=== PATIENT | female | born 1955 | race Caucasian/White ===

== ENCOUNTER 2016-10-02 12:33 | Observation (INO) | payer BC ==
[2016-10-02 13:20] VITALS: BMI 30.1
--- NOTE | 2016-10-02 15:26 | C.PDOC ---
History Of Present Illness The patient, a 61 y/o female, was referred to the emergency department by range mechanic for evaluation of a worsening left foot infection. Patient states she is s/p Omnicef for 1 week. Patient states she initially experienced redness to her lower leg. She states those symptoms have now improved but she now has new onset of pus discharge from her left 1st toe today. Patient is s/p I&D procedure prior to arrival, and was advised to come to the ER for IV antibiotics. Patient denies fever, nausea, vomiting, diarrhea. She reports history of DM. REFERRED BY PODIATRY FOR WORSENING L FOOT INFXN. S/P OMNICEF X 1 WEEK, PS INITIALY W REDNESS TO LOWER LEG. NOW IMPROVED BUT W NEW OSNET PUS DC FROM L 1 TOE TODAY. S/P I&D BY PODIATRY POWER GENERATION TECHNICIAN, ADVISED TO COME TO ER FOR IV ABX. NO FEVER, NVD. HO DM EXAM NAD NONTOXIC EXT L FOOT +DRAINING PARONYCHIA L 1 TOE W PURULENT DC; SKIN +CELLULITIS L 1 TOE NO LYMPHANGITIS Time Seen by Provider: 10/02/16 15:04 Chief Complaint (Nursing): Abnormal Skin Integrity History Per: Patient History/Exam Limitations: no limitations Onset/Duration Of Symptoms: Hrs Current Symptoms Are (Timing): Still Present Location Of Injury: Left: Foot Quality Of Symptoms: Draining Additional History Per: Patient Past Medical History Reviewed: Historical Data, Nursing Documentation, Vital Signs Vital Signs: Last Vital Signs Temp 98.2 F 10/02/16 13:20 Pulse 90 10/02/16 13:20 Resp 18 10/02/16 13:20 BP 110/60 10/02/16 13:20 Pulse Ox 98 10/02/16 16:31 - Medical History PMH: HTN, Hypercholesterolemia Surgical History: No Surg Hx Family History: States: Unknown Family Hx - Social History Hx Alcohol Use: No Hx Substance Use: No - Immunization History Hx Tetanus Toxoid Vaccination: Yes Hx Influenza Vaccination: Yes Hx Pneumococcal Vaccination: Yes Review Of Systems Except As Marked, All Systems Reviewed And Found Negative. Constitutional: Negative for: Fever, Chills Gastrointestinal: Negative for: Nausea, Vomiting, Diarrhea Skin: Positive for: Other (+discharge from L 1st toe ) Physical Exam - Physical Exam Appears: Non-toxic, No Acute Distress Skin: Warm, Dry, Other (+cellulitis to left 1st toe. no lymphangitis ) Head: Atraumatic, Normacephalic Eye(s): bilateral: Normal Inspection, EOMI Oral Mucosa: Moist Neck: Supple Chest: Symmetrical, No Deformity, No Tenderness Cardiovascular: Rhythm Regular, No Murmur Respiratory: Normal Breath Sounds, No Rales, No Rhonchi, No Wheezing Extremity: Normal ROM, Capillary Refill (less than 2 seconds), Other (left foot : +draining paronychia to left 1st toe with purulent discharge ) Pulses: Left Dorsalis Pedis: Normal, Right Dorsalis Pedis: Normal Neurological/Psych: Oriented x3, Normal Speech, Normal Cognition Gait: Steady ED Course And Treatment - Laboratory Results Result Diagrams: 10/02/16 17:14 10/02/16 17:14 O2 Sat by Pulse Oximetry: 98 (on RA) Pulse Ox Interpretation: Normal - Radiology CXR: Interpreted by Me CXR Interpretation: Yes: No Acute Disease - Other Rad L TOE X-Ray: Interpreted by Me (NEG) Progress Note: Labs, CXR, Left foot XR, EKG ordered and reviewed. Pt received Vancomycin IV. - Physician Consult Information Time Consulting Physician Contacted: 17:40 Physician Contacted: Chico Zambrano Disposition Counseled Patient/Family Regarding: Studies Performed, Diagnosis - Disposition Disposition: HOSPITALIZED Disposition Time: 17:40 Condition: STABLE - POA Present On Arrival: Poor Glycemic Control - Clinical Impression Clinical Impression: Cellulitis, Paronychia, Diabetes - Scribe Statement The provider has reviewed the documentation as recorded by the Scribe (Ilana Anderson) Provider Attestation: All medical record entries made by the Scribe were at my direction and personally dictated by me. I have reviewed the chart and agree that the record accurately reflects my personal performance of the history, physical exam, medical decision making, and the department course for this patient. I have also personally directed, reviewed, and agree with the discharge instructions and disposition. Decision To Admit - Pt Status Changed To: Hospital Disposition Of: Observation - . Bed Request Type: Regular Admitting Physician: Chico Zambrano Patient Diagnosis: Cellulitis, Paronychia
--- NOTE | 2016-10-02 16:51 | RAD ---
PROCEDURE: CHEST RADIOGRAPH, 1 VIEW HISTORY: MED CLEAR COMPARISON: None available. FINDINGS: LUNGS: Poor inspiration with low lung volumes, mild crowded bronchovascular markings and minor bibasilar atelectasis. PLEURA: No pneumothorax or pleural fluid seen. CARDIOVASCULAR: Normal. OSSEOUS STRUCTURES: No significant abnormalities. VISUALIZED UPPER ABDOMEN: Normal. OTHER FINDINGS: None. IMPRESSION: Poor inspiration with low lung volumes, mild crowded bronchovascular markings and minor bibasilar atelectasis.
--- NOTE | 2016-10-02 16:55 | RAD ---
PROCEDURE: Left great toe dated 10/02/2016 HISTORY: PARONYCHIA. Cellulitis HO DM RO FA COMPARISON: No prior study available for comparison TECHNIQUE: PA view of the left foot and 3 additional views of the left great toe performed. FINDINGS: The current study reveals no evidence of acute displaced fracture nor dislocation. The osseous structures appear grossly intact. No cortical destructive changes on seen at this time. There is mild hallux valgus deformity with overgrowth of the head of the 1st metatarsal and mild to moderate DJD 1st MTP joint with overlying mild medial soft tissue prominence. . There may be a small benign cystic focus within the distal aspect proximal phalanx great toe. . Soft tissues of the distal aspect great toe also prominent. Findings could represent cellulitis. Consider followup MRI for further evaluation if necessary. Vascular calcifications are present. IMPRESSION: No evidence of acute displaced fracture or dislocation. No definitive evidence of osteomyelitis however of prominent soft tissues suggest mild cellulitis. Consider followup MRI if early osteomyelitis suspected clinically.
[2016-10-02 17:21] LABS: BASO # 0.2 K/uL (0.0-0.2); EOS # 0.2 K/uL (0.0-0.7); EOS % 1.9 % (0.0-4.0); HEMATOCRIT 36.3 % (34.0-47.0); LYMPH # 3.4 K/uL (1.0-4.3); LYMPH % 38.6 % (20.0-40.0); MEAN CELL VOLUME 89.7 fL (81.0-99.0); MEAN CORPUSCULAR HEMOGLOBIN 29.3 pg (27.0-31.0); MEAN CORPUSCULAR HGB CONC 32.6 g/dL (33.0-37.0); MEAN PLATELET VOLUME 10.7 fL (7.2-11.7); MONO # 0.7 K/uL (0.0-0.8); MONO % 7.4 % (0.0-10.0); WHITE BLOOD COUNT 8.9 K/uL (4.8-10.8)
[2016-10-02 17:25] LABS: CHLORIDE 96 mmol/L (98-107); POTASSIUM 3.5 mmol/L (3.6-5.2); SODIUM 138 mmol/L (132-148)
[2016-10-02 17:28] LABS: BLOOD UREA NITROGEN 13 mg/dL (7-17); CARBON DIOXIDE 26 mmol/L (22-30); GFR AFRICAN-AMERICAN > 60
[2016-10-02 17:29] LABS: CALCIUM 8.9 mg/dl (8.6-10.4); GLUCOSE,RANDOM 340 mg/dL (65-105)
[2016-10-02] MEDS ORDERED: Potassium Chloride 20 mEq ER Tab PO STA (18:18)
--- NOTE | 2016-10-02 18:19 | CP.PCM.HP ---
<Tres Calvert - Last Filed: 10/02/16 20:02> History of Present Illness - History of Present Illness History of Present Illness: CC: Left big toe infection HPI: Patient is a 61 year old female with a pmh of NIDDM, HTN, and hyperlipedmia. She is here coming from her Podiatry office. She noticed some pain and swelling about a week ago with some purulent drainage. She went to her doctor's office where she was given PO antibiotics which she took for about a week.She says that after she sent to the joint yarner office today she has felt no more pain, after all the puss was removed from the site of infection. She denies having any changes in vision, hearing, fever, chills, nausea, vomiting, diarrhea, shortness of breathing, palpitations, chest pain, dysuria, lower leg swelling, dizziness, anxiety or depression. She reports taking her medication as prescribed. PMH: see above PSH: denies PFH: Mother and daughter DM SH: Patient is retired, lives with and currently denies smoking, etoh use, or illicit drug use Allergies: NDKA Present on Admission - Present on Admission Any Indicators Present on Admission: No History of DVT/PE: No History of Uncontrolled Diabetes: No Urinary Catheter: No Decubitus Ulcer Present: No Review of Systems - Review of Systems All systems: reviewed and no additional remarkable complaints except - Constitutional Constitutional: absent: Chills, Fever - EENT Eyes: absent: Change in Vision Ears: absent: Dizziness - Cardiovascular Cardiovascular: absent: Chest Pain, Edema, Palpitations - Respiratory Respiratory: absent: Dyspnea - Gastrointestinal Gastrointestinal: absent: Abdominal Pain, Diarrhea, Nausea, Vomiting - Genitourinary Genitourinary: absent: Dysuria - Musculoskeletal Musculoskeletal: absent: Numbness, Tingling - Integumentary Integumentary: Rash, Skin Pain, Skin Ulcer, Swelling. absent: Jaundice - Neurological Neurological: absent: Numbness, Headaches, Loss of Vision - Psychiatric Psychiatric: absent: Anxiety, Hopelessness, Irritability - Endocrine Endocrine: absent: Fatigue Past Patient History - Past Social History Smoking Status: Never Smoked - CARDIAC Hx Hypercholesterolemia: Yes Hx Hypertension: Yes - PSYCHIATRIC Hx Substance Use: No - SURGICAL HISTORY Hx Surgeries: Yes Other/Comment: lower leg surgery Meds Allergies/Adverse Reactions: Allergies Allergy/AdvReac Type Severity Reaction Status Date / Time No Known Allergies Allergy Verified 10/02/16 13:19 Physical Exam - Constitutional Appears: Non-toxic, No Acute Distress - Head Exam Head Exam: ATRAUMATIC, NORMAL INSPECTION, NORMOCEPHALIC - Eye Exam Eye Exam: Normal appearance, PERRL Pupil Exam: NORMAL ACCOMODATION - ENT Exam ENT Exam: Normal Exam - Neck Exam Neck exam: Positive for: Normal Inspection - Respiratory Exam Respiratory Exam: Clear to Auscultation Bilateral. absent: Rales, Rhonchi, Wheezes - Cardiovascular Exam Cardiovascular Exam: REGULAR RHYTHM, RRR, +S1, +S2. absent: Gallop, Rubs - GI/Abdominal Exam GI & Abdominal Exam: Normal Bowel Sounds. absent: Guarding, Rebound, Soft, Tenderness - Extremities Exam Extremities exam: Positive for: normal inspection. Negative for: pedal edema - Back Exam Back exam: NORMAL INSPECTION. absent: CVA tenderness (L), CVA tenderness (R) - Psychiatric Exam Psychiatric exam: Normal Affect, Normal Mood - Skin Skin Exam: Normal Color Results - Vital Signs Recent Vital Signs: Last Vital Signs Temp 98.2 F 10/02/16 13:20 Pulse 90 10/02/16 13:20 Resp 18 10/02/16 13:20 BP 110/60 10/02/16 13:20 Pulse Ox 98 10/02/16 17:41 - Labs Result Diagrams: 10/02/16 17:14 10/02/16 17:14 Assessment & Plan (1) Cellulitis Assessment and Plan: Patient was given Vancomycin in the Ed, lab work in the ED was unremarkable. She had an x-ray which showed no signs of osteomylitis. Follow up morning cbc, cmp,mag,phos, blood and wound culture, esr, and CRP. Follow up Podiatry consult Dr. Vegas, phone call was left with answering service with return number left. Vancomycin 1gram Q12H Zosyn 3.375gm Q8H Tylenol 650mg Q6H prn for pain Status: Acute (2) Hypokalemia Assessment and Plan: potassium 3.5, Kdur 20meq, follow up am cmp Status: Acute (3) Diabetes Assessment and Plan: katy BS was 340, follow up Hem A1C, accu checks and sliding scale medium protocol, continue home Trajenta 5mg. Continue Neurontin 300mg tid for neuropathy Status: Acute (4) HTN (hypertension) Assessment and Plan: Metoperolol 25mg bid, Ramapril 5mg, vital signs Q4H. Status: Acute (5) HLD (hyperlipidemia) Assessment and Plan: Continue statin and lethicin. Status: Acute (6) Prophylactic measure Assessment and Plan: Pepcid 20mg bid SCDs and Heparin 5000 units SC Q12H. Status: Acute <Zambrano,Peter H - Last Filed: 10/03/16 13:55> Results - Vital Signs Recent Vital Signs: Last Vital Signs Temp 98.4 F 10/03/16 08:54 Pulse 84 10/03/16 08:54 Resp 20 10/03/16 08:54 BP 130/74 10/03/16 09:30 Pulse Ox 95 10/03/16 08:54 - Labs Result Diagrams: 10/03/16 07:04 10/03/16 07:04 Labs: Laboratory Results - last 24 hr 10/02/16 10/02/16 10/03/16 21:04 21:28 07:04 WBC 7.8 RBC 3.97 Hgb 11.8 Hct 35.6 MCV 89.7 MCH 29.7 MCHC 33.2 RDW 13.3 Plt Count 289 MPV 10.9 Neut % (Auto) 47.0 L Lymph % (Auto) 40.8 H [place] % (Auto) 9.6 Eos % (Auto) 2.2 Baso % (Auto) 0.4 Neut # 3.7 Lymph # 3.2 [place] # 0.7 Eos # 0.2 Baso # 0.0 ESR 70 H Sodium 140 Potassium 3.4 L Chloride 98 Carbon Dioxide 24 Anion Gap 21 H BUN 12 Creatinine 0.5 L Est GFR ( Amer) > 60 Est GFR (Non-Af Amer) > 60 POC Glucose (mg/dL) 339 H Random Glucose 286 H Hemoglobin A1c 13.0 H Calcium 8.6 Total Bilirubin 1.7 H AST 19 ALT 20 Alkaline Phosphatase 58 C-React Prot High Sens > 15.00 H Total Protein 6.6 Albumin 3.5 Globulin 3.1 Albumin/Globulin Ratio 1.1 10/03/16 10/03/16 07:30 11:12 WBC RBC Hgb Hct MCV MCH MCHC RDW Plt Count MPV Neut % (Auto) Lymph % (Auto) [place] % (Auto) Eos % (Auto) Baso % (Auto) Neut # Lymph # [place] # Eos # Baso # ESR Sodium Potassium Chloride Carbon Dioxide Anion Gap BUN Creatinine Est GFR ( Amer) Est GFR (Non-Af Amer) POC Glucose (mg/dL) 307 H 336 H Random Glucose Hemoglobin A1c Calcium Total Bilirubin AST ALT Alkaline Phosphatase C-React Prot High Sens Total Protein Albumin Globulin Albumin/Globulin Ratio Attending/Attestation - Attestation I have personally seen and examined this patient.: Yes I have fully participated in the care of the patient.: Yes I have reviewed all pertinent clinical information: Yes Notes (Text): Medical Attending: Patient was seen and examined by me. Agree with the above note by the resident Patient was at podiatry office earlier in the day and was recommended to come to the hospital. XRAY by ER did not suggest osteomylitis. Abx have been started as well. She denied having any acute distress when we saw her in the ER. She explains that recently it was much worse and that she had been taking PO abx by podiatry and it was successful at bringing down the swelling and erethema so far but that she still had a lot of pus near her great toe and after it was drained by podiatry she was told to come to the ER thank you Chico Zambrano
[2016-10-02] MEDS ORDERED: Piperacillin/Tazobact 3.375 GM in Sodium Chloride 100 ML IVPB SCH (18:30)
[2016-10-02] MEDS ORDERED: Potassium Chloride 20 mEq ER Tab PO ONE (18:36)
[2016-10-02 19:23] VITALS: RESP 20
[2016-10-02] MEDS ORDERED: Vancomycin 1 gm/NS 200 ml 200 ML IVPB SCH (19:30)
[2016-10-02] MEDS: Piperacill/Tazo 3.375gm in Dex 50 ML IVPB SCH (21:17)
[2016-10-03] MEDS: Piperacill/Tazo 3.375gm in Dex 50 ML IVPB SCH ×4 (01:00→19:53)
[2016-10-03] MEDS: Vancomycin 1 gm/NS 200 ml 200 ML IVPB SCH ×2 (04:30→18:09)
[2016-10-03 07:18] LABS: BASO % 0.4 % (0.0-2.0); EOS # 0.2 K/uL (0.0-0.7); EOS % 2.2 % (0.0-4.0); HEMATOCRIT 35.6 % (34.0-47.0); LYMPH # 3.2 K/uL (1.0-4.3); LYMPH % 40.8 % (20.0-40.0); MEAN CELL VOLUME 89.7 fL (81.0-99.0); MEAN CORPUSCULAR HEMOGLOBIN 29.7 pg (27.0-31.0); MEAN CORPUSCULAR HGB CONC 33.2 g/dL (33.0-37.0); MEAN PLATELET VOLUME 10.9 fL (7.2-11.7); MONO # 0.7 K/uL (0.0-0.8); MONO % 9.6 % (0.0-10.0); RED CELL DISTRIBUTION WIDTH 13.3 % (11.5-14.5); WHITE BLOOD COUNT 7.8 K/uL (4.8-10.8)
[2016-10-03 07:54] LABS: CHLORIDE 98 mmol/L (98-107); POTASSIUM 3.4 mmol/L (3.6-5.2); SODIUM 140 mmol/L (132-148)
[2016-10-03 07:56] LABS: GFR AFRICAN-AMERICAN > 60
[2016-10-03 07:57] LABS: ALB/GLOB RATIO 1.1 (1.0-2.1); ALKALINE PHOSPHATASE 58 U/L (38-126); ALT/SGPT 20 U/L (9-52); AST/SGOT 19 U/L (14-36); BILIRUBIN,TOTAL 1.7 mg/dL (0.2-1.3); BLOOD UREA NITROGEN 12 mg/dL (7-17); CARBON DIOXIDE 24 mmol/L (22-30); GLUCOSE,RANDOM 286 mg/dL (65-105); TOTAL PROTEIN 6.6 g/dL (6.3-8.3)
[2016-10-03 07:58] LABS: CALCIUM 8.6 mg/dl (8.6-10.4)
[2016-10-03] MEDS: (Novolin R) Insulin Human Regular 100 units/ml vial SC SCH ×4 (08:16→21:44)
[2016-10-03] MEDS ORDERED: LECITHIN 1200 MG PO SCH (10:00)
[2016-10-03] MEDS ORDERED: Home Med 1 UNIT (Linagliptin [Tradjenta] 1 TAB) PO SCH (10:00)
--- NOTE | 2016-10-03 14:29 | CP.PCM.CON ---
History of Present Illness - History of Present Illness History of Present Illness: PODIATRY CONSULT NOTE 61 year-old female patient seen at bedside concerning pain in left hallux. Pt states she noticed pain and swelling about a week ago with some purulent drainage. Her regular obiee report developer gave her PO antibiotics which she took for about a week. On Sunday10/02/16 he followed up with her obiee report developer who performed a slantback nail avulsion and recommended her to come to hospital for IV abx as celllutis of hallux had not regressed. Pt reports since admission the redness and swelling to the area has regressed. The patient denies recent fever , chills, nausea, vomiting, chest pain or shortness of breath Past Patient History - Past Medical History & Family History Past Medical History?: Yes - Past Social History Smoking Status: Never Smoked - CARDIAC Hx Hypercholesterolemia: Yes Hx Hypertension: Yes - MUSCULOSKELETAL/RHEUMATOLOGICAL Hx Falls: Yes - PSYCHIATRIC Hx Substance Use: No - SURGICAL HISTORY Hx Surgeries: Yes Other/Comment: lower leg surgery Meds Allergies/Adverse Reactions: Allergies Allergy/AdvReac Type Severity Reaction Status Date / Time No Known Allergies Allergy Verified 10/02/16 13:19 - Medications Medications: Current Medications Acetaminophen (Tylenol 325mg Tab) 650 mg PO Q6 PRN PRN Reason: Pain, severe (8-10) Last Admin: 10/02/16 21:19 Dose: 650 mg Enalapril Maleate (Vasotec) 10 mg PO DAILY [facility] Last Admin: 10/03/16 09:30 Dose: 10 mg Famotidine (Pepcid) 20 mg PO BID [facility] Last Admin: 10/03/16 13:09 Dose: Not Given Gabapentin (Neurontin) 300 mg PO BID [facility] Last Admin: 10/03/16 09:26 Dose: 300 mg Heparin Sodium (Porcine) (Heparin) 5,000 units SC Q12 [facility] Last Admin: 10/03/16 09:26 Dose: 5,000 units Home Med (Lecithin) 1,200 mg PO DAILY [facility] Home Med (Linagliptin [Tradjenta]) 1 tab PO DAILY [facility] Piperacillin Sod/Tazobactam Sod (Zosyn 3.375 Gm Iv Premix) 50 mls @ 100 mls/hr IVPB Q6H [facility] Last Admin: 10/03/16 13:32 Dose: 100 mls/hr Vancomycin/Sodium Chloride (Vancocin) 200 mls @ 133 mls/hr IVPB Q12H [facility] Stop: 10/08/16 05:31 Last Admin: 10/03/16 04:30 Dose: 133 mls/hr Insulin Human Regular (Novolin R) 0 unit SC ACHS [facility] PRN Reason: Protocol Last Admin: 10/03/16 13:29 Dose: 6 unit Metoprolol Tartrate (Lopressor) 25 mg PO DAILY [facility] Last Admin: 10/03/16 09:29 Dose: 25 mg Prasugrel (Effient) 10 mg PO DAILY [facility] Last Admin: 10/03/16 09:25 Dose: 10 mg Rosuvastatin Calcium (Crestor) 20 mg PO HS [facility] Last Admin: 10/02/16 21:18 Dose: 20 mg Physical Exam - Constitutional Appears: Well, Non-toxic, No Acute Distress - Extremities Exam Additional comments: Left lower extremity focused. VASCULAR: Dorsalis pedis and posterior tibial artery pulses are fully palpable , graded 2/4. No edema noted to the lower extremity. Capillary refill time was less than 3 seconds to all 5 digits. No calf tenderness noted. DERMATOLOGICAL: Left medial hallux border is noted to be erythematous with minor purulent discharged on expungement. Medial nail fold covered with serous crust. Tender to palpation, edematous, with mild erythema extending proximally along medial digit border to level of 1st metatarso-phalangeal joint. . All other nails are normotrophic. Medial nail border is asymptomatic. No open wounds, lesions or inter-digital macerations noted. NEUROLOGICAL: Protective sensation is grossly intact. ORTHOPEDIC: Pedal muscle strength is graded 5/5 in all 4 major pedal muscle groups. No gross deformities noted. - Neurological Exam Neurological exam: Alert, Oriented x3 - Psychiatric Exam Psychiatric exam: Normal Affect, Normal Mood Results - Vital Signs Recent Vital Signs: Last Vital Signs Temp 98.4 F 10/03/16 08:54 Pulse 84 10/03/16 08:54 Resp 20 10/03/16 08:54 BP 130/74 10/03/16 09:30 Pulse Ox 95 10/03/16 08:54 - Labs Result Diagrams: 10/03/16 07:04 10/03/16 07:04 Labs: Laboratory Results - last 24 hr 10/02/16 10/02/16 10/03/16 21:04 21:28 07:04 WBC 7.8 RBC 3.97 Hgb 11.8 Hct 35.6 MCV 89.7 MCH 29.7 MCHC 33.2 RDW 13.3 Plt Count 289 MPV 10.9 Neut % (Auto) 47.0 L Lymph % (Auto) 40.8 H [place] % (Auto) 9.6 Eos % (Auto) 2.2 Baso % (Auto) 0.4 Neut # 3.7 Lymph # 3.2 [place] # 0.7 Eos # 0.2 Baso # 0.0 ESR 70 H Sodium 140 Potassium 3.4 L Chloride 98 Carbon Dioxide 24 Anion Gap 21 H BUN 12 Creatinine 0.5 L Est GFR ( Amer) > 60 Est GFR (Non-Af Amer) > 60 POC Glucose (mg/dL) 339 H Random Glucose 286 H Hemoglobin A1c 13.0 H Calcium 8.6 Total Bilirubin 1.7 H AST 19 ALT 20 Alkaline Phosphatase 58 C-React Prot High Sens > 15.00 H Total Protein 6.6 Albumin 3.5 Globulin 3.1 Albumin/Globulin Ratio 1.1 10/03/16 10/03/16 07:30 11:12 WBC RBC Hgb Hct MCV MCH MCHC RDW Plt Count MPV Neut % (Auto) Lymph % (Auto) [place] % (Auto) Eos % (Auto) Baso % (Auto) Neut # Lymph # [place] # Eos # Baso # ESR Sodium Potassium Chloride Carbon Dioxide Anion Gap BUN Creatinine Est GFR ( Amer) Est GFR (Non-Af Amer) POC Glucose (mg/dL) 307 H 336 H Random Glucose Hemoglobin A1c Calcium Total Bilirubin AST ALT Alkaline Phosphatase C-React Prot High Sens Total Protein Albumin Globulin Albumin/Globulin Ratio Assessment & Plan - Assessment and Plan (Free Text) Assessment: Left hallux, paronychia of medial border. Plan: Patient was evaluated and treated bedside. Chart, labs, and vitals were reviewed. Discussed with attending, Dr. Vegas. Radiographs reviewed,noted as unremarkable. Pt appears to be responding to iv abx. Continue IV abx. -Dressed wound site with betadine, 4x4 sherine, kerlix. -Tomorrow in AM partial medial border nail avulsion to be performed to relieve potential offending nail and explore for potential unexplored abscess. Podiatry will continue to follow patient while inhouse. Thank you for allowing podiatry to partake in the care of this patient. - Date & Time Date: 10/03/16 Time: 15:00
--- NOTE | 2016-10-03 16:11 | CP.PCM.PN ---
<Stephanie Cutler - Last Filed: 10/03/16 16:08> Subjective - Date & Time of Evaluation Date of Evaluation: 10/03/16 Time of Evaluation: 07:45 - Subjective Subjective: Internal medicine progress note for Dr. Zambrano- Stephanie Cutler, PGY-1 Pt S & E at bedside. Pt reports no problems overnight. Right toe pain significant improved, swelling significantly improved. Denies N/V/F/C, SOB, CP, ab pain. Slept ok. Eating ok. Moving bowels ok. Pt reports she had a flight [place] for to [place] that she would like to be discharged prior to. Objective - Vital Signs/Intake and Output Vital Signs (last 24 hours): Temp Pulse Resp BP Pulse Ox 98.4 F 84 20 130/74 95 10/03/16 08:54 10/03/16 08:54 10/03/16 08:54 10/03/16 09:30 10/03/16 08:54 Intake and Output: 10/03/16 10/03/16 06:59 18:59 Intake Total 600 300 Balance 600 300 - Medications Medications: Current Medications Acetaminophen (Tylenol 325mg Tab) 650 mg PO Q6 PRN PRN Reason: Pain, severe (8-10) Last Admin: 10/02/16 21:19 Dose: 650 mg Enalapril Maleate (Vasotec) 10 mg PO DAILY [facility] Last Admin: 10/03/16 09:30 Dose: 10 mg Famotidine (Pepcid) 20 mg PO BID [facility] Last Admin: 10/03/16 13:09 Dose: Not Given Gabapentin (Neurontin) 300 mg PO BID [facility] Last Admin: 10/03/16 09:26 Dose: 300 mg Heparin Sodium (Porcine) (Heparin) 5,000 units SC Q12 [facility] Last Admin: 10/03/16 09:26 Dose: 5,000 units Home Med (Lecithin) 1,200 mg PO DAILY [facility] Home Med (Linagliptin [Tradjenta]) 1 tab PO DAILY [facility] Piperacillin Sod/Tazobactam Sod (Zosyn 3.375 Gm Iv Premix) 50 mls @ 100 mls/hr IVPB Q6H [facility] Last Admin: 10/03/16 13:32 Dose: 100 mls/hr Vancomycin/Sodium Chloride (Vancocin) 200 mls @ 133 mls/hr IVPB Q12H [facility] Stop: 10/08/16 05:31 Last Admin: 10/03/16 04:30 Dose: 133 mls/hr Insulin Human Regular (Novolin R) 0 unit SC ACHS [facility] PRN Reason: Protocol Last Admin: 10/03/16 13:29 Dose: 6 unit Metoprolol Tartrate (Lopressor) 25 mg PO DAILY [facility] Last Admin: 10/03/16 09:29 Dose: 25 mg Prasugrel (Effient) 10 mg PO DAILY [facility] Last Admin: 10/03/16 09:25 Dose: 10 mg Rosuvastatin Calcium (Crestor) 20 mg PO HS [facility] Last Admin: 10/02/16 21:18 Dose: 20 mg - Labs Labs: 10/03/16 07:04 10/03/16 07:04 - Constitutional Appears: Non-toxic, No Acute Distress - Head Exam Head Exam: ATRAUMATIC, NORMAL INSPECTION, NORMOCEPHALIC - Eye Exam Eye Exam: EOMI, Normal appearance, PERRL Pupil Exam: NORMAL ACCOMODATION, PERRL - ENT Exam ENT Exam: Mucous Membranes Moist, Normal Exam - Neck Exam Neck Exam: Full ROM, Normal Inspection - Respiratory Exam Respiratory Exam: Clear to Ausculation Bilateral, NORMAL BREATHING PATTERN - Cardiovascular Exam Cardiovascular Exam: REGULAR RHYTHM, +S1, +S2 - GI/Abdominal Exam GI & Abdominal Exam: Soft, Normal Bowel Sounds. absent: Tenderness - Extremities Exam Extremities Exam: Full ROM, Tenderness (minimal, over R hallux) - Back Exam Back Exam: Full ROM, NORMAL INSPECTION - Neurological Exam Neurological Exam: Alert, Awake, CN II-XII Intact, Oriented x3 - Psychiatric Exam Psychiatric exam: Normal Affect, Normal Mood - Skin Skin Exam: Dry, Erythema, Warm. absent: Normal Color (Right hallux w/erythema, some tenderness, some ecchymoses over medial aspect, blood visible at lateral nail bed, no induration palpable) Assessment and Plan - Assessment and Plan (Free Text) Assessment: Cellulitis of Right hallux Afebrile over 24H No leukocytosis R foot x-ray neg for osteomyelitis, sig for soft tissue cellulitis FU Blood cxr FU wound cxr CRP >15 ESR 70 Vancomycin 1gram Q12H Zosyn 3.375gm Q8H Tylenol 650mg Q6H prn for pain Podiatry following Hypokalemia K 3.4 Replaced K 20mEq Diabetes A1c 13 Cont Linagliptin ISS Cont Neurontin 300mg tid for neuropathy Accuchecks Diabetic diet education provided to patient HTN (hypertension) BP 130/74- controlled Cont Metoperolol 25mg bid Cont Ramapril 5mg HLD (hyperlipidemia) Continue statin and lethicin. Prophylactic measure Pepcid 20mg bid SCDs Heparin 5000 units SC Q12H Dispo Podiatry to do bedside nail excision in AM Possible D/C home tomorrow afternoon DW attending <Chico Zambrano H - Last Filed: 10/03/16 16:35> Objective - Vital Signs/Intake and Output Vital Signs (last 24 hours): Temp Pulse Resp BP Pulse Ox 98.4 F 84 20 130/74 95 10/03/16 08:54 10/03/16 08:54 10/03/16 08:54 10/03/16 09:30 10/03/16 08:54 Intake and Output: 10/03/16 10/03/16 06:59 18:59 Intake Total 600 300 Balance 600 300 - Medications Medications: Current Medications Acetaminophen (Tylenol 325mg Tab) 650 mg PO Q6 PRN PRN Reason: Pain, severe (8-10) Last Admin: 10/02/16 21:19 Dose: 650 mg Enalapril Maleate (Vasotec) 10 mg PO DAILY [facility] Last Admin: 10/03/16 09:30 Dose: 10 mg Famotidine (Pepcid) 20 mg PO BID [facility] Last Admin: 10/03/16 13:09 Dose: Not Given Gabapentin (Neurontin) 300 mg PO BID [facility] Last Admin: 10/03/16 09:26 Dose: 300 mg Heparin Sodium (Porcine) (Heparin) 5,000 units SC Q12 [facility] Last Admin: 10/03/16 09:26 Dose: 5,000 units Home Med (Lecithin) 1,200 mg PO DAILY [facility] Home Med (Linagliptin [Tradjenta]) 1 tab PO DAILY [facility] Piperacillin Sod/Tazobactam Sod (Zosyn 3.375 Gm Iv Premix) 50 mls @ 100 mls/hr IVPB Q6H [facility] Last Admin: 10/03/16 13:32 Dose: 100 mls/hr Vancomycin/Sodium Chloride (Vancocin) 200 mls @ 133 mls/hr IVPB Q12H [facility] Stop: 10/08/16 05:31 Last Admin: 10/03/16 04:30 Dose: 133 mls/hr Insulin Human Regular (Novolin R) 0 unit SC ACHS [facility] PRN Reason: Protocol Last Admin: 10/03/16 13:29 Dose: 6 unit Metoprolol Tartrate (Lopressor) 25 mg PO DAILY [facility] Last Admin: 10/03/16 09:29 Dose: 25 mg Prasugrel (Effient) 10 mg PO DAILY [facility] Last Admin: 10/03/16 09:25 Dose: 10 mg Rosuvastatin Calcium (Crestor) 20 mg PO HS [facility] Last Admin: 10/02/16 21:18 Dose: 20 mg - Labs Labs: 10/03/16 07:04 10/03/16 07:04 Attending/Attestation - Attestation I have personally seen and examined this patient.: Yes I have fully participated in the care of the patient.: Yes I have reviewed all pertinent clinical information, including history, physical exam and plan: Yes Notes (Text): 10/03/16 16:34 Medical Attending: Patient was seen and examined by me. Agree with the above note by the resident. The patient explained she felt ok overnight, podiatry is planning on removing the nail of the infected great toe tommorow. In the mean time continue with IV abx thank you Chico Zambrano
[2016-10-03] MEDS ORDERED: Potassium Chloride 20 mEq ER Tab PO ONE (16:15)
--- NOTE | 2016-10-03 19:59 | CARD ---
APPROVED REPORT EKG Measurement Heart [id number] <Conclusion> Normal sinus rhythm Nonspecific ST abnormality Abnormal ECG
[2016-10-04] MEDS: Piperacill/Tazo 3.375gm in Dex 50 ML IVPB SCH ×3 (01:37→13:41)
[2016-10-04] MEDS: Vancomycin 1 gm/NS 200 ml 200 ML IVPB SCH (05:27)
[2016-10-04] MEDS: (Novolin R) Insulin Human Regular 100 units/ml vial SC SCH ×2 (08:30→12:35)
[2016-10-04] MEDS ORDERED: Home Med 1 UNIT (Linagliptin [Tradjenta] 1 TAB) PO SCH ×4 (10:00→12:15)
[2016-10-04] MEDS ORDERED: LECITHIN 1200 MG PO SCH ×4 (10:00→12:15)
[2016-10-04 11:43] LABS: BASO % 0.4 % (0.0-2.0); EOS # 0.2 K/uL (0.0-0.7); EOS % 1.7 % (0.0-4.0); HEMATOCRIT 35.4 % (34.0-47.0); LYMPH # 3.6 K/uL (1.0-4.3); LYMPH % 38.6 % (20.0-40.0); MEAN CELL VOLUME 89.5 fL (81.0-99.0); MEAN CORPUSCULAR HEMOGLOBIN 29.5 pg (27.0-31.0); MONO # 0.8 K/uL (0.0-0.8); MONO % 8.3 % (0.0-10.0); WHITE BLOOD COUNT 9.4 K/uL (4.8-10.8)
[2016-10-04] MEDS ORDERED: Lidocaine 1% Inj (20ml) INFIL ONE (11:47)
--- NOTE | 2016-10-04 11:50 | CP.PCM.PN ---
Subjective - Date & Time of Evaluation Date of Evaluation: 10/04/16 Time of Evaluation: 11:50 - Subjective Subjective: 61 y/o female patient seen and evaluated at bedside for follow up on left foot hallux paronychia. Patient was resting comfortably in bed and in NAD. Patient states that she has pain at medial border of left foot hallux toe nail plate. left foot was dressed with DSD and intact, clean and dry. Patient's presents at bedside. Patient denies any symptoms of N/V/F/SOB/Chest pain. Objective - Vital Signs/Intake and Output Vital Signs (last 24 hours): Temp Pulse Resp BP Pulse Ox 97.2 F L 71 20 130/77 98 10/04/16 07:47 10/04/16 07:47 10/04/16 07:47 10/04/16 07:47 10/04/16 07:47 Intake and Output: 10/04/16 10/04/16 06:59 18:59 Intake Total 480 Balance 480 - Medications Medications: Current Medications Acetaminophen (Tylenol 325mg Tab) 650 mg PO Q6 PRN PRN Reason: Pain, severe (8-10) Last Admin: 10/04/16 05:34 Dose: 650 mg Bacitracin (Bacitracin) 0 gm TOP DAILY [facility] Enalapril Maleate (Vasotec) 10 mg PO DAILY [facility] Last Admin: 10/03/16 09:30 Dose: 10 mg Famotidine (Pepcid) 20 mg PO BID [facility] Last Admin: 10/03/16 18:05 Dose: 20 mg Gabapentin (Neurontin) 300 mg PO BID [facility] Last Admin: 10/03/16 18:05 Dose: 300 mg Heparin Sodium (Porcine) (Heparin) 5,000 units SC Q12 [facility] Last Admin: 10/03/16 21:30 Dose: 5,000 units Home Med (Lecithin) 1,200 mg PO DAILY [facility] Home Med (Linagliptin [Tradjenta]) 1 tab PO DAILY [facility] Piperacillin Sod/Tazobactam Sod (Zosyn 3.375 Gm Iv Premix) 50 mls @ 100 mls/hr IVPB Q6H [facility] Last Admin: 10/04/16 06:32 Dose: 100 mls/hr Vancomycin/Sodium Chloride (Vancocin) 200 mls @ 133 mls/hr IVPB Q12H [facility] Stop: 10/08/16 05:31 Last Admin: 10/04/16 05:27 Dose: 133 mls/hr Insulin Human Regular (Novolin R) 0 unit SC ACHS [facility] PRN Reason: Protocol Last Admin: 10/04/16 08:30 Dose: 6 unit Lidocaine HCl (Lidocaine 1%) 20 ml INFIL ONCE ONE Stop: 10/04/16 11:48 Metoprolol Tartrate (Lopressor) 25 mg PO DAILY [facility] Last Admin: 10/03/16 09:29 Dose: 25 mg Prasugrel (Effient) 10 mg PO DAILY [facility] Last Admin: 10/03/16 09:25 Dose: 10 mg Rosuvastatin Calcium (Crestor) 20 mg PO HS [facility] Last Admin: 10/03/16 21:30 Dose: 20 mg - Labs Labs: 10/04/16 11:33 10/03/16 07:04 - Constitutional Appears: Well, Non-toxic, No Acute Distress - Extremities Exam Additional comments: Left lower extremity focused. VASCULAR: Dorsalis pedis and posterior tibial artery pulses are fully palpable , graded 2/4. No edema noted to the lower extremity. Capillary refill time was less than 3 seconds to all 5 digits. No calf tenderness noted. DERMATOLOGICAL: Left medial hallux border is noted to be erythematous with minor purulent discharged on expungement. Medial nail fold covered with serous crust. Tender to palpation, edematous, with mild erythema extending proximally along medial digit border to level of 1st metatarso-phalangeal joint. . All other nails are normotrophic. Medial nail border is asymptomatic. No open wounds, lesions or inter-digital macerations noted. NEUROLOGICAL: Protective sensation is grossly intact. ORTHOPEDIC: Pedal muscle strength is graded 5/5 in all 4 major pedal muscle groups. No gross deformities noted. - Neurological Exam Neurological Exam: Alert, Awake - Psychiatric Exam Psychiatric exam: Normal Affect, Normal Mood Assessment and Plan - Assessment and Plan (Free Text) Assessment: 61 y/o female patient with paronychia of medial border of hallux left foot Plan: Patient seen and evaluated at bedside All the questions and concerns were addressed Discussed with attending Dr. Vegas Left foot was cleansed with sterile saline solution Left hallux was injected with 6 ml of 1% Lidocaine plain as hallux block Medial border of left foot hallux nail plate was removed with sterile nail kit. Patient tolerated the procedure well The procedure site was dressed with Bacitracin and DSD. Advised patient to follow up with [facility] Podiatry clinic next Sunday morning Surgical shoe will be dispensed Dressing change instruction was given. Podiatry standpoint: Patient is stable to be discharged home
[2016-10-04 11:54] LABS: CHLORIDE 98 mmol/L (98-107); POTASSIUM 3.5 mmol/L (3.6-5.2); SODIUM 138 mmol/L (132-148)
[2016-10-04 11:56] LABS: BILIRUBIN,TOTAL 1.6 mg/dL (0.2-1.3); CARBON DIOXIDE 23 mmol/L (22-30); GFR AFRICAN-AMERICAN > 60
[2016-10-04 11:57] LABS: ALB/GLOB RATIO 1.1 (1.0-2.1); ALKALINE PHOSPHATASE 60 U/L (38-126); ALT/SGPT 18 U/L (9-52); AST/SGOT 13 U/L (14-36); BLOOD UREA NITROGEN 14 mg/dL (7-17); CALCIUM 9.2 mg/dl (8.6-10.4); GLUCOSE,RANDOM 342 mg/dL (65-105); TOTAL PROTEIN 6.9 g/dL (6.3-8.3)
[2016-10-04] MEDS ORDERED: Bacitracin Ointment 30 GM TUBE TOP SCH (12:00)
--- NOTE | 2016-10-04 14:45 | CP.PCM.DIS ---
<Stephanie Cutler - Last Filed: 10/04/16 15:11> Provider - Provider Date of Admission: 10/02/16 17:41 Attending physician: Chico Zambrano DO Primary care physician: Talib Medley Consults: PodiatryMitesh Vegas Time Spent in preparation of Discharge (in minutes): 60 Hospital Course - Lab Results Lab Results: Most Recent Lab Values WBC 9.4 K/uL (4.8-10.8) 10/04/16 11:33 RBC 3.96 Mil/uL (3.80-5.20) 10/04/16 11:33 Hgb 11.7 g/dL (11.0-16.0) 10/04/16 11:33 Hct 35.4 % (34.0-47.0) 10/04/16 11:33 MCV 89.5 fL (81.0-99.0) 10/04/16 11:33 MCH 29.5 pg (27.0-31.0) 10/04/16 11:33 MCHC 33.0 g/dL (33.0-37.0) 10/04/16 11:33 RDW 13.0 % (11.5-14.5) 10/04/16 11:33 Plt Count 323 K/uL (130-400) 10/04/16 11:33 MPV 11.0 fL (7.2-11.7) 10/04/16 11:33 Neut % (Auto) 51.0 % (50.0-75.0) 10/04/16 11:33 Lymph % (Auto) 38.6 % (20.0-40.0) 10/04/16 11:33 Gulf % (Auto) 8.3 % (0.0-10.0) 10/04/16 11:33 Eos % (Auto) 1.7 % (0.0-4.0) 10/04/16 11:33 Baso % (Auto) 0.4 % (0.0-2.0) 10/04/16 11:33 Neut # 4.8 K/uL (1.8-7.0) 10/04/16 11:33 Lymph # 3.6 K/uL (1.0-4.3) 10/04/16 11:33 Gulf # 0.8 K/uL (0.0-0.8) 10/04/16 11:33 Eos # 0.2 K/uL (0.0-0.7) 10/04/16 11:33 Baso # 0.0 K/uL (0.0-0.2) 10/04/16 11:33 ESR 70 mm/hr (0-20) H 10/02/16 21:04 Sodium 138 mmol/L (132-148) 10/04/16 11:33 Potassium 3.5 mmol/L (3.6-5.2) L 10/04/16 11:33 Chloride 98 mmol/L (98-107) 10/04/16 11:33 Carbon Dioxide 23 mmol/L (22-30) 10/04/16 11:33 Anion Gap 20 (10-20) 10/04/16 11:33 BUN 14 mg/dL (7-17) 10/04/16 11:33 Creatinine 0.6 MG/DL (0.7-1.2) L 10/04/16 11:33 Est GFR ( Amer) > 60 10/04/16 11:33 Est GFR (Non-Af Amer) > 60 10/04/16 11:33 POC Glucose (mg/dL) 303 mg/dL (65-110) H 10/04/16 11:12 Random Glucose 342 mg/dL (65-105) H 10/04/16 11:33 Hemoglobin A1c 13.0 % (4.2-6.5) H 10/03/16 07:04 Calcium 9.2 mg/dl (8.6-10.4) 10/04/16 11:33 Total Bilirubin 1.6 mg/dL (0.2-1.3) H 10/04/16 11:33 AST 13 U/L (14-36) L D 10/04/16 11:33 ALT 18 U/L (9-52) 10/04/16 11:33 Alkaline Phosphatase 60 U/L (38-126) 10/04/16 11:33 C-React Prot High Sens > 15.00 mg/L (1.00-3.00) H 10/02/16 21:04 Total Protein 6.9 g/dL (6.3-8.3) 10/04/16 11:33 Albumin 3.6 g/dL (3.5-5.0) 10/04/16 11:33 Globulin 3.3 gm/dL (2.2-3.9) 10/04/16 11:33 Albumin/Globulin Ratio 1.1 (1.0-2.1) 10/04/16 11:33 - Hospital Course Hospital Course: Patient is a 61 year old female with a pmh of NIDDM, HTN, and hyperlipedmia. She is here coming from her Podiatry office. She noticed some pain and swelling about a week ago with some purulent drainage. 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 She denies having any changes in vision, hearing, fever, chills, nausea, vomiting, diarrhea , shortness of breathing, palpitations, chest pain, dysuria, lower leg swelling , dizziness, anxiety or depression. She reports taking her medication as prescribed. Patient admitted to hospital for IV antibiotics and evaluation for possible osteomyelitis of left hallux. Imaging studies negative for osteomyelitis. Patient with transient hypokalemia- treated and resolved. Patient evaluated for diabetic status- Hemoglobin A1c was 13. Patient instructed to decrease dietary intake of sugar. Dietary referral placed. Patient instructed to follow up with primary care for better diabetic sugar control. Patient's blood pressure was appropriately controlled during hospital stay. Continued patient on home medications for both blood pressure and hyperlipidemia. Patient was seen /evaluated by podiatry with nail plate medial border excision performed at bedside. Patient instructed on wound care as per podiatry. Patient stable, ready and cleared for discharge home as per podiatry and medicine teams. Patient will be discharged on antibiotic for soft tissue infection. Patient to follow up with podiatry on Sunday, was instructed to follow up with PMD- Dr. Medley next week. Patient provided a note to miss airline flight. Diagnoses: Left hallux cellulitis, paronychia, Diabetes, hyperlipidemia, hypertension, transient hypokalemia, CAD Please see EMR for complete details of hospital stay. - Date & Time of H&P Date of H&P: 10/02/16 Time of H&P: 18:19 Discharge Exam - Head Exam Head Exam: ATRAUMATIC, NORMAL INSPECTION, NORMOCEPHALIC - Eye Exam Eye Exam: EOMI, Normal appearance, PERRL Pupil Exam: NORMAL ACCOMODATION, PERRL - ENT Exam ENT Exam: Mucous Membranes Moist, Normal Exam - Neck Exam Neck exam: Full Rom, Normal Inspection - Respiratory Exam Respiratory Exam: Clear to PA & Lateral, NORMAL BREATHING PATTERN, UNREMARKABLE - Cardiovascular Exam Cardiovascular Exam: REGULAR RHYTHM, +S1, +S2 - GI/Abdominal Exam GI & Abdominal Exam: Normal Bowel Sounds, Soft, Unremarkable. absent: Tenderness - Extremities Exam Extremities exam: full ROM, normal inspection, tenderness (over dorsal aspect of left lateral foot, minimal, no swelling or deformity noted) - Back Exam Back exam: FULL ROM, NORMAL INSPECTION - Neurological Exam Neurological exam: Alert, CN II-XII Intact, Oriented x3 - Psychiatric Exam Psychiatric exam: Normal Affect, Normal Mood - Skin Skin Exam: Dry, Normal Color, Warm Additional comments: Left hallux with dressing in place- unable to assess, dressing Clean and dry, intact. Discharge Plan - Discharge Medications Prescriptions: Cephalexin [Keflex] 500 mg PO BID #14 capsule - Follow Up Plan Condition: STABLE Disposition: HOME/ ROUTINE Instructions: Cephalexin (By mouth), Paronychia (GEN), Cellulitis (DC), Diabetic Foot Care (DC), Meal Planning with Diabetes Exchanges (DC) Additional Instructions: Patient stable and cleared for discharge from podiatry and Dr. Zambrano. Patient is to take an antibiotic- Keflex 500mg twice a day for 7 days - please be sure to completely finish the prescription for your toe infection. Ok to shower- wound care instructions as per podiatry. Patient is to follow up with their primary care physician within 1 week of discharge. Please ask your primary care doctor about adjusting your diabetic medications or diabetic dietary changes you can make to control your blood sugars. Please return to hospital if you have a recurrence of symptoms. Referrals: Sander Lujan MD [Staff Provider] - <Chico Zambrano - Last Filed: 10/04/16 16:58> Provider - Provider Date of Admission: 10/02/16 17:41 Attending physician: Chico Zambrano, DO Hospital Course - Lab Results Lab Results: Most Recent Lab Values WBC 9.4 K/uL (4.8-10.8) 10/04/16 11:33 RBC 3.96 Mil/uL (3.80-5.20) 10/04/16 11:33 Hgb 11.7 g/dL (11.0-16.0) 10/04/16 11: Hct 35.4 % (34.0-47.0) 10/04/16 11: MCV 89.5 fL (81.0-99.0) 10/04/16 11: MCH 29.5 pg (27.0-31.0) 10/04/16 11: MCHC 33.0 g/dL (33.0-37.0) 10/04/16 11:33 RDW 13.0 % (11.5-14.5) 10/04/16 11: Plt Count 323 K/uL (130-400) 10/04/16 11: MPV 11.0 fL (7.2-11.7) 10/04/16 11:33 Neut % (Auto) 51.0 % (50.0-75.0) 10/04/16 11: Lymph % (Auto) 38.6 % (20.0-40.0) 10/04/16 11:33 Gulf % (Auto) 8.3 % (0.0-10.0) 10/04/16 11: Eos % (Auto) 1.7 % (0.0-4.0) 10/04/16 11: Baso % (Auto) 0.4 % (0.0-2.0) 10/04/16 11:33 Neut # 4.8 K/uL (1.8-7.0) 10/04/16 11: Lymph # 3.6 K/uL (1.0-4.3) 10/04/16 11:33 Gulf # 0.8 K/uL (0.0-0.8) 10/04/16 11: Eos # 0.2 K/uL (0.0-0.7) 10/04/16 11: Baso # 0.0 K/uL (0.0-0.2) 10/04/16 11:33 ESR 70 mm/hr (0-20) H 10/02/16 21:04 Sodium 138 mmol/L (132-148) 10/04/16 11:33 Potassium 3.5 mmol/L (3.6-5.2) L 10/04/16 11:33 Chloride 98 mmol/L (98-107) 10/04/16 11:33 Carbon Dioxide 23 mmol/L (22-30) 10/04/16 11:33 Anion Gap 20 (10-20) 10/04/16 11:33 BUN 14 mg/dL (7-17) 10/04/16 11:33 Creatinine 0.6 MG/DL (0.7-1.2) L 10/04/16 11:33 Est GFR ( Amer) > 60 10/04/16 11:33 Est GFR (Non-Af Amer) > 60 10/04/16 11:33 POC Glucose (mg/dL) 303 mg/dL (65-110) H 10/04/16 11:12 Random Glucose 342 mg/dL (65-105) H 10/04/16 11:33 Hemoglobin A1c 13.0 % (4.2-6.5) H 10/03/16 07:04 Calcium 9.2 mg/dl (8.6-10.4) 10/04/16 11:33 Total Bilirubin 1.6 mg/dL (0.2-1.3) H 10/04/16 11:33 AST 13 U/L (14-36) L D 10/04/16 11:33 ALT 18 U/L (9-52) 10/04/16 11:33 Alkaline Phosphatase 60 U/L (38-126) 10/04/16 11:33 C-React Prot High Sens > 15.00 mg/L (1.00-3.00) H 10/02/16 21:04 Total Protein 6.9 g/dL (6.3-8.3) 10/04/16 11:33 Albumin 3.6 g/dL (3.5-5.0) 10/04/16 11:33 Globulin 3.3 gm/dL (2.2-3.9) 10/04/16 11:33 Albumin/Globulin Ratio 1.1 (1.0-2.1) 10/04/16 11:33 Attending/Attestation - Attestation I have personally seen and examined this patient.: Yes I have fully participated in the care of the patient.: Yes I have reviewed all pertinent clinical information, including history, physical exam and plan: Yes Notes (Text): Medical Attending: Patient was seen and examined by me. Agree with the above note by the resident. Patient will be discharged today, she will need to take several more days of PO abx as well. We did explain to her that her blood glucoses are high and that she needs to really watch what she is eating, her at one point brought an entire tray of donuts from across the street when we were in the room talking to the patient. Again we emphasized to her to take medication as well as lifestyle/diet changes. thank you Chico Zambrano
[2016-10-04 16:44] VITALS: BP 130/76; PULSE 72; TEMP 97.9; O2SAT 97
== END 2016-10-04 17:20 | disposition home or self-care (01) ==
LOC: C.ER 12:33 → C.9E 17:41 → C.3T 18:19
PROVIDERS: ADMIT Hospitalist; ATTEND Hospitalist
DX: E11.628 Type 2 diabetes mellitus with other skin complications (principal); L03.116 Cellulitis of left lower limb; Z79.4 Long term (current) use of insulin; L03.032 Cellulitis of left toe
CPT/HCPCS: 36415; 71010; 73660; 80048; 80053; 82948; 83036; 85025; 85651; 86140; 87040; 93005; 99284; G0378; J1644; J2543; J3370

== ENCOUNTER 2017-07-10 08:59 | Day surgery (SDC) | payer OTHER ==
[2017-07-10] MEDS ORDERED: Iodixanol 320 MG/ML 100 ML BOTTLE IV ONE (09:29)
[2017-07-10] MEDS ORDERED: Iodixanol 320 MG/ML 200 ML BOTTLE IV ONE ×2 (09:29→10:17)
[2017-07-10] MEDS ORDERED: Midazolam 2 MG/2 ML VIAL ONE ×3 (09:30→10:25)
[2017-07-10] MEDS ORDERED: Heparin 0 ML IV ONE (09:39)
[2017-07-10] MEDS ORDERED: Lidocaine 2% Inj (20ml) ONE (10:24)
[2017-07-10] MEDS ORDERED: Morphine 4 MG/ML VIAL ONE ×2 (11:18→11:24)
[2017-07-10] MEDS ORDERED: Nitroglycerin 50mg in D5W 50 MG/250 ML BOTTLE IV ONE (11:19)
[2017-07-10] MEDS ORDERED: Nitroglycerin 50mg in D5W 50 MG/250 ML BOTTLE IV SCH (12:15)
[2017-07-10] MEDS ORDERED: Heparin25000 units/250ml 1/2NS 25,000 UNITS/250 ML BAG IV ONE (13:27)
--- NOTE | 2017-07-11 01:03 | CARDCATH ---
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 PROCEDURES PERFORMED: 1. Distal abdominal aortogram with bilateral iliac runoff, selective bilateral iliofemoral angiogram with runoff. 2. Percutaneous transluminal angioplasty of left superficial femoral artery and popliteal. 3. Atherectomy and percutaneous transluminal angioplasty of left popliteal and anterior tibial. 4. Placement of right femoral arterial access. 5. Mynx closure device for hemostasis. TECHNIQUE OF PROCEDURE: After obtaining informed consent, patient was brought to the cardiac cath suite in post-absorptive, non-sedated state. The patient was prepped and draped in the usual sterile fashion. A 2% lidocaine was used for infiltration of anesthesia. Using modified Seldinger technique, a 6-Sammarinese sheath was introduced into the right femoral artery. Right iliofemoral angiogram with runoff was performed. Subsequently, a Contra catheter was advanced into the abdominal aorta. Abdominal aortogram with bilateral iliac runoff was performed. Subsequently, a Contra was advanced across the aortoiliac bifurcation to the left common femoral artery. Digital subtraction angiographic views of the left SFA, left popliteal, left [id number], and a left foot profile was obtained. Angiographic findings of the right lower extremity, right common iliac and external iliac were patent. Right profunda femoris was patent. SFA proximal 60% stenosis, popliteal moderate diffuse disease. All the three vessels, AT plus peroneal and PT were occluded with multiple tandem lesions in the AT with collateral flow filling the right lower foot. Left lower extremity, left common iliac and external iliac were patent. Profunda femoris patent. SFA ostial 60% to 70% stenosis with 50 mm gradient across the mid SFA and in-stent restenosis 65% to 70%. Distal SFA had 70% stenosis, popliteal 99% stenosis, and anterior tibial artery mid 90% stenosis. Distal SHAMPOOER with collateral flow filling distal posterior and deep plantar arch. INTERVENTIONS DONE: Atherectomy; KIER TENDER of left popliteal, anterior tibial artery; balloon angioplasty of left distal SFA, mid SFA, and in-stent restenosis of the ostial SFA with lesion reduction down plus a 10% NGOC 3 flow. RECOMMENDATIONS: Patient is to be kept on IV nitroglycerin; IV heparin. Consider anticoagulation for improvement in collateral flow; initiate high dose statin, aspirin, Plavix, VANDANA inhibitors. Patient is at high risk for future events. Patient needs to be followed closely with non-invasive arterial duplex. Adi Bates MD
[2017-07-11 10:40] VITALS: RESP 22; O2SAT 99
== END 2017-07-10 16:00 | disposition home or self-care (01) ==
LOC: C.CATHLAB 08:59
PROVIDERS: ATTEND Internal Medicine Interventional Cardiology
DX: I70.262 Atherosclerosis of native arteries of extremities with gangrene, left leg (principal)
CPT/HCPCS: 36415; 37225; 85730; 94770; J1644; J2250; J2270; J3010; Q9966; Q9967

== ENCOUNTER 2017-08-27 09:38 | Day surgery (SDC) | payer OTHER ==
[2017-08-17 10:46] VITALS: BMI 24.7
[2017-08-27] MEDS ORDERED: Morphine 4 MG/ML VIAL ONE ×2 (10:36→17:37)
[2017-08-27] MEDS ORDERED: Lidocaine 2% Inj (20ml) ONE (13:46)
[2017-08-27] MEDS ORDERED: Iodixanol 320 MG/ML 100 ML BOTTLE IV ONE ×2 (13:47→15:55)
[2017-08-27] MEDS ORDERED: Midazolam 2 MG/2 ML VIAL ONE ×2 (16:08)
[2017-08-27 17:01] LABS: BASO % 0.3 % (0.0-2.0); EOS # 0.1 K/uL (0.0-0.7); EOS % 0.9 % (0.0-4.0); LYMPH # 2.9 K/uL (1.0-4.3); LYMPH % 20.5 % (20.0-40.0); MEAN CELL VOLUME 79.7 fL (81.0-99.0); MEAN CORPUSCULAR HEMOGLOBIN 25.9 pg (27.0-31.0); MEAN CORPUSCULAR HGB CONC 32.5 g/dL (33.0-37.0); MEAN PLATELET VOLUME 8.2 fL (7.2-11.7); MONO # 1.4 K/uL (0.0-0.8); MONO % 9.8 % (0.0-10.0); NEUT # 9.7 K/uL (1.8-7.0); NEUT % 68.5 % (50.0-75.0); NRBC % 0.1 % (0.0-2.0); RBC 3.49 Mil/uL (3.80-5.20); RED CELL DISTRIBUTION WIDTH 17.8 % (11.5-14.5); WHITE BLOOD COUNT 14.2 K/uL (4.8-10.8)
[2017-08-27 17:09] LABS: INR 1.2; PROTHROMBIN TIME 13.7 SECONDS (9.7-12.2)
[2017-08-27] MEDS ORDERED: Verapamil 2 ML ONE (17:18)
[2017-08-27 17:30] LABS: ALB/GLOB RATIO 0.8 (1.0-2.1); ALBUMIN 2.8 g/dL (3.5-5.0); ALT/SGPT 20 U/L (9-52); AST/SGOT 15 U/L (14-36); BLOOD UREA NITROGEN 4 mg/dL (7-17); CALCIUM 8.1 mg/dl (8.6-10.4); GFR AFRICAN-AMERICAN > 60; GFR NON-AFRICAN AMERICAN > 60
[2017-08-27] MEDS ORDERED: HYDROmorphone 1 mg/ml ISec ONE (18:37)
[2017-08-28 02:29] VITALS: TEMP 98.7
[2017-08-28 02:33] VITALS: BP 130/59; PULSE 87; RESP 17
--- NOTE | 2017-08-28 13:52 | VAS ---
DATE: 08/27/2017 INDICATIONS: Ms. Melvi Taveras is a pleasant 62-year-old female with history of hypertension, diabetes mellitus, hyperlipidemia who was admitted with critical limb ischemia to [facility] with gangrene of her TMA site. The patient underwent noninvasive evaluation which showed monophasic flow below the left lower extremity. Therefore, she was brought to clinical laboratory service teacher for further evaluation and treatment. PROCEDURE PERFORMED: Distal abdominal aortogram with bilateral iliac runoff, selective bilateral iliofemoral angiogram with runoff, EVALUATION SPECIALIST stenting of left popliteal artery with the use of 4.0 x 33 mm Xience drug-eluting stent, atherectomy and EVALUATION SPECIALIST stenting of left anterior tibial artery with deployment of 3.0 x 38 and 3.0 x 33 drug-eluting stents, and 1.5 CSI atherectomy with lesion reduction from 100% down to less than 10%, 6-Vietnamese right femoral arterial access, and Mynx closure device for hemostasis. ANGIOGRAPHIC FINDINGS OF THE RIGHT LOWER EXTREMITY: Right common iliac and external iliac, patent. SFA diffuse disease. Mid SFA, 70% stenosis. Popliteal artery patent with 2-vessel runoff [id number]. Right GALINDO, diffusely diseased with multiple tandem 80% and 90% lesions. Left lower extremity has common iliac and external iliac patent, SFA stents are patent, profunda femoris patent, popliteal 95% stenosed. The anterior tibial artery mid 100% in AT with collateral flow feeding the dorsalis pedis, peroneal and deep plantar arch fed via the collaterals. EVALUATION SPECIALIST is 100% occluded. TECHNIQUES OF INTERVENTION: Left popliteal anterior tibial artery recanalized by ____ loop technique. Angioplasty atherectomized with 1.5 CSI atherectomy device. Angioplasty and stenting of left popliteal artery with deployment of 4.0 x 38 drug-eluting stent, lesion reduction down to ____ flow. Final angiogram then showed good improvement in flow to the level of the foot. RECOMMENDATIONS: Continue very close monitoring. The patient has severe distal diffuse small vessel disease. Continue aggressive medical management. Continue dual-antiplatelet therapy. We will give the patient IV heparin. Further titration based on clinical course. Adi Bates MD cc: Sarah Vegas DPM
== END 2017-08-28 | disposition short-term general hospital (02) ==
LOC: C.CATHLAB 09:38
PROVIDERS: ATTEND Internal Medicine Interventional Cardiology
DX: I99.8 Other disorder of circulatory system (principal); E11.9 Type 2 diabetes mellitus without complications; I10 Essential (primary) hypertension; E78.5 Hyperlipidemia, unspecified
CPT/HCPCS: 36247; 36415; 37226; 75625; 75716; 75774; 80053; 85025; 85610; 85730; 86850; 86900; 99152; 99153; C1714; C1725; C1760; C1766; C1769; C1874; C1893; J1170; J1644; J2250; J2270; J3010; Q9967

== ENCOUNTER 2017-09-26 12:35 | Day surgery (SDC) | payer BC ==
[2017-09-26 12:53] VITALS: BMI 24.4
[2017-09-26] MEDS ORDERED: Midazolam 2 MG/2 ML VIAL ONE (16:02)
[2017-09-26] MEDS ORDERED: Iodixanol 320 MG/ML 100 ML BOTTLE IV ONE (16:22)
[2017-09-26] MEDS ORDERED: Sodium Chloride 0.9% 500 ML IV SCH (17:15)
== END 2017-09-26 19:51 ==
LOC: C.SPRAD 12:35 → EDSTATUS 14:00 → C.SPRAD 19:51
PROVIDERS: ATTEND Internal Medicine Interventional Cardiology
DX: I73.9 Peripheral vascular disease, unspecified (principal); E11.51 Type 2 diabetes mellitus with diabetic peripheral angiopathy without gangrene; I10 Essential (primary) hypertension; E78.5 Hyperlipidemia, unspecified
CPT/HCPCS: 36247; 75625; 75716; 75774; C1760; C1766; C1769; J1644; J2250; J3010; J7040; Q9967

== ENCOUNTER 2017-10-12 09:23 | Day surgery (SDC) | payer BC ==
[2017-10-12] MEDS ORDERED: Lidocaine Hydrochloride 10 ML INJ ONE (12:37)
[2017-10-12] MEDS ORDERED: ceFAZolin 1 gm in NS 1 GM/100 ML BAG IVPB ONE (12:37)
[2017-10-12] MEDS ORDERED: Bupivacaine 0.25% Inj(30mL) ONE (12:37)
[2017-10-12] MEDS ORDERED: Propofol 10 mg/ml Inj (20 ML) ONE (13:43)
[2017-10-12] MEDS ORDERED: Morphine 4 MG/ML VIAL ONE (14:47)
--- NOTE | 2017-10-12 15:43 | PCM.SURG1 ---
Surgeon's Initial Post Op Note - Surgeon's Notes Surgeon: Dr. Vegas, DPM Customer Sales Distributor: Gael Montgomery PGY1, Mickey Miner PGY2 Type of Anesthesia: General Endo, Local (20cc 1:1 mixture of 1% lidocaine plain and 0.5% marcaine plain) Anesthesia Administered By: Dr. Ross Pre-Operative Diagnosis: Left foot nonhealing transmetatarsal amputation Operative Findings: See operative report. materials: 2-0 prolene, arsen dressing Post-Operative Diagnosis: Same Operation Performed: Left foot Choparts amputation Specimen/Specimens Removed: Left foot bone Estimated Blood Loss: EBL {In ML}: 100 Blood Products Given: N/A Drains Used: No Drains, Wound Vac (ARSEN dressing) Post-Op Condition: Good Date of Surgery/Procedure: 10/12/17 Time of Surgery/Procedure: 15:43
[2017-10-12] MEDS ORDERED: Oxycodone/Acetaminophen 5/325 mg Tab PO PRN ×2 (15:44→17:40)
[2017-10-12 16:11] LABS: BASO # 0.1 K/uL (0.0-0.2); BASO % 0.5 % (0.0-2.0); EOS # 0.2 K/uL (0.0-0.7); EOS % 1.8 % (0.0-4.0); HEMOGLOBIN 10.2 g/dL (11.0-16.0); LYMPH # 6.2 K/uL (1.0-4.3); LYMPH % 49.7 % (20.0-40.0); MEAN CELL VOLUME 79.2 fL (81.0-99.0); MEAN CORPUSCULAR HEMOGLOBIN 25.5 pg (27.0-31.0); MEAN CORPUSCULAR HGB CONC 32.2 g/dL (33.0-37.0); MEAN PLATELET VOLUME 8.5 fL (7.2-11.7); MONO % 8.3 % (0.0-10.0); NEUT % 39.7 % (50.0-75.0); RED CELL DISTRIBUTION WIDTH 18.9 % (11.5-14.5); WHITE BLOOD COUNT 12.5 K/uL (4.8-10.8)
--- NOTE | 2017-10-12 17:02 | CP.PCM.HP ---
<Adri Morris - Last Filed: 10/12/17 18:27> History of Present Illness - History of Present Illness History of Present Illness: CC: acute blood loss post left foot amputation 62 year old female with past medical history of diabetes, hypertension , PVD s/p TMA, and recent hospitalization for left foot gangrene. Patient presents today for same day surgery of left foot Choparts amputation with Dr. Vegas. Due to acute blood loss during the procedure, patient will be placed under observation for surgery related acute blood loss. History per at bedside as patient is recovering from anesthesia. Patient was diagnosed with diabetes over 20 years ago. Patient started experiencing pain and skin color change on her left foot 3 months ago. Patient was hospitalized at [facility] for left foot gangrene, where patient eventually underwent left foot TMA and peripheral angiogram with stents and atherectomy. During outpatient follow up with podiatry, patient was recommended further surgical revision of her left foot. Patient is currently resting in PACU. Patient is lethargic due to anesthesia, but denies having any pain in the body. Patient does complains of heartburn. Unable to obtain further ROS. : Denis Taveras [phone] PMD: Dr. Galindo Hook, Podiatry: Dr. Vegas PMHx: DM2, HTN and PVD s/p left TMA Allergy: NKDA Social Hx: denies alcohol, tobacco, or other drug use Home meds: Plavix 75mg, Ramipril 10mg, Lopressor 100mg, Gabapentin 300mg Q8, Levemir 10u HS, Glipizide 2.5mg, Lipitor 40mg Present on Admission - Present on Admission Any Indicators Present on Admission: Yes History of Uncontrolled Diabetes: Yes Review of Systems - Review of Systems Systems not reviewed;Unavailable: Other (Lethargic) - Constitutional Constitutional: As Per HPI, Lethargy - EENT Eyes: As Per HPI Ears: As Per HPI Nose/Mouth/Throat: As Per HPI - Breasts Breasts: As Per HPI - Cardiovascular Cardiovascular: As Per HPI - Respiratory Respiratory: As Per HPI - Gastrointestinal Gastrointestinal: As Per HPI - Genitourinary Genitourinary: As Per HPI - Reproductive: Female Reproductive:Female: As Per HPI - Menstruation Menstruation: As Per HPI - Musculoskeletal Musculoskeletal: As Per HPI - Integumentary Integumentary: As Per HPI - Neurological Neurological: As Per HPI - Psychiatric Psychiatric: As Per HPI - Endocrine Endocrine: As Per HPI - Hematologic/Lymphatic Hematologic: As Per HPI Past Patient History - Tetanus Immunizations Tetanus Immunization: Unknown - Past Medical History & Family History Past Medical History?: Yes - Past Social History Smoking Status: Never Smoked - CARDIAC Hx Circulatory Problems: Yes Hx Hypercholesterolemia: Yes Hx Hypertension: Yes Hx Peripheral Vascular Disease: Yes - PULMONARY Hx Respiratory Disorders: No - NEUROLOGICAL Hx Neurological Disorder: No - HEENT Hx HEENT Problems: Yes Hx Cataracts: Yes (bilat iol) - RENAL Hx Chronic Kidney Disease: No - ENDOCRINE/METABOLIC Hx Endocrine Disorders: Yes Hx Diabetes Mellitus Type 2: Yes - HEMATOLOGICAL/ONCOLOGICAL Hx Blood Disorders: Yes Hx Anemia: Yes - INTEGUMENTARY Hx Dermatological Problems: Yes Other/Comment: unhealed areas left foot transmetatarsal amp site - MUSCULOSKELETAL/RHEUMATOLOGICAL Hx Musculoskeletal Disorders: Yes Hx Herniated Disk: Yes (with left lumbar radiculopathy) Hx Osteomyelitis: Yes (treated) - GASTROINTESTINAL Hx Gastrointestinal Disorders: Yes Hx Gastritis: Yes - GENITOURINARY/GYNECOLOGICAL Hx Genitourinary Disorders: No - PSYCHIATRIC Hx Psychophysiologic Disorder: Yes Hx Anxiety: Yes (RELATED TO CONDITION) Hx Substance Use: No - SURGICAL HISTORY Hx Surgeries: Yes Hx Amputation: Yes (LEFT FOOT TRANSMETATARSAL/PER MD NOTE) Hx Angiogram: Yes (PERIPHERAL) Hx Cataract Extraction: Yes (bilateral) Other/Comment: lower leg surgery, left TMA. left great ingrown toenail removal - ANESTHESIA Hx Anesthesia: Yes Hx Anesthesia Reactions: No Hx Malignant Hyperthermia: No Has any member of the family had a problem w/ anesthesia?: No Meds Allergies/Adverse Reactions: Allergies Allergy/AdvReac Type Severity Reaction Status Date / Time No Known Allergies Allergy Verified 09/26/17 12:52 Physical Exam - Constitutional Appears: Non-toxic, No Acute Distress, Confused - Head Exam Head Exam: ATRAUMATIC, NORMOCEPHALIC - Eye Exam Eye Exam: EOMI, Normal appearance (no conjunctival pallor appreciated) - ENT Exam ENT Exam: Mucous Membranes Moist - Neck Exam Neck exam: Positive for: Normal Inspection - Respiratory Exam Respiratory Exam: Clear to Auscultation Bilateral, NORMAL BREATHING PATTERN. absent: Respiratory Distress - Cardiovascular Exam Cardiovascular Exam: Tachycardia, +S1, +S2 - GI/Abdominal Exam GI & Abdominal Exam: Normal Bowel Sounds, Soft. absent: Guarding, Tenderness - Extremities Exam Extremities exam: Positive for: pedal pulses present (right side). Negative for : normal inspection (Left foot dressing clean, dry, and intact), tenderness - Neurological Exam Neurological exam: Alert, Oriented x3 - Psychiatric Exam Psychiatric exam: Normal Affect, Normal Mood - Skin Skin Exam: Normal Color, Warm Results - Vital Signs Recent Vital Signs: Last Vital Signs Temp 97.7 F 10/12/17 09:35 Pulse 65 10/12/17 09:35 Resp 18 10/12/17 09:35 BP 126/60 10/12/17 09:35 Pulse Ox 100 10/12/17 09:35 - Labs Result Diagrams: 10/12/17 16:09 Labs: Laboratory Results - last 24 hr 10/12/17 10/12/17 10/12/17 10:03 15:49 16:09 WBC 12.5 H RBC 4.00 Hgb 10.2 L Hct 31.7 L MCV 79.2 L MCH 25.5 L MCHC 32.2 L RDW 18.9 H Plt Count 528 H MPV 8.5 Neut % (Auto) 39.7 L Lymph % (Auto) 49.7 H [place] % (Auto) 8.3 Eos % (Auto) 1.8 Baso % (Auto) 0.5 Neut # (Auto) 5.0 Lymph # (Auto) 6.2 H [place] # (Auto) 1.0 H Eos # (Auto) 0.2 Baso # (Auto) 0.1 POC Glucose (mg/dL) 176 H 209 H Assessment & Plan - Assessment and Plan (Free Text) Assessment: Acute blood loss due to surgical procedure -S/P Left foot Choparts amputation POD#0 -Estimated blood loss 100cc -Post OP Hgb 10.2, follow up AM labs -Hold Plavix -No chemical anticoagulation overnight -Further surgical management per podiatry, Dr. Vegas Chest pain -Telemetry -Follow up EKG, ROBERTO x3 -Patient with multiple cardiac risk factors Heartburn -Maalox 30ml Q8h prn -Protonix 20mg Severe PVD -Hold plavix -Continue crestor Diabetes, uncontrolled -A1c 11.5 from 07/05/17 -Hold diabetic meds until patient tolerates food -Gabapentin 300mg po Q8 -ISS -Accucheck ACHS Hypertension -Enalapril 20mg -Metoprolol 100mg po Hyperlipidemia -Crestor 20mg Prophylactic measures -Protonix -SCD (right lower extremity) -chemical anticoagulation contraindicated Decision To Admit - Pt Status Changed To: Hospital Disposition Of: [facility] Extended Stay Bed - . Bed Request Type: Telemetry <Lorraine Almanza V - Last Filed: 10/12/17 20:52> Results - Vital Signs Recent Vital Signs: Last Vital Signs Temp 97.3 F L 10/12/17 17:39 Pulse 70 10/12/17 19:01 Resp 20 10/12/17 17:39 BP 135/73 10/12/17 17:39 Pulse Ox 99 10/12/17 17:39 - Labs Result Diagrams: 10/12/17 16:09 Labs: Laboratory Results - last 24 hr 10/12/17 10/12/17 10/12/17 10:03 15:49 16:09 WBC 12.5 H RBC 4.00 Hgb 10.2 L Hct 31.7 L MCV 79.2 L MCH 25.5 L MCHC 32.2 L RDW 18.9 H Plt Count 528 H MPV 8.5 Neut % (Auto) 39.7 L Lymph % (Auto) 49.7 H [place] % (Auto) 8.3 Eos % (Auto) 1.8 Baso % (Auto) 0.5 Neut # (Auto) 5.0 Lymph # (Auto) 6.2 H [place] # (Auto) 1.0 H Eos # (Auto) 0.2 Baso # (Auto) 0.1 POC Glucose (mg/dL) 176 H 209 H Attending/Attestation - Attestation I have personally seen and examined this patient.: Yes I have fully participated in the care of the patient.: Yes I have reviewed all pertinent clinical information: Yes Notes (Text): Patient seen, examined and case discussed with medical insurance claims specialist. Patient underwent podiatry procedure, Left Choparts amputation with podiatry, estimated blood loss of 100 ML, to be observed overnight post-procedure. Patient stilling recovering post-anesthesia. patient is not in acute distress. Surgical site: left lower extremity: wrapped in the abundant dressing; clean, dry, intact. Patient's past medical history includes uncontrolled diabetes, hypertension, peripheral vascular disease bilateral; recent PVD stent placed by Dr. Bates, was on aspirin and plavix as outpatient. Plavix on hold for tonight. Chemical anticoagulation on hold per podiatry. Assessment/Plan 1) Acute blood loss due to surgical procedure * S/P Left foot Choparts amputation POD#0; Estimated blood loss 100cc * Post OP Hgb 10.2, follow up AM labs * Hold Plavix until per podiatry determines to restart for pvd stent * No chemical anticoagulation overnight discussed with podiatry surgeon 2) Left Choparts amputation--After care post-procedure * Podiatry (Dr. Vegas) on case-->help appreciated * Pain management per podiatric surgery * Tylenol 650mg PO Q6H PRN pain (mild) * Percocet 5/325 2 tab PO Q 6H PRN (severe pain) * Percocet 5/325 1 tab PO Q 6H PRN pain (moderate pain) * Chemical anticoagulation to be restarted per discretion of podiatric surgeon * Preop/intraoperative/postoperative management per podiatry in regards to procedure 3) Chest pain * placed on telemetry post-procedure when came to the 6th floor * Follow up EKG, ROBERTO x3 * Patient with multiple cardiac risk factors: DM, HTN, PVD * prior Echo 07/12/17 normal 4) Heartburn * Maalox 30ml Q8h prn acid reflux * Protonix 40mg PO daily 5) Severe PVD s/p revascularization with Dr. Bates * Hold plavix overnight post-procedure * Continue crestor * Per podiatry to determine when to restart plavix and aspirin post-procedure * noted in 08/27/17 vascular study note in EMR 6) Diabetes, uncontrolled * A1c 11.5 from 07/05/17 * Patient did not take medication this morning; patient due for dinner tonight; will hold glipizde until patient starts eating * Gabapentin 300mg PO Q8H for neuropathic pain * ISS * Accucheck ACHS 7) Hypertension * Enalapril 20mg PO daily * Metoprolol 100mg PO daily 8) Hyperlipidemia * Crestor 20mg PO qHS 9) Anemia * per review of EMR, patient has been anemic since 07/04/2017 * Will order basic anemia workup but H/H post procedure is better than previously * Note: patient is on aspirin/plavix for vascular stent for PVD 10) Prophylactic measures * Protonix 40mg PO daily * SCD (right lower extremity) only; patient has vascular stent on left lower extremity and underwent podiatric procedure * chemical anticoagulation contraindicated * Discuss with podiatry when to restart aspirin and plavix post-procedure Disposition:to be observe overnight given surgical blood loss, possible discharge in the morning; please discuss with podiatry in regards to when to restart aspirin and plavix given patient has peripheral vascular stent
[2017-10-12] MEDS ORDERED: Aluminum Hydroxide/Magnesium Hydroxide Susp (30 mL) PO PRN (17:38)
[2017-10-12 17:40] VITALS: RESP 20
[2017-10-12] MEDS ORDERED: Pantoprazole 20 mg EC Tab PO SCH (17:45)
[2017-10-12 20:46] LABS: CK-MB < 0.22 ng/mL (0.0-3.38)
[2017-10-12] MEDS ORDERED: HYDROmorphone 0.5 mg/0.5 ml ISec IVP STA (20:47)
[2017-10-12] MEDS ORDERED: HYDROmorphone 0.5 mg/0.5 ml ISec IVP PRN (21:18)
[2017-10-12] MEDS: ceFAZolin 1 GM in Sodium Chloride 0.9% 100 ML IVPB SCH (21:54)
[2017-10-12] MEDS: Oxycodone/Acetaminophen 5/325 mg Tab PO PRN (21:55)
--- NOTE | 2017-10-12 22:33 | CP.PCM.PN ---
Subjective - Date & Time of Evaluation Date of Evaluation: 10/12/17 Time of Evaluation: 22:30 - Subjective Subjective: 62F seen at bedside for pain and strikethrough of dressing following Chopart amputation of left foot today with Dr. Vegas. Patient AAO x 3 and NAD at time of visit. Patient states she is having severe pain at amputation site. States that she has been strict NWB since surgery. Denies any other complaints at this time. Denies N/V/F/C/CP/SOB/D/posterior calf pain when squeezed Objective - Vital Signs/Intake and Output Vital Signs (last 24 hours): Temp Pulse Resp BP Pulse Ox 97.3 F L 70 20 135/73 99 10/12/17 17:39 10/12/17 19:01 10/12/17 17:39 10/12/17 17:39 10/12/17 17:39 Intake and Output: 10/12/17 10/13/17 18:59 06:59 Intake Total 300 Balance 300 - Medications Medications: Current Medications Acetaminophen (Tylenol 325mg Tab) 650 mg PO Q6 PRN PRN Reason: Pain, Mild (1-3) Al Hydrox/Mg Hydrox/Simethicone (Maalox 30 Ml) 30 ml PO Q8 PRN PRN Reason: Indigestion / Heartburn Enalapril Maleate (Vasotec) 20 mg PO DAILY [facility]RIE Gabapentin (Neurontin) 300 mg PO Q8 CARRIE Last Admin: 10/12/17 21:56 Dose: 300 mg Hydromorphone HCl (Dilaudid) 0.5 mg IVP Q4H PRN PRN Reason: Pain, severe (8-10) Cefazolin Sodium 1 gm/ Sodium (Chloride) 100 mls @ 100 mls/hr IVPB Q8H CARRIE PRN Reason: Protocol Stop: 10/13/17 09:00 Last Admin: 10/12/17 21:54 Dose: 100 mls/hr Insulin Human Regular (Novolin R) 0 unit SC ACHS [facility] PRN Reason: Protocol Metoprolol Tartrate (Lopressor) 100 mg PO DAILY [facility] Oxycodone/Acetaminophen (Percocet 5/325 Mg Tab) 1 tab PO Q6H PRN PRN Reason: Pain, moderate (4-7) Stop: 10/15/17 15:45 Last Admin: 10/12/17 21:55 Dose: 1 tab Pantoprazole Sodium (Protonix Ec Tab) 20 mg PO DAILY CARRIE Last Admin: 10/12/17 18:45 Dose: 20 mg Rosuvastatin Calcium (Crestor) 20 mg PO HS [facility] Last Admin: 10/12/17 21:56 Dose: 20 mg Saccharomyces Boulardii (Florastor) 250 mg PO BID CARRIE - Labs Labs: 10/12/17 16:09 - Constitutional Appears: Non-toxic, In Acute Distress - Extremities Exam Additional comments: LLE dressing noted to be C/D/I with small amount of proximal strikethrough - Neurological Exam Neurological Exam: Alert, Awake, Oriented x3 - Psychiatric Exam Psychiatric exam: Normal Affect, Normal Mood Assessment and Plan - Assessment and Plan (Free Text) Assessment: 62F seen at bedside for pain and strikethrough of dressing following Chopart amputation of left foot today with Dr. Vegas Plan: Patient seen and evaluated at bedside Plan discussed in detail with attending Dr. Vegas 0.5 mg Dilaudid IVP q4h prn pain 8-10 ordered Charts, labs, vitals reviewed Will f/u with patient in AM for wound vac application
[2017-10-12] MEDS: (Novolin R) Insulin Human Regular 100 units/ml vial SC SCH (22:39)
[2017-10-13] MEDS ORDERED: HYDROmorphone 1 mg/ml ISec IVP PRN ×2 (01:15→09:10)
[2017-10-13 01:35] LABS: CK-MB < 0.22 ng/mL (0.0-3.38)
[2017-10-13] MEDS: ceFAZolin 1 GM in Sodium Chloride 0.9% 100 ML IVPB SCH (05:17)
[2017-10-13] MEDS: Oxycodone/Acetaminophen 5/325 mg Tab PO PRN (05:22)
[2017-10-13 05:39] VITALS: TEMP 97.9
--- NOTE | 2017-10-13 05:59 | OP ---
PROCEDURE DATE: 10/12/2017 PREOPERATIVE DIAGNOSIS: Left foot nonhealing transmetatarsal amputation. POSTOPERATIVE DIAGNOSIS: Left foot nonhealing transmetatarsal amputation. PROCEDURE: Left foot Chopart's amputation. SURGEON: Dr. Sarah Vegas DPM PROFESSOR OF FINANCE: Dr. Montgomery, LIANA PGY1; Dr. Kristofer DPM PGY2. TYPE OF ANESTHESIA: General endo with local, 20 mL of 1:1 mixture of 1% lidocaine plain and 0.5% Marcaine plain. ANESTHESIA ADMINISTERED BY: Dr. Hernandez. INDICATIONS FOR PROCEDURE: The patient is a 62-year-old female with the above diagnosis. The patient has exhausted conservative treatment at this time, and now requests surgical intervention. The patient signed the consent after careful explanation of the risks, benefits, alternatives and complications to procedure and wishes to proceed. No guarantees were given nor implied. PREPARATION: The patient was brought into the operating room and placed on operating room table in a supine position. Time-out was performed for identification of the correct patient and procedure. After the induction of general anesthesia, approximately 20 mL of 1:1 mixture of 1% lidocaine plain and 0.5% Marcaine plain was administered in an ankle block fashion. Once local anesthesia was achieved, the left lower extremity was then prepped and draped in normal sterile manner and the procedure began. No tourniquet was utilized during the procedure. DESCRIPTION OF PROCEDURE: Left foot Chopart's amputation. Attention was directed to the medial and distal aspect of the left foot TMA stump where there was a mixture of fibrotic and necrotic changes were noted along the medial arch. At the distal stump, the foot was noted to have exposed metatarsals. It was also noted that around the wound edges, there was good granular tissue. No necrotic skin changes were noted to be fluctuant at this time. Utilizing a 15 blade, the necrotic and fibrotic tissues were excisionally debrided from the left foot, revealing a granular/bleeding base. The same was done for the distal stump. At this time using a freer periosteal elevator, the skin and soft tissue on the dorsum of the amputation site was from the metatarsal bases and shaft. Next utilizing Versajet II on setting 7, the wounds were excisionally debrided of all fibrotic and nonviable tissue until healthy, bleeding wound edges were seen. Further nonviable soft tissue was excised from the plantar aspect of the distal transmetatarsal amputation site. Next, all periosteal tissue was freed from the distal aspect of the second to the fifth metatarsal, using a connor elevator. Next, utilizing a #15 blade, the second through fifth metatarsals were disarticulated at each respective tarsal-metatarsal joints. At this time, it was noted that the bones were brittle and soft in nature. These bones were then passed off the operative field, to be sent to pathology. Next, utilizing a 15 blade, the medial cuneiform was disarticulated from the navicular without incident, passed off the operative field and sent to pathology. It was noted that this bone was harder than the distal metatarsal bones. Next, the same was done to the intermediate and lateral cuneiform without incident, passed off the operative field to be sent to pathology. Next, utilizing a sagittal saw, the distal half of the cuboid was resected, passed off the operative field and was sent to pathology. All bony edges were then smooth with the sagittal saw. It was noted that the bone of this more proximal amputation was bleeding and appeared hard/healthy. This more proximal amputation also served for a more suitable flap for closure. Next, utilizing 2-0 Prolene, skin edges at the distal amputation site were reapproximated using retention sutures and was noted to have adequate closure of the distal amputation site. At this time, Adaptic was applied over the deficit on the medial aspect of the foot and the exposed wound was then dressed with a DAMION dressing, 4 x 4, ABDs, Kerlix, and a light VANDANA wrap. POSTOPERATIVE CONDITION: The patient tolerated the anesthesia and procedure well and was escorted to the recovery room with vital signs stable and neurovascular status intact to the left lower extremity. The patient is to remain nonweightbearing to the left lower extremity. The DAMION dressing will remain intact for 24 hours and tomorrow will be changed to a wound VAC or sooner if the dressing appears saturated. The patient will be admitted under observation and Podiatry will continue to follow the patient while the patient remains in-house. Jordan Montgomery DPM [facility] # [id number] JAY
[2017-10-13 07:21] LABS: BASO # 0.1 K/uL (0.0-0.2); BASO % 0.5 % (0.0-2.0); EOS % 0.3 % (0.0-4.0); LYMPH # 4.1 K/uL (1.0-4.3); LYMPH % 30.5 % (20.0-40.0); MEAN CORPUSCULAR HEMOGLOBIN 25.9 pg (27.0-31.0); MEAN CORPUSCULAR HGB CONC 32.8 g/dL (33.0-37.0); MEAN PLATELET VOLUME 8.8 fL (7.2-11.7); MONO # 1.2 K/uL (0.0-0.8); MONO % 9.1 % (0.0-10.0); NEUT # 7.9 K/uL (1.8-7.0); NEUT % 59.6 % (50.0-75.0); RBC 3.49 Mil/uL (3.80-5.20); RED CELL DISTRIBUTION WIDTH 18.5 % (11.5-14.5); WHITE BLOOD COUNT 13.3 K/uL (4.8-10.8)
[2017-10-13 07:53] LABS: ALB/GLOB RATIO 0.9 (1.0-2.1); ALBUMIN 3.4 g/dL (3.5-5.0); ALT/SGPT 15 U/L (9-52); AST/SGOT 17 U/L (14-36); BLOOD UREA NITROGEN 16 mg/dL (7-17); GFR AFRICAN-AMERICAN > 60; GFR NON-AFRICAN AMERICAN > 60
[2017-10-13] MEDS ORDERED: Potassium Chloride 20 mEq ER Tab PO STA (07:58)
[2017-10-13 08:08] VITALS: BP 118/70; O2SAT 99
[2017-10-13 08:09] LABS: CK-MB < 0.22 ng/mL (0.0-3.38)
[2017-10-13 08:18] LABS: % IRON SATURATION 3.73 (20-55)
[2017-10-13] MEDS: (Novolin R) Insulin Human Regular 100 units/ml vial SC SCH ×2 (08:30→11:59)
[2017-10-13 08:55] LABS: FOLATE 10.6 ng/mL
[2017-10-13] MEDS ORDERED: Saccharomyces Boulardi 250 mg Cap PO SCH (10:00)
[2017-10-13 11:46] VITALS: PULSE 82
--- NOTE | 2017-10-13 13:34 | CP.PCM.PN ---
Subjective - Date & Time of Evaluation Date of Evaluation: 10/13/17 Time of Evaluation: 13:31 - Subjective Subjective: 62F with PMHx diabetes, hypertension, PVD s/p TMA, and recent hospitalization for left foot gangrene seen at bedside one day s/p Chopart amputation of left foot. and son both present at bedside during examination. Patient was AAO x 3 at time of examination. She stated that her pain was well controlled with IV medication. Stated that she was in some pain last night. Denies any further pedal complaints at this time. Denies any recent N/V/F/C/CP/SOB/D/ posterior calf pain when squeezed. Patient aware that a wound vac will be applied today and that she will be sent home afterwards. Objective - Vital Signs/Intake and Output Vital Signs (last 24 hours): Temp Pulse Resp BP Pulse Ox 97.9 F 82 20 118/70 99 10/13/17 08:06 10/13/17 09:52 10/13/17 08:06 10/13/17 10:09 10/13/17 08:06 - Medications Medications: Current Medications Acetaminophen (Tylenol 325mg Tab) 650 mg PO Q6 PRN PRN Reason: Pain, Mild (1-3) Al Hydrox/Mg Hydrox/Simethicone (Maalox 30 Ml) 30 ml PO Q8 PRN PRN Reason: Indigestion / Heartburn Aspirin (Ecotrin) 81 mg PO DAILY [facility] Last Admin: 10/13/17 10:09 Dose: 81 mg Clopidogrel Bisulfate (Plavix) 75 mg PO DAILY [facility] Last Admin: 10/13/17 10:08 Dose: 75 mg Enalapril Maleate (Vasotec) 20 mg PO DAILY [facility] Last Admin: 10/13/17 10:09 Dose: 20 mg Famotidine (Pepcid) 20 mg PO BID [facility] Last Admin: 10/13/17 10:09 Dose: 20 mg Gabapentin (Neurontin) 300 mg PO Q8 [facility] Last Admin: 10/13/17 07:47 Dose: 300 mg Hydromorphone HCl (Dilaudid) 1 mg IVP Q4H PRN PRN Reason: Pain, severe (8-10) Last Admin: 10/13/17 11:54 Dose: 1 mg Insulin Human Regular (Novolin R) 0 unit SC ACHS [facility] PRN Reason: Protocol Last Admin: 10/13/17 11:59 Dose: 4 unit Metoprolol Tartrate (Lopressor) 100 mg PO DAILY [facility] Last Admin: 10/13/17 10:08 Dose: 100 mg Oxycodone/Acetaminophen (Percocet 5/325 Mg Tab) 1 tab PO Q6H PRN PRN Reason: Pain, moderate (4-7) Stop: 10/15/17 15:45 Last Admin: 10/13/17 05:22 Dose: 1 tab Rosuvastatin Calcium (Crestor) 20 mg PO HS [facility] Last Admin: 10/12/17 21:56 Dose: 20 mg Saccharomyces Boulardii (Florastor) 250 mg PO BID [facility] Last Admin: 10/13/17 10:09 Dose: 250 mg - Labs Labs: 10/13/17 07:07 10/13/17 07:07 - Constitutional Appears: Well, Non-toxic, No Acute Distress - Extremities Exam Additional comments: LLE focused exam: Vasc: DP/PT pulses faintly palpable. Skin temperature warm surrounding amputation site. Minimal edema noted to skin surrounding amputation site Neuro: Epicritic and protective sensation grossly intact b/l Derm: S/p left foot chopart ampuation with partial closing of skin on lateral side of foot. All skin edges well coapted with no signs of dehiscence present. Medial side of foot left open with bone and soft tissue exposed. No erythema, malodor, purulent drainage or other clinical signs of infection noted at this time. MSK: One day S/p chopart amputation with partial closure, left foot - Neurological Exam Neurological Exam: Alert, Awake, Oriented x3 - Psychiatric Exam Psychiatric exam: Normal Affect, Normal Mood Assessment and Plan - Assessment and Plan (Free Text) Assessment: 62F with PMHx diabetes, hypertension, PVD s/p TMA, and recent hospitalization for left foot gangrene seen at bedside one day s/p Chopart amputation of left foot Plan: Patient seen and evaluated Plan discussed with attending Dr. Vegas Charts, labs, vitals reviewed WBC 13.3 from 12.5 most likely secondary to post-operative state H/H 9.0/27.5 most likely from post-operative state Vitals stable Post operative xrays examined and found to be normal for postoperative condition Patient seen and wound vac placed on surgical site running continuously at 125 mmHg Per patient's patient still has Percocet at home that she can take so no pain medication prescriptions were dispensed at this time Patient is to follow up with Dr. Vegas in her clinic on Sunday
--- NOTE | 2017-10-13 14:00 | CP.PCM.DIS ---
<NicholasYudymckenzie - Last Filed: 10/13/17 14:03> Provider - Provider Date of Admission: 10/12/17 Attending physician: Lorraine Almanza DO Primary care physician: Dr. Cherri Lujan Consults: Dr. Sarah Vegas (Bulking Machine Operator) Time Spent in preparation of Discharge (in minutes): 35 Diagnosis - Discharge Diagnosis (1) Status post transmetatarsal amputation of left foot Status: Acute (2) Postoperative anemia due to acute blood loss Status: Acute (3) Chronic anemia Status: Chronic (4) PVD (peripheral vascular disease) with claudication Status: Chronic (5) Diabetes Status: Chronic (6) CAD (coronary artery disease) Status: Chronic (7) HLD (hyperlipidemia) Status: Chronic (8) HTN (hypertension) Status: Chronic (9) Heartburn Status: Resolved (10) Chest pain Status: Resolved Hospital Course - Lab Results Lab Results: Most Recent Lab Values WBC 13.3 K/uL (4.8-10.8) H 10/13/17 07:07 RBC 3.49 Mil/uL (3.80-5.20) L 10/13/17 07:07 Hgb 9.0 g/dL (11.0-16.0) L 10/13/17 07:07 Hct 27.5 % (34.0-47.0) L 10/13/17 07:07 MCV 79.0 fL (81.0-99.0) L 10/13/17 07:07 MCH 25.9 pg (27.0-31.0) L 10/13/17 07:07 MCHC 32.8 g/dL (33.0-37.0) L 10/13/17 07:07 RDW 18.5 % (11.5-14.5) H 10/13/17 07:07 Plt Count 496 K/uL (130-400) H 10/13/17 07:07 MPV 8.8 fL (7.2-11.7) 10/13/17 07:07 Neut % (Auto) 59.6 % (50.0-75.0) 10/13/17 07:07 Lymph % (Auto) 30.5 % (20.0-40.0) 10/13/17 07:07 [place] % (Auto) 9.1 % (0.0-10.0) 10/13/17 07:07 Eos % (Auto) 0.3 % (0.0-4.0) 10/13/17 07:07 Baso % (Auto) 0.5 % (0.0-2.0) 10/13/17 07:07 Neut # (Auto) 7.9 K/uL (1.8-7.0) H 10/13/17 07:07 Lymph # (Auto) 4.1 K/uL (1.0-4.3) 10/13/17 07:07 [place] # (Auto) 1.2 K/uL (0.0-0.8) H 10/13/17 07:07 Eos # (Auto) 0.0 K/uL (0.0-0.7) 10/13/17 07:07 Baso # (Auto) 0.1 K/uL (0.0-0.2) 10/13/17 07:07 Retic Count 0.9 % (0.5-1.5) 10/13/17 07:07 Haptoglobin 477.4 mg/dL (30.0-200.0) H 10/13/17 07:07 Sodium 143 mmol/L (132-148) 10/13/17 07:07 Potassium 3.4 mmol/L (3.6-5.2) L 10/13/17 07:07 Chloride 102 mmol/L (98-107) 10/13/17 07:07 Carbon Dioxide 24 mmol/L (22-30) 10/13/17 07:07 Anion Gap 20 (10-20) 10/13/17 07:07 BUN 16 mg/dL (7-17) 10/13/17 07:07 Creatinine 0.8 mg/dL (0.7-1.2) 10/13/17 07:07 Est GFR ( Amer) > 60 10/13/17 07:07 Est GFR (Non-Af Amer) > 60 10/13/17 07:07 POC Glucose (mg/dL) 237 mg/dL (65-110) H 10/13/17 06:29 Random Glucose 278 mg/dL (65-105) H 10/13/17 07:07 Calcium 9.0 mg/dl (8.6-10.4) 10/13/17 07:07 Iron 10 ug/dL (37-170) L 10/13/17 07:07 TIBC 268 ug/dL (250-450) 10/13/17 07:07 % Saturation 3.73 (20-55) L 10/13/17 07:07 Ferritin 342.0 ng/mL 10/13/17 07:07 Total Bilirubin 0.6 mg/dL (0.2-1.3) 10/13/17 07:07 AST 17 U/L (14-36) 10/13/17 07:07 ALT 15 U/L (9-52) 10/13/17 07:07 Alkaline Phosphatase 81 U/L (38-126) 10/13/17 07:07 Total Creatine Kinase < 20 U/L (30-135) L 10/13/17 07:07 CK-MB (Mass) < 0.22 ng/mL (0.0-3.38) 10/13/17 07:07 Troponin I < 0.0120 ng/mL (0.00-0.120) 10/13/17 07:07 Total Protein 7.1 g/dL (6.3-8.3) 10/13/17 07:07 Albumin 3.4 g/dL (3.5-5.0) L D 10/13/17 07:07 Globulin 3.7 gm/dL (2.2-3.9) 10/13/17 07:07 Albumin/Globulin Ratio 0.9 (1.0-2.1) L 10/13/17 07:07 Vitamin B12 651 pg/mL (239-931) 10/13/17 07:07 Folate 10.6 ng/mL 10/13/17 07:07 - Hospital Course Hospital Course: On Admission: 62 year old female with past medical history of diabetes, hypertension , PVD s/p TMA, and recent hospitalization for left foot gangrene. Patient presents today for same day surgery of left foot Choparts amputation with Dr. Vegas. Due to acute blood loss during the procedure, patient will be placed under observation for surgery related acute blood loss. History per at bedside as patient is recovering from anesthesia. Patient was diagnosed with diabetes over 20 years ago. Patient started experiencing pain and skin color change on her left foot 3 months ago. Patient was hospitalized at [facility] for left foot gangrene, where patient eventually underwent left foot TMA and peripheral angiogram with stents and atherectomy. During outpatient follow up with podiatry, patient was recommended further surgical revision of her left foot. Patient is currently resting in PACU. Patient is lethargic due to anesthesia, but denies having any pain in the body. Patient does complains of heartburn. Unable to obtain further ROS. Hospital Course: Patient admitted to the hospitalist service for medical management s/p transmetatarsal amputation. Patient observed overnight in light of acute blood loss during surgical procedure. Patient had complaints of chest discomfort; and was placed under telemetry monitoring. ROBERTO's and EKG were ordered with findings within normal limits with no significant changes noted. It is thought that patient's symptoms may have been secondary to heartburn. Symptoms resolved. Podiatry team consulted for continuing management of care. Dressing was changed and a wound vacuum was placed. Patient tolerated dressing changes without complaints. Patient given instructions to follow up in Podiatry clinic scheduled Sunday of the following week. Patient is medically stable for discharge home. Patient to follow up with Dr. Vegas in the Podiatry clinic on Sunday, October 15, 2017 for continuing care. Care instructions were explained to the patient and family by the Podiatry team. Patient to follow up with primary medical Dr. Lujan for continuing management of patient's anemia. Patient to resume home medications. If symptoms return, go to the emergency room. Instructions explained to patient who is aware. This is a brief summary of events. For a complete course, refer to the medical record. Discharge Exam - Head Exam Head Exam: ATRAUMATIC, NORMOCEPHALIC - Eye Exam Eye Exam: EOMI, Normal appearance, PERRL Pupil Exam: NORMAL ACCOMODATION - ENT Exam ENT Exam: Mucous Membranes Moist - Neck Exam Neck exam: Full Rom - Respiratory Exam Respiratory Exam: Clear to PA & Lateral, NORMAL BREATHING PATTERN - Cardiovascular Exam Cardiovascular Exam: +S1, +S2 - GI/Abdominal Exam GI & Abdominal Exam: Normal Bowel Sounds, Soft - Extremities Exam Extremities exam: tenderness (with palpation) Additional comments: dressings noted on left foot, c/d/i, non erythematous, no swelling noted - Back Exam Back exam: FULL ROM - Neurological Exam Neurological exam: Alert, Oriented x3 - Psychiatric Exam Psychiatric exam: Normal Affect, Normal Mood - Skin Skin Exam: Normal Color, Warm Discharge Plan - Follow Up Plan Condition: GOOD Disposition: HOME/ ROUTINE Additional Instructions: Patient is medically stable for discharge home. Patient to follow up with Dr. Vegas in the Podiatry clinic on Sunday, October 15, 2017 for continuing care. Care instructions were explained to the patient and family by the Podiatry team. Patient to follow up with primary medical Dr. Lujan for continuing management of patient's anemia. Patient to resume home medications. If symptoms return, go to the emergency room. Instructions explained to patient who is aware. Referrals: Sarah Vegas DPM [Staff Provider] - Cherri Lujan MD [Staff Provider] - <Lorraine Almanza V - Last Filed: 10/13/17 14:42> Provider - Provider Attending physician: Lorraine Almanza, Hospital Course - Lab Results Lab Results: Most Recent Lab Values WBC 13.3 K/uL (4.8-10.8) H 10/13/17 07:07 RBC 3.49 Mil/uL (3.80-5.20) L 10/13/17 07:07 Hgb 9.0 g/dL (11.0-16.0) L 10/13/17 07:07 Hct 27.5 % (34.0-47.0) L 10/13/17 07:07 MCV 79.0 fL (81.0-99.0) L 10/13/17 07:07 MCH 25.9 pg (27.0-31.0) L 10/13/17 07:07 MCHC 32.8 g/dL (33.0-37.0) L 10/13/17 07:07 RDW 18.5 % (11.5-14.5) H 10/13/17 07:07 Plt Count 496 K/uL (130-400) H 10/13/17 07:07 MPV 8.8 fL (7.2-11.7) 10/13/17 07:07 Neut % (Auto) 59.6 % (50.0-75.0) 10/13/17 07:07 Lymph % (Auto) 30.5 % (20.0-40.0) 10/13/17 07:07 [place] % (Auto) 9.1 % (0.0-10.0) 10/13/17 07:07 Eos % (Auto) 0.3 % (0.0-4.0) 10/13/17 07:07 Baso % (Auto) 0.5 % (0.0-2.0) 10/13/17 07:07 Neut # (Auto) 7.9 K/uL (1.8-7.0) H 10/13/17 07:07 Lymph # (Auto) 4.1 K/uL (1.0-4.3) 10/13/17 07:07 [place] # (Auto) 1.2 K/uL (0.0-0.8) H 10/13/17 07:07 Eos # (Auto) 0.0 K/uL (0.0-0.7) 10/13/17 07:07 Baso # (Auto) 0.1 K/uL (0.0-0.2) 10/13/17 07:07 Retic Count 0.9 % (0.5-1.5) 10/13/17 07:07 Haptoglobin 477.4 mg/dL (30.0-200.0) H 10/13/17 07:07 Sodium 143 mmol/L (132-148) 10/13/17 07:07 Potassium 3.4 mmol/L (3.6-5.2) L 10/13/17 07:07 Chloride 102 mmol/L (98-107) 10/13/17 07:07 Carbon Dioxide 24 mmol/L (22-30) 10/13/17 07:07 Anion Gap 20 (10-20) 10/13/17 07:07 BUN 16 mg/dL (7-17) 10/13/17 07:07 Creatinine 0.8 mg/dL (0.7-1.2) 10/13/17 07:07 Est GFR ( Amer) > 60 10/13/17 07:07 Est GFR (Non-Af Amer) > 60 10/13/17 07:07 POC Glucose (mg/dL) 237 mg/dL (65-110) H 10/13/17 06:29 Random Glucose 278 mg/dL (65-105) H 10/13/17 07:07 Calcium 9.0 mg/dl (8.6-10.4) 10/13/17 07:07 Iron 10 ug/dL (37-170) L 10/13/17 07:07 TIBC 268 ug/dL (250-450) 10/13/17 07:07 % Saturation 3.73 (20-55) L 10/13/17 07:07 Ferritin 342.0 ng/mL 10/13/17 07:07 Total Bilirubin 0.6 mg/dL (0.2-1.3) 10/13/17 07:07 AST 17 U/L (14-36) 10/13/17 07:07 ALT 15 U/L (9-52) 10/13/17 07:07 Alkaline Phosphatase 81 U/L (38-126) 10/13/17 07:07 Total Creatine Kinase < 20 U/L (30-135) L 10/13/17 07:07 CK-MB (Mass) < 0.22 ng/mL (0.0-3.38) 10/13/17 07:07 Troponin I < 0.0120 ng/mL (0.00-0.120) 10/13/17 07:07 Total Protein 7.1 g/dL (6.3-8.3) 10/13/17 07:07 Albumin 3.4 g/dL (3.5-5.0) L D 10/13/17 07:07 Globulin 3.7 gm/dL (2.2-3.9) 10/13/17 07:07 Albumin/Globulin Ratio 0.9 (1.0-2.1) L 10/13/17 07:07 Vitamin B12 651 pg/mL (239-931) 10/13/17 07:07 Folate 10.6 ng/mL 10/13/17 07:07 Attending/Attestation - Attestation I have personally seen and examined this patient.: Yes I have fully participated in the care of the patient.: Yes I have reviewed all pertinent clinical information, including history, physical exam and plan: Yes Notes (Text): Patient seen, examined, and case discussed with day-time resident. Patient is more awake, alert, talkative, and chatty. Hemoglobin in similar range since 06/2017. Discussed with podiatry, restart Aspirin 81mg PO daily and Plavix 75mg PO daily given patient's vascular stent. Podiatry came and saw the patient post-operative and setup for wound vac, patient to f/u post-surgery follow-up this Sunday, October 15 2017 in podiatry clinic. Patient to resume home medications. Patient recommended to f/u with PMD for further workup for anemia, appears multifactorial given anemia of chronic disease and iron deficiency given prior hospitalization for left toe gangrene 06/2017. Discharge Diagnoses: 1) Acute blood loss due to surgical procedure * S/P Left foot Choparts amputation POD#1; Estimated blood loss 100cc * Post OP Hgb 9.0 * Restart Plavix 75mg PO daily and aspirin 81mg PO daily-->discussed with podiatry * No chemical anticoagulation overnight discussed with podiatry surgeon 2) Left Choparts amputation--After care post-procedure * Podiatry (Dr. Vegas) on case-->help appreciated * Pain management per podiatric surgery * Tylenol 650mg PO Q6H PRN pain (mild) * Percocet 5/325 2 tab PO Q 6H PRN (severe pain) * Percocet 5/325 1 tab PO Q 6H PRN pain (moderate pain) * No pain prescription upon discharge--> patient has sufficient supply at home * Chemical anticoagulation to be restarted per discretion of podiatric surgeon * Preop/intraoperative/postoperative management per podiatry in regards to procedure 3) Chest pain (resolved) * placed on telemetry post-procedure when came to the 6th floor * ROBERTO X3: negative * Patient with multiple cardiac risk factors: DM, HTN, PVD * prior Echo 07/12/17 normal 4) Heartburn * Maalox 30ml Q8h prn acid reflux * Protonix 40mg PO daily 5) Severe PVD s/p revascularization with Dr. Bates * Aspirin 81mg PO daily * Plavix 75mg PO daily * Continue crestor * noted in 08/27/17 vascular study note in EMR 6) Diabetes, uncontrolled * A1c 11.5 from 07/05/17 * Restart home medications: * Gabapentin 300mg PO Q8H for neuropathic pain * ISS * Accucheck ACHS 7) Hypertension * Enalapril 20mg PO daily * Metoprolol 100mg PO daily 8) Hyperlipidemia * Crestor 20mg PO qHS 9) Anemia * per review of EMR, patient has been anemic since 07/04/2017 * Will order basic anemia workup but H/H post procedure is better than previously * F/u with PMD for further workup. Patient anemic since hospitalization 06/2017 for left toe gangrene 10) Prophylactic measures * Protonix 40mg PO daily * SCD (right lower extremity) only; patient has vascular stent on left lower extremity and underwent podiatric procedure * chemical anticoagulation contraindicated * Aspirin 81mg PO daily * Plavix 75mg PO daily
--- NOTE | 2017-10-16 17:10 | RAD ---
PROCEDURE: Left Foot Radiographs. HISTORY: s/p left foot choparts amputation COMPARISON: 10/02/2016 FINDINGS: BONES: Interval amputation at the navicular cuneiform level is suggested. A small portion of the cuboid bone may be remaining. This markedly demineralization of any remnant cuneiform on this exam noted. Any concomitant osteomyelitis here cannot be excluded. Soft tissues are swollen. There is bandaging around the amputated remaining osseous structures. In the sought overlying tubing and other extrinsic devices present. Partially visualized vascular calcifications are noted. JOINTS: As above SOFT TISSUES: As above OTHER FINDINGS: None. IMPRESSION: Interval midfoot amputation. Ill definition to osseous cortex primarily the remnant cuboid bone - significance indeterminate -osteomyelitis here is not excluded. Close follow-up recommended.
== END 2017-10-13 15:00 | disposition home or self-care (01) ==
LOC: C.SDS 09:23 → C.9S 15:41 → UNDOADMOB 15:41 → C.9S 15:41 → C.6T 16:36 → C.SDS 10-13 15:00
PROVIDERS: ATTEND Hospitalist
DX: T87.89 Other complications of amputation stump (principal); I10 Essential (primary) hypertension; Z79.84 Long term (current) use of oral hypoglycemic drugs; Z79.4 Long term (current) use of insulin; G89.4 Chronic pain syndrome; I25.10 Atherosclerotic heart disease of native coronary artery without angina pectoris; Z79.02 Long term (current) use of antithrombotics/antiplatelets; E78.00 Pure hypercholesterolemia, unspecified; F41.9 Anxiety disorder, unspecified; R07.9 Chest pain, unspecified; R12 Heartburn; E11.65 Type 2 diabetes mellitus with hyperglycemia; D62 Acute posthemorrhagic anemia; E11.69 Type 2 diabetes mellitus with other specified complication; E11.52 Type 2 diabetes mellitus with diabetic peripheral angiopathy with gangrene; M86.9 Osteomyelitis, unspecified
CPT/HCPCS: 28800; 36415; 73630; 80053; 82607; 82728; 82746; 82948; 83010; 83540; 83550; 84484; 85025; 85044; 93005; J0690; J1170; J2270; J2405; J2704; J3010

== ENCOUNTER 2017-11-09 10:48 | Inpatient (IN) | payer BC ==
[2017-11-09] MEDS ORDERED: Lidocaine 2% MPF (5 ml) Inj ONE (11:38)
[2017-11-09] MEDS ORDERED: Bupivacaine HCl 0.5% PF (30 ml) Inj ONE (11:38)
[2017-11-09] MEDS ORDERED: ceFAZolin 1 gm in NS 1 GM/100 ML BAG IVPB ONE (11:39)
[2017-11-09] MEDS ORDERED: Lactated Ringer's 1,000 ML IV ONE (12:35)
[2017-11-09] MEDS ORDERED: Propofol 10 mg/ml Inj (20 ML) ONE (12:43)
[2017-11-09] MEDS ORDERED: Midazolam 2 MG/2 ML VIAL ONE (12:44)
[2017-11-09] MEDS ORDERED: Morphine 4 MG/ML VIAL ONE (13:15)
[2017-11-09] MEDS ORDERED: HYDROmorphone 0.5 mg/0.5 ml ISec IVP PRN (13:34)
--- NOTE | 2017-11-09 14:10 | PCM.SURG1 ---
Surgeon's Initial Post Op Note - Surgeon's Notes Surgeon: Dr. Sarah Vegas, DPM Press Operator [place]: Dr. Maria Eugenia Taylor, PGY-2 Type of Anesthesia: IV Sedation, Local Anesthesia Administered By: Dr. Grande Pre-Operative Diagnosis: Left foot
--- NOTE | 2017-11-09 14:10 | PCM.SURG1 ---
Surgeon's Initial Post Op Note - Surgeon's Notes Surgeon: Dr. Sarah Vegas DPM Fur Ironer: Dr. Maria Eugenia Taylor DPM Type of Anesthesia: IV Sedation, Local Anesthesia Administered By: Dr. Harjinder MD Pre-Operative Diagnosis: Left foot post-amputation chronic non-healing wound Operative Findings: See dictation Post-Operative Diagnosis: Same as pre-operative diagnosis Operation Performed: Left foot wound debridement Specimen/Specimens Removed: none Estimated Blood Loss: EBL {In ML}: 15 Blood Products Given: N/A Drains Used: No Drains Post-Op Condition: Good Date of Surgery/Procedure: 11/09/17 Time of Surgery/Procedure: 14:00
[2017-11-09 14:19] LABS: HEMOGLOBIN 7.1 g/dL (11.0-16.0)
--- NOTE | 2017-11-09 17:24 | CP.PCM.CON ---
History of Present Illness - History of Present Illness History of Present Illness: 59 year old female admitted immediatly post-op of left leg wound debridement. Pt admitted monitoring and post-op anemia. Pt alert and oriented in PACU. Post- op dressing clean dry, and intact. Pt reports no pain to surgical site. Past Patient History - Tetanus Immunizations Tetanus Immunization: Unknown - Past Medical History & Family History Past Medical History?: Yes - Past Social History Smoking Status: Never Smoked - CARDIAC Hx Circulatory Problems: Yes Hx Hypercholesterolemia: Yes Hx Hypertension: Yes Hx Peripheral Vascular Disease: Yes - PULMONARY Hx Respiratory Disorders: No - NEUROLOGICAL Hx Neurological Disorder: No - HEENT Hx HEENT Problems: Yes Hx Cataracts: Yes (bilat iol) - RENAL Hx Chronic Kidney Disease: No - ENDOCRINE/METABOLIC Hx Endocrine Disorders: Yes Hx Diabetes Mellitus Type 2: Yes - HEMATOLOGICAL/ONCOLOGICAL Hx Blood Disorders: Yes Hx Anemia: Yes - INTEGUMENTARY Hx Dermatological Problems: Yes Other/Comment: unhealed areas left foot transmetatarsal amp site - MUSCULOSKELETAL/RHEUMATOLOGICAL Hx Musculoskeletal Disorders: Yes Hx Falls: No Hx Herniated Disk: Yes (with left lumbar radiculopathy) Hx Osteomyelitis: Yes (treated) - GASTROINTESTINAL Hx Gastrointestinal Disorders: Yes Hx Gastritis: Yes - GENITOURINARY/GYNECOLOGICAL Hx Genitourinary Disorders: No - PSYCHIATRIC Hx Psychophysiologic Disorder: Yes Hx Anxiety: Yes (RELATED TO CONDITION) Hx Substance Use: No - SURGICAL HISTORY Hx Surgeries: Yes Hx Amputation: Yes (LEFT FOOT TRANSMETATARSAL/PER MD NOTE) Hx Angiogram: Yes (PERIPHERAL) Hx Cataract Extraction: Yes (bilateral) Hx Cardiac Catheterization: Yes Other/Comment: lower leg surgery, left TMA. left great ingrown toenail removal. 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 - ANESTHESIA Hx Anesthesia: Yes Hx Anesthesia Reactions: No Hx Malignant Hyperthermia: No Has any member of the family had a problem w/ anesthesia?: No Meds Allergies/Adverse Reactions: Allergies Allergy/AdvReac Type Severity Reaction Status Date / Time No Known Allergies Allergy Verified 09/26/17 12:52 - Medications Medications: Current Medications Acetaminophen (Tylenol 325mg Tab) 650 mg PO Q6 PRN PRN Reason: Pain, Mild (1-3) Enoxaparin Sodium (Lovenox) 40 mg SC DAILY [facility] Oxycodone/Acetaminophen (Percocet 5/325 Mg Tab) 1 tab PO Q4H PRN PRN Reason: Pain, moderate (4-7) Stop: 11/12/17 13:59 Oxycodone/Acetaminophen (Percocet 5/325 Mg Tab) 2 tab PO Q6H PRN PRN Reason: Pain, severe (8-10) Stop: 11/12/17 13:59 Results - Vital Signs Recent Vital Signs: Last Vital Signs Temp 97.5 F L 11/09/17 13:54 Pulse 110 H 11/09/17 15:00 Resp 12 11/09/17 15:00 BP 112/55 L 11/09/17 15:00 Pulse Ox 99 11/09/17 15:00 - Labs Result Diagrams: 11/09/17 14:16 Labs: Laboratory Results - last 24 hr 11/09/17 11/09/17 11/09/17 11:19 14:16 16:09 Hgb 7.1 L Hct 21.8 L POC Glucose (mg/dL) 147 H 156 H Blood Type Antibody Screen 11/09/17 16:34 Hgb Hct POC Glucose (mg/dL) Blood Type B POSITIVE Antibody Screen Negative Assessment & Plan - Assessment and Plan (Free Text) Assessment: 62 y/o female immediately post-op left foot surgical debridement of chronic non -healing post-amputation wound. Plan: Pt seen and evalauted with attending Dr. Vegas. Chart, labs, and vitals reviewed. H&H reviewed. Anemia noted. Discussed with pt's PMD. Recommendation for admission and monitoring with potenial acute trasfusion. Pt admitted under Dr. Michelle's service. Type and screen ordered. DVT prophylaxis of Lovenox 40mg SC Daily initiated. Consistent carbohydrate/ heart healthy diet initiated. Additional podiatry surgical intervention indicated. Pt in need of graft application post-debridement. Podiatry will follow while inhouse. - Date & Time Date: 11/09/17 Time: 15:28
[2017-11-09] MEDS ORDERED: Oxycodone/Acetaminophen 5/325 mg Tab PO PRN (20:14)
--- NOTE | 2017-11-09 20:14 | CP.PCM.HP ---
Past Patient History - Tetanus Immunizations Tetanus Immunization: Unknown - Past Medical History & Family History Past Medical History?: Yes - Past Social History Smoking Status: Never Smoked - CARDIAC Hx Circulatory Problems: Yes Hx Hypercholesterolemia: Yes Hx Hypertension: Yes Hx Peripheral Vascular Disease: Yes - PULMONARY Hx Respiratory Disorders: No - NEUROLOGICAL Hx Neurological Disorder: No - HEENT Hx HEENT Problems: Yes Hx Cataracts: Yes (bilat iol) - RENAL Hx Chronic Kidney Disease: No - ENDOCRINE/METABOLIC Hx Endocrine Disorders: Yes Hx Diabetes Mellitus Type 2: Yes - HEMATOLOGICAL/ONCOLOGICAL Hx Blood Disorders: Yes Hx Anemia: Yes - INTEGUMENTARY Hx Dermatological Problems: Yes Other/Comment: unhealed areas left foot transmetatarsal amp site - MUSCULOSKELETAL/RHEUMATOLOGICAL Hx Musculoskeletal Disorders: Yes Hx Falls: No Hx Herniated Disk: Yes (with left lumbar radiculopathy) Hx Osteomyelitis: Yes (treated) - GASTROINTESTINAL Hx Gastrointestinal Disorders: Yes Hx Gastritis: Yes - GENITOURINARY/GYNECOLOGICAL Hx Genitourinary Disorders: No - PSYCHIATRIC Hx Psychophysiologic Disorder: Yes Hx Anxiety: Yes (RELATED TO CONDITION) Hx Substance Use: No - SURGICAL HISTORY Hx Surgeries: Yes Hx Amputation: Yes (LEFT FOOT TRANSMETATARSAL/PER MD NOTE) Hx Angiogram: Yes (PERIPHERAL) Hx Cataract Extraction: Yes (bilateral) Hx Cardiac Catheterization: Yes Other/Comment: lower leg surgery, left TMA. left great ingrown toenail removal. 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 - ANESTHESIA Hx Anesthesia: Yes Hx Anesthesia Reactions: No Hx Malignant Hyperthermia: No Has any member of the family had a problem w/ anesthesia?: No Meds Allergies/Adverse Reactions: Allergies Allergy/AdvReac Type Severity Reaction Status Date / Time No Known Allergies Allergy Verified 09/26/17 12:52 Results - Vital Signs Recent Vital Signs: Last Vital Signs Temp 98.2 F 11/09/17 17:20 Pulse 104 H 11/09/17 17:20 Resp 20 11/09/17 17:20 BP 99/55 L 11/09/17 17:20 Pulse Ox 104 H 11/09/17 17:20 - Labs Result Diagrams: 11/09/17 14:16 Labs: Laboratory Results - last 24 hr 11/09/17 11/09/17 11/09/17 11:19 14:16 16:09 Hgb 7.1 L Hct 21.8 L POC Glucose (mg/dL) 147 H 156 H Blood Type Antibody Screen 11/09/17 16:34 Hgb Hct POC Glucose (mg/dL) Blood Type B POSITIVE Antibody Screen Negative
[2017-11-09] MEDS: Oxycodone/Acetaminophen 5/325 mg Tab PO PRN (21:58)
[2017-11-10] MEDS: Oxycodone/Acetaminophen 5/325 mg Tab PO PRN ×3 (05:44→21:55)
[2017-11-10 07:36] LABS: BASO # 0.1 K/uL (0.0-0.2); BASO % 0.5 % (0.0-2.0); EOS # 0.1 K/uL (0.0-0.7); EOS % 0.6 % (0.0-4.0); HEMOGLOBIN 8.7 g/dL (11.0-16.0); LYMPH # 2.5 K/uL (1.0-4.3); LYMPH % 22.3 % (20.0-40.0); MEAN CORPUSCULAR HEMOGLOBIN 26.4 pg (27.0-31.0); MEAN CORPUSCULAR HGB CONC 33.3 g/dL (33.0-37.0); MEAN PLATELET VOLUME 8.9 fL (7.2-11.7); MONO # 1.2 K/uL (0.0-0.8); MONO % 10.3 % (0.0-10.0); NEUT # 7.6 K/uL (1.8-7.0); NEUT % 66.3 % (50.0-75.0); RBC 3.32 Mil/uL (3.80-5.20); RED CELL DISTRIBUTION WIDTH 16.8 % (11.5-14.5); WHITE BLOOD COUNT 11.4 K/uL (4.8-10.8)
[2017-11-10 08:15] LABS: ALB/GLOB RATIO 0.9 (1.0-2.1); ALBUMIN 3.3 g/dL (3.5-5.0); ALT/SGPT 19 U/L (9-52); AST/SGOT 24 U/L (14-36); BLOOD UREA NITROGEN 10 mg/dL (7-17); CALCIUM 8.9 mg/dl (8.6-10.4); GFR AFRICAN-AMERICAN > 60; GFR NON-AFRICAN AMERICAN > 60
[2017-11-10] MEDS: Enoxaparin 40 mg Syringe SC SCH (09:45)
[2017-11-10] MEDS: GlipiZIDE 2.5 mg SR Tab PO SCH (09:47)
--- NOTE | 2017-11-10 12:20 | CP.PCM.PN ---
Subjective - Date & Time of Evaluation Date of Evaluation: 11/10/17 Time of Evaluation: 12:20 - Subjective Subjective: 62 y/o female seen at bedside this morning, 1 day s/p left foot debridement of non-healing amputation site with Dr. Vegas. Pt resting comfortably in bed in [facility]. Admits to having pain overnight for which she was given Percocet. States it helped somewhat for pain control. States she was transfused a unit of blood since yesterday's surgery and feels less weak overall. Denies F/C/N/V/CP/SOB Objective - Vital Signs/Intake and Output Vital Signs (last 24 hours): Temp Pulse Resp BP Pulse Ox 98.7 F 83 20 114/68 95 11/10/17 08:00 11/10/17 08:00 11/10/17 08:00 11/10/17 09:42 11/10/17 08:00 Intake and Output: 11/10/17 11/10/17 06:59 18:59 Intake Total 325 Balance 325 - Medications Medications: Current Medications Acetaminophen (Tylenol 325mg Tab) 650 mg PO Q6 PRN PRN Reason: Pain, Mild (1-3) Acetaminophen (Tylenol 325mg Tab) 650 mg PO Q4 PRN PRN Reason: Pain, Mild (1-3) Clopidogrel Bisulfate (Plavix) 75 mg PO DAILY [facility] Last Admin: 11/10/17 09:45 Dose: 75 mg Enoxaparin Sodium (Lovenox) 40 mg SC DAILY [facility] Last Admin: 11/10/17 09:45 Dose: 40 mg Famotidine (Pepcid) 40 mg PO DAILY [facility] Last Admin: 11/10/17 09:45 Dose: 40 mg Glipizide (Glucotrol Xl) 2.5 mg PO DAILY [facility] Last Admin: 11/10/17 09:47 Dose: 2.5 mg Metoprolol Tartrate (Lopressor) 25 mg PO Q12 [facility] Last Admin: 11/10/17 09:42 Dose: 25 mg Ondansetron HCl (Zofran Inj) 4 mg IVP Q8 PRN PRN Reason: Nausea/Vomiting Last Admin: 11/09/17 20:26 Dose: 4 mg Oxycodone/Acetaminophen (Percocet 5/325 Mg Tab) 1 tab PO Q4H PRN PRN Reason: Pain, moderate (4-7) Stop: 11/12/17 13:59 Last Admin: 11/10/17 12:03 Dose: 1 tab Oxycodone/Acetaminophen (Percocet 5/325 Mg Tab) 2 tab PO Q6H PRN PRN Reason: Pain, severe (8-10) Stop: 11/12/17 13:59 Last Admin: 11/10/17 05:44 Dose: 2 tab Oxycodone/Acetaminophen (Percocet 5/325 Mg Tab) 1 tab PO Q4H PRN PRN Reason: Pain, moderate (4-7) Stop: 11/12/17 20:15 Rosuvastatin Calcium (Crestor) 20 mg PO HS [facility] Last Admin: 11/09/17 21:25 Dose: 20 mg - Labs Labs: 11/10/17 07:27 11/10/17 07:27 - Constitutional Appears: Well, Non-toxic, No Acute Distress - Extremities Exam Additional comments: LLE focused exam: Vasc: DP/PT pulses palpable 2/4. Skin flap surrounding amputation site exhibits normal capillary refill. Mild non pitting pedal edema noted to dorsum of skin flap at amputation site Derm: Open Chopart's amputation site with mixture of fibrotic and granular tissue noted to wound bed. No necrotic tissue present at this time. Minimal active sanguinous drainage noted. No purulence, no fluctuance, no malodor Neuro: Protective sensation slightly diminished Ortho: Mild-moderate tenderness to palpation of surgical/amputation site - Neurological Exam Neurological Exam: Alert, Awake, Oriented x3 - Psychiatric Exam Psychiatric exam: Normal Affect, Normal Mood Assessment and Plan - Assessment and Plan (Free Text) Assessment: 62 y/o female 1 day s/p debridement of left foot non-healing Chopart's amputation site Plan: Pt seen and evaluated Discussed with attending Dr. Vegas Labs and vitals reviewed - afebrile, WBC 11.4 Wound cleaned with saline and dressed with betadine DSD Wound vac to be applied to amputation site tomorrow Plan for further surgical intervention involving application of graft to wound bed, likely Sunday Continue pain management per primary team Will continue to follow while in house
[2017-11-11] MEDS: Oxycodone/Acetaminophen 5/325 mg Tab PO PRN ×4 (05:16→18:23)
[2017-11-11 08:16] LABS: BASO % 0.3 % (0.0-2.0); EOS # 0.2 K/uL (0.0-0.7); EOS % 1.7 % (0.0-4.0); HEMOGLOBIN 8.5 g/dL (11.0-16.0); LYMPH # 4.7 K/uL (1.0-4.3); LYMPH % 39.1 % (20.0-40.0); MEAN CELL VOLUME 79.5 fL (81.0-99.0); MEAN CORPUSCULAR HEMOGLOBIN 26.6 pg (27.0-31.0); MEAN CORPUSCULAR HGB CONC 33.4 g/dL (33.0-37.0); MEAN PLATELET VOLUME 9.3 fL (7.2-11.7); MONO # 1.2 K/uL (0.0-0.8); MONO % 9.8 % (0.0-10.0); NEUT # 5.9 K/uL (1.8-7.0); NEUT % 49.1 % (50.0-75.0); RBC 3.21 Mil/uL (3.80-5.20); RED CELL DISTRIBUTION WIDTH 17.2 % (11.5-14.5)
[2017-11-11 08:52] LABS: ALBUMIN 3.2 g/dL (3.5-5.0); BLOOD UREA NITROGEN 9 mg/dL (7-17); GFR AFRICAN-AMERICAN > 60; GFR NON-AFRICAN AMERICAN > 60
[2017-11-11 08:53] LABS: ALB/GLOB RATIO 0.8 (1.0-2.1); ALT/SGPT 16 U/L (9-52); AST/SGOT 36 U/L (14-36)
[2017-11-11] MEDS: GlipiZIDE 2.5 mg SR Tab PO SCH (10:01)
[2017-11-11] MEDS: Enoxaparin 40 mg Syringe SC SCH (10:02)
--- NOTE | 2017-11-11 12:54 | CP.PCM.PN ---
Subjective - Date & Time of Evaluation Date of Evaluation: 11/11/17 Time of Evaluation: 12:54 - Subjective Subjective: 62 y/o female seen at bedside this morning, 2 days s/p left foot debridement of non-healing amputation site with Dr. Vegas. Pt resting comfortably in bed in [facility]. Admits to continued pain to the left lower extremity, which is intermittent. Says today she feels ok and has a good appetite. Denies F/C/N/V/CP /SOB Objective - Vital Signs/Intake and Output Vital Signs (last 24 hours): Temp Pulse Resp BP Pulse Ox 98.5 F 66 20 113/67 95 11/11/17 07:05 11/11/17 07:05 11/11/17 07:05 11/11/17 10:01 11/11/17 07:05 Intake and Output: 11/11/17 11/11/17 06:59 18:59 Intake Total 30 Output Total 500 Balance -470 - Medications Medications: Current Medications Acetaminophen (Tylenol 325mg Tab) 650 mg PO Q6 PRN PRN Reason: Pain, Mild (1-3) Acetaminophen (Tylenol 325mg Tab) 650 mg PO Q4 PRN PRN Reason: Pain, Mild (1-3) Clopidogrel Bisulfate (Plavix) 75 mg PO DAILY [facility] Last Admin: 11/11/17 10:01 Dose: 75 mg Enoxaparin Sodium (Lovenox) 40 mg SC DAILY [facility] Last Admin: 11/11/17 10:02 Dose: 40 mg Famotidine (Pepcid) 40 mg PO DAILY [facility] Last Admin: 11/11/17 10:01 Dose: 40 mg Glipizide (Glucotrol Xl) 2.5 mg PO DAILY [facility] Last Admin: 11/11/17 10:01 Dose: 2.5 mg Metoprolol Tartrate (Lopressor) 25 mg PO Q12 [facility] Last Admin: 11/11/17 10:01 Dose: 25 mg Ondansetron HCl (Zofran Inj) 4 mg IVP Q8 PRN PRN Reason: Nausea/Vomiting Last Admin: 11/09/17 20:26 Dose: 4 mg Oxycodone/Acetaminophen (Percocet 5/325 Mg Tab) 1 tab PO Q4H PRN PRN Reason: Pain, moderate (4-7) Stop: 11/12/17 13:59 Last Admin: 11/11/17 05:16 Dose: 1 tab Oxycodone/Acetaminophen (Percocet 5/325 Mg Tab) 2 tab PO Q6H PRN PRN Reason: Pain, severe (8-10) Stop: 11/12/17 13:59 Last Admin: 11/11/17 09:58 Dose: 2 tab Oxycodone/Acetaminophen (Percocet 5/325 Mg Tab) 1 tab PO Q4H PRN PRN Reason: Pain, moderate (4-7) Stop: 11/12/17 20:15 Rosuvastatin Calcium (Crestor) 20 mg PO HS [facility] Last Admin: 11/10/17 21:55 Dose: 20 mg - Labs Labs: 11/11/17 08:04 11/11/17 08:04 - Constitutional Appears: Well, Non-toxic, No Acute Distress - Extremities Exam Additional comments: LLE focused exam: Vasc: DP/PT pulses palpable 2/4. Skin flap surrounding amputation site exhibits normal capillary refill. Mild non pitting pedal edema noted to dorsum of skin flap at amputation site Derm: Open Chopart's amputation site with mixture of fibrotic and granular tissue noted to wound bed. Dorsomedial and plantar lateral borders exhibit minor signs of skin necrosis at wound edges. Remainder of wound edges appear healthy. Minimal active sanguinous drainage noted. No purulence, no fluctuance, no malodor Neuro: Protective sensation slightly diminished Ortho: Mild-moderate tenderness to palpation of surgical/amputation site - Neurological Exam Neurological Exam: Alert, Awake, Oriented x3 - Psychiatric Exam Psychiatric exam: Normal Affect, Normal Mood Assessment and Plan - Assessment and Plan (Free Text) Assessment: 62 y/o female 2 days s/p debridement of left foot non-healing Chopart's amputation site Plan: Pt seen and evaluated Discussed with attending Dr. Vegas Labs and vitals reviewed - afebrile, WBC 12.0 Wound cleaned with saline Wound vac applied and set on continuous 125mm Hg Wound vac to be changed q48-72h Pt to go to OR on Sunday for application of Integra bilayer graft to wound bed Anti-coags to be held tomorrow, pt to be NPO past midnight Sunday Continue pain management per primary team Will continue to follow while in house
--- NOTE | 2017-11-12 02:19 | OP ---
PROCEDURE DATE: 11/09/2017 PRIMARY SURGEON: Sarah Vegas DPM. COUNT TEAM MEMBER: Maria Eugenia Taylor, PGY-2. ANESTHESIOLOGIST: Dr. Grande. PREOPERATIVE DIAGNOSIS: Left foot chronic nonhealing wound secondary to prior amputation. POSTOPERATIVE DIAGNOSIS: Left foot chronic nonhealing wound secondary to prior amputation. PROCEDURE PERFORMED: Left foot wound debridement. DESCRIPTION OF PROCEDURE: Attention was then brought to the site of the left foot wound, which was noted to be 10.3 x 7 x 0.3 cm with plantar proximal wound margins being necrotic and fibrotic and the ulcerated bed being 80% granule and 20% fibrotic. The wound was sharply debrided using #15 blade and [employer] wound debridement system. The wound was debrided down to the level of healthy subcutaneous tissue. Post debridement, it should be noted that the ulcer size was 10.3 x 7.8 x 0.4 cm with distal aspect of the navicular bone exposed. Surgical site was then flushed with copious amount of sterile saline. At this time, deep suture closure was placed to cover visible navicular bone with healthy subcutaneous tissue using 3-0 Vicryl. Retention sutures were placed using 3-0 Prolene. Ulceration site was then dressed with iodoform packing, 4 x 4 gauze, ABDs, Kerlix, and VANDANA. POSTOPERATIVE CONDITION: The patient tolerated the anesthesia and procedure well and was escorted to the recovery room with vital signs stable and neurovascular status intact in the left foot. The patient had no complaints or complications. The patient will followup with Dr. Sarah Vegas in our office on outpatient basis. Maria Eugenia Taylor DPM
[2017-11-12] MEDS: Oxycodone/Acetaminophen 5/325 mg Tab PO PRN ×2 (05:34→12:12)
--- NOTE | 2017-11-12 10:09 | CP.PCM.CON ---
<Eren Watson - Last Filed: 11/13/17 10:05> History of Present Illness - History of Present Illness History of Present Illness: 62 year old female with past medical history of diabetes, hypertension , PVD s/p TMA, admitted immediately post-op of left leg wound debridement for left foot gangrene. Patient currently denies any chest pain, shortness of breath , but says has intermittent pain in her left lower extremity. Patient will go Sunday for application of Integra bilayer graft to wound bed : Denis Taveras [phone] PMD: Dr. Galindo Hook, Podiatry: Dr. Vegas PMHx: DM2, HTN and PVD s/p left TMA Allergy: NKDA Social Hx: denies alcohol, tobacco, or other drug use Home meds: Plavix 75mg, Ramipril 10mg, Lopressor 100mg, Gabapentin 300mg Q8, Levemir 10u HS, Glipizide 2.5mg, Lipitor 40mg Review of Systems - Constitutional Constitutional: absent: Anorexia, Chills - EENT Eyes: absent: Blind Spots, Blurred Vision - Cardiovascular Cardiovascular: absent: Chest Pain, Diaphoresis, Dyspnea - Respiratory Respiratory: absent: Cough, Dyspnea - Gastrointestinal Gastrointestinal: absent: Abdominal Pain, Nausea, Vomiting - Musculoskeletal Musculoskeletal: absent: Abnormal Gait - Neurological Neurological: absent: Vertigo, Weakness Past Patient History - Tetanus Immunizations Tetanus Immunization: Unknown - Past Medical History & Family History Past Medical History?: Yes - Past Social History Smoking Status: Never Smoked - CARDIAC Hx Hypercholesterolemia: Yes Hx Hypertension: Yes - PULMONARY Hx Respiratory Disorders: No - NEUROLOGICAL Hx Neurological Disorder: No - HEENT Hx HEENT Problems: Yes Hx Cataracts: Yes (bilat iol) - RENAL Hx Chronic Kidney Disease: No - ENDOCRINE/METABOLIC Hx Diabetes Mellitus Type 2: Yes - HEMATOLOGICAL/ONCOLOGICAL Hx Blood Disorders: Yes Hx Anemia: Yes - INTEGUMENTARY Hx Dermatological Problems: Yes Other/Comment: unhealed areas left foot transmetatarsal amp site - MUSCULOSKELETAL/RHEUMATOLOGICAL Hx Musculoskeletal Disorders: Yes Hx Falls: No Hx Herniated Disk: Yes (with left lumbar radiculopathy) Hx Osteomyelitis: Yes (treated) - GASTROINTESTINAL Hx Gastrointestinal Disorders: Yes Hx Gastritis: Yes - GENITOURINARY/GYNECOLOGICAL Hx Genitourinary Disorders: No - PSYCHIATRIC Hx Psychophysiologic Disorder: Yes Hx Anxiety: Yes (RELATED TO CONDITION) Hx Substance Use: No - SURGICAL HISTORY Hx Surgeries: Yes Hx Amputation: Yes (LEFT FOOT TRANSMETATARSAL/PER MD NOTE) Hx Angiogram: Yes (PERIPHERAL) Hx Cataract Extraction: Yes (bilateral) Hx Cardiac Catheterization: Yes Other/Comment: lower leg surgery, left TMA. left great ingrown toenail removal. 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 - ANESTHESIA Hx Anesthesia: Yes Hx Anesthesia Reactions: No Hx Malignant Hyperthermia: No Has any member of the family had a problem w/ anesthesia?: No Meds Allergies/Adverse Reactions: Allergies Allergy/AdvReac Type Severity Reaction Status Date / Time No Known Allergies Allergy Verified 09/26/17 12:52 - Medications Medications: Current Medications Acetaminophen (Tylenol 325mg Tab) 650 mg PO Q6 PRN PRN Reason: Pain, Mild (1-3) Acetaminophen (Tylenol 325mg Tab) 650 mg PO Q4 PRN PRN Reason: Pain, Mild (1-3) Clopidogrel Bisulfate (Plavix) 75 mg PO DAILY [facility] Last Admin: 11/11/17 10:01 Dose: 75 mg Enoxaparin Sodium (Lovenox) 40 mg SC DAILY [facility] Last Admin: 11/11/17 10:02 Dose: 40 mg Famotidine (Pepcid) 40 mg PO DAILY [facility] Last Admin: 11/11/17 10:01 Dose: 40 mg Glipizide (Glucotrol Xl) 2.5 mg PO DAILY [facility] Last Admin: 11/11/17 10:01 Dose: 2.5 mg Metoprolol Tartrate (Lopressor) 25 mg PO Q12 [facility] Last Admin: 11/11/17 21:44 Dose: 25 mg Ondansetron HCl (Zofran Inj) 4 mg IVP Q8 PRN PRN Reason: Nausea/Vomiting Last Admin: 11/09/17 20:26 Dose: 4 mg Oxycodone/Acetaminophen (Percocet 5/325 Mg Tab) 1 tab PO Q4H PRN PRN Reason: Pain, moderate (4-7) Stop: 11/12/17 13:59 Last Admin: 11/11/17 14:08 Dose: 1 tab Oxycodone/Acetaminophen (Percocet 5/325 Mg Tab) 2 tab PO Q6H PRN PRN Reason: Pain, severe (8-10) Stop: 11/12/17 13:59 Last Admin: 11/12/17 05:34 Dose: 2 tab Oxycodone/Acetaminophen (Percocet 5/325 Mg Tab) 1 tab PO Q4H PRN PRN Reason: Pain, moderate (4-7) Stop: 11/12/17 20:15 Rosuvastatin Calcium (Crestor) 20 mg PO HS [facility] Last Admin: 11/11/17 21:44 Dose: 20 mg Physical Exam - Constitutional Appears: Non-toxic, No Acute Distress - Head Exam Head Exam: ATRAUMATIC, NORMAL INSPECTION, NORMOCEPHALIC - Eye Exam Eye Exam: EOMI, Normal appearance - ENT Exam ENT Exam: Mucous Membranes Moist, Normal Exam - Neck Exam Neck exam: Negative for: Lymphadenopathy - Respiratory Exam Respiratory Exam: Clear to Auscultation Bilateral, NORMAL BREATHING PATTERN - Cardiovascular Exam Cardiovascular Exam: REGULAR RHYTHM, +S1, +S2 - GI/Abdominal Exam GI & Abdominal Exam: Normal Bowel Sounds - Extremities Exam Extremities exam: Negative for: pedal edema Additional comments: TMA amputation on left, wrapped in bandage sp debridement - Neurological Exam Neurological exam: Alert, Oriented x3 Results - Vital Signs Recent Vital Signs: Last Vital Signs Temp 98.0 F 11/12/17 07:10 Pulse 65 11/12/17 07:10 Resp 20 11/12/17 07:10 BP 138/73 11/12/17 07:10 Pulse Ox 96 11/12/17 07:10 - Labs Result Diagrams: 11/13/17 06:47 11/13/17 06:47 Labs: Laboratory Results - last 24 hr 11/11/17 11/11/17 11/11/17 07:08 12:14 16:51 POC Glucose (mg/dL) 189 H 220 H 210 H 11/11/17 11/12/17 21:17 06:17 POC Glucose (mg/dL) 227 H 213 H Assessment & Plan - Assessment and Plan (Free Text) Plan: 1. PVD/ Status post left lower extremtiy debriement -Pt to go to OR on Sunday for application of Integra bilayer graft to wound bed -Plavix to be held 2. HTN-chronic -lopressor 3. Diabetes -continue glipizide 4. Hyperlipidemia -Crestor 20mg <Adi Bates - Last Filed: 11/14/17 13:28> Meds - Medications Medications: Current Medications Acetaminophen (Tylenol 325mg Tab) 650 mg PO Q4 PRN PRN Reason: Pain, Mild (1-3) Clopidogrel Bisulfate (Plavix) 75 mg PO DAILY [facility] Last Admin: 11/14/17 10:01 Dose: 75 mg Enoxaparin Sodium (Lovenox) 40 mg SC DAILY [facility] Last Admin: 11/14/17 10:01 Dose: 40 mg Famotidine (Pepcid) 40 mg PO DAILY [facility] Last Admin: 11/14/17 10:00 Dose: 40 mg Glipizide (Glucotrol Xl) 2.5 mg PO DAILY [facility] Last Admin: 11/14/17 10:00 Dose: 2.5 mg Lidocaine (Lidoderm) 1 ea TD DAILY [facility] Last Admin: 11/14/17 10:02 Dose: 1 ea Lisinopril (Zestril) 2.5 mg PO DAILY [facility] Metoprolol Tartrate (Lopressor) 25 mg PO Q12 [facility] Last Admin: 11/14/17 10:00 Dose: 25 mg Morphine Sulfate (Morphine) 2 mg IVP Q4 PRN PRN Reason: Pain, severe (8-10) Last Admin: 11/14/17 11:27 Dose: 2 mg Ondansetron HCl (Zofran Inj) 4 mg IVP Q8 PRN PRN Reason: Nausea/Vomiting Last Admin: 11/09/17 20:26 Dose: 4 mg Oxycodone/Acetaminophen (Percocet 5/325 Mg Tab) 2 tab PO Q6H PRN PRN Reason: Pain, moderate (4-7) Stop: 11/16/17 16:05 Last Admin: 11/14/17 05:41 Dose: 2 tab Oxycodone/Acetaminophen (Percocet 5/325 Mg Tab) 1 tab PO Q6H PRN PRN Reason: Pain, Mild (1-3) Stop: 11/16/17 10:20 Rosuvastatin Calcium (Crestor) 20 mg PO HS [facility] Last Admin: 11/13/17 22:07 Dose: 20 mg Results - Vital Signs Recent Vital Signs: Last Vital Signs Temp 98.4 F 11/14/17 07:00 Pulse 59 L 11/14/17 07:00 Resp 20 11/14/17 07:00 BP 117/71 11/14/17 10:00 Pulse Ox 95 11/14/17 07:00 - Labs Result Diagrams: 11/13/17 06:47 11/13/17 06:47 Labs: Laboratory Results - last 24 hr 11/13/17 11/13/17 11/14/17 16:18 21:06 06:12 POC Glucose (mg/dL) 251 H 317 H 270 H 11/14/17 11:15 POC Glucose (mg/dL) 354 H Attending/Attestation - Attestation I have personally seen and examined this patient.: Yes I have fully participated in the care of the patient.: Yes I have reviewed all pertinent clinical information: Yes
--- NOTE | 2017-11-12 10:24 | CP.PCM.PN ---
Subjective - Date & Time of Evaluation Date of Evaluation: 11/12/17 Time of Evaluation: 10:22 - Subjective Subjective: Podiatry Progress note for Dr. Vegas 62 y/o female seen at bedside this morning with attending, Dr. Vegas, 3 days s/ p left foot debridement of non-healing amputation site. Pt resting comfortably in bed in [facility]. Admits to continued pain to the left lower extremity, which is intermittent. Says today she feels ok and has a good appetite. Denies F/C/N/V/CP /SOB. She is aware that she is going to the OR tomorrow morning for a wound graft placement. Objective - Vital Signs/Intake and Output Vital Signs (last 24 hours): Temp Pulse Resp BP Pulse Ox 98.0 F 65 20 138/73 96 11/12/17 07:10 11/12/17 07:10 11/12/17 07:10 11/12/17 07:10 11/12/17 07:10 Intake and Output: 11/12/17 11/12/17 06:59 18:59 Intake Total 200 Balance 200 - Medications Medications: Current Medications Acetaminophen (Tylenol 325mg Tab) 650 mg PO Q6 PRN PRN Reason: Pain, Mild (1-3) Acetaminophen (Tylenol 325mg Tab) 650 mg PO Q4 PRN PRN Reason: Pain, Mild (1-3) Clopidogrel Bisulfate (Plavix) 75 mg PO DAILY [facility] Last Admin: 11/11/17 10:01 Dose: 75 mg Enoxaparin Sodium (Lovenox) 40 mg SC DAILY [facility] Last Admin: 11/11/17 10:02 Dose: 40 mg Famotidine (Pepcid) 40 mg PO DAILY [facility] Last Admin: 11/11/17 10:01 Dose: 40 mg Glipizide (Glucotrol Xl) 2.5 mg PO DAILY [facility] Last Admin: 11/11/17 10:01 Dose: 2.5 mg Metoprolol Tartrate (Lopressor) 25 mg PO Q12 [facility] Last Admin: 11/11/17 21:44 Dose: 25 mg Ondansetron HCl (Zofran Inj) 4 mg IVP Q8 PRN PRN Reason: Nausea/Vomiting Last Admin: 11/09/17 20:26 Dose: 4 mg Oxycodone/Acetaminophen (Percocet 5/325 Mg Tab) 1 tab PO Q4H PRN PRN Reason: Pain, moderate (4-7) Stop: 11/12/17 13:59 Last Admin: 11/11/17 14:08 Dose: 1 tab Oxycodone/Acetaminophen (Percocet 5/325 Mg Tab) 2 tab PO Q6H PRN PRN Reason: Pain, severe (8-10) Stop: 11/12/17 13:59 Last Admin: 11/12/17 05:34 Dose: 2 tab Oxycodone/Acetaminophen (Percocet 5/325 Mg Tab) 1 tab PO Q4H PRN PRN Reason: Pain, moderate (4-7) Stop: 11/12/17 20:15 Rosuvastatin Calcium (Crestor) 20 mg PO HS [facility] Last Admin: 11/11/17 21:44 Dose: 20 mg - Labs Labs: 11/11/17 08:04 11/11/17 08:04 - Constitutional Appears: Well, Non-toxic, No Acute Distress - Extremities Exam Additional comments: Left lower extremity focused exam: Vasc: DP and PT pulses palpable 2/4. Skin flap surrounding amputation site exhibits normal capillary refill. Mild non pitting pedal edema noted to dorsum of skin flap at amputation site Derm: Wound vac intact Neuro: Protective sensation diminished Ortho: Mild-moderate tenderness to palpation of surgical/amputation site - Neurological Exam Neurological Exam: Alert, Awake, Oriented x3 - Psychiatric Exam Psychiatric exam: Normal Affect, Normal Mood Assessment and Plan - Assessment and Plan (Free Text) Assessment: 62 y/o female 3 days s/p debridement of left foot non-healing Chopart's amputation site Plan: Pt seen and evaluated with attending Dr. Vegas Labs and vitals reviewed - afebrile, WBC 12.0 (11/11/17) Wound vac left intact and set on continuous 125mm Hg Pt to go to OR on Sunday for application of Integra bilayer graft to wound bed Anti-coags to be held, pt to be NPO past midnight Sunday Continue pain management per primary team Will continue to follow while in house
[2017-11-12] MEDS: Enoxaparin 40 mg Syringe SC SCH (10:33)
[2017-11-12] MEDS: GlipiZIDE 2.5 mg SR Tab PO SCH (10:37)
[2017-11-12] MEDS ORDERED: Oxycodone/Acetaminophen 5/325 mg Tab PO ONE (22:45)
--- NOTE | 2017-11-12 23:29 | CP.PCM.PN ---
Subjective - Date & Time of Evaluation Date of Evaluation: 11/12/17 Time of Evaluation: 23:29 - Subjective Subjective: pt is 62 yrs old female with HTN HLD PVD left leg [employer] angioplasty left forefoot amputation echo in JUN 2017 normal EF pt with severe DM admitted with anemia s/p one unit of PRBC transfusion pt is c/o back pain no chest pain no distress vitals stable clinically stable pt is medically cleared with moderate risk routine post op care dvt gi prophylaxis deepti was asking about treatment for back pain pt will need eval by specialist for back pain now needs treatment for left fore foot stump healing and will go for SSG possibly in am Objective - Vital Signs/Intake and Output Vital Signs (last 24 hours): Temp Pulse Resp BP Pulse Ox 97.9 F 65 20 112/72 99 11/12/17 15:02 11/12/17 15:02 11/12/17 15:02 11/12/17 21:42 11/12/17 15:02 Intake and Output: 11/12/17 11/13/17 18:59 06:59 Intake Total 400 320 Balance 400 320 - Medications Medications: Current Medications Acetaminophen (Tylenol 325mg Tab) 650 mg PO Q6 PRN PRN Reason: Pain, Mild (1-3) Acetaminophen (Tylenol 325mg Tab) 650 mg PO Q4 PRN PRN Reason: Pain, Mild (1-3) Clopidogrel Bisulfate (Plavix) 75 mg PO DAILY [facility] Last Admin: 11/12/17 10:51 Dose: 75 mg Enoxaparin Sodium (Lovenox) 40 mg SC DAILY [facility] Last Admin: 11/12/17 10:33 Dose: Not Given Famotidine (Pepcid) 40 mg PO DAILY [facility] Last Admin: 11/12/17 10:34 Dose: 40 mg Glipizide (Glucotrol Xl) 2.5 mg PO DAILY [facility] Last Admin: 11/12/17 10:37 Dose: 2.5 mg Lidocaine (Lidoderm) 1 ea TD DAILY [facility] Metoprolol Tartrate (Lopressor) 25 mg PO Q12 [facility] Last Admin: 11/12/17 21:42 Dose: 25 mg Ondansetron HCl (Zofran Inj) 4 mg IVP Q8 PRN PRN Reason: Nausea/Vomiting Last Admin: 11/09/17 20:26 Dose: 4 mg Rosuvastatin Calcium (Crestor) 20 mg PO HS [facility] Last Admin: 11/12/17 21:42 Dose: 20 mg - Labs Labs: 11/11/17 08:04 11/11/17 08:04
[2017-11-13 07:03] LABS: BASO % 0.3 % (0.0-2.0); EOS # 0.3 K/uL (0.0-0.7); EOS % 2.3 % (0.0-4.0); HEMOGLOBIN 9.6 g/dL (11.0-16.0); LYMPH # 5.6 K/uL (1.0-4.3); LYMPH % 49.9 % (20.0-40.0); MEAN CELL VOLUME 80.3 fL (81.0-99.0); MEAN CORPUSCULAR HEMOGLOBIN 26.1 pg (27.0-31.0); MEAN CORPUSCULAR HGB CONC 32.5 g/dL (33.0-37.0); MONO # 0.9 K/uL (0.0-0.8); MONO % 8.1 % (0.0-10.0); NEUT # 4.4 K/uL (1.8-7.0); NEUT % 39.4 % (50.0-75.0); RBC 3.67 Mil/uL (3.80-5.20); WHITE BLOOD COUNT 11.3 K/uL (4.8-10.8)
--- NOTE | 2017-11-13 07:12 | CP.PCM.PN ---
Subjective - Date & Time of Evaluation Date of Evaluation: 11/13/17 Time of Evaluation: 07:12 - Subjective Subjective: Podiatry Progress note for Dr. Vegas 62 y/o female seen at bedside this morning 4 days s/p left foot debridement of non-healing amputation site. Pt resting comfortably in bed in NAD. Admits to continued pain to the left lower extremity, which is intermittent. NPO status confirmed. Denies F/C/N/V/CP/SOB. She is aware that she is going to the OR this morning for a wound graft placement. Objective - Vital Signs/Intake and Output Vital Signs (last 24 hours): Temp Pulse Resp BP Pulse Ox 98.6 F 68 20 113/64 97 11/12/17 23:15 11/12/17 23:15 11/12/17 23:15 11/12/17 23:15 11/12/17 23:15 Intake and Output: 11/13/17 11/13/17 06:59 18:59 Intake Total 320 Balance 320 - Medications Medications: Current Medications Acetaminophen (Tylenol 325mg Tab) 650 mg PO Q6 PRN PRN Reason: Pain, Mild (1-3) Acetaminophen (Tylenol 325mg Tab) 650 mg PO Q4 PRN PRN Reason: Pain, Mild (1-3) Clopidogrel Bisulfate (Plavix) 75 mg PO DAILY [facility] Last Admin: 11/12/17 10:51 Dose: 75 mg Enoxaparin Sodium (Lovenox) 40 mg SC DAILY [facility] Last Admin: 11/12/17 10:33 Dose: Not Given Famotidine (Pepcid) 40 mg PO DAILY [facility] Last Admin: 11/12/17 10:34 Dose: 40 mg Glipizide (Glucotrol Xl) 2.5 mg PO DAILY [facility] Last Admin: 11/12/17 10:37 Dose: 2.5 mg Lidocaine (Lidoderm) 1 ea TD DAILY [facility] Metoprolol Tartrate (Lopressor) 25 mg PO Q12 [facility] Last Admin: 11/12/17 21:42 Dose: 25 mg Ondansetron HCl (Zofran Inj) 4 mg IVP Q8 PRN PRN Reason: Nausea/Vomiting Last Admin: 11/09/17 20:26 Dose: 4 mg Rosuvastatin Calcium (Crestor) 20 mg PO HS [facility] Last Admin: 11/12/17 21:42 Dose: 20 mg - Labs Labs: 11/13/17 06:47 11/11/17 08:04 - Constitutional Appears: Well, Non-toxic, No Acute Distress - Extremities Exam Additional comments: dressing c/d/i to LLE - Neurological Exam Neurological Exam: Alert, Awake, Oriented x3 - Psychiatric Exam Psychiatric exam: Normal Affect, Normal Mood Assessment and Plan - Assessment and Plan (Free Text) Assessment: 62 y/o female 4 days s/p debridement of left foot non-healing Chopart's amputation site Plan: Pt was seen and examined at bedside Pt NPO status was confirmed All Pre-op testing and clearance was in the chart Pt has exhausted all conservative treatment at this time and is opting for surgical intervention Pt was explained procedure and post-operative course All pt's questions were answered to satisfaction No guarantees were made Pt understands all risks, benefits and complications of procedure Pt will follow-up with Dr. Vegas
[2017-11-13 07:48] LABS: ALB/GLOB RATIO 0.9 (1.0-2.1); ALBUMIN 3.6 g/dL (3.5-5.0); ALT/SGPT < 6 U/L (9-52); AST/SGOT 26 U/L (14-36); BLOOD UREA NITROGEN 16 mg/dL (7-17); CALCIUM 9.5 mg/dl (8.6-10.4); CK-MB < 0.22 ng/mL (0.0-3.38); GFR AFRICAN-AMERICAN > 60; GFR NON-AFRICAN AMERICAN > 60
[2017-11-13] MEDS ORDERED: Bacitracin 150,000 UNIT in Sodium Chloride 0.9% Irrig 3,000 ML IR SCH (08:40)
[2017-11-13] MEDS ORDERED: Bupivacaine HCl 0.5% PF (30 ml) Inj IJ ONE (08:41)
[2017-11-13] MEDS ORDERED: Midazolam 2 MG/2 ML VIAL ONE (09:25)
[2017-11-13] MEDS ORDERED: Propofol 10 mg/ml Inj (20 ML) ONE (09:25)
[2017-11-13] MEDS ORDERED: Lidocaine Hydrochloride 10 ML INJ ONE (09:28)
[2017-11-13] MEDS ORDERED: ceFAZolin 1 gm in NS 1 GM/100 ML BAG IVPB ONE (09:28)
[2017-11-13] MEDS ORDERED: Mineral Oil Light Sterile 25 ml ONE (09:52)
[2017-11-13] MEDS ORDERED: HYDROmorphone 0.5 mg/0.5 ml ISec IVP PRN (10:06)
--- NOTE | 2017-11-13 10:06 | CP.PCM.PN ---
<Eren Watson - Last Filed: 11/14/17 08:53> Subjective - Date & Time of Evaluation Date of Evaluation: 11/13/17 Time of Evaluation: 08:00 - Subjective Subjective: Patient seen and examined at bedside. 4 days s/p left foot debridement of non- healing amputation site. No acute issues overnight. Patient complains of intermittent pain in left lower extrmeity. Denies any SOB, chest pain or any other complaints. Patient going to the OR for a wound graft placement today. Objective - Vital Signs/Intake and Output Vital Signs (last 24 hours): Temp Pulse Resp BP Pulse Ox 98 F 67 20 123/68 100 11/13/17 08:09 11/13/17 08:09 11/13/17 08:09 11/13/17 08:09 11/13/17 08:09 Intake and Output: 11/13/17 11/13/17 06:59 18:59 Intake Total 320 450 Balance 320 450 - Medications Medications: Current Medications Acetaminophen (Tylenol 325mg Tab) 650 mg PO Q4 PRN PRN Reason: Pain, Mild (1-3) Clopidogrel Bisulfate (Plavix) 75 mg PO DAILY [facility] Last Admin: 11/12/17 10:51 Dose: 75 mg Enoxaparin Sodium (Lovenox) 40 mg SC DAILY [facility] Last Admin: 11/12/17 10:33 Dose: Not Given Famotidine (Pepcid) 40 mg PO DAILY [facility] Last Admin: 11/12/17 10:34 Dose: 40 mg Glipizide (Glucotrol Xl) 2.5 mg PO DAILY [facility] Last Admin: 11/12/17 10:37 Dose: 2.5 mg Lidocaine (Lidoderm) 1 ea TD DAILY [facility] Metoprolol Tartrate (Lopressor) 25 mg PO Q12 [facility] Last Admin: 11/12/17 21:42 Dose: 25 mg Ondansetron HCl (Zofran Inj) 4 mg IVP Q8 PRN PRN Reason: Nausea/Vomiting Last Admin: 11/09/17 20:26 Dose: 4 mg Rosuvastatin Calcium (Crestor) 20 mg PO HS [facility] Last Admin: 11/12/17 21:42 Dose: 20 mg - Labs Labs: 11/13/17 06:47 11/13/17 06:47 - Constitutional Appears: Non-toxic, No Acute Distress - Head Exam Head Exam: ATRAUMATIC, NORMAL INSPECTION, NORMOCEPHALIC - Eye Exam Eye Exam: Normal appearance - ENT Exam ENT Exam: Mucous Membranes Moist - Respiratory Exam Respiratory Exam: Clear to Ausculation Bilateral, NORMAL BREATHING PATTERN - Cardiovascular Exam Cardiovascular Exam: REGULAR RHYTHM, +S1, +S2 - Extremities Exam Additional comments: left extremity ampuation TMA - Neurological Exam Neurological Exam: Alert, Awake, Oriented x3 Assessment and Plan - Assessment and Plan (Free Text) Assessment: 62 year old female with past medical history of diabetes, hypertension , PVD s/p TMA, admitted immediately post-op of left leg wound debridement for left foot gangrene. Patient will go for application of Integra bilayer graft to wound bed. Plan: 1. PVD/ Status post left lower extremtiy debriement -Pt to go to OR for application of Integra bilayer graft to wound bed today -Plavix to be held -NPO 2. HTN-chronic -lopressor 3. Diabetes -continue glipizide 4. Hyperlipidemia -Crestor 20mg <Adi Bates - Last Filed: 11/14/17 13:28> Objective - Vital Signs/Intake and Output Vital Signs (last 24 hours): Temp Pulse Resp BP Pulse Ox 98.4 F 59 L 20 117/71 95 11/14/17 07:00 11/14/17 07:00 11/14/17 07:00 11/14/17 10:00 11/14/17 07:00 Intake and Output: 11/14/17 11/14/17 06:59 18:59 Intake Total 240 Balance 240 - Medications Medications: Current Medications Acetaminophen (Tylenol 325mg Tab) 650 mg PO Q4 PRN PRN Reason: Pain, Mild (1-3) Clopidogrel Bisulfate (Plavix) 75 mg PO DAILY [facility] Last Admin: 11/14/17 10:01 Dose: 75 mg Enoxaparin Sodium (Lovenox) 40 mg SC DAILY [facility] Last Admin: 11/14/17 10:01 Dose: 40 mg Famotidine (Pepcid) 40 mg PO DAILY [facility] Last Admin: 11/14/17 10:00 Dose: 40 mg Glipizide (Glucotrol Xl) 2.5 mg PO DAILY [facility] Last Admin: 11/14/17 10:00 Dose: 2.5 mg Lidocaine (Lidoderm) 1 ea TD DAILY [facility] Last Admin: 11/14/17 10:02 Dose: 1 ea Lisinopril (Zestril) 2.5 mg PO DAILY [facility] Metoprolol Tartrate (Lopressor) 25 mg PO Q12 [facility] Last Admin: 11/14/17 10:00 Dose: 25 mg Morphine Sulfate (Morphine) 2 mg IVP Q4 PRN PRN Reason: Pain, severe (8-10) Last Admin: 11/14/17 11:27 Dose: 2 mg Ondansetron HCl (Zofran Inj) 4 mg IVP Q8 PRN PRN Reason: Nausea/Vomiting Last Admin: 11/09/17 20:26 Dose: 4 mg Oxycodone/Acetaminophen (Percocet 5/325 Mg Tab) 2 tab PO Q6H PRN PRN Reason: Pain, moderate (4-7) Stop: 11/16/17 16:05 Last Admin: 11/14/17 05:41 Dose: 2 tab Oxycodone/Acetaminophen (Percocet 5/325 Mg Tab) 1 tab PO Q6H PRN PRN Reason: Pain, Mild (1-3) Stop: 11/16/17 10:20 Rosuvastatin Calcium (Crestor) 20 mg PO HS [facility] Last Admin: 11/13/17 22:07 Dose: 20 mg - Labs Labs: 11/13/17 06:47 11/13/17 06:47 Attending/Attestation - Attestation I have personally seen and examined this patient.: Yes I have fully participated in the care of the patient.: Yes I have reviewed all pertinent clinical information, including history, physical exam and plan: Yes
--- NOTE | 2017-11-13 10:13 | PCM.SURG1 ---
Surgeon's Initial Post Op Note - Surgeon's Notes Surgeon: Dr. Vegas Food Supervisor: Gael Montgomery, PGY1 Type of Anesthesia: IV Sedation, Local (18cc 1:1 mixture 1% lidocaine plain & 0.5% marcaine plain) Anesthesia Administered By: Dr. Hobbs Pre-Operative Diagnosis: Left foot post-amputation chronic non-healing wound Operative Findings: See operative report. Materials: Integra bilayer wound matrix, 4-0 monocryl. Dressings: adaptic, mineral oil + cotton rounds, 4x4, abd , kerlix Post-Operative Diagnosis: Same Operation Performed: Left foot wound debridement Specimen/Specimens Removed: none Estimated Blood Loss: EBL {In ML}: 5 Blood Products Given: N/A Drains Used: No Drains Post-Op Condition: Good Date of Surgery/Procedure: 11/13/17 Time of Surgery/Procedure: 10:13
[2017-11-13] MEDS ORDERED: Oxycodone/Acetaminophen 5/325 mg Tab PO PRN ×3 (10:19→16:01)
[2017-11-13] MEDS: GlipiZIDE 2.5 mg SR Tab PO SCH (10:40)
[2017-11-13] MEDS: Lidocaine 5% Patch TD SCH (11:19)
[2017-11-13] MEDS: Oxycodone/Acetaminophen 5/325 mg Tab PO PRN (20:21)
[2017-11-14] MEDS: Oxycodone/Acetaminophen 5/325 mg Tab PO PRN ×3 (05:41→21:23)
[2017-11-14] MEDS: GlipiZIDE 2.5 mg SR Tab PO SCH (10:00)
[2017-11-14] MEDS: Enoxaparin 40 mg Syringe SC SCH (10:01)
[2017-11-14] MEDS: Lidocaine 5% Patch TD SCH (10:02)
--- NOTE | 2017-11-14 10:40 | CP.PCM.PN ---
Subjective - Date & Time of Evaluation Date of Evaluation: 11/14/17 Time of Evaluation: 10:40 - Subjective Subjective: Podiatry Progress note for Dr. Vegas 62 year old female seen at bedside this morning 1 day s/p left foot graft application. Pt resting comfortably in bed in NAD. States that she has some pain to her left foot. Denies F/C/N/V/CP/SOB. Objective - Vital Signs/Intake and Output Vital Signs (last 24 hours): Temp Pulse Resp BP Pulse Ox 98.4 F 59 L 20 117/71 95 11/14/17 07:00 11/14/17 07:00 11/14/17 07:00 11/14/17 10:00 11/14/17 07:00 Intake and Output: 11/14/17 11/14/17 06:59 18:59 Intake Total 240 Balance 240 - Medications Medications: Current Medications Acetaminophen (Tylenol 325mg Tab) 650 mg PO Q4 PRN PRN Reason: Pain, Mild (1-3) Clopidogrel Bisulfate (Plavix) 75 mg PO DAILY [facility] Last Admin: 11/14/17 10:01 Dose: 75 mg Enoxaparin Sodium (Lovenox) 40 mg SC DAILY [facility] Last Admin: 11/14/17 10:01 Dose: 40 mg Famotidine (Pepcid) 40 mg PO DAILY [facility] Last Admin: 11/14/17 10:00 Dose: 40 mg Glipizide (Glucotrol Xl) 2.5 mg PO DAILY [facility] Last Admin: 11/14/17 10:00 Dose: 2.5 mg Lidocaine (Lidoderm) 1 ea TD DAILY [facility] Last Admin: 11/14/17 10:02 Dose: 1 ea Metoprolol Tartrate (Lopressor) 25 mg PO Q12 [facility] Last Admin: 11/14/17 10:00 Dose: 25 mg Morphine Sulfate (Morphine) 2 mg IVP Q4 PRN PRN Reason: Pain, severe (8-10) Last Admin: 11/13/17 16:23 Dose: 2 mg Ondansetron HCl (Zofran Inj) 4 mg IVP Q8 PRN PRN Reason: Nausea/Vomiting Last Admin: 11/09/17 20:26 Dose: 4 mg Oxycodone/Acetaminophen (Percocet 5/325 Mg Tab) 2 tab PO Q6H PRN PRN Reason: Pain, moderate (4-7) Stop: 11/16/17 16:05 Last Admin: 11/14/17 05:41 Dose: 2 tab Oxycodone/Acetaminophen (Percocet 5/325 Mg Tab) 1 tab PO Q6H PRN PRN Reason: Pain, Mild (1-3) Stop: 11/16/17 10:20 Rosuvastatin Calcium (Crestor) 20 mg PO HS [facility] Last Admin: 11/13/17 22:07 Dose: 20 mg - Labs Labs: 11/13/17 06:47 11/13/17 06:47 - Constitutional Appears: Well, Non-toxic, No Acute Distress - Extremities Exam Additional comments: Left Lower Extremity focused exam: Vasc: DP/PT pulses palpable 2/4. Skin flap surrounding amputation site exhibits normal capillary refill. Derm: Open Chopart's amputation site with integra skin graft sutured over amputation site. Neuro: Protective sensation slightly diminished Ortho: Mild-moderate tenderness to palpation of surgical/amputation site - Neurological Exam Neurological Exam: Alert, Awake, Oriented x3 - Psychiatric Exam Psychiatric exam: Normal Affect, Normal Mood Assessment and Plan - Assessment and Plan (Free Text) Assessment: patient examined and evaluated discussed in detail with attending, Dr. Vegas labs, vitals, chart reviewed;afebrile wound vac applied to LLE 125 mmHG continuous dressed with 4x4, kerlix pain medication prn podiatry will cont to follow patient while in house
--- NOTE | 2017-11-14 12:49 | CP.PCM.PN ---
<Eren Watson - Last Filed: 11/14/17 12:50> Subjective - Date & Time of Evaluation Date of Evaluation: 11/14/17 Time of Evaluation: 08:00 - Subjective Subjective: Patient seen and evaluated bedside. Patient had graft placement of left lower extremity yesterday. Complaining of left extremity pain. Denies chest pain, shortness of breath, or any other issues. Objective - Vital Signs/Intake and Output Vital Signs (last 24 hours): Temp Pulse Resp BP Pulse Ox 98.4 F 59 L 20 117/71 95 11/14/17 07:00 11/14/17 07:00 11/14/17 07:00 11/14/17 10:00 11/14/17 07:00 Intake and Output: 11/14/17 11/14/17 06:59 18:59 Intake Total 240 Balance 240 - Medications Medications: Current Medications Acetaminophen (Tylenol 325mg Tab) 650 mg PO Q4 PRN PRN Reason: Pain, Mild (1-3) Clopidogrel Bisulfate (Plavix) 75 mg PO DAILY [facility] Last Admin: 11/14/17 10:01 Dose: 75 mg Enoxaparin Sodium (Lovenox) 40 mg SC DAILY [facility] Last Admin: 11/14/17 10:01 Dose: 40 mg Famotidine (Pepcid) 40 mg PO DAILY [facility] Last Admin: 11/14/17 10:00 Dose: 40 mg Glipizide (Glucotrol Xl) 2.5 mg PO DAILY [facility] Last Admin: 11/14/17 10:00 Dose: 2.5 mg Lidocaine (Lidoderm) 1 ea TD DAILY [facility] Last Admin: 11/14/17 10:02 Dose: 1 ea Metoprolol Tartrate (Lopressor) 25 mg PO Q12 [facility] Last Admin: 11/14/17 10:00 Dose: 25 mg Morphine Sulfate (Morphine) 2 mg IVP Q4 PRN PRN Reason: Pain, severe (8-10) Last Admin: 11/14/17 11:27 Dose: 2 mg Ondansetron HCl (Zofran Inj) 4 mg IVP Q8 PRN PRN Reason: Nausea/Vomiting Last Admin: 11/09/17 20:26 Dose: 4 mg Oxycodone/Acetaminophen (Percocet 5/325 Mg Tab) 2 tab PO Q6H PRN PRN Reason: Pain, moderate (4-7) Stop: 11/16/17 16:05 Last Admin: 11/14/17 05:41 Dose: 2 tab Oxycodone/Acetaminophen (Percocet 5/325 Mg Tab) 1 tab PO Q6H PRN PRN Reason: Pain, Mild (1-3) Stop: 11/16/17 10:20 Rosuvastatin Calcium (Crestor) 20 mg PO [facility] Last Admin: 11/13/17 22:07 Dose: 20 mg - Labs Labs: 11/13/17 06:47 11/13/17 06:47 - Constitutional Appears: Non-toxic, No Acute Distress - Head Exam Head Exam: ATRAUMATIC, NORMAL INSPECTION, NORMOCEPHALIC - Eye Exam Eye Exam: EOMI, Normal appearance - ENT Exam ENT Exam: Mucous Membranes Moist - Respiratory Exam Respiratory Exam: Clear to Ausculation Bilateral, NORMAL BREATHING PATTERN - Cardiovascular Exam Cardiovascular Exam: REGULAR RHYTHM, +S1, +S2 - Extremities Exam Additional comments: bandage on left lower extremity, status post graft placement yesterday - Neurological Exam Neurological Exam: Alert, Awake, Oriented x3 Assessment and Plan - Assessment and Plan (Free Text) Plan: 1. PVD/ Status post left lower extremtiy debriement -Integra bilayer graft to wound bed yesterday -Plavix -lisinopril 2.5 2. HTN-chronic -lopressor 3. Diabetes -continue glipizide 4. Hyperlipidemia -Crestor 20mg <Adi Bates - Last Filed: 11/14/17 13:27> Objective - Vital Signs/Intake and Output Vital Signs (last 24 hours): Temp Pulse Resp BP Pulse Ox 98.4 F 59 L 20 117/71 95 11/14/17 07:00 11/14/17 07:00 11/14/17 07:00 11/14/17 10:00 11/14/17 07:00 Intake and Output: 11/14/17 11/14/17 06:59 18:59 Intake Total 240 Balance 240 - Medications Medications: Current Medications Acetaminophen (Tylenol 325mg Tab) 650 mg PO Q4 PRN PRN Reason: Pain, Mild (1-3) Clopidogrel Bisulfate (Plavix) 75 mg PO DAILY [facility] Last Admin: 11/14/17 10:01 Dose: 75 mg Enoxaparin Sodium (Lovenox) 40 mg SC DAILY [facility] Last Admin: 11/14/17 10:01 Dose: 40 mg Famotidine (Pepcid) 40 mg PO DAILY [facility] Last Admin: 11/14/17 10:00 Dose: 40 mg Glipizide (Glucotrol Xl) 2.5 mg PO DAILY [facility] Last Admin: 11/14/17 10:00 Dose: 2.5 mg Lidocaine (Lidoderm) 1 ea TD DAILY [facility] Last Admin: 11/14/17 10:02 Dose: 1 ea Lisinopril (Zestril) 2.5 mg PO DAILY [facility] Metoprolol Tartrate (Lopressor) 25 mg PO Q12 [facility] Last Admin: 11/14/17 10:00 Dose: 25 mg Morphine Sulfate (Morphine) 2 mg IVP Q4 PRN PRN Reason: Pain, severe (8-10) Last Admin: 11/14/17 11:27 Dose: 2 mg Ondansetron HCl (Zofran Inj) 4 mg IVP Q8 PRN PRN Reason: Nausea/Vomiting Last Admin: 11/09/17 20:26 Dose: 4 mg Oxycodone/Acetaminophen (Percocet 5/325 Mg Tab) 2 tab PO Q6H PRN PRN Reason: Pain, moderate (4-7) Stop: 11/16/17 16:05 Last Admin: 11/14/17 05:41 Dose: 2 tab Oxycodone/Acetaminophen (Percocet 5/325 Mg Tab) 1 tab PO Q6H PRN PRN Reason: Pain, Mild (1-3) Stop: 11/16/17 10:20 Rosuvastatin Calcium (Crestor) 20 mg PO [facility] Last Admin: 11/13/17 22:07 Dose: 20 mg - Labs Labs: 11/13/17 06:47 11/13/17 06:47 Attending/Attestation - Attestation I have personally seen and examined this patient.: Yes I have fully participated in the care of the patient.: Yes I have reviewed all pertinent clinical information, including history, physical exam and plan: Yes
--- NOTE | 2017-11-14 22:40 | OP ---
PROCEDURE DATE: 11/13/2017 SURGEON: Dr. Sarah Vegas DPM COMPLEX DIRECTOR: Dr. Jordan Montgomery DPM, PGY-1 ANESTHESIA ADMINISTERED BY: Slava Hobbs DO TYPE OF ANESTHESIA: IV sedation with local, 18 mL of 1:1 mixture of 1% lidocaine plain and 0.5% Marcaine plain. 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 INDICATIONS: The patient is a 62-year-old female with the above diagnosis. The patient has exhausted conservative treatment at this time, and the wound to the patient's left lower extremity remains nonhealing. The patient now requires surgical intervention. The patient signed the consent after careful explanation of risks, benefits, complications, and alternatives to the procedure and wishes to proceed. No guarantees were given or implied. PREPARATION: The patient was brought into the operating room and placed on the operating room table in a supine position. Time-out was performed for identification of the correct patient and procedure. After the induction of IV sedation, a ankle block consisting of 18 mL of 1:1 mixture of 1% lidocaine plain and 0.5% Marcaine plain were administered in an ankle block fashion. The left lower extremity was then prepped and draped in a normal sterile manner and the procedure began. PROCEDURE: Attention was directed to the left foot, where it was noted to have a wound measuring approximately 10 x 7 x 0.3 cm status post Chopart's amputation. The wound bed was noted to be 80% granular and 20% fibrotic with a strong foul odor. No purulence was able to be expressed from this wound. The wound was sharply debrided utilizing a 15 blade down to the level of a mixture of healthy subcutaneous tissue along with bleeding tissue. The surgical site was then flushed with copious amount of sterile saline at this time and Integra graft was applied to the wound site. The graft was adhered to the wound bed using 4-0 Monocryl in an interrupted suture technique. The right lower extremity was then dressed with Adaptic, mineral oil soaked cotton rolls, 4x4, ABDs, and Kerlix. POSTOPERATIVE CONDITION: The patient tolerated the anesthesia and procedure well and was escorted to the recovery room with vital signs stable and neurovascular status intact to the left lower extremity. The patient will keep this dressing clean, dry, and intact until tomorrow, 11/14/2017. At this time, the left lower extremity will be evaluated to determine whether or not a wound VAC will be applied. The patient should remain nonweightbearing to the left lower extremity. Podiatry will continue to follow while the patient remains in-house. Jordan Montgomery DPM Sarah Vegas DPM JAY
--- NOTE | 2017-11-14 23:05 | CP.PCM.PN ---
Subjective - Date & Time of Evaluation Date of Evaluation: 11/14/17 Time of Evaluation: 23:03 - Subjective Subjective: got ssg to wound stump left leg yesterday Blood sugar elevated c/o pain family concerned about the back pain at this time left leg survival is important appreciate cytogenetic technologist work and standard of care for saving the left foot but still high risk for worsening control sugar will check HB will f/u Objective - Vital Signs/Intake and Output Vital Signs (last 24 hours): Temp Pulse Resp BP Pulse Ox 0 F L 63 20 113/62 98 11/14/17 15:05 11/14/17 15:05 11/14/17 15:05 11/14/17 21:21 11/14/17 15:05 - Medications Medications: Current Medications Acetaminophen (Tylenol 325mg Tab) 650 mg PO Q4 PRN PRN Reason: Pain, Mild (1-3) Clopidogrel Bisulfate (Plavix) 75 mg PO DAILY [facility] Last Admin: 11/14/17 10:01 Dose: 75 mg Enoxaparin Sodium (Lovenox) 40 mg SC DAILY [facility] Last Admin: 11/14/17 10:01 Dose: 40 mg Famotidine (Pepcid) 40 mg PO DAILY [facility] Last Admin: 11/14/17 10:00 Dose: 40 mg Glipizide (Glucotrol Xl) 2.5 mg PO DAILY [facility] Last Admin: 11/14/17 10:00 Dose: 2.5 mg Lidocaine (Lidoderm) 1 ea TD DAILY [facility] Last Admin: 11/14/17 10:02 Dose: 1 ea Lisinopril (Zestril) 2.5 mg PO DAILY [facility] Last Admin: 11/14/17 15:07 Dose: 2.5 mg Metoprolol Tartrate (Lopressor) 25 mg PO Q12 [facility] Last Admin: 11/14/17 21:21 Dose: 25 mg Morphine Sulfate (Morphine) 2 mg IVP Q4 PRN PRN Reason: Pain, severe (8-10) Last Admin: 11/14/17 11:27 Dose: 2 mg Ondansetron HCl (Zofran Inj) 4 mg IVP Q8 PRN PRN Reason: Nausea/Vomiting Last Admin: 11/09/17 20:26 Dose: 4 mg Oxycodone/Acetaminophen (Percocet 5/325 Mg Tab) 2 tab PO Q6H PRN PRN Reason: Pain, moderate (4-7) Stop: 11/16/17 16:05 Last Admin: 11/14/17 21:23 Dose: 2 tab Oxycodone/Acetaminophen (Percocet 5/325 Mg Tab) 1 tab PO Q6H PRN PRN Reason: Pain, Mild (1-3) Stop: 11/16/17 10:20 Rosuvastatin Calcium (Crestor) 20 mg PO HS [facility] Last Admin: 11/14/17 21:21 Dose: 20 mg - Labs Labs: 11/13/17 06:47 11/13/17 06:47
[2017-11-15 08:08] LABS: BASO % 0.2 % (0.0-2.0); EOS # 0.2 K/uL (0.0-0.7); EOS % 1.9 % (0.0-4.0); HEMOGLOBIN 8.8 g/dL (11.0-16.0); LYMPH # 5.4 K/uL (1.0-4.3); LYMPH % 44.8 % (20.0-40.0); MEAN CELL VOLUME 79.3 fL (81.0-99.0); MEAN CORPUSCULAR HEMOGLOBIN 26.6 pg (27.0-31.0); MEAN CORPUSCULAR HGB CONC 33.5 g/dL (33.0-37.0); MONO # 1.1 K/uL (0.0-0.8); MONO % 8.8 % (0.0-10.0); NEUT # 5.3 K/uL (1.8-7.0); NEUT % 44.3 % (50.0-75.0); RBC 3.31 Mil/uL (3.80-5.20); RED CELL DISTRIBUTION WIDTH 16.7 % (11.5-14.5)
[2017-11-15 08:37] LABS: ALB/GLOB RATIO 0.8 (1.0-2.1); ALBUMIN 3.3 g/dL (3.5-5.0); ALT/SGPT 10 U/L (9-52); AST/SGOT 25 U/L (14-36); BLOOD UREA NITROGEN 16 mg/dL (7-17); GFR AFRICAN-AMERICAN > 60; GFR NON-AFRICAN AMERICAN > 60
[2017-11-15] MEDS: Enoxaparin 40 mg Syringe SC SCH (09:40)
[2017-11-15] MEDS: Oxycodone/Acetaminophen 5/325 mg Tab PO PRN (09:40)
[2017-11-15] MEDS: GlipiZIDE 2.5 mg SR Tab PO SCH (09:40)
[2017-11-15] MEDS: Lidocaine 5% Patch TD SCH (09:43)
--- NOTE | 2017-11-15 10:20 | CP.PCM.PN ---
Objective - Vital Signs/Intake and Output Vital Signs (last 24 hours): Temp Pulse Resp BP Pulse Ox 98.6 F 60 20 104/57 L 96 11/15/17 07:30 11/15/17 07:30 11/15/17 07:30 11/15/17 09:39 11/15/17 07:30 - Medications Medications: Current Medications Acetaminophen (Tylenol 325mg Tab) 650 mg PO Q4 PRN PRN Reason: Pain, Mild (1-3) Clopidogrel Bisulfate (Plavix) 75 mg PO DAILY [facility] Last Admin: 11/15/17 09:39 Dose: 75 mg Docusate Sodium (Colace) 100 mg PO TID [facility] Last Admin: 11/15/17 09:39 Dose: 100 mg Enoxaparin Sodium (Lovenox) 40 mg SC DAILY [facility] Last Admin: 11/15/17 09:40 Dose: 40 mg Famotidine (Pepcid) 40 mg PO DAILY [facility] Last Admin: 11/15/17 09:39 Dose: 40 mg Glipizide (Glucotrol Xl) 2.5 mg PO DAILY [facility] Last Admin: 11/15/17 09:40 Dose: 2.5 mg Lidocaine (Lidoderm) 1 ea TD DAILY [facility] Last Admin: 11/15/17 09:43 Dose: 1 ea Lisinopril (Zestril) 2.5 mg PO DAILY [facility] Last Admin: 11/15/17 09:40 Dose: 2.5 mg Metoprolol Tartrate (Lopressor) 25 mg PO Q12 [facility] Last Admin: 11/15/17 09:39 Dose: 25 mg Morphine Sulfate (Morphine) 2 mg IVP Q4 PRN PRN Reason: Pain, severe (8-10) Last Admin: 11/15/17 06:06 Dose: 2 mg Ondansetron HCl (Zofran Inj) 4 mg IVP Q8 PRN PRN Reason: Nausea/Vomiting Last Admin: 11/09/17 20:26 Dose: 4 mg Oxycodone/Acetaminophen (Percocet 5/325 Mg Tab) 2 tab PO Q6H PRN PRN Reason: Pain, moderate (4-7) Stop: 11/16/17 16:05 Last Admin: 11/15/17 09:40 Dose: 2 tab Oxycodone/Acetaminophen (Percocet 5/325 Mg Tab) 1 tab PO Q6H PRN PRN Reason: Pain, Mild (1-3) Stop: 11/16/17 10:20 Rosuvastatin Calcium (Crestor) 20 mg PO HS [facility] Last Admin: 11/14/17 21:21 Dose: 20 mg - Labs Labs: 11/15/17 07:53 11/15/17 07:53
--- NOTE | 2017-11-15 11:32 | CP.PCM.PN ---
Subjective - Date & Time of Evaluation Date of Evaluation: 11/15/17 Time of Evaluation: 11:31 - Subjective Subjective: Podiatry Progress note for Dr. Vegas 62 year old female seen at bedside this morning 2 day s/p left foot graft application. Pt resting comfortably in bed in NAD. States that she has some pain to her left foot that is controlled with pain medication. Denies F/C/N/V/CP /SOB. Objective - Vital Signs/Intake and Output Vital Signs (last 24 hours): Temp Pulse Resp BP Pulse Ox 98.6 F 60 20 104/57 L 96 11/15/17 07:30 11/15/17 07:30 11/15/17 07:30 11/15/17 09:39 11/15/17 07:30 - Medications Medications: Current Medications Acetaminophen (Tylenol 325mg Tab) 650 mg PO Q4 PRN PRN Reason: Pain, Mild (1-3) Clopidogrel Bisulfate (Plavix) 75 mg PO DAILY [facility] Last Admin: 11/15/17 09:39 Dose: 75 mg Docusate Sodium (Colace) 100 mg PO TID [facility] Last Admin: 11/15/17 09:39 Dose: 100 mg Enoxaparin Sodium (Lovenox) 40 mg SC DAILY [facility] Last Admin: 11/15/17 09:40 Dose: 40 mg Famotidine (Pepcid) 40 mg PO DAILY [facility] Last Admin: 11/15/17 09:39 Dose: 40 mg Glipizide (Glucotrol Xl) 2.5 mg PO DAILY [facility] Last Admin: 11/15/17 09:40 Dose: 2.5 mg Lidocaine (Lidoderm) 1 ea TD DAILY [facility] Last Admin: 11/15/17 09:43 Dose: 1 ea Lisinopril (Zestril) 2.5 mg PO DAILY [facility] Last Admin: 11/15/17 09:40 Dose: 2.5 mg Metoprolol Tartrate (Lopressor) 25 mg PO Q12 [facility] Last Admin: 11/15/17 09:39 Dose: 25 mg Morphine Sulfate (Morphine) 2 mg IVP Q4 PRN PRN Reason: Pain, severe (8-10) Last Admin: 11/15/17 06:06 Dose: 2 mg Ondansetron HCl (Zofran Inj) 4 mg IVP Q8 PRN PRN Reason: Nausea/Vomiting Last Admin: 11/09/17 20:26 Dose: 4 mg Oxycodone/Acetaminophen (Percocet 5/325 Mg Tab) 2 tab PO Q6H PRN PRN Reason: Pain, moderate (4-7) Stop: 11/16/17 16:05 Last Admin: 11/15/17 09:40 Dose: 2 tab Oxycodone/Acetaminophen (Percocet 5/325 Mg Tab) 1 tab PO Q6H PRN PRN Reason: Pain, Mild (1-3) Stop: 11/16/17 10:20 Rosuvastatin Calcium (Crestor) 20 mg PO HS [facility] Last Admin: 11/14/17 21:21 Dose: 20 mg - Labs Labs: 11/15/17 07:53 11/15/17 07:53 - Constitutional Appears: Well, Non-toxic, No Acute Distress - Extremities Exam Additional comments: Left Lower Extremity focused exam: Vasc: DP and PT pulses palpable 2/4. Skin flap surrounding amputation site exhibits normal capillary refill. Derm: Open Chopart's amputation site with integra skin graft sutured over amputation site, with maceration noted to plantar border Neuro: Protective sensation slightly diminished Ortho: Mild-moderate tenderness to palpation of surgical/amputation site - Neurological Exam Neurological Exam: Alert, Awake, Oriented x3 - Psychiatric Exam Psychiatric exam: Normal Affect, Normal Mood Assessment and Plan - Assessment and Plan (Free Text) Assessment: 62 year old female 2 days s/p left foot graft application Plan: patient examined and evaluated discussed in detail with attending, Dr. Vegas labs, vitals, chart reviewed;afebrile wound vac applied to LLE 125 mmHG continuous dressed with 4x4, kerlix pain medication prn patient to have wound vac changed every 2 days by VNA, wound graft it to be kept intact, wound vac applied, dressed with 4x4, kerlix patient stable for d/c from podiatry standpoint patient to follow up with Dr. Vegas upon d/c podiatry will cont to follow patient while in house
[2017-11-15] MEDS ORDERED: Oxycodone/Acetaminophen 5/325 mg Tab PO PRN ×2 (15:14→15:15)
[2017-11-15 16:06] VITALS: BP 99/56; PULSE 64; RESP 18; TEMP 99.2; O2SAT 97
--- NOTE | 2017-11-15 23:08 | CP.PCM.DIS ---
Provider - Provider Date of Admission: 11/09/17 14:15 Attending physician: Abbe Michelle MD Hospital Course - Lab Results Lab Results: Most Recent Lab Values WBC 12.0 K/uL (4.8-10.8) H 11/15/17 07:53 RBC 3.31 Mil/uL (3.80-5.20) L 11/15/17 07:53 Hgb 8.8 g/dL (11.0-16.0) L 11/15/17 07:53 Hct 26.3 % (34.0-47.0) L 11/15/17 07:53 MCV 79.3 fL (81.0-99.0) L 11/15/17 07:53 MCH 26.6 pg (27.0-31.0) L 11/15/17 07:53 MCHC 33.5 g/dL (33.0-37.0) 11/15/17 07:53 RDW 16.7 % (11.5-14.5) H 11/15/17 07:53 Plt Count 536 K/uL (130-400) H 11/15/17 07:53 MPV 9.0 fL (7.2-11.7) 11/15/17 07:53 Neut % (Auto) 44.3 % (50.0-75.0) L 11/15/17 07:53 Lymph % (Auto) 44.8 % (20.0-40.0) H 11/15/17 07:53 [place] % (Auto) 8.8 % (0.0-10.0) 11/15/17 07:53 Eos % (Auto) 1.9 % (0.0-4.0) 11/15/17 07:53 Baso % (Auto) 0.2 % (0.0-2.0) 11/15/17 07:53 Neut # (Auto) 5.3 K/uL (1.8-7.0) 11/15/17 07:53 Lymph # (Auto) 5.4 K/uL (1.0-4.3) H 11/15/17 07:53 [place] # (Auto) 1.1 K/uL (0.0-0.8) H 11/15/17 07:53 Eos # (Auto) 0.2 K/uL (0.0-0.7) 11/15/17 07:53 Baso # (Auto) 0.0 K/uL (0.0-0.2) 11/15/17 07:53 Sodium 139 mmol/L (132-148) 11/15/17 07:53 Potassium 4.1 mmol/L (3.6-5.2) 11/15/17 07:53 Chloride 99 mmol/L (98-107) 11/15/17 07:53 Carbon Dioxide 27 mmol/L (22-30) 11/15/17 07:53 Anion Gap 18 (10-20) 11/15/17 07:53 BUN 16 mg/dL (7-17) 11/15/17 07:53 Creatinine 0.7 mg/dL (0.7-1.2) 11/15/17 07:53 Est GFR ( Amer) > 60 11/15/17 07:53 Est GFR (Non-Af Amer) > 60 11/15/17 07:53 POC Glucose (mg/dL) 246 mg/dL (65-110) H 11/15/17 16:37 Random Glucose 253 mg/dL (65-105) H 11/15/17 07:53 Calcium 9.0 mg/dl (8.6-10.4) 11/15/17 07:53 Phosphorus 4.4 mg/dL (2.5-4.5) 11/15/17 07:53 Magnesium 1.8 mg/dL (1.6-2.3) 11/15/17 07:53 Total Bilirubin 0.5 mg/dL (0.2-1.3) 11/15/17 07:53 AST 25 U/L (14-36) 11/15/17 07:53 ALT 10 U/L (9-52) 11/15/17 07:53 Alkaline Phosphatase 79 U/L (38-126) 11/15/17 07:53 Total Creatine Kinase < 20 U/L (30-135) L 11/13/17 06:47 CK-MB (Mass) < 0.22 ng/mL (0.0-3.38) 11/13/17 06:47 Troponin I 0.0180 ng/mL (0.00-0.120) 11/13/17 06:47 Total Protein 7.2 g/dL (6.3-8.3) 11/15/17 07:53 Albumin 3.3 g/dL (3.5-5.0) L 11/15/17 07:53 Globulin 4.0 gm/dL (2.2-3.9) H 11/15/17 07:53 Albumin/Globulin Ratio 0.8 (1.0-2.1) L 11/15/17 07:53 Blood Type B POSITIVE 11/09/17 16:34 Antibody Screen Negative 11/09/17 16:34 Discharge Exam - Head Exam Head Exam: ATRAUMATIC, NORMAL INSPECTION, NORMOCEPHALIC Discharge Plan - Follow Up Plan Condition: GOOD Disposition: HOME/ ROUTINE Instructions: Peripheral Vascular (Arterial) Disease (DC), Pregabalin, Oxycodone and Acetaminophen, Gangrene (DC)
== END 2017-11-15 19:48 | disposition home or self-care (01) | DRG 464 ==
LOC: C.SDS 10:48 → C.9S 14:15 → C.6T 16:57
PROVIDERS: ADMIT Internal Medicine; ATTEND Internal Medicine
PROC: 0HBNXZZ Excision of Left Foot Skin, External Approach (ICD-10-PCS; principal; 2017-11-09 12:45)
PROC: 0HRNXK3 Replacement of Left Foot Skin with Nonautologous Tissue Substitute, Full Thickness, External Approach (ICD-10-PCS; 2017-11-13)
PROC: 0HBNXZZ Excision of Left Foot Skin, External Approach (ICD-10-PCS; 2017-11-13)
PROC: 30233N1 Transfusion of Nonautologous Red Blood Cells into Peripheral Vein, Percutaneous Approach (ICD-10-PCS; 2017-11-13)
DX: T87.89 Other complications of amputation stump (principal); E11.52 Type 2 diabetes mellitus with diabetic peripheral angiopathy with gangrene; L97.424 Non-pressure chronic ulcer of left heel and midfoot with necrosis of bone; E78.00 Pure hypercholesterolemia, unspecified; I10 Essential (primary) hypertension; E11.65 Type 2 diabetes mellitus with hyperglycemia; Y83.5 Amputation of limb(s) as the cause of abnormal reaction of the patient, or of later complication, without mention of misadventure at the time of the procedure; D64.9 Anemia, unspecified

== ENCOUNTER 2017-12-13 09:12 | Inpatient (IN) | payer BC ==
[2017-12-13 09:18] VITALS: BMI 26.0
[2017-12-13] MEDS ORDERED: Oxycodone/Acetaminophen 5/325 mg Tab PO STA (09:54)
--- NOTE | 2017-12-13 10:02 | C.PDOC ---
History Of Present Illness 62 y/o female with history of DM and left foot mid tarsal amputation several months ago presents to ED sent by Dr. Michelle for hemoglobin of 7.2. At ED patient denies vaginal bleeding, rectal bleeding, weakness or any other complaints at this time. Time Seen by Provider: 12/13/17 09:21 Chief Complaint (Nursing): Abnormal Labs History Per: Patient History/Exam Limitations: no limitations Onset/Duration Of Symptoms: Days Current Symptoms Are (Timing): Still Present Past Medical History Reviewed: Historical Data, Nursing Documentation, Vital Signs Vital Signs: Last Vital Signs Temp 98.8 F 12/16/17 08:00 Pulse 76 12/16/17 08:00 Resp 20 12/16/17 08:00 BP 102/64 12/16/17 08:00 Pulse Ox 96 12/16/17 08:00 - Medical History PMH: Anemia, Anxiety (RELATED TO CONDITION), Diabetes, Gastritis, HTN, Hypercholesterolemia Surgical History: No Surg Hx - [facility] Procedures DETACHMENT AT LEFT 1ST TOE, COMPLETE, OPEN APPROACH (08/22/17) DETACHMENT AT LEFT FOOT, PARTIAL 1ST RAY, OPEN APPROACH (07/04/17) DETACHMENT AT LEFT FOOT, PARTIAL 2ND RAY, OPEN APPROACH (07/04/17) DETACHMENT AT LEFT FOOT, PARTIAL 3RD RAY, OPEN APPROACH (07/04/17) DETACHMENT AT LEFT FOOT, PARTIAL 4TH RAY, OPEN APPROACH (07/04/17) DETACHMENT AT LEFT FOOT, PARTIAL 5TH RAY, OPEN APPROACH (07/04/17) DILATION OF LEFT FEMORAL ARTERY, PERCUTANEOUS APPROACH (07/04/17) DILATION OF LEFT POPLITEAL ARTERY, PERCUTANEOUS APPROACH (07/04/17) DRAIN OF L FOOT SUBCU/FASCIA WITH DRAIN DEV, OPEN APPROACH (08/22/17) EXCISION OF LEFT FOOT SKIN, EXTERNAL APPROACH (11/09/17) EXCISION OF LEFT METATARSAL, OPEN APPROACH (08/22/17) FLUOROSCOPY OF AORTA, BI LE ART USING OTH CONTRAST (07/04/17) FLUOROSCOPY OF SUPERIOR VENA CAVA, GUIDANCE (08/22/17) INSERTION OF INFUSION DEV INTO SUP VENA CAVA, PERC APPROACH (08/22/17) INTRODUCE ANTI-INFLAM IN PERIPH NRV, PLEXI, PERC (07/04/17) INTRODUCE LOCAL ANESTH IN PERIPH NRV, PLEXI, PERC (07/04/17) INTRODUCE OTH ANTI-INFECT IN CENTRAL VEIN, PERC (08/22/17) REPLACE L FOOT SKIN W NONAUT SUB, FULL THICK, GAS APPLIANCE SERVICER HELPER (11/09/17) RESECTION OF LEFT TOE PHALANX, OPEN APPROACH (07/04/17) TRANSFUSE NONAUT RED BLOOD CELLS IN PERIPH VEIN, PERC (11/09/17) Family History: States: No Known Family Hx - Social History Hx Alcohol Use: No Hx Substance Use: No - Immunization History Hx Tetanus Toxoid Vaccination: Yes Hx Influenza Vaccination: Yes Hx Pneumococcal Vaccination: Yes Review Of Systems Constitutional: Negative for: Fever, Chills Cardiovascular: Negative for: Chest Pain Respiratory: Negative for: Shortness of Breath Gastrointestinal: Negative for: Nausea, Vomiting Neurological: Negative for: Weakness Physical Exam - Physical Exam Appears: Non-toxic, Other (Uncomfortable) Skin: Warm, Dry, Pale Head: Atraumatic, Normacephalic Eye(s): bilateral: Normal Inspection, Conjunctiva Pale Oral Mucosa: Moist Neck: Normal ROM, Supple Cardiovascular: Rhythm Regular Respiratory: Normal Breath Sounds, No Rales, No Rhonchi, No Wheezing Gastrointestinal/Abdominal: Soft, No Tenderness, No Guarding, No Rebound Extremity: Capillary Refill (<2 seconds), Other (distal left foot without dressing s/p midmetatarsal amputation. Foul odor. sttiches in place. drainage noted from wound area) Neurological/Psych: Oriented x3, Normal Speech, Normal Cognition, Normal Motor, Normal Sensation ED Course And Treatment - Laboratory Results Result Diagrams: 12/15/17 06:39 12/15/17 06:39 O2 Sat by Pulse Oximetry: 100 (RA) Pulse Ox Interpretation: Normal Medical Decision Making Medical Decision Making: Plan: Blood work, Podiatry consult 1024 discussed with podiatry resident; she will review pt's chart to determine best antibiotics to start patient on and come see pt in ed. discussed with Dr Michelle, will admit pt for foot infections no need for emergent transfusion at this time. Disposition Discussed With : Abbe Michelle Doctor Will See Patient In The: Hospital - Disposition Disposition: HOSPITALIZED Disposition Time: 11:15 Condition: GOOD - Clinical Impression Clinical Impression: Status post transmetatarsal amputation of left foot, Diabetic infection of left foot, Anemia - PA / WATCH REPAIR TECHNICIAN / Resident Statement MD/DO has reviewed & agrees with the documentation as recorded. - Scribe Statement The provider has reviewed the documentation as recorded by the Scribharjinder Aiken All medical record entries made by the Jimmyibharjinder were at my direction and personally dictated by me. I have reviewed the chart and agree that the record accurately reflects my personal performance of the history, physical exam, medical decision making, and the department course for this patient. I have also personally directed, reviewed, and agree with the discharge instructions and disposition.
[2017-12-13] MEDS ORDERED: Oxycodone/Acetaminophen 5/325 mg Tab ONE (10:07)
[2017-12-13 10:09] LABS: BASO % 0.3 % (0.0-2.0); EOS # 0.1 K/uL (0.0-0.7); EOS % 0.4 % (0.0-4.0); HEMOGLOBIN 7.6 g/dL (11.0-16.0); LYMPH # 2.8 K/uL (1.0-4.3); LYMPH % 17.5 % (20.0-40.0); MEAN CELL VOLUME 77.7 fL (81.0-99.0); MEAN CORPUSCULAR HGB CONC 32.2 g/dL (33.0-37.0); MEAN PLATELET VOLUME 8.3 fL (7.2-11.7); MONO # 2.2 K/uL (0.0-0.8); MONO % 13.6 % (0.0-10.0); NEUT # 10.9 K/uL (1.8-7.0); NEUT % 68.2 % (50.0-75.0); RBC 3.02 Mil/uL (3.80-5.20); RED CELL DISTRIBUTION WIDTH 16.4 % (11.5-14.5)
[2017-12-13 10:20] LABS: ALT/SGPT 8 U/L (9-52); AST/SGOT 30 U/L (14-36)
[2017-12-13 10:55] LABS: ALB/GLOB RATIO 0.7 (1.0-2.1); ALBUMIN 3.4 g/dL (3.5-5.0); BLOOD UREA NITROGEN 22 mg/dL (7-17); CALCIUM 9.2 mg/dl (8.6-10.4); GFR AFRICAN-AMERICAN > 60; GFR NON-AFRICAN AMERICAN > 60
[2017-12-13] MEDS ORDERED: Vancomycin 1 gm/NS 200 ml 1 GM/200 ML BAG IVPB STA (11:08)
[2017-12-13] MEDS ORDERED: Piperacillin/Tazobact 3.375 gm 100 ML IVPB STA ×2 (11:08→14:28)
--- NOTE | 2017-12-13 11:15 | CP.PCM.CON ---
History of Present Illness - History of Present Illness History of Present Illness: Podiatry consult note for Dr. Vegas: 62 y/o female with pmhx of DM seen at bedside in the ED for left foot infection. Patient is s/p choparts midfoot amputation (DOS: 10/12/17). Patient was sent to the ED by her PMD, Dr. Michelle for anemia. Patient states that she is in severe pain in her left foot that is not being relieved by percocet. Patient states that she saw Dr. Vegas in her office and has been seeing her every sunday and is ready for a below knee amputation. Patient states that her vascular surgeon, Dr. Hernández is on vacation until next week but would like the surgery as soon as possible to relieve the pain. Patient also complains of chills, but denies nausea, fever, vomiting, dizziness. Review of Systems - Constitutional Constitutional: As Per HPI Past Patient History - Tetanus Immunizations Tetanus Immunization: Unknown - Past Medical History & Family History Past Medical History?: Yes - Past Social History Smoking Status: Never Smoked - CARDIAC Hx Hypercholesterolemia: Yes Hx Hypertension: Yes - PULMONARY Hx Respiratory Disorders: No - NEUROLOGICAL Hx Neurological Disorder: No - HEENT Hx HEENT Problems: Yes Hx Cataracts: Yes (bilat iol) - RENAL Hx Chronic Kidney Disease: No - ENDOCRINE/METABOLIC Hx Diabetes Mellitus Type 2: Yes - HEMATOLOGICAL/ONCOLOGICAL Hx Anemia: Yes - INTEGUMENTARY Hx Dermatological Problems: Yes Other/Comment: unhealed areas left foot transmetatarsal amp site - MUSCULOSKELETAL/RHEUMATOLOGICAL Hx Musculoskeletal Disorders: Yes Hx Falls: No Hx Herniated Disk: Yes (with left lumbar radiculopathy) Hx Osteomyelitis: Yes (treated) - GASTROINTESTINAL Hx Gastritis: Yes - GENITOURINARY/GYNECOLOGICAL Hx Genitourinary Disorders: No - PSYCHIATRIC Hx Anxiety: Yes (RELATED TO CONDITION) Hx Substance Use: No - SURGICAL HISTORY Hx Surgeries: Yes Hx Amputation: Yes (LEFT FOOT TRANSMETATARSAL/PER MD NOTE) Hx Angiogram: Yes (PERIPHERAL) Hx Cataract Extraction: Yes (bilateral) Hx Cardiac Catheterization: Yes Other/Comment: lower leg surgery, left TMA. left great ingrown toenail removal. 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 - ANESTHESIA Hx Anesthesia: Yes Hx Anesthesia Reactions: No Hx Malignant Hyperthermia: No Meds Allergies/Adverse Reactions: Allergies Allergy/AdvReac Type Severity Reaction Status Date / Time No Known Allergies Allergy Verified 12/13/17 09:17 - Medications Medications: Current Medications Piperacillin Sod/Tazobactam Sod (Zosyn 3.375 In Ns 100ml) 100 mls @ 200 mls/hr IVPB STAT STA PRN Reason: Protocol Stop: 12/13/17 11:37 Vancomycin/Sodium Chloride (Vancomycin 1 Gm/Ns 200 Ml) 1 gm in 200 mls @ 133 mls/hr IVPB STAT STA PRN Reason: Protocol Stop: 12/13/17 12:38 Physical Exam - Constitutional Appears: Non-toxic, No Acute Distress - Extremities Exam Additional comments: left lower extremity focused: vasc: nonpalpable pedal pulses, TG wnl, CFT unable to assess due to amputation neuro: grossly diminished derm: choparts amputation site- stump of left foot with open circumferential wound - distal and dorsal aspect granular and plantar aspect necrotic with bogginess noted, retention sutures intact to lateral aspect of stump, moderate malodor noted, mild serosanguinous drainage noted from plantar aspect, mild erythema surrounding the stump, no edema, no tunneling, no ascending cellulitis ortho: pain on palpation of left foot, no calf pain or tenderness - Neurological Exam Neurological exam: Oriented x3 Results - Vital Signs Recent Vital Signs: Last Vital Signs Temp 98.1 F 12/13/17 10:57 Pulse 78 12/13/17 10:57 Resp 20 12/13/17 10:57 BP 106/65 12/13/17 10:57 Pulse Ox 100 12/13/17 11:11 - Labs Result Diagrams: 12/13/17 09:58 12/13/17 09:58 Labs: Laboratory Results - last 24 hr 12/13/17 12/13/17 12/13/17 09:58 09:58 09:58 WBC 16.0 H RBC 3.02 L Hgb 7.6 L Hct 23.5 L MCV 77.7 L MCH 25.0 L MCHC 32.2 L RDW 16.4 H Plt Count 669 H D MPV 8.3 Neut % (Auto) 68.2 Lymph % (Auto) 17.5 L [place] % (Auto) 13.6 H Eos % (Auto) 0.4 Baso % (Auto) 0.3 Neut # (Auto) 10.9 H Lymph # (Auto) 2.8 [place] # (Auto) 2.2 H Eos # (Auto) 0.1 Baso # (Auto) 0.0 Differential Comment Sodium 139 Potassium 3.6 Chloride 94 L Carbon Dioxide 32 H Anion Gap 16 BUN 22 H Creatinine 0.8 Est GFR ( Amer) > 60 Est GFR (Non-Af Amer) > 60 Random Glucose 119 H Calcium 9.2 Total Bilirubin 0.9 AST 30 ALT 8 L Alkaline Phosphatase 101 Total Protein 8.0 Albumin 3.4 L Globulin 4.6 H Albumin/Globulin Ratio 0.7 L Blood Type B POSITIVE Antibody Screen Negative Assessment & Plan - Assessment and Plan (Free Text) Assessment: 62 y/o female with pmhx of DM seen at bedside in the ED regarding infected left foot choparts amputation site Plan: patient evaluated and chart reviewed discussed in detail with attending Dr. Vegas labs and vitals reviewed; afebrile, WBC 16.0 start Vanco/Zosyn, ID consult appreciated wound cx obtained, f/u results applied betadine, DSD to left foot Rx dakins solution/ santyl Rx X rays of left lower extremity patient to be admitted podiatry will continue to monitor while patient remains in house
--- NOTE | 2017-12-13 12:33 | RAD ---
PROCEDURE: Left Foot Radiographs. HISTORY: midtarsal amputation. foul discharge COMPARISON: 10/12/2017 FINDINGS: BONES: Again seen are postsurgical changes of amputation at the level of the hindfoot. There is stable appearance of the talus, calcaneus and navicular. There is diffuse bone demineralization. There is no acute fracture or bone destruction. JOINTS: The visualized joints are grossly unremarkable. SOFT TISSUES: Normal. OTHER FINDINGS: None. IMPRESSION: No acute fracture or bone destruction. No significant interval change in the appearance of the hind foot post mid tarsal amputation.
[2017-12-13] MEDS: Oxycodone/Acetaminophen 5/325 mg Tab PO PRN ×2 (16:33→21:52)
[2017-12-13] MEDS: Insulin Detemir 100 units/ml Vial (Levemir) SC SCH (21:51)
--- NOTE | 2017-12-13 22:25 | CP.PCM.HP ---
History of Present Illness - History of Present Illness History of Present Illness: Chief complaint: Abnormal blood test,severe anemia increasing pain History of present illness: 62-year-old female with history of diabetes, hypertension, peripheral vascular disease, status post angioplasty, stent placement in the left leg recently. Patient is currently on insulin treatment. Also had left the Midtarsal joint amputation, being treated with the painter and grader cork. Patient is currently complaining of severe back pain, radiating to the right leg. Patient is taking gabapentin Significant neuropathy noted. Patient is currently a multiple medications reviewed. Patient came to the office for days ago, at that time had blood test done, showing evidence of severe anemia, and I advised the patient to go to the hospital immediately. Patient now having pain severely increasing in the left lower extremity, and also pain medicine is not helping Patient is not eating well. Increasingly losing weight According to the family she had an episode of syncopal attack 2 days ago. But the patient did not go hospital at that time. Now having no chest pain. Denies any nausea but poor intake noted. Past medical history: Diabetes, hypertension, Peripheral vascular disease, left foot amputation, gangrene of the left foot Chronic pain syndrome, taking pain medicine. History of anemia. Surgical history: History of tonsillectomy.Midtarsal amputation, stent Family history: Father Very young. Mother with a secondary to diabetic complication. Patient has 4 kids and grandkids. 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 Current medications reviewed. Review of systems: Complaining of pain in the lower back, lower legs. Also complaining of pain in the left leg. No abdominal pain. No chest pain. Denies any headache or nausea vomiting. No GI symptoms. 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 Status post a stent in the left leg. Peripheral pulses are not palpable. Medications reviewed Labs reviewed WBC elevated Patient has a low hemoglobin EKG no evidence of ischemic changes. Assessment/admission: 61-year-old female with history diabetes, hypertension, Peripheral vascular disease,status post angioplasty stent placement. Tarsometatarsal amputation left leg. Peripheral vascular disease. Patient most likely has systemic sepsis, with elevated WBC, elevated platelets. Foul-smelling left amputation, The wound is not healthy. Infected stump. Severe anemia, Most likely related to chronic infection and inflammation.Diabetes poorly controlled diabetic neuropathy Peripheral vascular diseas Will get infectious diseas. Podiatric consultation Surgical consultation Possible amputation below-knee. Present on Admission - Present on Admission Any Indicators Present on Admission: No History of DVT/PE: No History of Uncontrolled Diabetes: No Urinary Catheter: No Decubitus Ulcer Present: No Past Patient History - Tetanus Immunizations Tetanus Immunization: Unknown - Past Medical History & Family History Past Medical History?: Yes - Past Social History Smoking Status: Never Smoked - CARDIAC Hx Hypercholesterolemia: Yes Hx Hypertension: Yes - PULMONARY Hx Respiratory Disorders: No - NEUROLOGICAL Hx Neurological Disorder: No - HEENT Hx HEENT Problems: Yes Hx Cataracts: Yes (bilat iol) - RENAL Hx Chronic Kidney Disease: No - ENDOCRINE/METABOLIC Hx Diabetes Mellitus Type 2: Yes - HEMATOLOGICAL/ONCOLOGICAL Hx Anemia: Yes - INTEGUMENTARY Hx Dermatological Problems: Yes Other/Comment: unhealed areas left foot transmetatarsal amp site - MUSCULOSKELETAL/RHEUMATOLOGICAL Hx Musculoskeletal Disorders: Yes Hx Falls: No Hx Herniated Disk: Yes (with left lumbar radiculopathy) Hx Osteomyelitis: Yes (treated) - GASTROINTESTINAL Hx Gastritis: Yes - GENITOURINARY/GYNECOLOGICAL Hx Genitourinary Disorders: No - PSYCHIATRIC Hx Anxiety: Yes (RELATED TO CONDITION) Hx Substance Use: No - SURGICAL HISTORY Hx Surgeries: Yes Hx Amputation: Yes (LEFT FOOT TRANSMETATARSAL/PER MD NOTE) Hx Angiogram: Yes (PERIPHERAL) Hx Cataract Extraction: Yes (bilateral) Hx Cardiac Catheterization: Yes Other/Comment: lower leg surgery, left TMA. left great ingrown toenail removal. 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 - ANESTHESIA Hx Anesthesia: Yes Hx Anesthesia Reactions: No Hx Malignant Hyperthermia: No Meds Allergies/Adverse Reactions: Allergies Allergy/AdvReac Type Severity Reaction Status Date / Time No Known Allergies Allergy Verified 12/13/17 09:17 Results - Vital Signs Recent Vital Signs: Last Vital Signs Temp 98.6 F 12/13/17 19:50 Pulse 70 12/13/17 19:50 Resp 20 12/13/17 19:50 BP 110/70 12/13/17 19:50 Pulse Ox 98 12/13/17 15:58 - Labs Result Diagrams: 12/13/17 09:58 12/13/17 09:58 Labs: Laboratory Results - last 24 hr 12/13/17 12/13/17 12/13/17 09:58 09:58 09:58 WBC 16.0 H RBC 3.02 L Hgb 7.6 L Hct 23.5 L MCV 77.7 L MCH 25.0 L MCHC 32.2 L RDW 16.4 H Plt Count 669 H D MPV 8.3 Neut % (Auto) 68.2 Lymph % (Auto) 17.5 L [place] % (Auto) 13.6 H Eos % (Auto) 0.4 Baso % (Auto) 0.3 Neut # (Auto) 10.9 H Lymph # (Auto) 2.8 [place] # (Auto) 2.2 H Eos # (Auto) 0.1 Baso # (Auto) 0.0 Differential Comment Sodium 139 Potassium 3.6 Chloride 94 L Carbon Dioxide 32 H Anion Gap 16 BUN 22 H Creatinine 0.8 Est GFR ( Amer) > 60 Est GFR (Non-Af Amer) > 60 POC Glucose (mg/dL) Random Glucose 119 H Calcium 9.2 Total Bilirubin 0.9 AST 30 ALT 8 L Alkaline Phosphatase 101 Total Protein 8.0 Albumin 3.4 L Globulin 4.6 H Albumin/Globulin Ratio 0.7 L Blood Type B POSITIVE Blood Type Confirm B POSITIVE Antibody Screen Negative 12/13/17 12/13/17 16:24 21:16 WBC RBC Hgb Hct MCV MCH MCHC RDW Plt Count MPV Neut % (Auto) Lymph % (Auto) [place] % (Auto) Eos % (Auto) Baso % (Auto) Neut # (Auto) Lymph # (Auto) [place] # (Auto) Eos # (Auto) Baso # (Auto) Differential Comment Sodium Potassium Chloride Carbon Dioxide Anion Gap BUN Creatinine Est GFR ( Amer) Est GFR (Non-Af Amer) POC Glucose (mg/dL) 240 H 275 H Random Glucose Calcium Total Bilirubin AST ALT Alkaline Phosphatase Total Protein Albumin Globulin Albumin/Globulin Ratio Blood Type Blood Type Confirm Antibody Screen
[2017-12-14] MEDS: Oxycodone/Acetaminophen 5/325 mg Tab PO PRN ×3 (08:21→20:01)
[2017-12-14] MEDS ORDERED: GlipiZIDE 2.5 mg SR Tab PO SCH (10:00)
[2017-12-14] MEDS: GlipiZIDE 10 mg SR Tab PO SCH ×2 (10:37→21:40)
[2017-12-14] MEDS: Vancomycin 1 gm/NS 200 ml 1 GM/200 ML BAG IVPB SCH ×2 (10:45→22:25)
[2017-12-14] MEDS: Collagenase 250 Units/gm Ointment(30 gm) TOP SCH ×2 (10:49→14:15)
[2017-12-14] MEDS: Dakin's Topical 0.25%-Half Strength (480 ml) TOP SCH ×2 (10:50→13:29)
[2017-12-14] MEDS ORDERED: Vancomycin 1 gm/NS 200 ml 1 GM/200 ML BAG IVPB SCH (11:00)
[2017-12-14 11:37] LABS: BASO % 0.3 % (0.0-2.0); EOS # 0.1 K/uL (0.0-0.7); EOS % 0.5 % (0.0-4.0); HEMOGLOBIN 8.7 g/dL (11.0-16.0); LYMPH # 3.7 K/uL (1.0-4.3); LYMPH % 20.6 % (20.0-40.0); MEAN CELL VOLUME 77.7 fL (81.0-99.0); MEAN CORPUSCULAR HEMOGLOBIN 26.4 pg (27.0-31.0); MEAN CORPUSCULAR HGB CONC 33.9 g/dL (33.0-37.0); MEAN PLATELET VOLUME 8.7 fL (7.2-11.7); MONO # 1.7 K/uL (0.0-0.8); MONO % 9.4 % (0.0-10.0); NEUT # 12.4 K/uL (1.8-7.0); NEUT % 69.2 % (50.0-75.0); RBC 3.31 Mil/uL (3.80-5.20); RED CELL DISTRIBUTION WIDTH 16.7 % (11.5-14.5)
[2017-12-14 11:58] LABS: BLOOD UREA NITROGEN 13 mg/dL (7-17)
[2017-12-14 11:59] LABS: ALB/GLOB RATIO 0.8 (1.0-2.1); ALBUMIN 3.1 g/dL (3.5-5.0); ALT/SGPT 18 U/L (9-52); AST/SGOT 29 U/L (14-36); CALCIUM 8.4 mg/dl (8.6-10.4); GFR AFRICAN-AMERICAN > 60; GFR NON-AFRICAN AMERICAN > 60
[2017-12-14] MEDS: Meropenem 1 GM in Sodium Chloride 0.9% 100 ML IVPB SCH ×2 (13:11→19:52)
--- NOTE | 2017-12-14 14:01 | CP.PCM.CON ---
History of Present Illness - History of Present Illness History of Present Illness: dictated Past Patient History - Tetanus Immunizations Tetanus Immunization: Unknown - Past Medical History & Family History Past Medical History?: Yes - Past Social History Smoking Status: Never Smoked - CARDIAC Hx Hypercholesterolemia: Yes Hx Hypertension: Yes - PULMONARY Hx Respiratory Disorders: No - NEUROLOGICAL Hx Neurological Disorder: No - HEENT Hx HEENT Problems: Yes Hx Cataracts: Yes (bilat iol) - RENAL Hx Chronic Kidney Disease: No - ENDOCRINE/METABOLIC Hx Diabetes Mellitus Type 2: Yes - HEMATOLOGICAL/ONCOLOGICAL Hx Anemia: Yes - INTEGUMENTARY Hx Dermatological Problems: Yes Other/Comment: unhealed areas left foot transmetatarsal amp site - MUSCULOSKELETAL/RHEUMATOLOGICAL Hx Musculoskeletal Disorders: Yes Hx Falls: No Hx Herniated Disk: Yes (with left lumbar radiculopathy) Hx Osteomyelitis: Yes (treated) - GASTROINTESTINAL Hx Gastritis: Yes - GENITOURINARY/GYNECOLOGICAL Hx Genitourinary Disorders: No - PSYCHIATRIC Hx Anxiety: Yes (RELATED TO CONDITION) Hx Substance Use: No - SURGICAL HISTORY Hx Surgeries: Yes Hx Amputation: Yes (LEFT FOOT TRANSMETATARSAL/PER MD NOTE) Hx Angiogram: Yes (PERIPHERAL) Hx Cataract Extraction: Yes (bilateral) Hx Cardiac Catheterization: Yes Other/Comment: lower leg surgery, left TMA. left great ingrown toenail removal. 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 - ANESTHESIA Hx Anesthesia: Yes Hx Anesthesia Reactions: No Hx Malignant Hyperthermia: No Meds Allergies/Adverse Reactions: Allergies Allergy/AdvReac Type Severity Reaction Status Date / Time No Known Allergies Allergy Verified 12/13/17 09:17 - Medications Medications: Current Medications Acetaminophen (Tylenol 325mg Tab) 650 mg PO Q4 PRN PRN Reason: Pain, Mild (1-3) Last Admin: 12/13/17 16:36 Dose: 650 mg Clopidogrel Bisulfate (Plavix) 75 mg PO DAILY [facility] Last Admin: 12/14/17 10:46 Dose: 75 mg Collagenase (Santyl) 0 gm TOP DAILY [facility] Docusate Sodium (Colace) 100 mg PO TID [facility] Last Admin: 12/14/17 10:46 Dose: 100 mg Famotidine (Pepcid) 40 mg PO DAILY [facility] Last Admin: 12/14/17 10:37 Dose: 40 mg Glipizide (Glucotrol Xl) 10 mg PO Q12 [facility] Last Admin: 12/14/17 10:37 Dose: 10 mg Meropenem 1 gm/ Sodium (Chloride) 100 mls @ 100 mls/hr IVPB Q8H [facility] PRN Reason: Protocol Last Admin: 12/14/17 13:11 Dose: 100 mls/hr Vancomycin/Sodium Chloride (Vancomycin 1 Gm/Ns 200 Ml) 1 gm in 200 mls @ 133.333 mls/hr IVPB Q12H [facility] PRN Reason: Protocol Last Admin: 12/14/17 10:45 Dose: 133.333 mls/hr Insulin Detemir (Levemir) 10 unit SC [facility] Last Admin: 12/13/17 21:51 Dose: 10 unit Lactulose (Enulose) 20 gm PO [facility] Last Admin: 12/13/17 21:48 Dose: 20 gm Morphine Sulfate (Morphine) 2 mg IVP Q4 PRN PRN Reason: Pain, severe (8-10) Last Admin: 12/14/17 10:37 Dose: 2 mg Oxycodone/Acetaminophen (Percocet 5/325 Mg Tab) 1 tab PO Q4H PRN PRN Reason: Pain, moderate (4-7) Stop: 12/16/17 15:34 Last Admin: 12/14/17 13:12 Dose: 1 tab Rosuvastatin Calcium (Crestor) 20 mg PO [facility] Last Admin: 12/13/17 21:49 Dose: 20 mg Sennosides (Senokot Tab) 8.6 mg PO DAILY [facility] Last Admin: 12/14/17 10:36 Dose: 8.6 mg Sitagliptin Phosphate (Januvia) 50 mg PO DAILY [facility] Last Admin: 12/14/17 10:37 Dose: 50 mg Sodium Hypochlorite (Dakins Solution 0.25%) 0 ml TOP DAILY [facility] Last Admin: 12/14/17 13:29 Dose: Not Given Results - Vital Signs Recent Vital Signs: Last Vital Signs Temp 98.5 F 12/14/17 08:39 Pulse 79 12/14/17 08:39 Resp 20 12/14/17 08:39 BP 124/67 12/14/17 08:39 Pulse Ox 98 12/14/17 08:39 - Labs Result Diagrams: 12/14/17 11:24 12/14/17 11:24 Labs: Laboratory Results - last 24 hr 12/13/17 12/13/17 12/13/17 09:58 16:24 21:16 WBC RBC Hgb Hct MCV MCH MCHC RDW Plt Count MPV Neut % (Auto) Lymph % (Auto) [place] % (Auto) Eos % (Auto) Baso % (Auto) Neut # (Auto) Lymph # (Auto) [place] # (Auto) Eos # (Auto) Baso # (Auto) Sodium Potassium Chloride Carbon Dioxide Anion Gap BUN Creatinine Est GFR ( Amer) Est GFR (Non-Af Amer) POC Glucose (mg/dL) 240 H 275 H Random Glucose Calcium Total Bilirubin AST ALT Alkaline Phosphatase Total Protein Albumin Globulin Albumin/Globulin Ratio Blood Type B POSITIVE Blood Type Confirm B POSITIVE Antibody Screen Negative 12/14/17 12/14/17 12/14/17 07:16 11:11 11:24 WBC 18.0 H RBC 3.31 L Hgb 8.7 L Hct 25.8 L MCV 77.7 L MCH 26.4 L MCHC 33.9 RDW 16.7 H Plt Count 492 H D MPV 8.7 Neut % (Auto) 69.2 Lymph % (Auto) 20.6 [place] % (Auto) 9.4 Eos % (Auto) 0.5 Baso % (Auto) 0.3 Neut # (Auto) 12.4 H Lymph # (Auto) 3.7 [place] # (Auto) 1.7 H Eos # (Auto) 0.1 Baso # (Auto) 0.0 Sodium Potassium Chloride Carbon Dioxide Anion Gap BUN Creatinine Est GFR ( Amer) Est GFR (Non-Af Amer) POC Glucose (mg/dL) 234 H 305 H Random Glucose Calcium Total Bilirubin AST ALT Alkaline Phosphatase Total Protein Albumin Globulin Albumin/Globulin Ratio Blood Type Blood Type Confirm Antibody Screen 12/14/17 11:24 WBC RBC Hgb Hct MCV MCH MCHC RDW Plt Count MPV Neut % (Auto) Lymph % (Auto) [place] % (Auto) Eos % (Auto) Baso % (Auto) Neut # (Auto) Lymph # (Auto) [place] # (Auto) Eos # (Auto) Baso # (Auto) Sodium 132 Potassium 3.4 L Chloride 92 L Carbon Dioxide 30 Anion Gap 14 BUN 13 Creatinine 0.5 L Est GFR ( Amer) > 60 Est GFR (Non-Af Amer) > 60 POC Glucose (mg/dL) Random Glucose 294 H Calcium 8.4 L Total Bilirubin 0.9 AST 29 ALT 18 Alkaline Phosphatase 94 Total Protein 6.9 Albumin 3.1 L Globulin 3.8 Albumin/Globulin Ratio 0.8 L Blood Type Blood Type Confirm Antibody Screen
--- NOTE | 2017-12-14 14:54 | CP.PCM.PN ---
Subjective - Date & Time of Evaluation Date of Evaluation: 12/14/17 Time of Evaluation: 14:50 - Subjective Subjective: Podiatry Progress note: Dr. Vegas 62 year old female was seen and evaluated at bedside for chronic left foot infection secondary to vascular compromise. Patient was seen at bedside with attending Dr. Wiggins. Patient is AAOx3 and in NAD. Denies of any acute overnight events. Questions regarding to BKA answered for patient with Dr. Wiggins. No acute pain at the time of the visit. No recent F/N/V/C/SOB/CP/ headache. No new pedal complains. Objective - Vital Signs/Intake and Output Vital Signs (last 24 hours): Temp Pulse Resp BP Pulse Ox 98.5 F 79 20 124/67 98 12/14/17 08:39 12/14/17 08:39 12/14/17 08:39 12/14/17 08:39 12/14/17 08:39 Intake and Output: 12/14/17 12/14/17 06:59 18:59 Intake Total 1213 660 Balance 1213 660 - Medications Medications: Current Medications Acetaminophen (Tylenol 325mg Tab) 650 mg PO Q4 PRN PRN Reason: Pain, Mild (1-3) Last Admin: 12/13/17 16:36 Dose: 650 mg Clopidogrel Bisulfate (Plavix) 75 mg PO DAILY [facility] Last Admin: 12/14/17 10:46 Dose: 75 mg Collagenase (Santyl) 0 gm TOP DAILY [facility] Last Admin: 12/14/17 14:15 Dose: Not Given Docusate Sodium (Colace) 100 mg PO TID [facility] Last Admin: 12/14/17 14:14 Dose: Not Given Famotidine (Pepcid) 40 mg PO DAILY [facility] Last Admin: 12/14/17 10:37 Dose: 40 mg Glipizide (Glucotrol Xl) 10 mg PO Q12 [facility] Last Admin: 12/14/17 10:37 Dose: 10 mg Meropenem 1 gm/ Sodium (Chloride) 100 mls @ 100 mls/hr IVPB Q8H [facility] PRN Reason: Protocol Last Admin: 12/14/17 13:11 Dose: 100 mls/hr Vancomycin/Sodium Chloride (Vancomycin 1 Gm/Ns 200 Ml) 1 gm in 200 mls @ 133.333 mls/hr IVPB Q12H [facility] PRN Reason: Protocol Last Admin: 12/14/17 10:45 Dose: 133.333 mls/hr Insulin Detemir (Levemir) 10 unit SC [facility] Last Admin: 12/13/17 21:51 Dose: 10 unit Lactulose (Enulose) 20 gm PO [facility] Last Admin: 12/13/17 21:48 Dose: 20 gm Morphine Sulfate (Morphine) 2 mg IVP Q4 PRN PRN Reason: Pain, severe (8-10) Last Admin: 12/14/17 10:37 Dose: 2 mg Oxycodone/Acetaminophen (Percocet 5/325 Mg Tab) 1 tab PO Q4H PRN PRN Reason: Pain, moderate (4-7) Stop: 12/16/17 15:34 Last Admin: 12/14/17 13:12 Dose: 1 tab Rosuvastatin Calcium (Crestor) 20 mg PO [facility] Last Admin: 12/13/17 21:49 Dose: 20 mg Sennosides (Senokot Tab) 8.6 mg PO DAILY [facility] Last Admin: 12/14/17 10:36 Dose: 8.6 mg Sitagliptin Phosphate (Januvia) 50 mg PO DAILY [facility] Last Admin: 12/14/17 10:37 Dose: 50 mg Sodium Hypochlorite (Dakins Solution 0.25%) 0 ml TOP DAILY [facility] Last Admin: 12/14/17 13:29 Dose: Not Given - Labs Labs: 12/14/17 11:24 12/14/17 11:24 - Constitutional Appears: Well, Non-toxic, No Acute Distress - Extremities Exam Additional comments: Left lower extremity focused: VASC: nonpalpable pedal pulses, TG wnl, CFT unable to assess due to amputation DERM: choparts amputation site- stump of left foot with open circumferential wound - distal and dorsal aspect granular and plantar aspect necrotic with bogginess noted, retention sutures intact to lateral aspect of stump, moderate malodor noted, mild serosanguinous drainage noted from plantar aspect, mild erythema surrounding the stump, no edema, no tunneling, no ascending cellulitis NEURO: grossly diminished ORTHO: pain on palpation of left foot, no calf pain or tenderness - Neurological Exam Neurological Exam: Alert, Awake, Oriented x3 - Psychiatric Exam Psychiatric exam: Normal Affect, Normal Mood Assessment and Plan - Assessment and Plan (Free Text) Assessment: 62 y/o female with seen and evaluated for infected left foot choparts amputation site Plan: Patient evaluated and chart reviewed Discussed in detail with attending Dr. eVgas Labs and vitals reviewed; afebrile, WBC 18.0 X-rays: no acute signs of OM or soft tissue emphysema Wound cleaned with saline and dakins solution and dressing applied using santyl , DSD Wound cx - G negative rods, Corynebacterium species IV abx as per ID - continue Meropenem and Vancomycin Vascular consult - Dr. Hernández - patient is in agreement with BKA at this time Podiatry will continue to monitor while patient remains in house
[2017-12-14] MEDS: Insulin Detemir 100 units/ml Vial (Levemir) SC SCH (21:40)
--- NOTE | 2017-12-14 22:17 | CP.PCM.PN ---
Subjective - Date & Time of Evaluation Date of Evaluation: 12/14/17 Time of Evaluation: 22:17 - Subjective Subjective: Patient is still having severe pain in the leg area She is having no chest pain, no shortness of breath noted, sees feeling much better now and she is also eating better. No BM so far. Currently patient is on laxatives On examination: Vital signs stable. Blood pressure stable. 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 Midtarsal amputation. But there is no improvement in the wound care, recurrent sepsis, no cellulitis, and foul-smelling ulcer. Patient is currently an antibiotic, patient is agreeing for bloating him but patient. Surgical opinion. Hemodynamically monitoring. Will follow the patient Objective - Vital Signs/Intake and Output Vital Signs (last 24 hours): Temp Pulse Resp BP Pulse Ox 99.1 F 76 20 112/69 99 12/14/17 16:00 12/14/17 16:00 12/14/17 16:00 12/14/17 16:00 12/14/17 16:00 Intake and Output: 12/14/17 12/15/17 18:59 06:59 Intake Total 660 Balance 660 - Medications Medications: Current Medications Acetaminophen (Tylenol 325mg Tab) 650 mg PO Q4 PRN PRN Reason: Pain, Mild (1-3) Last Admin: 12/13/17 16:36 Dose: 650 mg Clopidogrel Bisulfate (Plavix) 75 mg PO DAILY [facility] Last Admin: 12/14/17 10:46 Dose: 75 mg Collagenase (Santyl) 0 gm TOP DAILY [facility] Last Admin: 12/14/17 14:15 Dose: Not Given Docusate Sodium (Colace) 100 mg PO TID [facility] Last Admin: 12/14/17 19:53 Dose: Not Given Famotidine (Pepcid) 40 mg PO DAILY [facility] Last Admin: 12/14/17 10:37 Dose: 40 mg Glipizide (Glucotrol Xl) 10 mg PO Q12 [facility] Last Admin: 12/14/17 21:40 Dose: 10 mg Meropenem 1 gm/ Sodium (Chloride) 100 mls @ 100 mls/hr IVPB Q8H [facility] PRN Reason: Protocol Last Admin: 12/14/17 19:52 Dose: 100 mls/hr Vancomycin/Sodium Chloride (Vancomycin 1 Gm/Ns 200 Ml) 1 gm in 200 mls @ 133.333 mls/hr IVPB Q12H [facility] PRN Reason: Protocol Last Admin: 12/14/17 10:45 Dose: 133.333 mls/hr Insulin Detemir (Levemir) 10 unit SC [facility] Last Admin: 12/14/17 21:40 Dose: 10 unit Lactulose (Enulose) 20 gm PO [facility] Last Admin: 12/14/17 21:49 Dose: Not Given Morphine Sulfate (Morphine) 2 mg IVP Q4 PRN PRN Reason: Pain, severe (8-10) Last Admin: 12/14/17 21:46 Dose: 2 mg Oxycodone/Acetaminophen (Percocet 5/325 Mg Tab) 1 tab PO Q4H PRN PRN Reason: Pain, moderate (4-7) Stop: 12/16/17 15:34 Last Admin: 12/14/17 20:01 Dose: 1 tab Rosuvastatin Calcium (Crestor) 20 mg PO [facility] Last Admin: 12/14/17 21:40 Dose: 20 mg Sennosides (Senokot Tab) 8.6 mg PO DAILY [facility] Last Admin: 12/14/17 10:36 Dose: 8.6 mg Sitagliptin Phosphate (Januvia) 50 mg PO DAILY [facility] Last Admin: 12/14/17 10:37 Dose: 50 mg Sodium Hypochlorite (Dakins Solution 0.25%) 0 ml TOP DAILY [facility] Last Admin: 12/14/17 13:29 Dose: Not Given - Labs Labs: 12/14/17 11:24 12/14/17 11:24
[2017-12-15] MEDS: Meropenem 1 GM in Sodium Chloride 0.9% 100 ML IVPB SCH ×3 (03:37→19:57)
--- NOTE | 2017-12-15 04:19 | CON ---
DATE: 12/14/2017 INFECTIOUS DISEASE CONSULTATION REQUESTED BY: Abbe Michelle MD HISTORY OF PRESENT ILLNESS: This patient is a 62-year-old female. She has a history of diabetes, and she has undergone left foot mid tarsal amputation several months ago. She says it has been going on since May. She has had angioplasties and had initially come with gangrene toe and underwent surgery and then it kept on worsening, and she has been admitted here. Actually, she has been following as an outpatient with Dr. Vegas, was here in 07/04/2017 to 07/18/2017 and then 10/02/2017 to 10/04/2017 and now comes back with severe anemia. She was seen by Dr. Michelle and was referred here for hemoglobin of 7.2. She has no active bleeding going on. Denies any GI bleeding or rectal bleeding or vaginal bleeding. 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 I saw the wound which was open, and I was called in for IV antibiotics. She did receive 2 units of packed RBC today. She is in lot of pain, and she has throbbing pain. She says the morphine takes it away for very short time, and she is looking forward to be seen by Dr. Hernández. She has had previous vascular surgeries with Dr. Bates. PAST MEDICAL HISTORY: Significant for anemia, anxiety, diabetes, gastritis, hypertension, hypercholesterolemia. SURGICAL HISTORY: No surgical history except for this leg which has undergone many amputations. She had partial first ray open, second ray open procedures. Then, she had third, fourth, fifth removed, and then she had a dilatation of the left femoral artery on 07/04/2017, left popliteal artery, percutaneous approach, and then they drained. On 08/22/2017, she had draining of the subcutaneous fascia and excision of left foot skin. External approach was done on 11/09/2017. She has received transfusions also in the past. FAMILY HISTORY: Noncontributory. SOCIAL HISTORY: She denies any smoking or drinking. Immunizations are complete. REVIEW OF SYSTEMS: She denied any fever, any chills, but came here with lot of pain which has been happening in the left leg with a nonhealing wound. She denies any chest pain. No shortness of breath. No nausea. No vomiting. No diarrhea. She is with infection in the left foot and also was severely anemic, and patient will need further surgery. On cardiac history, she has history of hypercholesterolemia, hypertension. Respiratory, no issues. Neurologic, no issues but she has vascular problems in lower extremities. PAST MEDICAL HISTORY: She has had cataracts bilaterally and no kidney disease. Diabetes type 2 is present and severe anemia. Has this nonhealing wound in the left foot transmetatarsal amputation site. She has no history of falls. She says she used to drive most of the time and do the work and do the chores where her does not know what to do now. She has history of osteomyelitis, history of herniated disk with left lumbar radiculopathy. GI curtis, she has history of gastritis. , she has a history of disorder. Psych, history of anxiety, history of substance abuse. 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 ALLERGIES: SHE IS NOT ALLERGIC TO ANY MEDICATION. MEDICATIONS: She was started on vancomycin and Zosyn. REVIEW OF SYSTEMS: She denies any headache. Denies ear, nose, throat problem. Denies any chest pain right now. No shortness of breath. No abdominal pain. No nausea. No vomiting. Does complain of throbbing pain in the left leg and which is sometimes unbearable. She says morphine only helps for short time. She is concerned about losing more of her left leg and right leg is, however, unremarkable. PHYSICAL EXAMINATION: VITAL SIGNS: T-max is 99.1, blood pressure 112/69, respirations are 20, pulse is 76, saturations 99%. HEENT: Head is atraumatic, normocephalic. Pupils are reacting to light. Tongue is moist. NECK: Supple. JVP is flat. LUNGS: Clear. No crackles or rales present at this time. HEART: S1,S2 is regular. ABDOMEN: Soft, nontender. No guarding, no rigidity present. EXTREMITIES: Left foot has Chopart's amputation and partially it appears necrotic with surrounding areas edema as well as redness and necrosis, and only partial area appears with pink granulation tissue. So, it is 50% okay and more than 50% appears necrotic and is foul smelling. LABORATORY DATA: White count is 18; hemoglobin is 8.7, right now hemoglobin and she received 2 units __of PRBC___, platelets are 492. Chemistry shows sodium 132, potassium 3.4, chloride is 92, CO2 is 30, BUN is 14, creatinine is 0.5, glucose is 313. So at this time, we will order labs with CBC, CRP, and ESR tomorrow. Imp & Plan: She is a diabetic patient with severe Peripheral vascular disease with ischemic pain and non healing left leg stump with increased WBC count I have started her on vancomycin as well as Primaxin to cover for anaerobes. She has not received meropenem yet. She has only received stat doses of Zosyn. So, we will continue with vancomycin and meropenem at this time and will follow. The patient needs to be evaluated by the vascular surgeon, and we need to monitor the white count. She may need further debridement and/or surgery to left AKA, and I tried to convince her. Hopefully, she will be okay with the prosthesis. She does have severe pain from vasculopathy. She is diabetic and has had multiple vascular surgeries as well as bone infections in the back and has undergone lot of amputations on the left foot. Alissa Wiggins MD JAY
[2017-12-15 06:45] LABS: BASO # 0.1 K/uL (0.0-0.2); BASO % 0.4 % (0.0-2.0); EOS # 0.1 K/uL (0.0-0.7); EOS % 0.8 % (0.0-4.0); HEMOGLOBIN 8.8 g/dL (11.0-16.0); LYMPH # 4.4 K/uL (1.0-4.3); LYMPH % 23.9 % (20.0-40.0); MEAN CELL VOLUME 78.3 fL (81.0-99.0); MEAN CORPUSCULAR HEMOGLOBIN 26.2 pg (27.0-31.0); MEAN CORPUSCULAR HGB CONC 33.5 g/dL (33.0-37.0); MEAN PLATELET VOLUME 7.9 fL (7.2-11.7); MONO # 1.8 K/uL (0.0-0.8); MONO % 10.1 % (0.0-10.0); NEUT # 11.8 K/uL (1.8-7.0); NEUT % 64.8 % (50.0-75.0); RBC 3.37 Mil/uL (3.80-5.20); RED CELL DISTRIBUTION WIDTH 16.8 % (11.5-14.5); WHITE BLOOD COUNT 18.2 K/uL (4.8-10.8)
[2017-12-15 07:06] LABS: ALB/GLOB RATIO 0.7 (1.0-2.1); ALT/SGPT 19 U/L (9-52); AST/SGOT 18 U/L (14-36); BLOOD UREA NITROGEN 14 mg/dL (7-17); CALCIUM 8.8 mg/dl (8.6-10.4); GFR AFRICAN-AMERICAN > 60; GFR NON-AFRICAN AMERICAN > 60
[2017-12-15] MEDS ORDERED: Potassium Chloride 20 mEq/15 ml LIQ UD PO ONE (08:15)
[2017-12-15] MEDS: Oxycodone/Acetaminophen 5/325 mg Tab PO PRN ×2 (09:50→17:44)
--- NOTE | 2017-12-15 09:51 | CP.PCM.PN ---
Subjective - Date & Time of Evaluation Date of Evaluation: 12/15/17 Time of Evaluation: 09:51 - Subjective Subjective: Podiatry Progress note: Dr. Vegas 62 year old female was seen and evaluated at bedside for chronic left foot infection secondary to vascular compromise. No acute events overnight. Family present at bedside. Reports continued pain to LLE. No new pedal complaints. Dressing remains clean/dry/intact. Denies N/V/F/D/C/SOB. Objective - Vital Signs/Intake and Output Vital Signs (last 24 hours): Temp Pulse Resp BP Pulse Ox 97.9 F 76 20 110/68 96 12/15/17 08:00 12/15/17 08:00 12/15/17 08:00 12/15/17 08:00 12/15/17 08:00 Intake and Output: 12/15/17 12/15/17 06:59 18:59 Intake Total 300 100 Output Total 600 Balance 300 -500 - Medications Medications: Current Medications Acetaminophen (Tylenol 325mg Tab) 650 mg PO Q4 PRN PRN Reason: Pain, Mild (1-3) Last Admin: 12/13/17 16:36 Dose: 650 mg Clopidogrel Bisulfate (Plavix) 75 mg PO DAILY [facility] Last Admin: 12/14/17 10:46 Dose: 75 mg Collagenase (Santyl) 0 gm TOP DAILY [facility] Last Admin: 12/14/17 14:15 Dose: Not Given Docusate Sodium (Colace) 100 mg PO TID [facility] Last Admin: 12/14/17 19:53 Dose: Not Given Famotidine (Pepcid) 40 mg PO DAILY [facility] Last Admin: 12/14/17 10:37 Dose: 40 mg Glipizide (Glucotrol Xl) 10 mg PO Q12 [facility] Last Admin: 12/14/17 21:40 Dose: 10 mg Meropenem 1 gm/ Sodium (Chloride) 100 mls @ 100 mls/hr IVPB Q8H [facility] PRN Reason: Protocol Last Admin: 12/15/17 03:37 Dose: 100 mls/hr Vancomycin/Sodium Chloride (Vancomycin 1 Gm/Ns 200 Ml) 1 gm in 200 mls @ 133.333 mls/hr IVPB Q12H [facility] PRN Reason: Protocol Last Admin: 12/14/17 22:25 Dose: 133.333 mls/hr Insulin Detemir (Levemir) 10 unit SC Q12 [facility] Lactulose (Enulose) 20 gm PO HS [facility] Last Admin: 12/14/17 21:49 Dose: Not Given Morphine Sulfate (Morphine) 2 mg IVP Q4 PRN PRN Reason: Pain, severe (8-10) Last Admin: 12/15/17 08:18 Dose: 2 mg Oxycodone/Acetaminophen (Percocet 5/325 Mg Tab) 1 tab PO Q4H PRN PRN Reason: Pain, moderate (4-7) Stop: 12/16/17 15:34 Last Admin: 12/14/17 20:01 Dose: 1 tab Rosuvastatin Calcium (Crestor) 20 mg PO HS [facility] Last Admin: 12/14/17 21:40 Dose: 20 mg Sennosides (Senokot Tab) 8.6 mg PO DAILY [facility] Last Admin: 12/14/17 10:36 Dose: 8.6 mg Sitagliptin Phosphate (Januvia) 50 mg PO DAILY [facility] Last Admin: 12/14/17 10:37 Dose: 50 mg Sodium Hypochlorite (Dakins Solution 0.25%) 0 ml TOP DAILY [facility] Last Admin: 12/14/17 13:29 Dose: Not Given - Labs Labs: 12/15/17 06:39 12/15/17 06:39 - Constitutional Appears: Well, Non-toxic, No Acute Distress - Extremities Exam Additional comments: Left lower extremity focused: VASC: nonpalpable pedal pulses, TG wnl, CFT unable to assess due to amputation DERM: choparts amputation site- stump of left foot with open circumferential wound - distal and dorsal aspect granular and plantar aspect necrotic with bogginess noted, retention sutures intact to lateral aspect of stump, moderate malodor noted, mild serosanguinous drainage noted from plantar aspect, mild erythema surrounding the stump, no edema, no tunneling, no ascending cellulitis NEURO: grossly diminished ORTHO: pain on palpation of left foot, no calf pain or tenderness - Neurological Exam Neurological Exam: Alert, Awake, Oriented x3 - Psychiatric Exam Psychiatric exam: Normal Affect, Normal Mood Assessment and Plan - Assessment and Plan (Free Text) Assessment: 62 y/o female with infected left foot choparts amputation site Plan: Patient evaluated and chart reviewed Discussed in detail with attending Dr. Vegas Labs and vitals reviewed; afebrile, WBC 18.2 X-rays: no acute signs of OM or soft tissue emphysema Wound cleaned with saline and dakins solution and dressing applied using santyl EMMETT Wound cx - klebsiella pneumoniae, Corynebacterium species IV abx as per ID - continue Meropenem and Vancomycin Vascular consult - Dr. Hernández - patient is in agreement with BKA at this time Podiatry will continue to monitor while patient remains in house
[2017-12-15] MEDS: GlipiZIDE 10 mg SR Tab PO SCH ×2 (09:54→22:06)
[2017-12-15] MEDS: Insulin Detemir 100 units/ml Vial (Levemir) SC SCH ×2 (09:55→22:06)
[2017-12-15] MEDS: Vancomycin 1 gm/NS 200 ml 1 GM/200 ML BAG IVPB SCH ×2 (10:59→22:07)
[2017-12-15] MEDS: Dakin's Topical 0.25%-Half Strength (480 ml) TOP SCH (11:01)
[2017-12-15] MEDS: Collagenase 250 Units/gm Ointment(30 gm) TOP SCH (12:08)
--- NOTE | 2017-12-15 18:52 | CP.PCM.PN ---
Subjective - Date & Time of Evaluation Date of Evaluation: 12/15/17 Time of Evaluation: 18:51 - Subjective Subjective: Patient is still having symptoms of abdominal pain. Also complaining of some left leg pain worsening. Patient did not have any bowel movements yet. Eating slightly better than before. No fever or chills noted. Blood sugar is still elevated On examination: Vital signs are stable. Chest good air entry bilaterally regular heart sound nontender abdomen edema 1+ bilaterally [employer] SAL[employer] ESTIM[employer] alert awake oriented 3 Patient family is at bedside Labs reviewed Hemoglobin currently stable Assessment and recommendation: 62-year-old female with a history of ischemic the leg, peripheral vascular disease status post a stent. Hypertension hypercholesterolemia and also uncontrolled diabetes. Pain medication induced constipation. Now admitted with the worsening left stump infection, and cellulitis. On IV antibiotic. Patient is agreeing for possible below-knee amputation, will get surgical opinion. Monitor the hemoglobin. Pain management. Will follow the patient Objective - Vital Signs/Intake and Output Vital Signs (last 24 hours): Temp Pulse Resp BP Pulse Ox 97.9 F 76 20 110/68 96 12/15/17 08:00 12/15/17 08:00 12/15/17 08:00 12/15/17 08:00 12/15/17 08:00 Intake and Output: 12/15/17 12/15/17 06:59 18:59 Intake Total 300 100 Output Total 600 Balance 300 -500 - Medications Medications: Current Medications Acetaminophen (Tylenol 325mg Tab) 650 mg PO Q4 PRN PRN Reason: Pain, Mild (1-3) Last Admin: 12/13/17 16:36 Dose: 650 mg Clopidogrel Bisulfate (Plavix) 75 mg PO DAILY [facility] Last Admin: 12/15/17 09:54 Dose: 75 mg Collagenase (Santyl) 0 gm TOP DAILY [facility] Last Admin: 12/15/17 12:08 Dose: Not Given Docusate Sodium (Colace) 100 mg PO TID [facility] Last Admin: 12/15/17 17:44 Dose: 100 mg Famotidine (Pepcid) 40 mg PO DAILY [facility] Last Admin: 12/15/17 09:53 Dose: 40 mg Glipizide (Glucotrol Xl) 10 mg PO Q12 [facility] Last Admin: 12/15/17 09:54 Dose: 10 mg Meropenem 1 gm/ Sodium (Chloride) 100 mls @ 100 mls/hr IVPB Q8H [facility] PRN Reason: Protocol Last Admin: 12/15/17 12:07 Dose: 100 mls/hr Vancomycin/Sodium Chloride (Vancomycin 1 Gm/Ns 200 Ml) 1 gm in 200 mls @ 133.333 mls/hr IVPB Q12H [facility] PRN Reason: Protocol Last Admin: 12/15/17 10:59 Dose: 133.333 mls/hr Insulin Detemir (Levemir) 10 unit SC Q12 [facility] Last Admin: 12/15/17 09:55 Dose: 10 unit Lactulose (Enulose) 20 gm PO HS [facility] Last Admin: 12/14/17 21:49 Dose: Not Given Morphine Sulfate (Morphine) 4 mg IVP Q4 PRN PRN Reason: Pain, severe (8-10) Oxycodone/Acetaminophen (Percocet 5/325 Mg Tab) 1 tab PO Q4H PRN PRN Reason: Pain, moderate (4-7) Stop: 12/16/17 15:34 Last Admin: 12/15/17 17:44 Dose: 1 tab Rosuvastatin Calcium (Crestor) 20 mg PO [facility] Last Admin: 12/14/17 21:40 Dose: 20 mg Sennosides (Senokot Tab) 8.6 mg PO DAILY [facility] Last Admin: 12/15/17 09:54 Dose: 8.6 mg Sitagliptin Phosphate (Januvia) 50 mg PO DAILY [facility] Last Admin: 12/15/17 09:54 Dose: 50 mg Sodium Hypochlorite (Dakins Solution 0.25%) 0 ml TOP DAILY [facility] Last Admin: 12/15/17 11:01 Dose: Not Given - Labs Labs: 12/15/17 06:39 12/15/17 06:39
[2017-12-15] MEDS ORDERED: Oxycodone/Acetaminophen 5/325 mg Tab PO PRN (19:01)
[2017-12-16] MEDS: Meropenem 1 GM in Sodium Chloride 0.9% 100 ML IVPB SCH ×3 (04:30→20:00)
[2017-12-16] MEDS: Morphine 4 MG/ML VIAL IVP PRN ×5 (05:53→22:30)
--- NOTE | 2017-12-16 07:37 | CP.PCM.PN ---
Subjective - Date & Time of Evaluation Date of Evaluation: 12/16/17 Time of Evaluation: 07:37 - Subjective Subjective: Patient is still having symptoms of abdominal pain. Also complaining of some left leg pain worsening. Patient did not have any bowel movements yet. Eating slightly better than before. No fever or chills noted. Blood sugar is still elevated On examination: Vital signs are stable. Chest good air entry bilaterally regular heart sound nontender abdomen edema 1+ bilaterally [employer]OLT[employer] IR[employer] P[employer]ER alert awake oriented 3 Patient family is at bedside Labs reviewed Hemoglobin currently stable Assessment and recommendation: 62-year-old female with a history of ischemic the leg, peripheral vascular disease status post a stent. Hypertension hypercholesterolemia and also uncontrolled diabetes. Pain medication induced constipation. Now admitted with the worsening left stump infection, and cellulitis. On IV antibiotic. Patient is agreeing for possible below-knee amputation, will get surgical opinion. Monitor the hemoglobin. Pain management. Will follow the patient Objective - Vital Signs/Intake and Output Vital Signs (last 24 hours): Temp Pulse Resp BP Pulse Ox 98.2 F 90 20 129/81 98 12/16/17 00:06 12/16/17 00:06 12/16/17 00:06 12/16/17 00:06 12/16/17 00:06 Intake and Output: 12/16/17 12/16/17 06:59 18:59 Intake Total 990 Output Total 650 Balance 340 - Medications Medications: Current Medications Acetaminophen (Tylenol 325mg Tab) 650 mg PO Q4 PRN PRN Reason: Pain, Mild (1-3) Last Admin: 12/13/17 16:36 Dose: 650 mg Clopidogrel Bisulfate (Plavix) 75 mg PO DAILY [facility] Last Admin: 12/15/17 09:54 Dose: 75 mg Collagenase (Santyl) 0 gm TOP DAILY [facility] Last Admin: 12/15/17 12:08 Dose: Not Given Docusate Sodium (Colace) 100 mg PO TID [facility] Last Admin: 12/15/17 17:44 Dose: 100 mg Famotidine (Pepcid) 40 mg PO DAILY [facility] Last Admin: 12/15/17 09:53 Dose: 40 mg Glipizide (Glucotrol Xl) 10 mg PO Q12 [facility] Last Admin: 12/15/17 22:06 Dose: 10 mg Meropenem 1 gm/ Sodium (Chloride) 100 mls @ 100 mls/hr IVPB Q8H [facility] PRN Reason: Protocol Last Admin: 12/16/17 04:30 Dose: 100 mls/hr Vancomycin/Sodium Chloride (Vancomycin 1 Gm/Ns 200 Ml) 1 gm in 200 mls @ 133.333 mls/hr IVPB Q12H [facility] PRN Reason: Protocol Last Admin: 12/15/17 22:07 Dose: 133.333 mls/hr Insulin Detemir (Levemir) 10 unit SC Q12 [facility] Last Admin: 12/15/17 22:06 Dose: 10 unit Lactulose (Enulose) 20 gm PO HS [facility] Last Admin: 12/15/17 22:06 Dose: 20 gm Morphine Sulfate (Morphine) 4 mg IVP Q4H PRN PRN Reason: Pain, severe (8-10) Last Admin: 12/16/17 05:53 Dose: 4 mg Oxycodone/Acetaminophen (Percocet 5/325 Mg Tab) 2 tab PO Q4H PRN PRN Reason: Pain, moderate (4-7) Stop: 12/16/17 15:34 Rosuvastatin Calcium (Crestor) 20 mg PO HS [facility] Last Admin: 12/15/17 22:06 Dose: 20 mg Sennosides (Senokot Tab) 8.6 mg PO DAILY [facility] Last Admin: 12/15/17 09:54 Dose: 8.6 mg Sitagliptin Phosphate (Januvia) 50 mg PO DAILY [facility] Last Admin: 12/15/17 09:54 Dose: 50 mg Sodium Hypochlorite (Dakins Solution 0.25%) 0 ml TOP DAILY [facility] Last Admin: 12/15/17 11:01 Dose: Not Given - Labs Labs: 12/15/17 06:39 12/15/17 06:39
[2017-12-16] MEDS: Insulin Detemir 100 units/ml Vial (Levemir) SC SCH ×2 (09:50→22:04)
[2017-12-16] MEDS: GlipiZIDE 10 mg SR Tab PO SCH ×2 (09:51→22:04)
[2017-12-16] MEDS: Vancomycin 1 gm/NS 200 ml 1 GM/200 ML BAG IVPB SCH ×2 (10:00→22:05)
--- NOTE | 2017-12-16 10:12 | CP.PCM.PN ---
Subjective - Date & Time of Evaluation Date of Evaluation: 12/16/17 Time of Evaluation: 10:12 - Subjective Subjective: Podiatry Progress note: Dr. Vegas 62 year old female was seen and evaluated at bedside for chronic left foot infection secondary to vascular compromise. Patient hemodynamically stable, NAD. No acute events overnight. Family present at bedside. Pain to LLE well- controlled on new regimen. No new pedal complaints. Dressing to LLE remains clean/dry/intact. Denies N/V/F/D/C/SOB. Objective - Vital Signs/Intake and Output Vital Signs (last 24 hours): Temp Pulse Resp BP Pulse Ox 98.8 F 76 20 102/64 96 12/16/17 08:00 12/16/17 08:00 12/16/17 08:00 12/16/17 08:00 12/16/17 08:00 Intake and Output: 12/16/17 12/16/17 06:59 18:59 Intake Total 990 Output Total 650 Balance 340 - Medications Medications: Current Medications Acetaminophen (Tylenol 325mg Tab) 650 mg PO Q4 PRN PRN Reason: Pain, Mild (1-3) Last Admin: 12/13/17 16:36 Dose: 650 mg Clopidogrel Bisulfate (Plavix) 75 mg PO DAILY [facility] Last Admin: 12/16/17 09:50 Dose: 75 mg Collagenase (Santyl) 0 gm TOP DAILY [facility] Last Admin: 12/15/17 12:08 Dose: Not Given Docusate Sodium (Colace) 100 mg PO TID [facility] Last Admin: 12/16/17 09:50 Dose: 100 mg Famotidine (Pepcid) 40 mg PO DAILY [facility] Last Admin: 12/16/17 09:50 Dose: 40 mg Glipizide (Glucotrol Xl) 10 mg PO Q12 [facility] Last Admin: 12/16/17 09:51 Dose: 10 mg Meropenem 1 gm/ Sodium (Chloride) 100 mls @ 100 mls/hr IVPB Q8H [facility] PRN Reason: Protocol Last Admin: 12/16/17 04:30 Dose: 100 mls/hr Vancomycin/Sodium Chloride (Vancomycin 1 Gm/Ns 200 Ml) 1 gm in 200 mls @ 133.333 mls/hr IVPB Q12H [facility] PRN Reason: Protocol Last Admin: 12/16/17 10:00 Dose: 133.333 mls/hr Insulin Detemir (Levemir) 10 unit SC Q12 [facility] Last Admin: 12/16/17 09:50 Dose: 10 unit Lactulose (Enulose) [address] [facility] Last Admin: 12/15/17 22:06 Dose: 20 gm Morphine Sulfate (Morphine) 4 mg IVP Q4H PRN PRN Reason: Pain, severe (8-10) Last Admin: 12/16/17 09:51 Dose: 4 mg Oxycodone/Acetaminophen (Percocet 5/325 Mg Tab) 2 tab PO Q4H PRN PRN Reason: Pain, moderate (4-7) Stop: 12/16/17 15:34 Last Admin: 12/16/17 08:36 Dose: 2 tab Rosuvastatin Calcium (Crestor) [address] [facility] Last Admin: 12/15/17 22:06 Dose: 20 mg Sennosides (Senokot Tab) 8.6 mg PO DAILY [facility] Last Admin: 12/16/17 09:50 Dose: 8.6 mg Sitagliptin Phosphate (Januvia) 50 mg PO DAILY [facility] Last Admin: 12/16/17 09:50 Dose: 50 mg Sodium Hypochlorite (Dakins Solution 0.25%) 0 ml TOP DAILY [facility] Last Admin: 12/15/17 11:01 Dose: Not Given - Labs Labs: 12/15/17 06:39 12/15/17 06:39 - Constitutional Appears: Well, Non-toxic, No Acute Distress - Extremities Exam Additional comments: Left lower extremity focused: VASC: nonpalpable pedal pulses, TG wnl, CFT unable to assess due to amputation DERM: choparts amputation site- stump of left foot with open circumferential wound - distal and dorsal aspect granular and plantar aspect necrotic with bogginess noted, retention sutures intact to distal/lateral aspects of stump, moderate malodor noted, mild serosanguinous drainage noted from lateral aspect of surgical incision, mild erythema surrounding the stump, no edema, no tunneling, no ascending cellulitis NEURO: grossly diminished ORTHO: pain on palpation of left foot, s/p Chopart's amputation - Neurological Exam Neurological Exam: Alert, Awake, Oriented x3 - Psychiatric Exam Psychiatric exam: Normal Affect, Normal Mood Assessment and Plan - Assessment and Plan (Free Text) Assessment: 62 y/o female with infected left foot choparts amputation site Plan: Patient seen and evaluated Discussed with attending, Dr. Vegas Afebrile X-rays: no acute signs of OM or soft tissue emphysema Wound cleaned with saline and dakins solution and dressing applied using santyl , DSD Wound cx - klebsiella pneumoniae, Corynebacterium species IV abx as per ID - continue Meropenem and Vancomycin Vascular consult - Dr. Hernández; patient is in agreement with BKA at this time, f/u recs Pain regimen per medicine Lidoderm TD qd Podiatry will follow
[2017-12-16] MEDS: Dakin's Topical 0.25%-Half Strength (480 ml) TOP SCH (11:06)
[2017-12-16] MEDS: Collagenase 250 Units/gm Ointment(30 gm) TOP SCH (11:07)
[2017-12-16] MEDS: Lidocaine 5% Patch TD SCH (11:42)
[2017-12-16] MEDS: Oxycodone/Acetaminophen 5/325 mg Tab PO PRN (16:45)
--- NOTE | 2017-12-17 02:12 | CP.PCM.CON ---
History of Present Illness - History of Present Illness History of Present Illness: Surgery 62 F w PMH of DM PVD and L TMA and angioplasty and stent on 08/2017 came with non healing heal ulcer. Reports pain, redness. Area is black and necrotic. It has been getting worse. Report foul odor. Pt is seen by milliner helper and had TMA. In 08/2017 revascularization was done with angioplasty. No improvement. Denies fever, nausea, diarrhea. This is chronic and nothing helped w the symptoms. Pt is amendable for BKA at this point. PMH see above PSH see above SS non smoker Review of Systems - Review of Systems Review of Systems: See HPI Past Patient History - Tetanus Immunizations Tetanus Immunization: Unknown - Past Medical History & Family History Past Medical History?: Yes - Past Social History Smoking Status: Never Smoked - CARDIAC Hx Hypercholesterolemia: Yes Hx Hypertension: Yes - PULMONARY Hx Respiratory Disorders: No - NEUROLOGICAL Hx Neurological Disorder: No - HEENT Hx HEENT Problems: Yes Hx Cataracts: Yes (bilat iol) - RENAL Hx Chronic Kidney Disease: No - ENDOCRINE/METABOLIC Hx Diabetes Mellitus Type 2: Yes - HEMATOLOGICAL/ONCOLOGICAL Hx Anemia: Yes - INTEGUMENTARY Hx Dermatological Problems: Yes Other/Comment: unhealed areas left foot transmetatarsal amp site - MUSCULOSKELETAL/RHEUMATOLOGICAL Hx Falls: No - GASTROINTESTINAL Hx Gastritis: Yes - GENITOURINARY/GYNECOLOGICAL Hx Genitourinary Disorders: No - PSYCHIATRIC Hx Anxiety: Yes (RELATED TO CONDITION) Hx Substance Use: No - SURGICAL HISTORY Hx Surgeries: Yes Hx Amputation: Yes (LEFT FOOT TRANSMETATARSAL/PER MD NOTE) Hx Angiogram: Yes (PERIPHERAL) Hx Cataract Extraction: Yes (bilateral) Hx Cardiac Catheterization: Yes Other/Comment: lower leg surgery, left TMA. left great ingrown toenail removal. 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 - ANESTHESIA Hx Anesthesia: Yes Hx Anesthesia Reactions: No Hx Malignant Hyperthermia: No Meds Allergies/Adverse Reactions: Allergies Allergy/AdvReac Type Severity Reaction Status Date / Time No Known Allergies Allergy Verified 12/13/17 09:17 - Medications Medications: Current Medications Acetaminophen (Tylenol 325mg Tab) 650 mg PO Q4 PRN PRN Reason: Pain, Mild (1-3) Last Admin: 12/13/17 16:36 Dose: 650 mg Clopidogrel Bisulfate (Plavix) 75 mg PO DAILY [facility] Last Admin: 12/16/17 09:50 Dose: 75 mg Collagenase (Santyl) 0 gm TOP DAILY [facility] Last Admin: 12/16/17 11:07 Dose: Not Given Docusate Sodium (Colace) 100 mg PO TID [facility] Last Admin: 12/16/17 18:08 Dose: 100 mg Famotidine (Pepcid) 40 mg PO DAILY [facility] Last Admin: 12/16/17 09:50 Dose: 40 mg Glipizide (Glucotrol Xl) 10 mg PO Q12 [facility] Last Admin: 12/16/17 22:04 Dose: Not Given Meropenem 1 gm/ Sodium (Chloride) 100 mls @ 100 mls/hr IVPB Q8H [facility] PRN Reason: Protocol Last Admin: 12/16/17 20:00 Dose: 100 mls/hr Vancomycin/Sodium Chloride (Vancomycin 1 Gm/Ns 200 Ml) 1 gm in 200 mls @ 133.333 mls/hr IVPB Q12H [facility] PRN Reason: Protocol Last Admin: 12/16/17 22:05 Dose: 133.333 mls/hr Insulin Detemir (Levemir) 10 unit SC Q12 [facility] Last Admin: 12/16/17 22:04 Dose: Not Given Lactulose (Enulose) 20 gm PO [facility] Last Admin: 12/16/17 22:36 Dose: Not Given Lidocaine (Lidoderm) 1 ea TD DAILY [facility] Last Admin: 12/16/17 11:42 Dose: 1 ea Morphine Sulfate (Morphine) 4 mg IVP Q4H PRN PRN Reason: Pain, severe (8-10) Last Admin: 12/16/17 22:30 Dose: 4 mg Oxycodone/Acetaminophen (Percocet 5/325 Mg Tab) 2 tab PO Q4H PRN PRN Reason: Pain, moderate (4-7) Stop: 12/19/17 16:46 Last Admin: 12/16/17 16:45 Dose: 2 tab Rosuvastatin Calcium (Crestor) 20 mg PO [facility] Last Admin: 12/16/17 22:05 Dose: 20 mg Sennosides (Senokot Tab) 8.6 mg PO DAILY [facility] Last Admin: 12/16/17 09:50 Dose: 8.6 mg Sitagliptin Phosphate (Januvia) 50 mg PO DAILY [facility] Last Admin: 12/16/17 09:50 Dose: 50 mg Sodium Hypochlorite (Dakins Solution 0.25%) 0 ml TOP DAILY [facility] Last Admin: 12/16/17 11:06 Dose: Not Given Physical Exam - Constitutional Appears: Non-toxic - Head Exam Head Exam: ATRAUMATIC, NORMAL INSPECTION, NORMOCEPHALIC - Eye Exam Eye Exam: EOMI, Normal appearance, PERRL Pupil Exam: NORMAL ACCOMODATION, PERRL - ENT Exam ENT Exam: Mucous Membranes Moist, Normal Exam - Neck Exam Neck exam: Positive for: Normal Inspection - Respiratory Exam Respiratory Exam: Clear to Auscultation Bilateral, NORMAL BREATHING PATTERN - Cardiovascular Exam Cardiovascular Exam: REGULAR RHYTHM - GI/Abdominal Exam GI & Abdominal Exam: Normal Bowel Sounds, Soft. absent: Tenderness - Exam Exam: NORMAL INSPECTION - Expanded Lower Extremities Exam Left Foot/Toe exam: abrasion, amputation, calcaneal tenderness, deformity, erythema, tenderness. absent: full ROM, normal inspection - Skin Skin Exam: Abrasion, Erythema, Warm Additional comments: 5x5cm ascar on the L heel 70a39hs raw area. Foul odor. Purulent drainage Results - Vital Signs Recent Vital Signs: Last Vital Signs Temp 98.7 F 12/17/17 00:00 Pulse 73 12/17/17 00:00 Resp 20 12/17/17 00:00 BP 113/69 12/17/17 00:00 Pulse Ox 97 12/17/17 00:00 - Labs Result Diagrams: 12/15/17 06:39 12/15/17 06:39 Labs: Laboratory Results - last 24 hr 12/16/17 12/16/17 12/16/17 07:21 11:46 16:30 POC Glucose (mg/dL) 309 H 321 H 298 H 12/16/17 21:26 POC Glucose (mg/dL) 236 H Assessment & Plan - Assessment and Plan (Free Text) Assessment: non healing L foot ulcer s/p angioplasty and SFA stent WBC 18 Wounc cx Klebsiella -Pt will benefit from L BKA Will DW Dr. Mcgrath
[2017-12-17] MEDS: Meropenem 1 GM in Sodium Chloride 0.9% 100 ML IVPB SCH ×3 (03:32→21:47)
[2017-12-17] MEDS: Morphine 4 MG/ML VIAL IVP PRN ×3 (05:30→21:48)
[2017-12-17] MEDS: Sodium Chloride 0.9% 1,000 ML IV SCH (05:30)
[2017-12-17 07:11] LABS: BASO # 0.1 K/uL (0.0-0.2); BASO % 0.8 % (0.0-2.0); EOS # 0.2 K/uL (0.0-0.7); EOS % 1.2 % (0.0-4.0); HEMOGLOBIN 8.7 g/dL (11.0-16.0); LYMPH # 4.7 K/uL (1.0-4.3); LYMPH % 25.8 % (20.0-40.0); MEAN CELL VOLUME 79.3 fL (81.0-99.0); MEAN CORPUSCULAR HEMOGLOBIN 26.1 pg (27.0-31.0); MEAN CORPUSCULAR HGB CONC 32.9 g/dL (33.0-37.0); MEAN PLATELET VOLUME 8.3 fL (7.2-11.7); MONO # 1.4 K/uL (0.0-0.8); MONO % 7.4 % (0.0-10.0); NEUT # 11.8 K/uL (1.8-7.0); NEUT % 64.8 % (50.0-75.0); RBC 3.34 Mil/uL (3.80-5.20); RED CELL DISTRIBUTION WIDTH 16.7 % (11.5-14.5); WHITE BLOOD COUNT 18.2 K/uL (4.8-10.8)
[2017-12-17 07:19] LABS: INR 1.3; PROTHROMBIN TIME 14.6 SECONDS (9.7-12.2)
[2017-12-17 07:26] LABS: ALB/GLOB RATIO 0.7 (1.0-2.1); ALT/SGPT 21 U/L (9-52); AST/SGOT 33 U/L (14-36); BLOOD UREA NITROGEN 13 mg/dL (7-17); CALCIUM 8.9 mg/dl (8.6-10.4); GFR AFRICAN-AMERICAN > 60; GFR NON-AFRICAN AMERICAN > 60
[2017-12-17] MEDS ORDERED: ceFAZolin 1 gm in NS 0 GM/0 ML BAG IVPB ONE (09:12)
[2017-12-17] MEDS ORDERED: Midazolam 2 MG/2 ML VIAL ONE (09:12)
[2017-12-17] MEDS ORDERED: Propofol 10 mg/ml Inj (20 ML) ONE (09:12)
[2017-12-17] MEDS: GlipiZIDE 10 mg SR Tab PO SCH ×2 (09:47→21:49)
[2017-12-17] MEDS: Dakin's Topical 0.25%-Half Strength (480 ml) TOP SCH (09:47)
[2017-12-17] MEDS ORDERED: Phenylephrine 10 mg/ml Inj ONE (09:48)
[2017-12-17] MEDS: Insulin Detemir 100 units/ml Vial (Levemir) SC SCH ×2 (09:48→21:50)
[2017-12-17] MEDS: Lidocaine 5% Patch TD SCH (09:48)
[2017-12-17] MEDS: Collagenase 250 Units/gm Ointment(30 gm) TOP SCH (09:49)
[2017-12-17] MEDS ORDERED: Lactated Ringer's 1,000 ML IV ONE (10:22)
[2017-12-17] MEDS: HYDROmorphone 0.5 mg/0.5 ml ISec IVP PRN ×2 (10:37→10:49)
--- NOTE | 2017-12-17 10:44 | PCM.SURG1 ---
Surgeon's Initial Post Op Note - Surgeon's Notes Surgeon: Edgar Classification Analyst: [id number] Pre-Operative Diagnosis: Non-healing left lower extremity wound Operative Findings: left lower extremity wound Post-Operative Diagnosis: non-healing left lower extremity wound Operation Performed: Left below knee amputation Specimen/Specimens Removed: Left below knee lower extremity Estimated Blood Loss: EBL {In ML}: 300 Date of Surgery/Procedure: 12/17/17 Time of Surgery/Procedure: 09:30
[2017-12-17] MEDS ORDERED: HYDROmorphone 0.5 mg/0.5 ml ISec ONE (10:51)
[2017-12-17] MEDS: Vancomycin 1 gm/NS 200 ml 1 GM/200 ML BAG IVPB SCH ×2 (11:01→22:10)
[2017-12-17] MEDS ORDERED: HYDROmorphone 0.5 mg/0.5 ml ISec IVP PRN (11:08)
--- NOTE | 2017-12-17 17:50 | CP.PCM.PN ---
Subjective - Date & Time of Evaluation Date of Evaluation: 12/17/17 Time of Evaluation: 03:00 - Subjective Subjective: dictated Objective - Vital Signs/Intake and Output Vital Signs (last 24 hours): Temp Pulse Resp BP Pulse Ox 97.9 F 70 20 148/80 100 12/17/17 16:00 12/17/17 16:00 12/17/17 16:00 12/17/17 16:00 12/17/17 16:00 Intake and Output: 12/17/17 12/17/17 06:59 18:59 Intake Total 850 1175 Output Total 850 Balance 0 1175 - Medications Medications: Current Medications Acetaminophen (Tylenol 325mg Tab) 650 mg PO Q4 PRN PRN Reason: Pain, Mild (1-3) Last Admin: 12/13/17 16:36 Dose: 650 mg Clopidogrel Bisulfate (Plavix) 75 mg PO DAILY [facility] Last Admin: 12/16/17 09:50 Dose: 75 mg Collagenase (Santyl) 0 gm TOP DAILY [facility] Last Admin: 12/17/17 09:49 Dose: Not Given Docusate Sodium (Colace) 100 mg PO TID [facility] Last Admin: 12/17/17 15:04 Dose: Not Given Famotidine (Pepcid) 40 mg PO DAILY [facility] Last Admin: 12/17/17 09:49 Dose: Not Given Glipizide (Glucotrol Xl) 10 mg PO Q12 [facility] Last Admin: 12/17/17 09:47 Dose: Not Given Heparin Sodium (Porcine) (Heparin) 5,000 units SC Q8 [facility] Last Admin: 12/17/17 14:46 Dose: Not Given Meropenem 1 gm/ Sodium (Chloride) 100 mls @ 100 mls/hr IVPB Q8H [facility] PRN Reason: Protocol Last Admin: 12/17/17 14:40 Dose: Not Given Vancomycin/Sodium Chloride (Vancomycin 1 Gm/Ns 200 Ml) 1 gm in 200 mls @ 133.333 mls/hr IVPB Q12H [facility] PRN Reason: Protocol Last Admin: 12/17/17 11:01 Dose: Not Given Sodium Chloride (Sodium Chloride 0.9%) 1,000 mls @ 100 mls/hr IV .Q10H [facility] Last Admin: 12/17/17 05:30 Dose: 100 mls/hr Insulin Detemir (Levemir) 10 unit SC Q12 [facility] Last Admin: 12/17/17 09:48 Dose: Not Given Lactulose (Enulose) 20 gm PO HS [facility] Last Admin: 12/16/17 22:36 Dose: Not Given Lidocaine (Lidoderm) 1 ea TD DAILY [facility] Last Admin: 12/17/17 09:48 Dose: Not Given Morphine Sulfate (Morphine) 4 mg IVP Q4H PRN PRN Reason: Pain, severe (8-10) Last Admin: 12/17/17 16:15 Dose: 4 mg Oxycodone/Acetaminophen (Percocet 5/325 Mg Tab) 2 tab PO Q4H PRN PRN Reason: Pain, moderate (4-7) Stop: 12/19/17 16:46 Last Admin: 12/16/17 16:45 Dose: 2 tab Rosuvastatin Calcium (Crestor) 20 mg PO [facility] Last Admin: 12/16/17 22:05 Dose: 20 mg Sennosides (Senokot Tab) 8.6 mg PO DAILY [facility] Last Admin: 12/17/17 09:49 Dose: Not Given Sitagliptin Phosphate (Januvia) 50 mg PO DAILY [facility] Last Admin: 12/17/17 09:48 Dose: Not Given Sodium Hypochlorite (Dakins Solution 0.25%) 0 ml TOP DAILY [facility] Last Admin: 12/17/17 09:47 Dose: Not Given - Labs Labs: 12/17/17 07:02 12/17/17 07:02 PT 14.6 SECONDS (9.7-12.2) H 12/17/17 07:02 INR 1.3 12/17/17 07:02 APTT 30 SECONDS (21-34) 12/17/17 07:02
[2017-12-17] MEDS: Oxycodone/Acetaminophen 5/325 mg Tab PO PRN (18:05)
[2017-12-17 19:34] LABS: HEMOGLOBIN 8.9 g/dL (11.0-16.0)
--- NOTE | 2017-12-17 20:31 | OP ---
PROCEDURE DATE: 12/17/2017 PREOPERATIVE DIAGNOSIS: Nonhealing ischemic ulceration of left foot. PROCEDURE: Left below knee amputation. SURGEON: Orlando Hernández Jr., MD MANAGER OF TRAINING: ANESTHESIOLOGIST: Mr. Luigi Izquierdo. ANESTHESIA: General anesthesia. FINDINGS: The patient is a young woman, history of previous revascularization endovascular presents with nonhealing ischemic ulceration of the foot. OPERATIVE FINDINGS: The resection of the bleeding from the cut surfaces. A standard left below knee amputation was carried out. Blood loss was over 300 mL. DESCRIPTION OF PROCEDURE: The patient was given general anesthesia, intravenous antibiotics. Standard left below-knee amputation was carried out. Power saw was used to cut the bone. After hemostasis was obtained, the wound was approximated with Monocryl and nylon sutures, and the skin closed with skin clips. Blood loss for the procedure was 300 mL. Operation carried out is left below-knee amputation. rOlando Hernández Jr., MD cc: Sarah Vegas DPM
--- NOTE | 2017-12-17 22:09 | PN ---
DATE: 12/17/2017 SUBJECTIVE: The patient just returned from the OR. She had a non-healing left lower extremity wound, so they did a left below-knee amputation. The patient is complaining of some pain, and she will probably be due for pain medication. She denies any other complaints. PHYSICAL EXAMINATION: VITAL SIGNS: T-max is 97.9, pulse 70, blood pressure is 148/80, respirations are 20. HEENT: Head is atraumatic and normocephalic. NECK: Supple. LUNGS: Clear. No crackles or rales present. HEART: S1 and S2, is regular. ABDOMEN: Soft, nontender. EXTREMITIES: Left foot now is post surgery. Right foot and leg is unremarkable. LABORATORY DATA: White count remained 18.2 this morning, hemoglobin 8.7, hematocrit 26.5, platelet count is 573, ESR was 135. She had Klebsiella and Corynebacterium in her wound. Klebsiella was sensitive, it was ESBL negative. Corynebacterium was present, but white count remained high in spite of being on the antibiotics. Sodium is 135, potassium 3.8, chloride is 93, BUN is 13, creatinine 0.6. ASSESSMENT AND PLAN: At this time, the patient is status post left below-knee amputation for non-healing ulceration and severe peripheral vascular disease. She was having ischemic pain. At this time, she remains on antibiotics, but we will leave her on it for the next 1 or 2 days. Once the wound is stable, she can go for rehab or home as will be the plan by the vascular surgeon. So, at this time, we will continue the medications and we will follow. She is diabetic and probably has diabetic neuropathy and also ischemia. Alissa Wiggins MD
[2017-12-18] MEDS: Oxycodone/Acetaminophen 5/325 mg Tab PO PRN ×3 (01:05→14:33)
[2017-12-18] MEDS: Morphine 4 MG/ML VIAL IVP PRN ×5 (03:05→21:21)
[2017-12-18] MEDS: Meropenem 1 GM in Sodium Chloride 0.9% 100 ML IVPB SCH ×2 (03:12→12:00)
[2017-12-18 07:34] LABS: BASO % 0.2 % (0.0-2.0); EOS # 0.2 K/uL (0.0-0.7); EOS % 1.9 % (0.0-4.0); HEMOGLOBIN 8.6 g/dL (11.0-16.0); LYMPH % 38.6 % (20.0-40.0); MEAN CORPUSCULAR HEMOGLOBIN 27.8 pg (27.0-31.0); MEAN CORPUSCULAR HGB CONC 34.3 g/dL (33.0-37.0); MEAN PLATELET VOLUME 8.6 fL (7.2-11.7); MONO # 1.2 K/uL (0.0-0.8); MONO % 9.1 % (0.0-10.0); NEUT # 6.5 K/uL (1.8-7.0); NEUT % 50.2 % (50.0-75.0); NRBC % 0.1 % (0.0-2.0); RBC 3.08 Mil/uL (3.80-5.20); RED CELL DISTRIBUTION WIDTH 16.7 % (11.5-14.5)
[2017-12-18 07:57] LABS: ALB/GLOB RATIO 0.8 (1.0-2.1); ALBUMIN 2.7 g/dL (3.5-5.0); ALT/SGPT 16 U/L (9-52); AST/SGOT 31 U/L (14-36); BLOOD UREA NITROGEN 13 mg/dL (7-17); CALCIUM 8.5 mg/dl (8.6-10.4); GFR AFRICAN-AMERICAN > 60; GFR NON-AFRICAN AMERICAN > 60
[2017-12-18] MEDS: GlipiZIDE 10 mg SR Tab PO SCH ×2 (10:31→21:12)
[2017-12-18] MEDS: Insulin Detemir 100 units/ml Vial (Levemir) SC SCH ×2 (10:31→21:20)
[2017-12-18] MEDS: Collagenase 250 Units/gm Ointment(30 gm) TOP SCH (10:33)
[2017-12-18] MEDS: Dakin's Topical 0.25%-Half Strength (480 ml) TOP SCH (10:34)
[2017-12-18] MEDS: Lidocaine 5% Patch TD SCH (10:38)
[2017-12-18] MEDS: Vancomycin 1 gm/NS 200 ml 1 GM/200 ML BAG IVPB SCH ×2 (12:41→22:02)
[2017-12-18] MEDS: Sodium Chloride 0.9% 1,000 ML IV SCH ×3 (12:42→21:14)
--- NOTE | 2017-12-18 13:30 | CP.PCM.PN ---
Subjective - Date & Time of Evaluation Date of Evaluation: 12/18/17 Time of Evaluation: 13:27 - Subjective Subjective: Surgery PT seen and examined. Pt underwent surery yesterday. Tolerated it well. Pain controlled. Objective - Vital Signs/Intake and Output Vital Signs (last 24 hours): Temp Pulse Resp BP Pulse Ox 98.7 F 69 20 107/69 97 12/18/17 07:37 12/18/17 07:37 12/18/17 07:37 12/18/17 07:37 12/18/17 07:37 Intake and Output: 12/18/17 12/18/17 06:59 18:59 Intake Total 850 Balance 850 - Medications Medications: Current Medications Acetaminophen (Tylenol 325mg Tab) 650 mg PO Q4 PRN PRN Reason: Pain, Mild (1-3) Last Admin: 12/13/17 16:36 Dose: 650 mg Clopidogrel Bisulfate (Plavix) 75 mg PO DAILY [facility] Last Admin: 12/18/17 10:31 Dose: 75 mg Collagenase (Santyl) 0 gm TOP DAILY [facility] Last Admin: 12/18/17 10:33 Dose: Not Given Docusate Sodium (Colace) 100 mg PO TID [facility] Last Admin: 12/18/17 10:38 Dose: 100 mg Famotidine (Pepcid) 40 mg PO DAILY [facility] Last Admin: 12/18/17 10:32 Dose: 40 mg Glipizide (Glucotrol Xl) 10 mg PO Q12 [facility] Last Admin: 12/18/17 10:31 Dose: 10 mg Heparin Sodium (Porcine) (Heparin) 5,000 units SC Q8 [facility] Last Admin: 12/18/17 05:46 Dose: 5,000 units Meropenem 1 gm/ Sodium (Chloride) 100 mls @ 100 mls/hr IVPB Q8H [facility] PRN Reason: Protocol Last Admin: 12/18/17 12:00 Dose: 100 mls/hr Vancomycin/Sodium Chloride (Vancomycin 1 Gm/Ns 200 Ml) 1 gm in 200 mls @ 133.333 mls/hr IVPB Q12H [facility] PRN Reason: Protocol Last Admin: 12/18/17 12:41 Dose: 133.333 mls/hr Sodium Chloride (Sodium Chloride 0.9%) 1,000 mls @ 100 mls/hr IV .Q10H [facility] Last Admin: 12/18/17 12:47 Dose: Not Given Insulin Detemir (Levemir) 10 unit SC Q12 [facility] Last Admin: 12/18/17 10:31 Dose: 10 unit Lactulose (Enulose) 20 gm PO HS [facility] Last Admin: 12/17/17 21:48 Dose: 20 gm Lidocaine (Lidoderm) 1 ea TD DAILY [facility] Last Admin: 12/18/17 10:38 Dose: 1 ea Morphine Sulfate (Morphine) 4 mg IVP Q4H PRN PRN Reason: Pain, severe (8-10) Last Admin: 12/18/17 12:38 Dose: 4 mg Oxycodone/Acetaminophen (Percocet 5/325 Mg Tab) 2 tab PO Q4H PRN PRN Reason: Pain, moderate (4-7) Stop: 12/19/17 16:46 Last Admin: 12/18/17 10:31 Dose: 2 tab Rosuvastatin Calcium (Crestor) 20 mg PO [facility] Last Admin: 12/17/17 21:49 Dose: 20 mg Sennosides (Senokot Tab) 8.6 mg PO DAILY [facility] Last Admin: 12/18/17 10:31 Dose: 8.6 mg Sitagliptin Phosphate (Januvia) 50 mg PO DAILY [facility] Last Admin: 12/18/17 10:31 Dose: 50 mg Sodium Hypochlorite (Dakins Solution 0.25%) 0 ml TOP DAILY [facility] Last Admin: 12/18/17 10:34 Dose: Not Given - Labs Labs: 12/18/17 07:16 12/18/17 07:16 PT 14.6 SECONDS (9.7-12.2) H 12/17/17 07:02 INR 1.3 12/17/17 07:02 APTT 30 SECONDS (21-34) 12/17/17 07:02 - Constitutional Appears: No Acute Distress - Head Exam Head Exam: ATRAUMATIC, NORMAL INSPECTION, NORMOCEPHALIC - Eye Exam Eye Exam: EOMI, Normal appearance, PERRL Pupil Exam: NORMAL ACCOMODATION, PERRL - ENT Exam ENT Exam: Mucous Membranes Moist, Normal Exam - Neck Exam Neck Exam: Full ROM, Normal Inspection. absent: Lymphadenopathy - Respiratory Exam Respiratory Exam: Clear to Ausculation Bilateral, NORMAL BREATHING PATTERN - Cardiovascular Exam Cardiovascular Exam: REGULAR RHYTHM, +S1, +S2. absent: Murmur - GI/Abdominal Exam GI & Abdominal Exam: Soft, Normal Bowel Sounds. absent: Distended, Tenderness - Extremities Exam Extremities Exam: absent: Normal Inspection Additional comments: L BKA. Immobilizer in place. dressing C/D/I - Back Exam Back Exam: NORMAL INSPECTION - Neurological Exam Neurological Exam: Alert, Awake, CN II-XII Intact, Normal Gait, Oriented x3 - Psychiatric Exam Psychiatric exam: Normal Affect, Normal Mood - Skin Skin Exam: Dry, Intact, Normal Color, Warm Assessment and Plan - Assessment and Plan (Free Text) Assessment: POD 1 s/p L BKA -Pain control -Knee imobilizer to prevent contracture -ABX per ID DW Dr. Hernández
--- NOTE | 2017-12-18 14:09 | CP.PCM.PN ---
Subjective - Date & Time of Evaluation Date of Evaluation: 12/18/17 Time of Evaluation: 01:30 - Subjective Subjective: dictated Objective - Vital Signs/Intake and Output Vital Signs (last 24 hours): Temp Pulse Resp BP Pulse Ox 98.7 F 69 20 107/69 97 12/18/17 07:37 12/18/17 07:37 12/18/17 07:37 12/18/17 07:37 12/18/17 07:37 Intake and Output: 12/18/17 12/18/17 06:59 18:59 Intake Total 850 Balance 850 - Medications Medications: Current Medications Acetaminophen (Tylenol 325mg Tab) 650 mg PO Q4 PRN PRN Reason: Pain, Mild (1-3) Last Admin: 12/13/17 16:36 Dose: 650 mg Clopidogrel Bisulfate (Plavix) 75 mg PO DAILY [facility] Last Admin: 12/18/17 10:31 Dose: 75 mg Collagenase (Santyl) 0 gm TOP DAILY [facility] Last Admin: 12/18/17 10:33 Dose: Not Given Docusate Sodium (Colace) 100 mg PO TID [facility] Last Admin: 12/18/17 13:45 Dose: 100 mg Famotidine (Pepcid) 40 mg PO DAILY [facility] Last Admin: 12/18/17 10:32 Dose: 40 mg Glipizide (Glucotrol Xl) 10 mg PO Q12 [facility] Last Admin: 12/18/17 10:31 Dose: 10 mg Heparin Sodium (Porcine) (Heparin) 5,000 units SC Q8 [facility] Last Admin: 12/18/17 13:45 Dose: 5,000 units Vancomycin/Sodium Chloride (Vancomycin 1 Gm/Ns 200 Ml) 1 gm in 200 mls @ 133.333 mls/hr IVPB Q12H [facility] PRN Reason: Protocol Last Admin: 12/18/17 12:41 Dose: 133.333 mls/hr Sodium Chloride (Sodium Chloride 0.9%) 1,000 mls @ 100 mls/hr IV .Q10H [facility] Last Admin: 12/18/17 12:47 Dose: Not Given Insulin Detemir (Levemir) 10 unit SC Q12 [facility] Last Admin: 12/18/17 10:31 Dose: 10 unit Lactulose (Enulose) 20 gm PO HS [facility] Last Admin: 12/17/17 21:48 Dose: 20 gm Lidocaine (Lidoderm) 1 ea TD DAILY [facility] Last Admin: 12/18/17 10:38 Dose: 1 ea Morphine Sulfate (Morphine) 4 mg IVP Q4H PRN PRN Reason: Pain, severe (8-10) Last Admin: 12/18/17 12:38 Dose: 4 mg Oxycodone/Acetaminophen (Percocet 5/325 Mg Tab) 2 tab PO Q4H PRN PRN Reason: Pain, moderate (4-7) Stop: 12/19/17 16:46 Last Admin: 12/18/17 10:31 Dose: 2 tab Rosuvastatin Calcium (Crestor) 20 mg PO HS [facility] Last Admin: 12/17/17 21:49 Dose: 20 mg Sennosides (Senokot Tab) 8.6 mg PO DAILY [facility] Last Admin: 12/18/17 10:31 Dose: 8.6 mg Sitagliptin Phosphate (Januvia) 50 mg PO DAILY [facility] Last Admin: 12/18/17 10:31 Dose: 50 mg Sodium Hypochlorite (Dakins Solution 0.25%) 0 ml TOP DAILY [facility] Last Admin: 12/18/17 10:34 Dose: Not Given - Labs Labs: 12/18/17 07:16 12/18/17 07:16 PT 14.6 SECONDS (9.7-12.2) H 12/17/17 07:02 INR 1.3 12/17/17 07:02 APTT 30 SECONDS (21-34) 12/17/17 07:02
[2017-12-18] MEDS ORDERED: POLYETHYLENE GLYCOL 3350 17 GM/Dose PACKET PO ONE (14:36)
--- NOTE | 2017-12-18 15:14 | CP.PCM.PN ---
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 Pt is stabel, reports constipation s/p procedure. In good spirits. Left leg dressings and knee brace intact. Pt denies any acute overnight events. Objective - Vital Signs/Intake and Output Vital Signs (last 24 hours): Temp Pulse Resp BP Pulse Ox 98.7 F 69 20 107/69 97 12/18/17 07:37 12/18/17 07:37 12/18/17 07:37 12/18/17 07:37 12/18/17 07:37 Intake and Output: 12/18/17 12/18/17 06:59 18:59 Intake Total 850 Balance 850 - Medications Medications: Current Medications Acetaminophen (Tylenol 325mg Tab) 650 mg PO Q4 PRN PRN Reason: Pain, Mild (1-3) Last Admin: 12/13/17 16:36 Dose: 650 mg Clopidogrel Bisulfate (Plavix) 75 mg PO DAILY [facility] Last Admin: 12/18/17 10:31 Dose: 75 mg Collagenase (Santyl) 0 gm TOP DAILY [facility] Last Admin: 12/18/17 10:33 Dose: Not Given Docusate Sodium (Colace) 100 mg PO TID [facility] Last Admin: 12/18/17 13:45 Dose: Not Given Famotidine (Pepcid) 40 mg PO DAILY [facility] Last Admin: 12/18/17 10:32 Dose: 40 mg Glipizide (Glucotrol Xl) 10 mg PO Q12 [facility] Last Admin: 12/18/17 10:31 Dose: 10 mg Heparin Sodium (Porcine) (Heparin) 5,000 units SC Q8 [facility] Last Admin: 12/18/17 13:45 Dose: 5,000 units Vancomycin/Sodium Chloride (Vancomycin 1 Gm/Ns 200 Ml) 1 gm in 200 mls @ 133.333 mls/hr IVPB Q12H [facility] PRN Reason: Protocol Last Admin: 12/18/17 12:41 Dose: 133.333 mls/hr Sodium Chloride (Sodium Chloride 0.9%) 1,000 mls @ 100 mls/hr IV .Q10H [facility] Last Admin: 12/18/17 12:47 Dose: Not Given Insulin Detemir (Levemir) 10 unit SC Q12 [facility] Last Admin: 12/18/17 10:31 Dose: 10 unit Lactulose (Enulose) 20 gm PO HS [facility] Last Admin: 12/17/17 21:48 Dose: 20 gm Lidocaine (Lidoderm) 1 ea TD DAILY [facility] Last Admin: 12/18/17 10:38 Dose: 1 ea Morphine Sulfate (Morphine) 4 mg IVP Q4H PRN PRN Reason: Pain, severe (8-10) Last Admin: 12/18/17 12:38 Dose: 4 mg Oxycodone/Acetaminophen (Percocet 5/325 Mg Tab) 2 tab PO Q4H PRN PRN Reason: Pain, moderate (4-7) Stop: 12/19/17 16:46 Last Admin: 12/18/17 14:33 Dose: 2 tab Rosuvastatin Calcium (Crestor) 20 mg PO HS [facility] Last Admin: 12/17/17 21:49 Dose: 20 mg Sennosides (Senokot Tab) 8.6 mg PO DAILY [facility] Last Admin: 12/18/17 10:31 Dose: 8.6 mg Sitagliptin Phosphate (Januvia) 50 mg PO DAILY [facility] Last Admin: 12/18/17 10:31 Dose: 50 mg Sodium Hypochlorite (Dakins Solution 0.25%) 0 ml TOP DAILY [facility] Last Admin: 12/18/17 10:34 Dose: Not Given - Labs Labs: 12/18/17 07:16 12/18/17 07:16 PT 14.6 SECONDS (9.7-12.2) H 12/17/17 07:02 INR 1.3 12/17/17 07:02 APTT 30 SECONDS (21-34) 12/17/17 07:02 Assessment and Plan - Assessment and Plan (Free Text) Assessment: 62 year old female 1 day s/p below knee amputaiton for left foot ulcer and ischemic wound. Plan: Wellness check. Below knee amputation performed and pt is stable at this time. Pt is stable form podiatry stand point at this time s.p procedure. Podiatry signing-off.
[2017-12-18] MEDS ORDERED: Home Med 1 UNIT PO STA (17:43)
--- NOTE | 2017-12-18 22:22 | CP.PCM.PN ---
Subjective - Date & Time of Evaluation Date of Evaluation: 12/17/17 Time of Evaluation: 22:21 - Subjective Subjective: Patient complaining of increasing pain. Status post left below-knee amputation. Doing well otherwise. But increasing the pain and patient is somewhat more depressing also. Feeling depressed On examination: Vital signs are stable otherwise. Chest good air entry. Regular heart sound. Nontender abdomen Assessment and recommendation: 62-year-old female with history of diabetes, peripheral vascular disease, status post below-knee amputation on the left side. We will continue the pain management antibiotic. Will follow the patient Objective - Vital Signs/Intake and Output Vital Signs (last 24 hours): Temp Pulse Resp BP Pulse Ox 98.9 F 76 20 128/75 98 12/18/17 16:15 12/18/17 16:15 12/18/17 16:15 12/18/17 16:15 12/18/17 16:15 - Medications Medications: Current Medications Acetaminophen (Tylenol 325mg Tab) 650 mg PO Q4 PRN PRN Reason: Pain, Mild (1-3) Last Admin: 12/13/17 16:36 Dose: 650 mg Clopidogrel Bisulfate (Plavix) 75 mg PO DAILY [facility] Last Admin: 12/18/17 10:31 Dose: 75 mg Collagenase (Santyl) 0 gm TOP DAILY [facility] Last Admin: 12/18/17 10:33 Dose: Not Given Docusate Sodium (Colace) 100 mg PO TID [facility] Last Admin: 12/18/17 17:30 Dose: 100 mg Famotidine (Pepcid) 40 mg PO DAILY [facility] Last Admin: 12/18/17 10:32 Dose: 40 mg Glipizide (Glucotrol Xl) 10 mg PO Q12 [facility] Last Admin: 12/18/17 21:12 Dose: 10 mg Heparin Sodium (Porcine) (Heparin) 5,000 units SC Q8 [facility] Last Admin: 12/18/17 21:12 Dose: 5,000 units Vancomycin/Sodium Chloride (Vancomycin 1 Gm/Ns 200 Ml) 1 gm in 200 mls @ 133.333 mls/hr IVPB Q12H [facility] PRN Reason: Protocol Last Admin: 12/18/17 22:02 Dose: 133.333 mls/hr Sodium Chloride (Sodium Chloride 0.9%) 1,000 mls @ 100 mls/hr IV .Q10H [facility] Last Admin: 12/18/17 21:14 Dose: Not Given Insulin Detemir (Levemir) 10 unit SC Q12 [facility] Last Admin: 12/18/17 21:20 Dose: 10 unit Lactulose (Enulose) 20 gm PO HS [facility] Last Admin: 12/18/17 21:13 Dose: 20 gm Lidocaine (Lidoderm) 1 ea TD DAILY [facility] Last Admin: 12/18/17 10:38 Dose: 1 ea Morphine Sulfate (Morphine) 4 mg IVP Q4H PRN PRN Reason: Pain, severe (8-10) Last Admin: 12/18/17 21:21 Dose: 4 mg Oxycodone/Acetaminophen (Percocet 5/325 Mg Tab) 2 tab PO Q4H PRN PRN Reason: Pain, moderate (4-7) Stop: 12/19/17 16:46 Last Admin: 12/18/17 14:33 Dose: 2 tab Rosuvastatin Calcium (Crestor) 20 mg PO [facility] Last Admin: 12/18/17 21:12 Dose: 20 mg Sennosides (Senokot Tab) 8.6 mg PO DAILY [facility] Last Admin: 12/18/17 10:31 Dose: 8.6 mg Sitagliptin Phosphate (Januvia) 50 mg PO DAILY [facility] Last Admin: 12/18/17 10:31 Dose: 50 mg Sodium Hypochlorite (Dakins Solution 0.25%) 0 ml TOP DAILY [facility] Last Admin: 12/18/17 10:34 Dose: Not Given - Labs Labs: 12/18/17 07:16 12/18/17 07:16 PT 14.6 SECONDS (9.7-12.2) H 12/17/17 07:02 INR 1.3 12/17/17 07:02 APTT 30 SECONDS (21-34) 12/17/17 07:02
--- NOTE | 2017-12-18 22:23 | CP.PCM.PN ---
Subjective - Date & Time of Evaluation Date of Evaluation: 12/18/17 Time of Evaluation: 22:22 - Subjective Subjective: Patient is having more pain. Poorly eating. Blood sugar is elevated. No chest pain or shortness of breath. On examination: Vital signs stable otherwise. Chest good air entry nontender abdominal pedal edema Left below-knee amputation. We will repeat the blood work tomorrow. Currently on antibiotic. For gangrene of the left foot. Stable at this time. Pain management, patient is having significant constipation, we will start the patient on , Fleet edema. Objective - Vital Signs/Intake and Output Vital Signs (last 24 hours): Temp Pulse Resp BP Pulse Ox 98.9 F 76 20 128/75 98 12/18/17 16:15 12/18/17 16:15 12/18/17 16:15 12/18/17 16:15 12/18/17 16:15 - Medications Medications: Current Medications Acetaminophen (Tylenol 325mg Tab) 650 mg PO Q4 PRN PRN Reason: Pain, Mild (1-3) Last Admin: 12/13/17 16:36 Dose: 650 mg Clopidogrel Bisulfate (Plavix) 75 mg PO DAILY [facility] Last Admin: 12/18/17 10:31 Dose: 75 mg Collagenase (Santyl) 0 gm TOP DAILY [facility] Last Admin: 12/18/17 10:33 Dose: Not Given Docusate Sodium (Colace) 100 mg PO TID [facility] Last Admin: 12/18/17 17:30 Dose: 100 mg Famotidine (Pepcid) 40 mg PO DAILY [facility] Last Admin: 12/18/17 10:32 Dose: 40 mg Glipizide (Glucotrol Xl) 10 mg PO Q12 [facility] Last Admin: 12/18/17 21:12 Dose: 10 mg Heparin Sodium (Porcine) (Heparin) 5,000 units SC Q8 [facility] Last Admin: 12/18/17 21:12 Dose: 5,000 units Vancomycin/Sodium Chloride (Vancomycin 1 Gm/Ns 200 Ml) 1 gm in 200 mls @ 133.333 mls/hr IVPB Q12H [facility] PRN Reason: Protocol Last Admin: 12/18/17 22:02 Dose: 133.333 mls/hr Sodium Chloride (Sodium Chloride 0.9%) 1,000 mls @ 100 mls/hr IV .Q10H [facility] Last Admin: 12/18/17 21:14 Dose: Not Given Insulin Detemir (Levemir) 10 unit SC Q12 [facility] Last Admin: 12/18/17 21:20 Dose: 10 unit Lactulose (Enulose) 20 gm PO HS [facility] Last Admin: 12/18/17 21:13 Dose: 20 gm Lidocaine (Lidoderm) 1 ea TD DAILY [facility] Last Admin: 12/18/17 10:38 Dose: 1 ea Morphine Sulfate (Morphine) 4 mg IVP Q4H PRN PRN Reason: Pain, severe (8-10) Last Admin: 12/18/17 21:21 Dose: 4 mg Oxycodone/Acetaminophen (Percocet 5/325 Mg Tab) 2 tab PO Q4H PRN PRN Reason: Pain, moderate (4-7) Stop: 12/19/17 16:46 Last Admin: 12/18/17 14:33 Dose: 2 tab Rosuvastatin Calcium (Crestor) 20 mg PO [facility] Last Admin: 12/18/17 21:12 Dose: 20 mg Sennosides (Senokot Tab) 8.6 mg PO DAILY [facility] Last Admin: 12/18/17 10:31 Dose: 8.6 mg Sitagliptin Phosphate (Januvia) 50 mg PO DAILY [facility] Last Admin: 12/18/17 10:31 Dose: 50 mg Sodium Hypochlorite (Dakins Solution 0.25%) 0 ml TOP DAILY [facility] Last Admin: 12/18/17 10:34 Dose: Not Given - Labs Labs: 12/18/17 07:16 12/18/17 07:16 PT 14.6 SECONDS (9.7-12.2) H 12/17/17 07:02 INR 1.3 12/17/17 07:02 APTT 30 SECONDS (21-34) 12/17/17 07:02
--- NOTE | 2017-12-18 23:26 | PN ---
DATE: 12/18/2017 INFECTIOUS DISEASE FOLLOWUP SUBJECTIVE: Today, the patient is postop, she was complaining of some constipation, Primary has put her on Senokot right now. She is having still some pain but trying to control it. Her was there also, and I told him to keep her motivated as she did undergo below-knee amputation, and I told her to keep her sugars controlled, and she will be probably going to rehab once cleared by everybody. OBJECTIVE: VITAL SIGNS: T-max is 98.9, pulse 76, blood pressure is 128/75, respirations are 20. GENERAL: She appears pale. HEENT: Head is atraumatic and normocephalic. NECK: Supple. LUNGS: Clear. No crackles or rales present. HEART: S1, S2 is regular. No murmurs appreciated. ABDOMEN: Soft, nontender. No guarding, no rigidity present. EXTREMITIES: Right leg is unremarkable. Left stump has a dressing at this time and is being followed by vascular surgeon. White count is 13 today, hemoglobin 8.6, hematocrit 24.9, platelet count is 466, lymphs of 5, neutrophils are 50.8. Sodium is 136, potassium 3.7, chlorides are 97. BUN is 13, creatinine 0.6. Her sugars are being monitored and last is 209 when I am dictating this note. Micro curtis, there was a wound culture, but this is the one now, she underwent amputation so I would discontinue meropenem at this time and continue vancomycin for wound healing for now, and will follow with Dr. Michelle as well as other consultants, and the patient also is getting medication. She said she was at home on medication, Movantik, but at this time, she is on other opioids so I told her that __stay away from ___ , Movantik, for now. The other opioids may be causing constipation and the stool softeners may help. Impression is, she came in with an infected nonhealing wound on the left foot postsurgery, they called it Charcot's foot, and she had to undergo amputation due to ischemic pains and she is diabetic. Alissa Wiggins MD [facility] # [id number] MTDD
[2017-12-19] MEDS: Sodium Chloride 0.9% 1,000 ML IV SCH ×4 (02:15→18:37)
[2017-12-19] MEDS: Morphine 4 MG/ML VIAL IVP PRN ×5 (03:35→23:48)
[2017-12-19] MEDS: Oxycodone/Acetaminophen 5/325 mg Tab PO PRN ×3 (05:44→15:17)
[2017-12-19 08:25] LABS: BASO % 0.3 % (0.0-2.0); EOS # 0.2 K/uL (0.0-0.7); EOS % 1.3 % (0.0-4.0); HEMOGLOBIN 8.1 g/dL (11.0-16.0); LYMPH # 4.6 K/uL (1.0-4.3); LYMPH % 33.3 % (20.0-40.0); MEAN CELL VOLUME 80.8 fL (81.0-99.0); MEAN CORPUSCULAR HGB CONC 33.4 g/dL (33.0-37.0); MEAN PLATELET VOLUME 8.5 fL (7.2-11.7); MONO # 1.2 K/uL (0.0-0.8); MONO % 8.9 % (0.0-10.0); NEUT # 7.8 K/uL (1.8-7.0); NEUT % 56.2 % (50.0-75.0); RBC 3.01 Mil/uL (3.80-5.20); WHITE BLOOD COUNT 13.9 K/uL (4.8-10.8)
[2017-12-19 08:38] LABS: BLOOD UREA NITROGEN 10 mg/dL (7-17); CALCIUM 8.5 mg/dl (8.6-10.4); GFR AFRICAN-AMERICAN > 60; GFR NON-AFRICAN AMERICAN > 60
[2017-12-19 08:39] LABS: ALB/GLOB RATIO 0.7 (1.0-2.1); ALBUMIN 2.8 g/dL (3.5-5.0); ALT/SGPT 17 U/L (9-52); AST/SGOT 22 U/L (14-36)
[2017-12-19] MEDS: GlipiZIDE 10 mg SR Tab PO SCH ×2 (11:08→22:21)
[2017-12-19] MEDS: Dakin's Topical 0.25%-Half Strength (480 ml) TOP SCH (11:09)
[2017-12-19] MEDS: Insulin Detemir 100 units/ml Vial (Levemir) SC SCH ×2 (11:10→22:24)
[2017-12-19] MEDS: Collagenase 250 Units/gm Ointment(30 gm) TOP SCH (11:20)
[2017-12-19] MEDS: Lidocaine 5% Patch TD SCH (11:21)
[2017-12-19] MEDS: Vancomycin 1 gm/NS 200 ml 1 GM/200 ML BAG IVPB SCH ×2 (11:21→22:24)
--- NOTE | 2017-12-19 13:18 | CP.PCM.PN ---
Subjective - Date & Time of Evaluation Date of Evaluation: 12/19/17 Time of Evaluation: 13:15 - Subjective Subjective: SURGERY NOTE FOR DR. SANTANA 62F seen and examined at bedside. Patient states she has pain at site of operation, continues to work with physical therapy. Dressing on left leg clean dry intact Objective - Vital Signs/Intake and Output Vital Signs (last 24 hours): Temp Pulse Resp BP Pulse Ox 98.0 F 71 20 119/74 96 12/19/17 08:00 12/19/17 08:00 12/19/17 08:00 12/19/17 08:00 12/19/17 08:00 Intake and Output: 12/19/17 12/19/17 06:59 18:59 Intake Total 2140 Output Total 400 Balance 1740 - Medications Medications: Current Medications Acetaminophen (Tylenol 325mg Tab) 650 mg PO Q4 PRN PRN Reason: Pain, Mild (1-3) Last Admin: 12/13/17 16:36 Dose: 650 mg Clopidogrel Bisulfate (Plavix) 75 mg PO DAILY [facility] Last Admin: 12/19/17 11:08 Dose: 75 mg Collagenase (Santyl) 0 gm TOP DAILY [facility] Last Admin: 12/19/17 11:20 Dose: Not Given Docusate Sodium (Colace) 100 mg PO TID [facility] Last Admin: 12/19/17 11:09 Dose: 100 mg Famotidine (Pepcid) 40 mg PO DAILY [facility] Last Admin: 12/19/17 11:08 Dose: 40 mg Glipizide (Glucotrol Xl) 10 mg PO Q12 [facility] Last Admin: 12/19/17 11:08 Dose: 10 mg Heparin Sodium (Porcine) (Heparin) 5,000 units SC Q8 [facility] Last Admin: 12/19/17 05:25 Dose: 5,000 units Vancomycin/Sodium Chloride (Vancomycin 1 Gm/Ns 200 Ml) 1 gm in 200 mls @ 133.333 mls/hr IVPB Q12H [facility] PRN Reason: Protocol Last Admin: 12/19/17 11:21 Dose: 133.333 mls/hr Sodium Chloride (Sodium Chloride 0.9%) 1,000 mls @ 100 mls/hr IV .Q10H [facility] Last Admin: 12/19/17 06:46 Dose: Not Given Insulin Detemir (Levemir) 10 unit SC Q12 [facility] Last Admin: 12/19/17 11:10 Dose: 10 unit Lactulose (Enulose) 20 gm PO HS [facility] Last Admin: 12/18/17 22:31 Dose: Not Given Lidocaine (Lidoderm) 1 ea TD DAILY [facility] Last Admin: 12/19/17 11:21 Dose: 1 ea Morphine Sulfate (Morphine) 4 mg IVP Q4H PRN PRN Reason: Pain, severe (8-10) Last Admin: 12/19/17 12:28 Dose: 4 mg Oxycodone/Acetaminophen (Percocet 5/325 Mg Tab) 2 tab PO Q4H PRN PRN Reason: Pain, moderate (4-7) Stop: 12/19/17 16:46 Last Admin: 12/19/17 11:13 Dose: 2 tab Rosuvastatin Calcium (Crestor) 20 mg PO [facility] Last Admin: 12/18/17 21:12 Dose: 20 mg Sennosides (Senokot Tab) 8.6 mg PO DAILY [facility] Last Admin: 12/19/17 11:20 Dose: Not Given Sitagliptin Phosphate (Januvia) 50 mg PO DAILY [facility] Last Admin: 12/19/17 11:09 Dose: 50 mg Sodium Hypochlorite (Dakins Solution 0.25%) 0 ml TOP DAILY [facility] Last Admin: 12/19/17 11:09 Dose: Not Given - Labs Labs: 12/19/17 08:15 12/19/17 08:15 PT 14.6 SECONDS (9.7-12.2) H 12/17/17 07:02 INR 1.3 12/17/17 07:02 APTT 30 SECONDS (21-34) 12/17/17 07:02 - Constitutional Appears: Non-toxic, No Acute Distress - Respiratory Exam Respiratory Exam: Clear to Ausculation Bilateral, NORMAL BREATHING PATTERN - Cardiovascular Exam Cardiovascular Exam: REGULAR RHYTHM, +S1, +S2 - GI/Abdominal Exam GI & Abdominal Exam: Soft. absent: Distended, Firm, Guarding, Rigid, Tenderness , Rebound - Extremities Exam Additional comments: left leg dressing clean dry intact - Neurological Exam Neurological Exam: Alert, Awake Assessment and Plan - Assessment and Plan (Free Text) Assessment: 62F s/p left BKA POD2 Plan: Continue physical therapy Continue pain control No further surgical intervention Further recs discuss with Dr. Bassem Raza, PGY2
[2017-12-19] MEDS ORDERED: Potassium Chloride 20 mEq ER Tab PO ONE (16:00)
--- NOTE | 2017-12-19 20:32 | PN ---
DATE: 12/19/2017 INFECTIOUS DISEASE FOLLOWUP SUBJECTIVE: The patient was in better spirits today. She said she is having less pain in the left leg. They have the splint on, and she said she is supposed to keep her leg straight, and I told her as they do not want her to bend her knee. PHYSICAL EXAMINATION: VITAL SIGNS: T-max is 98.1, pulse 75, blood pressure is 147/76, respirations are 20. GENERAL: She said she got a fleet enema and had a bowel movement finally, and she is awake, alert, still looks pale. NECK: Supple. LUNGS: Clear. No crackles or rales present. HEART: S1 and S2, regular. ABDOMEN: Soft, nontender. No guarding, no rigidity present. EXTREMITIES: Left leg has BKA and a dressing there and with a splint. Right leg is unremarkable. LABORATORY DATA: White count is 13.9, hemoglobin 8.1, hematocrit 24.3, platelet count is 527. Sodium is 137, potassium 3.5, chloride is 97, CO2 is BUN is 10, creatinine 0.5. Micro curtis, there is nothing new. She is status post BKA for ischemic leg and is diabetic and is on Plavix now. She is also on vancomycin at this time which we are continuing and she had her surgery done. Surgery was done on 12/17/2017. IMPRESSION AND PLAN: The patient is waiting for rehab. We will continue vancomycin for wound healing for now, to give it 7 to 10 days. Alissa Wiggins MD
--- NOTE | 2017-12-19 21:38 | CP.PCM.PN ---
Subjective - Date & Time of Evaluation Date of Evaluation: 12/19/17 Time of Evaluation: 21:37 - Subjective Subjective: Patient today she is feeling much better. Still having pain. Had a bowel movement yesterday. She is able to eat better. Patient was seen by surgical team today. Patient has a splint in the left leg amputation site On examination: Vital signs stable. Chest good air entry bilaterally Regular heart sound. Nontender abdomen. Right leg no edema noted. Patient's labs reviewed Normal renal function Abdomen is 2.8 WBC is 13.9, slight improvement noted. With the neutrophil elevated, and also elevated platelets. Assessment and recommendation: 62-year-old female with a history of diabetes hypertension hypercholesterolemia peripheral vascular disease. Ischemic leg. Patient underwent a left BKA, postoperative day one. We'll continue to closely monitor the glucose. Glucose control. On antibiotic Labs tomorrow. Anemia of chronic disease noted. Will follow the patient Objective - Vital Signs/Intake and Output Vital Signs (last 24 hours): Temp Pulse Resp BP Pulse Ox 98.1 F 75 20 147/76 99 12/19/17 15:49 12/19/17 15:49 12/19/17 15:49 12/19/17 15:49 12/19/17 15:49 - Medications Medications: Current Medications Acetaminophen (Tylenol 325mg Tab) 650 mg PO Q4 PRN PRN Reason: Pain, Mild (1-3) Last Admin: 12/13/17 16:36 Dose: 650 mg Clopidogrel Bisulfate (Plavix) 75 mg PO DAILY [facility] Last Admin: 12/19/17 11:08 Dose: 75 mg Docusate Sodium (Colace) 100 mg PO TID [facility] Last Admin: 12/19/17 18:38 Dose: 100 mg Famotidine (Pepcid) 40 mg PO DAILY [facility] Last Admin: 12/19/17 11:08 Dose: 40 mg Glipizide (Glucotrol Xl) 10 mg PO Q12 [facility] Last Admin: 12/19/17 11:08 Dose: 10 mg Heparin Sodium (Porcine) (Heparin) 5,000 units SC Q8 [facility] Last Admin: 12/19/17 14:11 Dose: 5,000 units Vancomycin/Sodium Chloride (Vancomycin 1 Gm/Ns 200 Ml) 1 gm in 200 mls @ 133.333 mls/hr IVPB Q12H [facility] PRN Reason: Protocol Last Admin: 12/19/17 11:21 Dose: 133.333 mls/hr Sodium Chloride (Sodium Chloride 0.9%) 1,000 mls @ 70 mls/hr IV .[id number] [facility] Last Admin: 12/19/17 18:37 Dose: 70 mls/hr Insulin Detemir (Levemir) 10 unit SC Q12 [facility] Last Admin: 12/19/17 11:10 Dose: 10 unit Lactulose (Enulose) 20 gm PO HS [facility] Last Admin: 12/18/17 22:31 Dose: Not Given Lidocaine (Lidoderm) 1 ea TD DAILY [facility] Last Admin: 12/19/17 11:21 Dose: 1 ea Morphine Sulfate (Morphine) 4 mg IVP Q4H PRN PRN Reason: Pain, severe (8-10) Last Admin: 12/19/17 18:38 Dose: 4 mg Rosuvastatin Calcium (Crestor) 20 mg PO HS [facility] Last Admin: 12/18/17 21:12 Dose: 20 mg Sennosides (Senokot Tab) 8.6 mg PO DAILY [facility] Last Admin: 12/19/17 11:20 Dose: Not Given Sitagliptin Phosphate (Januvia) 50 mg PO DAILY [facility] Last Admin: 12/19/17 11:09 Dose: 50 mg Sodium Hypochlorite (Dakins Solution 0.25%) 0 ml TOP DAILY [facility] Last Admin: 12/19/17 11:09 Dose: Not Given - Labs Labs: 12/19/17 08:15 12/19/17 08:15 PT 14.6 SECONDS (9.7-12.2) H 12/17/17 07:02 INR 1.3 12/17/17 07:02 APTT 30 SECONDS (21-34) 12/17/17 07:02
[2017-12-20] MEDS: Morphine 4 MG/ML VIAL IVP PRN ×2 (04:18→08:35)
[2017-12-20 06:44] LABS: BASO % 0.4 % (0.0-2.0); EOS # 0.2 K/uL (0.0-0.7); EOS % 1.7 % (0.0-4.0); HEMOGLOBIN 8.4 g/dL (11.0-16.0); LYMPH # 4.5 K/uL (1.0-4.3); LYMPH % 43.6 % (20.0-40.0); MEAN CORPUSCULAR HEMOGLOBIN 27.4 pg (27.0-31.0); MEAN CORPUSCULAR HGB CONC 33.8 g/dL (33.0-37.0); MEAN PLATELET VOLUME 8.5 fL (7.2-11.7); MONO % 9.7 % (0.0-10.0); NEUT # 4.6 K/uL (1.8-7.0); NEUT % 44.6 % (50.0-75.0); RBC 3.05 Mil/uL (3.80-5.20); RED CELL DISTRIBUTION WIDTH 16.7 % (11.5-14.5); WHITE BLOOD COUNT 10.3 K/uL (4.8-10.8)
[2017-12-20 06:59] LABS: ALB/GLOB RATIO 0.7 (1.0-2.1); ALBUMIN 2.7 g/dL (3.5-5.0); ALT/SGPT 26 U/L (9-52); AST/SGOT 32 U/L (14-36); BLOOD UREA NITROGEN 12 mg/dL (7-17); CALCIUM 8.4 mg/dl (8.6-10.4); GFR AFRICAN-AMERICAN > 60; GFR NON-AFRICAN AMERICAN > 60
--- NOTE | 2017-12-20 07:38 | CP.PCM.PN ---
Subjective - Date & Time of Evaluation Date of Evaluation: 12/20/17 Time of Evaluation: 07:38 - Subjective Subjective: Patient is still having pain over the left leg. Complaining of increasing pain in, and also not improving with the morphine. Patient had a BM yesterday. No nausea vomiting, eating better than yesterday. Denies any headache. Patient slept yesterday On examination: Vital signs stable. Blood sugar still on the high side. Chest good air entry bilaterally regular heart sounds nontender abdominal pedal edema Labs reviewed Nonspecific. Hemoglobin is stable now. Assessment and recommendation: 62-year-old female with a history of diabetes hypertension hypercholesterolemia peripheral vascular disease. Peripheral vascular intervention in the past, but having gangrene of the left great toe, complicated with the midtarsal amputation. As the patient does not improve and the wound, patient needed below-knee amputation, status post below-knee amputation day 2. We will continue the current treatment. Increase Levemir 15 units every 12 Increase Januvia 100 mg daily Monitor glucose. Discontinue morphine, add Dilaudid 0.5 mg every 8 hourly. We will follow the patient. Patient will need physical therapy. She will also need subacute rehab and will follow the patient Objective - Vital Signs/Intake and Output Vital Signs (last 24 hours): Temp Pulse Resp BP Pulse Ox 98.3 F 75 20 130/75 96 12/20/17 00:12 12/20/17 00:12 12/20/17 00:12 12/20/17 00:12 12/20/17 00:12 Intake and Output: 12/20/17 12/20/17 06:59 18:59 Intake Total 790 Balance 790 - Medications Medications: Current Medications Acetaminophen (Tylenol 325mg Tab) 650 mg PO Q4 PRN PRN Reason: Pain, Mild (1-3) Last Admin: 12/13/17 16:36 Dose: 650 mg Clopidogrel Bisulfate (Plavix) 75 mg PO DAILY [facility] Last Admin: 12/19/17 11:08 Dose: 75 mg Docusate Sodium (Colace) 100 mg PO TID [facility] Last Admin: 12/19/17 18:38 Dose: 100 mg Famotidine (Pepcid) 40 mg PO DAILY [facility] Last Admin: 12/19/17 11:08 Dose: 40 mg Glipizide (Glucotrol Xl) 10 mg PO Q12 [facility] Last Admin: 12/19/17 22:21 Dose: 10 mg Heparin Sodium (Porcine) (Heparin) 5,000 units SC Q8 [facility] Last Admin: 12/20/17 05:11 Dose: 5,000 units Vancomycin/Sodium Chloride (Vancomycin 1 Gm/Ns 200 Ml) 1 gm in 200 mls @ 133.333 mls/hr IVPB Q12H [facility] PRN Reason: Protocol Last Admin: 12/19/17 22:24 Dose: 133.333 mls/hr Insulin Detemir (Levemir) 12 unit SC Q12 [facility] Last Admin: 12/19/17 22:24 Dose: 12 unit Lactulose (Enulose) 20 gm PO HS [facility] Last Admin: 12/19/17 22:21 Dose: 20 gm Lidocaine (Lidoderm) 1 ea TD DAILY [facility] Last Admin: 12/19/17 11:21 Dose: 1 ea Morphine Sulfate (Morphine) 4 mg IVP Q4H PRN PRN Reason: Pain, severe (8-10) Last Admin: 12/20/17 04:18 Dose: 4 mg Rosuvastatin Calcium (Crestor) 20 mg PO HS [facility] Last Admin: 12/19/17 22:21 Dose: 20 mg Sennosides (Senokot Tab) 8.6 mg PO DAILY [facility] Last Admin: 12/19/17 11:20 Dose: Not Given Sitagliptin Phosphate (Januvia) 50 mg PO DAILY [facility] Last Admin: 12/19/17 11:09 Dose: 50 mg Sodium Hypochlorite (Dakins Solution 0.25%) 0 ml TOP DAILY [facility] Last Admin: 12/19/17 11:09 Dose: Not Given - Labs Labs: 12/20/17 06:39 12/20/17 06:39 PT 14.6 SECONDS (9.7-12.2) H 12/17/17 07:02 INR 1.3 12/17/17 07:02 APTT 30 SECONDS (21-34) 12/17/17 07:02
[2017-12-20] MEDS ORDERED: Potassium Chloride 20 mEq/15 ml LIQ UD PO ONE (08:00)
[2017-12-20] MEDS: Magnesium Sulfate 1 gm in D5W 1 GM/100 ML BAG IVPB SCH ×2 (08:39→08:47)
[2017-12-20] MEDS: HYDROmorphone 0.5 mg/0.5 ml ISec IVP PRN ×2 (11:25→17:37)
[2017-12-20] MEDS: Dakin's Topical 0.25%-Half Strength (480 ml) TOP SCH (11:27)
[2017-12-20] MEDS: GlipiZIDE 10 mg SR Tab PO SCH ×2 (11:28→21:52)
[2017-12-20] MEDS: Insulin Detemir 100 units/ml Vial (Levemir) SC SCH ×2 (11:29→21:53)
[2017-12-20] MEDS: Lidocaine 5% Patch TD SCH (11:36)
[2017-12-20] MEDS: Vancomycin 1 gm/NS 200 ml 1 GM/200 ML BAG IVPB SCH ×2 (11:37→22:15)
[2017-12-21] MEDS: HYDROmorphone 0.5 mg/0.5 ml ISec IVP PRN ×4 (01:55→21:01)
--- NOTE | 2017-12-21 09:32 | CP.PCM.PN ---
Subjective - Date & Time of Evaluation Date of Evaluation: 12/21/17 Time of Evaluation: 09:31 - Subjective Subjective: Patient is still having pain. Patient is getting the Dilaudid every 4 hours. Still having pain. Slightly eating better, had a bowel movements today. On examination: Vital signs stable. Chest good air entry bilaterally regular heart sounds nontender abdominal pedal edema [employer] alert awake oriented. Left BKA Labs pending Assessment and recognition: 62-year-old female with history of PVD diabetes hypertension high cholesterol admitted with gangrene of the left foot. Nonhealing ulcer. Sepsis and cellulitis. Status post BKA. On antibiotic. Possible rehab evaluation Objective - Vital Signs/Intake and Output Vital Signs (last 24 hours): Temp Pulse Resp BP Pulse Ox 98.4 F 74 20 121/75 98 12/21/17 08:41 12/21/17 08:41 12/21/17 08:41 12/21/17 08:41 12/21/17 08:41 Intake and Output: 12/21/17 12/21/17 06:59 18:59 Intake Total 800 Output Total 1700 Balance -900 - Medications Medications: Current Medications Acetaminophen (Tylenol 325mg Tab) 650 mg PO Q4 PRN PRN Reason: Pain, Mild (1-3) Last Admin: 12/13/17 16:36 Dose: 650 mg Clopidogrel Bisulfate (Plavix) 75 mg PO DAILY [facility] Last Admin: 12/20/17 11:28 Dose: 75 mg Docusate Sodium (Colace) 100 mg PO TID [facility] Last Admin: 12/20/17 17:37 Dose: Not Given Famotidine (Pepcid) 40 mg PO DAILY [facility] Last Admin: 12/20/17 11:28 Dose: 40 mg Glipizide (Glucotrol Xl) 10 mg PO Q12 [facility] Last Admin: 12/20/17 21:52 Dose: 10 mg Heparin Sodium (Porcine) (Heparin) 5,000 units SC Q8 [facility] Last Admin: 12/21/17 05:36 Dose: 5,000 units Hydromorphone HCl (Dilaudid) 0.5 mg IVP Q6H PRN PRN Reason: Pain, moderate (4-7) Last Admin: 12/21/17 08:30 Dose: 0.5 mg Vancomycin/Sodium Chloride (Vancomycin 1 Gm/Ns 200 Ml) 1 gm in 200 mls @ 133.333 mls/hr IVPB Q12H [facility] PRN Reason: Protocol Last Admin: 12/20/17 22:15 Dose: 133.333 mls/hr Insulin Detemir (Levemir) 15 unit SC Q12 [facility] Last Admin: 12/20/17 21:53 Dose: 15 unit Lactulose (Enulose) 20 gm PO HS [facility] Last Admin: 12/20/17 21:52 Dose: Not Given Lidocaine (Lidoderm) 1 ea TD DAILY [facility] Last Admin: 12/20/17 11:36 Dose: 1 ea Rosuvastatin Calcium (Crestor) 20 mg PO HS [facility] Last Admin: 12/20/17 21:52 Dose: 20 mg Sennosides (Senokot Tab) 8.6 mg PO DAILY [facility] Last Admin: 12/20/17 11:28 Dose: 8.6 mg Sitagliptin Phosphate (Januvia) 100 mg PO DAILY [facility] Sodium Hypochlorite (Dakins Solution 0.25%) 0 ml TOP DAILY [facility] Last Admin: 12/20/17 11:27 Dose: Not Given - Labs Labs: 12/20/17 06:39 12/20/17 06:39 PT 14.6 SECONDS (9.7-12.2) H 12/17/17 07:02 INR 1.3 12/17/17 07:02 APTT 30 SECONDS (21-34) 12/17/17 07:02
[2017-12-21] MEDS: Dakin's Topical 0.25%-Half Strength (480 ml) TOP SCH (10:51)
[2017-12-21] MEDS: Lidocaine 5% Patch TD SCH (10:59)
[2017-12-21] MEDS: GlipiZIDE 10 mg SR Tab PO SCH ×2 (10:59→22:08)
[2017-12-21] MEDS: Insulin Detemir 100 units/ml Vial (Levemir) SC SCH ×2 (11:00→23:46)
[2017-12-21] MEDS: Vancomycin 1 gm/NS 200 ml 1 GM/200 ML BAG IVPB SCH ×2 (11:09→22:04)
[2017-12-21 11:33] LABS: BASO # 0.1 K/uL (0.0-0.2); BASO % 0.4 % (0.0-2.0); EOS # 0.2 K/uL (0.0-0.7); EOS % 1.2 % (0.0-4.0); HEMOGLOBIN 8.7 g/dL (11.0-16.0); LYMPH # 4.5 K/uL (1.0-4.3); MEAN CELL VOLUME 80.8 fL (81.0-99.0); MEAN CORPUSCULAR HEMOGLOBIN 26.3 pg (27.0-31.0); MEAN CORPUSCULAR HGB CONC 32.5 g/dL (33.0-37.0); MEAN PLATELET VOLUME 8.6 fL (7.2-11.7); MONO # 0.9 K/uL (0.0-0.8); MONO % 6.5 % (0.0-10.0); NEUT % 58.9 % (50.0-75.0); RBC 3.31 Mil/uL (3.80-5.20); RED CELL DISTRIBUTION WIDTH 17.5 % (11.5-14.5); WHITE BLOOD COUNT 13.5 K/uL (4.8-10.8)
[2017-12-21 11:56] LABS: ALB/GLOB RATIO 0.8 (1.0-2.1); AST/SGOT 25 U/L (14-36); BLOOD UREA NITROGEN 12 mg/dL (7-17); GFR AFRICAN-AMERICAN > 60; GFR NON-AFRICAN AMERICAN > 60
[2017-12-21 12:10] LABS: ALT/SGPT < 6 U/L (9-52)
--- NOTE | 2017-12-21 16:01 | CP.PCM.PN ---
Subjective - Date & Time of Evaluation Date of Evaluation: 12/21/17 Time of Evaluation: 02:50 - Subjective Subjective: dictated Objective - Vital Signs/Intake and Output Vital Signs (last 24 hours): Temp Pulse Resp BP Pulse Ox 98.4 F 81 20 114/67 96 12/21/17 15:56 12/21/17 15:56 12/21/17 15:56 12/21/17 15:56 12/21/17 15:56 Intake and Output: 12/21/17 12/21/17 06:59 18:59 Intake Total 800 Output Total 1700 Balance -900 - Medications Medications: Current Medications Acetaminophen (Tylenol 325mg Tab) 650 mg PO Q4 PRN PRN Reason: Pain, Mild (1-3) Last Admin: 12/13/17 16:36 Dose: 650 mg Clopidogrel Bisulfate (Plavix) 75 mg PO DAILY [facility] Last Admin: 12/21/17 10:59 Dose: 75 mg Docusate Sodium (Colace) 100 mg PO TID [facility] Last Admin: 12/21/17 13:18 Dose: Not Given Famotidine (Pepcid) 40 mg PO DAILY [facility] Last Admin: 12/21/17 11:03 Dose: 40 mg Glipizide (Glucotrol Xl) 10 mg PO Q12 [facility] Last Admin: 12/21/17 10:59 Dose: 10 mg Heparin Sodium (Porcine) (Heparin) 5,000 units SC Q8 [facility] Last Admin: 12/21/17 14:36 Dose: 5,000 units Hydromorphone HCl (Dilaudid) 0.5 mg IVP Q6H PRN PRN Reason: Pain, moderate (4-7) Last Admin: 12/21/17 14:24 Dose: 0.5 mg Vancomycin/Sodium Chloride (Vancomycin 1 Gm/Ns 200 Ml) 1 gm in 200 mls @ 133.333 mls/hr IVPB Q12H [facility] PRN Reason: Protocol Last Admin: 12/21/17 11:09 Dose: 133.333 mls/hr Insulin Detemir (Levemir) 15 unit SC Q12 [facility] Last Admin: 12/21/17 11:00 Dose: 15 unit Lactulose (Enulose) 20 gm PO HS [facility] Last Admin: 12/20/17 21:52 Dose: Not Given Lidocaine (Lidoderm) 1 ea TD DAILY [facility] Last Admin: 12/21/17 10:59 Dose: 1 ea Rosuvastatin Calcium (Crestor) 20 mg PO HS [facility] Last Admin: 12/20/17 21:52 Dose: 20 mg Sennosides (Senokot Tab) 8.6 mg PO DAILY [facility] Last Admin: 12/21/17 10:59 Dose: Not Given Sitagliptin Phosphate (Januvia) 100 mg PO DAILY [facility] Last Admin: 12/21/17 10:59 Dose: 100 mg Sodium Hypochlorite (Dakins Solution 0.25%) 0 ml TOP DAILY [facility] Last Admin: 12/21/17 10:51 Dose: Not Given - Labs Labs: 12/21/17 11:21 12/21/17 11:21 PT 14.6 SECONDS (9.7-12.2) H 12/17/17 07:02 INR 1.3 12/17/17 07:02 APTT 30 SECONDS (21-34) 12/17/17 07:02
--- NOTE | 2017-12-22 | PN ---
DATE: 12/21/2017 SUBJECTIVE: The patient says that she will be going home. She is not approved for rehab. She still has lot of pain. She is not able to do much. She wanted the pain medications to be increased. She says Dr. Michelle saw her earlier, may be increasing the pain medications. She is trying to eat better. She did have a BM. She is still appearing pale. Denies any abdominal problems. PHYSICAL EXAMINATION: VITAL SIGNS: T-max is 98.4, pulse 81, blood pressure 114/67, respirations are 20. HEENT: Head is atraumatic, normocephalic. NECK: Supple. LUNGS: Clear. No crackles or rales present. HEART: S1 and S2 are regular. ABDOMEN: Soft, nontender. EXTREMITIES: She has a splint on the left BKA, and right leg is unremarkable. LABORATORY DATA: Her hemoglobin is 8.7; white count is 13.5, still remains elevated; hematocrit is 26.8; and platelet count is 581, remains elevated. She is post amputation for ischemic nonhealing foot ulcers in a diabetic with vascular issues. At this time, I have left vancomycin IV for wound healing. She is diabetic and she did have a nonhealing wound before. To continue vancomycin 1 gm every 12 hours. Also, we will get a vancomycin random level in the morning to be sure that she is getting a stable dose. IMPRESSION: She is status post left below-knee amputation and is still with a lot of pain, and the pain needs to be addressed before she is discharged and also wound to see if it is healing. We will follow. Alissa Wiggins MD
[2017-12-22] MEDS: HYDROmorphone 0.5 mg/0.5 ml ISec IVP PRN ×3 (03:00→15:07)
[2017-12-22] MEDS: Dakin's Topical 0.25%-Half Strength (480 ml) TOP SCH (09:19)
[2017-12-22] MEDS: Insulin Detemir 100 units/ml Vial (Levemir) SC SCH (09:21)
[2017-12-22] MEDS: GlipiZIDE 10 mg SR Tab PO SCH ×2 (09:29→22:02)
[2017-12-22] MEDS: Lidocaine 5% Patch TD SCH (09:29)
[2017-12-22] MEDS: Vancomycin 1 gm/NS 200 ml 1 GM/200 ML BAG IVPB SCH ×2 (11:59→22:03)
[2017-12-22] MEDS ORDERED: Insulin Detemir 100 units/ml Vial (Levemir) SC SCH (12:30)
--- NOTE | 2017-12-22 12:33 | CP.PCM.PN ---
Subjective - Date & Time of Evaluation Date of Evaluation: 12/22/17 Time of Evaluation: 12:32 - Subjective Subjective: Patient this morning lying down, comfortable. Complaining of left foot pain. No nausea vomiting. Eating better. Patient's blood sugar is elevated. No chest pain or shortness of breath On examination: Vital signs are stable. Temperature is afebrile. Blood pressure 170/60. Patient is making good urine output Vital signs otherwise stable. Chest good air entry regular heart sounds nontender abdomen. Left leg below-knee amputation Patient's yesterday labs reviewed We will repeat the labs tomorrow Assessment and recommendation: 62-year-old female with a history of multiple medical history diabetes hypertension PVD peripheral vascular disease left leg nonhealing ulcer of the left foot. Status post left BKA. Mild elevation of the WBC will repeat the labs tomorrow anemia, secondary to chronic infection. Will follow the patient. Labs ordered, Objective - Vital Signs/Intake and Output Vital Signs (last 24 hours): Temp Pulse Resp BP Pulse Ox 98.4 F 70 20 119/72 99 12/22/17 07:56 12/22/17 07:56 12/22/17 07:56 12/22/17 07:56 12/22/17 07:56 Intake and Output: 12/22/17 12/22/17 06:59 18:59 Intake Total 450 Output Total 1250 Balance -800 - Medications Medications: Current Medications Acetaminophen (Tylenol 325mg Tab) 650 mg PO Q4 PRN PRN Reason: Pain, Mild (1-3) Last Admin: 12/22/17 00:55 Dose: 650 mg Clopidogrel Bisulfate (Plavix) 75 mg PO DAILY [facility] Last Admin: 12/22/17 09:20 Dose: 75 mg Docusate Sodium (Colace) 100 mg PO TID [facility] Last Admin: 12/22/17 09:19 Dose: 100 mg Famotidine (Pepcid) 20 mg PO DAILY [facility] Glipizide (Glucotrol Xl) 10 mg PO Q12 [facility] Last Admin: 12/22/17 09:29 Dose: 10 mg Heparin Sodium (Porcine) (Heparin) 5,000 units SC Q8 [facility] Last Admin: 12/22/17 06:03 Dose: 5,000 units Hydromorphone HCl (Dilaudid) 0.5 mg IVP Q6H PRN PRN Reason: Pain, moderate (4-7) Last Admin: 12/22/17 09:16 Dose: 0.5 mg Vancomycin/Sodium Chloride (Vancomycin 1 Gm/Ns 200 Ml) 1 gm in 200 mls @ 133.333 mls/hr IVPB Q12H [facility] PRN Reason: Protocol Last Admin: 12/22/17 11:59 Dose: 133.333 mls/hr Insulin Detemir (Levemir) 20 unit SC Q12 [facility] Lactulose (Enulose) 20 gm PO HS [facility] Last Admin: 12/21/17 21:03 Dose: Not Given Lidocaine (Lidoderm) 1 ea TD DAILY [facility] Last Admin: 12/22/17 09:29 Dose: 1 ea Rosuvastatin Calcium (Crestor) 20 mg PO HS [facility] Last Admin: 12/21/17 21:03 Dose: 20 mg Sennosides (Senokot Tab) 8.6 mg PO DAILY [facility] Last Admin: 12/22/17 09:20 Dose: 8.6 mg Sitagliptin Phosphate (Januvia) 100 mg PO DAILY [facility] Last Admin: 12/22/17 09:20 Dose: 100 mg Sodium Hypochlorite (Dakins Solution 0.25%) 0 ml TOP DAILY [facility] Last Admin: 12/22/17 09:19 Dose: Not Given - Labs Labs: 12/21/17 11:21 12/21/17 11:21 PT 14.6 SECONDS (9.7-12.2) H 12/17/17 07:02 INR 1.3 12/17/17 07:02 APTT 30 SECONDS (21-34) 12/17/17 07:02
[2017-12-22 19:21] LABS: BASO # 0.1 K/uL (0.0-0.2); BASO % 0.4 % (0.0-2.0); EOS # 0.1 K/uL (0.0-0.7); EOS % 0.9 % (0.0-4.0); HEMOGLOBIN 9.6 g/dL (11.0-16.0); LYMPH # 6.6 K/uL (1.0-4.3); LYMPH % 44.3 % (20.0-40.0); MEAN CELL VOLUME 81.1 fL (81.0-99.0); MEAN CORPUSCULAR HEMOGLOBIN 26.6 pg (27.0-31.0); MEAN CORPUSCULAR HGB CONC 32.8 g/dL (33.0-37.0); MONO # 0.9 K/uL (0.0-0.8); MONO % 6.1 % (0.0-10.0); NEUT # 7.2 K/uL (1.8-7.0); NEUT % 48.3 % (50.0-75.0); RBC 3.6 Mil/uL (3.80-5.20); RED CELL DISTRIBUTION WIDTH 17.8 % (11.5-14.5)
[2017-12-22 19:36] LABS: ALB/GLOB RATIO 0.7 (1.0-2.1); ALBUMIN 3.1 g/dL (3.5-5.0); ALT/SGPT 25 U/L (9-52); AST/SGOT 24 U/L (14-36); BLOOD UREA NITROGEN 13 mg/dL (7-17); CALCIUM 9.1 mg/dl (8.6-10.4); GFR AFRICAN-AMERICAN > 60; GFR NON-AFRICAN AMERICAN > 60
[2017-12-22] MEDS ORDERED: Morphine 4 MG/ML VIAL IVP PRN (22:19)
--- NOTE | 2017-12-22 22:40 | CT ---
EXAM: CT Abdomen and Pelvis Without Intravenous Contrast EXAM DATE/TIME: 12/22/2017 8:12 PM CLINICAL HISTORY: 62 years old, female; Pain; Abdominal pain; Periumbilical; Additional info: Ileous TECHNIQUE: Axial computed tomography images of the abdomen and pelvis without intravenous contrast. All CT scans at this facility use one or more dose reduction techniques, viz.: automated exposure control; ma/kV adjustment per patient size (including targeted exams where dose is matched to indication; i.e. head); or iterative reconstruction technique. Coronal and sagittal reformatted images were created and reviewed. COMPARISON: No relevant prior studies available. FINDINGS: LUNG BASES: No significant abnormality seen. MEDIASTINUM: Small hiatal hernia. ABDOMEN: LIVER: Multiple foci of air in the liver. These are peripherally located, and have a linear, branching appearance. Findings are highly suspicious for portal venous gas. This is a sign of mesenteric ischemia. GALLBLADDER AND BILE DUCTS: Cholelithiasis. Multiple small gallstones, including stones in the gallbladder neck. No CT evidence of acute cholecystitis. PANCREAS: No CT evidence of acute pancreatitis. SPLEEN: No acute abnormality of the spleen identified. ADRENALS: No acute abnormality of the adrenal glands identified. KIDNEYS AND URETERS: No acute abnormality of the kidneys seen. STOMACH AND BOWEL: Wall thickening of the rectum, associated with infiltration of the perirectal fat. Findings could be due to proctitis. Otherwise, no significant abnormality of the bowel is identified on this unenhanced exam. No evidence of diffuse colitis/pancolitis. No findings to suggest significant enteritis. No acute abnormality of the stomach or duodenum identified. No evidence of bowel obstruction. No evidence of pneumatosis intestinalis . PELVIS: APPENDIX: Appendix is seen, and is within normal limits in appearance. BLADDER: No acute abnormality of the bladder identified. REPRODUCTIVE:No acute abnormality of the reproductive organs is seen. No acute abnormality of the uterus identified. No evidence of large adnexal masses. ABDOMEN and PELVIS: INTRAPERITONEAL SPACE: No evidence of free intraperitoneal air or fluid. BONES/JOINTS: No acute fractures or other acute bony abnormality noted. SOFT TISSUES: Mild, diffuse subcutaneous edema/anasarca. VASCULATURE: Atherosclerotic calcification. LYMPH NODES: No evidence of diffuse lymphadenopathy. IMPRESSION: - Portal venous gas in the liver. This is a sign of acute mesenteric ischemia. The site of the bowel ischemia could be the rectum, secondary to proctitis. There is otherwise no definite acute abnormality of the bowel identified. - See above for remaining findings.
[2017-12-22] MEDS ORDERED: Iodixanol 320 MG/ML 100 ML BOTTLE IV ONE (23:40)
[2017-12-22 23:41] LABS: ABG ALLEN TEST POS; ARTERIAL BLOOD GAS HCO3 29.3 mmol/L (21-28); ARTERIAL BLOOD GAS O2 SAT 100.2 % (95-98); ARTERIAL BLOOD GAS PCO2 37 mm/Hg (35-45); ARTERIAL BLOOD GAS PO2 126 mm/Hg (80-100)
--- NOTE | 2017-12-22 23:48 | CP.PCM.CON ---
History of Present Illness - History of Present Illness History of Present Illness: 62 y/o female with pmx of pveripheral vascular disease, h/o non-helaing ulcer admitted to [facility] and being treated for soft tissue infection with IV Vanco. Patient c/o abdominal pain with anorexia, (+)diarrhea (2nd lactulose) and diffuse abdomen. Patient denies any chest pain, denies any abdominal pain, denies any headache. Pmx: PVD, Psurg hc: amputation social history: denies any illicit drug use Review of Systems - Review of Systems Review of Systems: as per HPI Past Patient History - Tetanus Immunizations Tetanus Immunization: Unknown - Past Medical History & Family History Past Medical History?: Yes - Past Social History Smoking Status: Never Smoked - CARDIAC Hx Hypercholesterolemia: Yes Hx Hypertension: Yes - PULMONARY Hx Respiratory Disorders: No - NEUROLOGICAL Hx Neurological Disorder: No - HEENT Hx HEENT Problems: Yes Hx Cataracts: Yes (bilat iol) - RENAL Hx Chronic Kidney Disease: No - ENDOCRINE/METABOLIC Hx Diabetes Mellitus Type 2: Yes - HEMATOLOGICAL/ONCOLOGICAL Hx Anemia: Yes - INTEGUMENTARY Hx Dermatological Problems: Yes Other/Comment: unhealed areas left foot transmetatarsal amp site - MUSCULOSKELETAL/RHEUMATOLOGICAL Hx Falls: No - GASTROINTESTINAL Hx Gastritis: Yes - GENITOURINARY/GYNECOLOGICAL Hx Genitourinary Disorders: No - PSYCHIATRIC Hx Anxiety: Yes (RELATED TO CONDITION) Hx Substance Use: No - SURGICAL HISTORY Hx Surgeries: Yes Hx Amputation: Yes (LEFT FOOT TRANSMETATARSAL/PER MD NOTE) Hx Angiogram: Yes (PERIPHERAL) Hx Cataract Extraction: Yes (bilateral) Hx Cardiac Catheterization: Yes Other/Comment: lower leg surgery, left TMA. left great ingrown toenail removal. 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 - ANESTHESIA Hx Anesthesia: Yes Hx Anesthesia Reactions: No Hx Malignant Hyperthermia: No Meds Allergies/Adverse Reactions: Allergies Allergy/AdvReac Type Severity Reaction Status Date / Time No Known Allergies Allergy Verified 12/13/17 09:17 - Medications Medications: Current Medications Acetaminophen (Tylenol 325mg Tab) 650 mg PO Q4 PRN PRN Reason: Pain, Mild (1-3) Last Admin: 12/22/17 18:47 Dose: 650 mg Heparin Sodium (Porcine) (Heparin) 5,000 units SC Q8 [facility] Last Admin: 12/22/17 22:02 Dose: 5,000 units Vancomycin/Sodium Chloride (Vancomycin 1 Gm/Ns 200 Ml) 1 gm in 200 mls @ 133.333 mls/hr IVPB Q12H [facility] PRN Reason: Protocol Last Admin: 12/22/17 22:03 Dose: 133.333 mls/hr Potassium Chloride 40 meq/ (Sodium Chloride) 1,020 mls @ 75 mls/hr IV .[id number] [facility] Last Admin: 12/22/17 22:02 Dose: 75 mls/hr Piperacillin Sod/Tazobactam Sod (Zosyn 3.375 Gm Iv Premix) 3.375 gm in 50 mls @ 100 mls/hr IVPB Q6H [facility] PRN Reason: Protocol Lidocaine (Lidoderm) 1 ea TD DAILY [facility] Last Admin: 12/22/17 09:29 Dose: 1 ea Sennosides (Senokot Tab) 8.6 mg PO DAILY [facility] Last Admin: 12/22/17 09:20 Dose: 8.6 mg Sodium Hypochlorite (Dakins Solution 0.25%) 0 ml TOP DAILY [facility] Last Admin: 12/22/17 09:19 Dose: Not Given Physical Exam - Head Exam Head Exam: ATRAUMATIC, NORMAL INSPECTION, NORMOCEPHALIC - Eye Exam Eye Exam: Normal appearance - ENT Exam ENT Exam: Mucous Membranes Moist - Neck Exam Neck exam: Positive for: Normal Inspection - Respiratory Exam Respiratory Exam: Clear to Auscultation Bilateral, NORMAL BREATHING PATTERN - Cardiovascular Exam Cardiovascular Exam: REGULAR RHYTHM, +S1, +S2 - GI/Abdominal Exam GI & Abdominal Exam: Normal Bowel Sounds, Rebound, Rigid, Soft - Extremities Exam Additional comments: amputation r leg Results - Vital Signs Recent Vital Signs: Last Vital Signs Temp 98.7 F 12/22/17 15:00 Pulse 86 12/22/17 15:00 Resp 20 12/22/17 15:00 BP 148/80 12/22/17 15:00 Pulse Ox 97 12/22/17 15:00 - Labs Result Diagrams: 12/22/17 23:54 12/22/17 23:54 Labs: Laboratory Results - last 24 hr 12/22/17 12/22/17 12/22/17 07:20 07:23 11:24 WBC RBC Hgb Hct MCV MCH MCHC RDW Plt Count MPV Neut % (Auto) Lymph % (Auto) Lawrence % (Auto) Eos % (Auto) Baso % (Auto) Neut # (Auto) Lymph # (Auto) Lawrence # (Auto) Eos # (Auto) Baso # (Auto) Puncture Site pCO2 pO2 HCO3 ABG pH ABG Total CO2 ABG O2 Saturation ABG Base Excess Gallo Test ABG Potassium Glucose Lactate Liter Flow Sodium Potassium Chloride Carbon Dioxide Anion Gap BUN Creatinine Est GFR ( Amer) Est GFR (Non-Af Amer) POC Glucose (mg/dL) 315 H 302 H Random Glucose Calcium Total Bilirubin AST ALT Alkaline Phosphatase Total Protein Albumin Globulin Albumin/Globulin Ratio Lipase Arterial Blood Potassium Random Vancomycin 19.7 12/22/17 12/22/17 12/22/17 16:10 19:18 19:18 WBC 15.0 H RBC 3.60 L Hgb 9.6 L Hct 29.2 L MCV 81.1 MCH 26.6 L MCHC 32.8 L RDW 17.8 H Plt Count 710 H D MPV 8.0 Neut % (Auto) 48.3 L Lymph % (Auto) 44.3 H Lawrence % (Auto) 6.1 Eos % (Auto) 0.9 Baso % (Auto) 0.4 Neut # (Auto) 7.2 H Lymph # (Auto) 6.6 H Lawrence # (Auto) 0.9 H Eos # (Auto) 0.1 Baso # (Auto) 0.1 Puncture Site pCO2 pO2 HCO3 ABG pH ABG Total CO2 ABG O2 Saturation ABG Base Excess Gallo Test ABG Potassium Glucose Lactate Liter Flow Sodium 138 Potassium 3.4 L Chloride 96 L Carbon Dioxide 30 Anion Gap 16 BUN 13 Creatinine 0.6 L Est GFR ( Amer) > 60 Est GFR (Non-Af Amer) > 60 POC Glucose (mg/dL) 246 H Random Glucose 195 H Calcium 9.1 Total Bilirubin 0.5 AST 24 ALT 25 Alkaline Phosphatase 94 Total Protein 7.4 Albumin 3.1 L Globulin 4.3 H Albumin/Globulin Ratio 0.7 L Lipase Arterial Blood Potassium Random Vancomycin 12/22/17 12/22/17 12/22/17 20:22 21:02 23:28 WBC RBC Hgb Hct MCV MCH MCHC RDW Plt Count MPV Neut % (Auto) Lymph % (Auto) Lawrence % (Auto) Eos % (Auto) Baso % (Auto) Neut # (Auto) Lymph # (Auto) Lawrence # (Auto) Eos # (Auto) Baso # (Auto) Puncture Site L rad pCO2 37 pO2 126 H HCO3 29.3 H ABG pH 7.50 H ABG Total CO2 30.0 H ABG O2 Saturation 100.2 H ABG Base Excess 5.5 H Gallo Test Pos ABG Potassium 3.0 L Glucose 231 H Lactate 1.0 Liter Flow 2.0 Sodium 137.0 Potassium Chloride 103.0 Carbon Dioxide Anion Gap BUN Creatinine Est GFR ( Amer) Est GFR (Non-Af Amer) POC Glucose (mg/dL) 205 H Random Glucose Calcium Total Bilirubin AST ALT Alkaline Phosphatase Total Protein Albumin Globulin Albumin/Globulin Ratio Lipase 90 Arterial Blood Potassium 3.0 L Random Vancomycin Assessment & Plan - Assessment and Plan (Free Text) Assessment: -Abdominal pain: CT reveals air in liver c/w infectious/ischemic etiology: will start IV zosyn, currently on IV vanco for soft tissue infection -serial lactic -surgery eval -CT abd/pelvis with contrast -NPO -NG tube -DVT ppx heparin -PUD ppx protonix IV -BGM q6hrs, ISS aspart Patient will benefit from ICu level of care for close monitoring of abdominal pathology - Date & Time Date: 12/22/17 Time: 23:51
[2017-12-23 00:02] LABS: BASO # 0.1 K/uL (0.0-0.2); BASO % 0.6 % (0.0-2.0); EOS # 0.2 K/uL (0.0-0.7); EOS % 1.6 % (0.0-4.0); HEMOGLOBIN 9.3 g/dL (11.0-16.0); LYMPH # 5.7 K/uL (1.0-4.3); LYMPH % 38.4 % (20.0-40.0); MEAN CELL VOLUME 80.6 fL (81.0-99.0); MEAN CORPUSCULAR HEMOGLOBIN 26.9 pg (27.0-31.0); MEAN CORPUSCULAR HGB CONC 33.4 g/dL (33.0-37.0); MEAN PLATELET VOLUME 8.4 fL (7.2-11.7); MONO # 1.2 K/uL (0.0-0.8); NEUT # 7.6 K/uL (1.8-7.0); NEUT % 51.4 % (50.0-75.0); RBC 3.45 Mil/uL (3.80-5.20); RED CELL DISTRIBUTION WIDTH 17.6 % (11.5-14.5); WHITE BLOOD COUNT 14.9 K/uL (4.8-10.8)
[2017-12-23 00:12] LABS: INR 1.2; PROTHROMBIN TIME 13.2 SECONDS (9.7-12.2)
[2017-12-23 00:17] LABS: ALB/GLOB RATIO 0.7 (1.0-2.1); ALBUMIN 3.1 g/dL (3.5-5.0); ALT/SGPT 28 U/L (9-52); AMYLASE 59 U/L (30-110); AST/SGOT 21 U/L (14-36); BLOOD UREA NITROGEN 11 mg/dL (7-17); CALCIUM 9.3 mg/dl (8.6-10.4); GFR AFRICAN-AMERICAN > 60; GFR NON-AFRICAN AMERICAN > 60; LIPASE 114 U/L (23-300)
[2017-12-23 00:24] LABS: B-TYPE NATRIURETIC PEPTIDE 637 pg/mL (0-900)
--- NOTE | 2017-12-23 00:53 | CT ---
EXAM: CT Abdomen and Pelvis Without and With Intravenous Contrast EXAM DATE/TIME: 12/23/2017 12:17 AM CLINICAL HISTORY: 62 years old, female; Pain; Abdominal pain; Prior surgery; Patient HX: 12-22-17; Additional info: R/O ischemia TECHNIQUE: Axial computed tomography images of the abdomen and pelvis without and with intravenous contrast. All CT scans at this facility use one or more dose reduction techniques, viz.: automated exposure control; ma/kV adjustment per patient size (including targeted exams where dose is matched to indication; i.e. head); or iterative reconstruction technique. Coronal and sagittal reformatted images were created and reviewed. CONTRAST: 100 mL of [id number] administered intravenously. COMPARISON: Prior CT abdomen and pelvis of 2017-12-22 9:19 PM FINDINGS: LIMITATIONS: Mild streak/motion artifact. LUNG BASES: No significant abnormality seen. HEART: Small to moderate pericardial effusion. This does not appear circumferential. ABDOMEN: LIVER: Portal venous gas again seen, as on the recent prior CT, small in amount, and significantly decreased in amount in the interim. GALLBLADDER AND BILE DUCTS: Multiple gallstones again seen. No CT evidence of acute cholecystitis. PANCREAS: No CT evidence of acute pancreatitis. SPLEEN: No acute abnormality of the spleen identified. ADRENALS: No acute abnormality of the adrenal glands identified. KIDNEYS AND URETERS: No evidence of hydroureteronephrosis. STOMACH AND BOWEL: Abnormal moderate thickening of the proximal stomach, suspicious for gastritis. No evidence of air in the gastric wall, diffuse gastric dilatation, or gastric perforation. As seen on the prior exam, there is rectal wall thickening and mild infiltration of the perirectal fat, which could be secondary to proctitis. Fecalization of multiple small bowel loops is seen in the right abdomen, most likely secondary to a mild ileus. Otherwise, no significant abnormality of the bowel is identified. No evidence of diffuse small bowel dilatation, high grade small bowel obstruction, pancolitis or pneumatosis intestinalis. PELVIS: APPENDIX: Appendix is seen, and is within normal limits in appearance. BLADDER: Bladder is mildly dilated. REPRODUCTIVE:No acute abnormality of the reproductive organs is seen. No acute abnormality of the uterus identified. No evidence of large adnexal masses. ABDOMEN and PELVIS: INTRAPERITONEAL SPACE: No evidence of free intraperitoneal air or fluid. BONES/JOINTS: No acute fractures or other acute bony abnormality noted. SOFT TISSUES: Stable appearance of mild, diffuse soft tissue edema/anasarca. VASCULATURE: Atherosclerotic calcification. Although the exam was not performed per CT angiogram protocol, there is no evidence of gross acute occlusion of the major mesenteric vessels. LYMPH NODES: No evidence of diffuse lymphadenopathy. IMPRESSION: - Compared to a CT done about 3 hours prior, interval decrease in the amount of portal venous gas present. There is a small amount of residual portal venous gas seen. This is a sign of mesenteric ischemia. - Development of gastric wall thickening, highly suspicious for gastritis. - Otherwise, no significant change seen. No evidence of bowel obstruction or free air/bowel perforation. - See above for remaining findings.
[2017-12-23] MEDS: Piperacill/Tazo 3.375gm in Dex 3.375 GM/50 ML BAG IVPB SCH ×5 (01:03→23:47)
--- NOTE | 2017-12-23 01:39 | CP.PCM.PN ---
Subjective - Date & Time of Evaluation Date of Evaluation: 12/23/17 Time of Evaluation: 00:30 - Subjective Subjective: Surgery: Dr. Hernández Surgery called to re-evaluate pt for abdominal pain that started earlier today with associated nausea & few episodes of vomiting. Pt is known to the surgical team from her L BKA which was done on 12/17/17. An abdomen/pelvis CT was done & showed findings concerning for portal venous gas, r/o mesenteric ischemia. Currently, pt is resting comfortably in ICU bed & states that her abdominal pain has improved. She localizes her pain to the LLQ & admits to associated episodes of vomiting earlier today which have since resolved. States she had multiple episodes of loose BMs through out the day with +flatus. She denies nausea, fevers, chills, chest pain or SOB. Objective - Vital Signs/Intake and Output Vital Signs (last 24 hours): Temp Pulse Resp BP Pulse Ox 98.7 F 86 20 148/80 97 12/22/17 15:00 12/22/17 15:00 12/22/17 15:00 12/22/17 15:00 12/22/17 15:00 Intake and Output: 12/22/17 12/23/17 18:59 06:59 Intake Total 440 Output Total 500 Balance -60 - Medications Medications: Current Medications Acetaminophen (Tylenol 325mg Tab) 650 mg PO Q4 PRN PRN Reason: Pain, Mild (1-3) Last Admin: 12/22/17 18:47 Dose: 650 mg Heparin Sodium (Porcine) (Heparin) 5,000 units SC Q8 [facility] Last Admin: 12/22/17 22:02 Dose: 5,000 units Vancomycin/Sodium Chloride (Vancomycin 1 Gm/Ns 200 Ml) 1 gm in 200 mls @ 133.333 mls/hr IVPB Q12H [facility] PRN Reason: Protocol Last Admin: 12/22/17 22:03 Dose: 133.333 mls/hr Piperacillin Sod/Tazobactam Sod (Zosyn 3.375 Gm Iv Premix) 3.375 gm in 50 mls @ 100 mls/hr IVPB Q6H [facility] PRN Reason: Protocol Last Admin: 12/23/17 01:03 Dose: 100 mls/hr Potassium Chloride 40 meq/ (Sodium Chloride) 1,020 mls @ 150 mls/hr IV .[id number] [facility] Last Admin: 12/23/17 01:05 Dose: Not Given Lidocaine (Lidoderm) 1 ea TD DAILY [facility] Last Admin: 12/22/17 09:29 Dose: 1 ea Sennosides (Senokot Tab) 8.6 mg PO DAILY [facility] Last Admin: 12/22/17 09:20 Dose: 8.6 mg Sodium Hypochlorite (Dakins Solution 0.25%) 0 ml TOP DAILY [facility] Last Admin: 12/22/17 09:19 Dose: Not Given - Labs Labs: 12/22/17 23:54 12/22/17 23:54 PT 13.2 SECONDS (9.7-12.2) H 12/22/17 23:54 INR 1.2 12/22/17 23:54 APTT 40 SECONDS (21-34) H 12/22/17 23:54 - Constitutional Appears: No Acute Distress - Head Exam Head Exam: ATRAUMATIC, NORMOCEPHALIC - Eye Exam Eye Exam: Normal appearance - Respiratory Exam Respiratory Exam: NORMAL BREATHING PATTERN - Cardiovascular Exam Cardiovascular Exam: RRR - GI/Abdominal Exam GI & Abdominal Exam: Soft, Tenderness (to deep palpation in the LLQ ). absent: Distended, Guarding - Extremities Exam Additional comments: knee immobilizer in place, dressing C/D/I - Neurological Exam Neurological Exam: Alert, Awake - Skin Skin Exam: Dry, Warm Assessment and Plan - Assessment and Plan (Free Text) Assessment: 62F s/p L BKA, POD#5 now with abdominal pain & vomiting Plan: - pt is currently clinically stable without tachycardia or hypotension - will monitor closely with serial abdominal exams - cont IV ABX - Keep NPO with IVF - d/w Dr. Edgar Escobar, PGY-3
[2017-12-23 06:22] LABS: BASO # 0.1 K/uL (0.0-0.2); BASO % 0.3 % (0.0-2.0); EOS # 0.3 K/uL (0.0-0.7); EOS % 1.7 % (0.0-4.0); HEMOGLOBIN 9.3 g/dL (11.0-16.0); LYMPH # 5.4 K/uL (1.0-4.3); LYMPH % 34.8 % (20.0-40.0); MEAN CELL VOLUME 80.7 fL (81.0-99.0); MEAN CORPUSCULAR HEMOGLOBIN 27.2 pg (27.0-31.0); MEAN CORPUSCULAR HGB CONC 33.8 g/dL (33.0-37.0); MEAN PLATELET VOLUME 8.5 fL (7.2-11.7); MONO # 1.1 K/uL (0.0-0.8); MONO % 6.9 % (0.0-10.0); NEUT # 8.8 K/uL (1.8-7.0); NEUT % 56.3 % (50.0-75.0); RBC 3.43 Mil/uL (3.80-5.20); RED CELL DISTRIBUTION WIDTH 17.6 % (11.5-14.5); WHITE BLOOD COUNT 15.6 K/uL (4.8-10.8)
[2017-12-23] MEDS: Morphine 4 MG/ML VIAL IVP PRN ×3 (06:39→18:25)
[2017-12-23 06:42] LABS: ALB/GLOB RATIO 0.7 (1.0-2.1); ALBUMIN 3.1 g/dL (3.5-5.0); ALT/SGPT 24 U/L (9-52); AST/SGOT 22 U/L (14-36); BLOOD UREA NITROGEN 11 mg/dL (7-17); CALCIUM 9.3 mg/dl (8.6-10.4); GFR AFRICAN-AMERICAN > 60; GFR NON-AFRICAN AMERICAN > 60
[2017-12-23 06:44] LABS: TOTAL IRON BINDING CAPACITY 272 ug/dL (250-450)
[2017-12-23 06:49] LABS: % IRON SATURATION 20 (20-55); IRON 54 ug/dL (37-170)
--- NOTE | 2017-12-23 11:07 | RAD ---
HISTORY: nauseavomitting r/oobstruction COMPARISON: Comparison is made to the previous chest x-ray dated 10/02/2016 FINDINGS: BOWEL: Normal. No obstruction. No free air. BONES: Normal. OTHER FINDINGS: None. IMPRESSION: No radiographic evidence of small bowel obstruction.
[2017-12-23] MEDS: Dakin's Topical 0.25%-Half Strength (480 ml) TOP SCH (11:15)
[2017-12-23] MEDS: Vancomycin 1 gm/NS 200 ml 1 GM/200 ML BAG IVPB SCH ×2 (11:32→22:22)
[2017-12-23] MEDS: Lidocaine 5% Patch TD SCH (12:06)
--- NOTE | 2017-12-23 12:21 | CP.PCM.PN ---
Subjective - Date & Time of Evaluation Date of Evaluation: 12/23/17 Time of Evaluation: 12:16 - Subjective Subjective: No events, patient requesting to remove the NG tube, which has been draining biliary fluid. VS stable HEENT ONEIL, ng in place Neck Supple Chest Clear CVS Regular, no gallop or rub PA soft, soft, slight tenderness in the left side, no guarding or rigidity. Ext no edema, left bka [employer] awake oriented x3 no fnd Assessment 62 F with h/o DM, HTN, PVD, admitted to ICU with c/o abd pain, increased wbc, portal venous air, with CT showing no gross vascular narrowing, but suspected proctitis, very mild tenderness in the left side, repeat CT improvement in portal venous air, still elevated wbc, patient on empiric abx. Will discontinue NG as not small or large bowel distension, continue abx and npo status, gi evaluation as d/w Dr. Badillo for suspicion of ischemic colitis. See order for detail, sliding scale coverage for dm. Objective - Vital Signs/Intake and Output Vital Signs (last 24 hours): Temp Pulse Resp BP Pulse Ox 98.6 F 86 22 148/61 96 12/23/17 08:00 12/23/17 07:00 12/23/17 07:00 12/23/17 07:00 12/23/17 07:00 Intake and Output: 12/23/17 12/23/17 06:59 18:59 Intake Total 725 650 Output Total 1211 250 Balance -486 400 - Medications Medications: Current Medications Acetaminophen (Tylenol 325mg Tab) 650 mg PO Q4 PRN PRN Reason: Pain, Mild (1-3) Last Admin: 12/22/17 18:47 Dose: 650 mg Famotidine (Pepcid) 20 mg IVP DAILY [facility] Last Admin: 12/23/17 12:07 Dose: 20 mg Heparin Sodium (Porcine) (Heparin) 5,000 units SC Q8 [facility] Last Admin: 12/23/17 06:56 Dose: Not Given Vancomycin/Sodium Chloride (Vancomycin 1 Gm/Ns 200 Ml) 1 gm in 200 mls @ 133.333 mls/hr IVPB Q12H [facility] PRN Reason: Protocol Last Admin: 12/23/17 11:32 Dose: 133.333 mls/hr Piperacillin Sod/Tazobactam Sod (Zosyn 3.375 Gm Iv Premix) 3.375 gm in 50 mls @ 100 mls/hr IVPB Q6H [facility] PRN Reason: Protocol Last Admin: 12/23/17 11:24 Dose: 100 mls/hr Potassium Chloride 40 meq/ (Sodium Chloride) 1,020 mls @ 150 mls/hr IV .Q6H48M [facility] Last Admin: 12/23/17 09:08 Dose: 150 mls/hr Lidocaine (Lidoderm) 1 ea TD DAILY [facility] Last Admin: 12/23/17 12:06 Dose: 1 ea Morphine Sulfate (Morphine) 2 mg IVP Q4 PRN PRN Reason: prn for pain 7-10 Last Admin: 12/23/17 11:23 Dose: 2 mg Sennosides (Senokot Tab) 8.6 mg PO DAILY [facility] Last Admin: 12/22/17 09:20 Dose: 8.6 mg Sodium Hypochlorite (Dakins Solution 0.25%) 0 ml TOP DAILY [facility] Last Admin: 12/23/17 11:15 Dose: Not Given - Labs Labs: 12/23/17 06:10 12/23/17 06:12 PT 13.2 SECONDS (9.7-12.2) H 12/22/17 23:54 INR 1.2 12/22/17 23:54 APTT 40 SECONDS (21-34) H 12/22/17 23:54
--- NOTE | 2017-12-23 12:36 | CP.PCM.PN ---
Subjective - Date & Time of Evaluation Date of Evaluation: 12/23/17 Time of Evaluation: 12:36 - Subjective Subjective: The patient today feeling better. She is not in any distress. She has no abdominal pain. Currently she is nothing by mouth. The NG tube was discontinued by the patient. Minimal left lower quadrant abdominal pain and tenderness noted. Patient had a bowel movements. Blood pressure slightly on the low side, I advised the patient to have some IV fluid On examination: Vital signs stable. Chest good air entry regular heart sound nontender abdomen no pedal edema [employer] alert awake oriented 3 no functional neurological deficit Labs reviewed Improving WBC, LFTs noted Assessment and recommendation: 62-year-old female with a history of CAD hypertension peripheral vascular disease diabetes hypertension hypercholesterolemia admitted to the hospital nonhealing left leg ulcer. Status post left below-knee amputation. Now pt transfer to the intensive care unit because of the acute abdominal findings, vomiting. Suspected ischemic colon. Continue the IV hydration. Surgical follow-up. On antibiotic. Will follow the patient. Keep patient nothing by mouth for now reduce pain meds Objective - Vital Signs/Intake and Output Vital Signs (last 24 hours): Temp Pulse Resp BP Pulse Ox 98.4 F 86 18 96/57 L 99 12/23/17 12:00 12/23/17 12:00 12/23/17 12:00 12/23/17 12:00 12/23/17 12:00 Intake and Output: 12/23/17 12/23/17 06:59 18:59 Intake Total 725 850 Output Total 1211 350 Balance -486 500 - Medications Medications: Current Medications Acetaminophen (Tylenol 325mg Tab) 650 mg PO Q4 PRN PRN Reason: Pain, Mild (1-3) Last Admin: 12/22/17 18:47 Dose: 650 mg Famotidine (Pepcid) 20 mg IVP DAILY [facility] Last Admin: 12/23/17 12:07 Dose: 20 mg Heparin Sodium (Porcine) (Heparin) 5,000 units SC Q8 [facility] Last Admin: 12/23/17 06:56 Dose: Not Given Vancomycin/Sodium Chloride (Vancomycin 1 Gm/Ns 200 Ml) 1 gm in 200 mls @ 133.333 mls/hr IVPB Q12H [facility] PRN Reason: Protocol Last Admin: 12/23/17 11:32 Dose: 133.333 mls/hr Piperacillin Sod/Tazobactam Sod (Zosyn 3.375 Gm Iv Premix) 3.375 gm in 50 mls @ 100 mls/hr IVPB Q6H [facility] PRN Reason: Protocol Last Admin: 12/23/17 11:24 Dose: 100 mls/hr Potassium Chloride 40 meq/ (Sodium Chloride) 1,020 mls @ 150 mls/hr IV .Q6H48M [facility] Last Admin: 12/23/17 09:08 Dose: 150 mls/hr Insulin Glargine (Lantus) 12 unit SC STAT STA Stop: 12/23/17 12:23 Insulin Human Regular (Novolin R) 0 unit SC Q6 [facility] PRN Reason: Protocol Lidocaine (Lidoderm) 1 ea TD DAILY [facility] Last Admin: 12/23/17 12:06 Dose: 1 ea Morphine Sulfate (Morphine) 2 mg IVP Q4 PRN PRN Reason: prn for pain 7-10 Last Admin: 12/23/17 11:23 Dose: 2 mg Sennosides (Senokot Tab) 8.6 mg PO DAILY [facility] Last Admin: 12/22/17 09:20 Dose: 8.6 mg Sodium Hypochlorite (Dakins Solution 0.25%) 0 ml TOP DAILY [facility] Last Admin: 12/23/17 11:15 Dose: Not Given - Labs Labs: 12/23/17 06:10 12/23/17 06:12 PT 13.2 SECONDS (9.7-12.2) H 12/22/17 23:54 INR 1.2 12/22/17 23:54 APTT 40 SECONDS (21-34) H 12/22/17 23:54
[2017-12-23] MEDS ORDERED: Sodium Chloride 0.9% 1,000 ML IV ONE (13:00)
[2017-12-23] MEDS ORDERED: (Lantus) Insulin Glargine, Recombinant SC ONE (13:00)
[2017-12-23] MEDS: (Novolin R) Insulin Human Regular 100 units/ml vial SC SCH (17:24)
--- NOTE | 2017-12-23 19:37 | CP.PCM.PN ---
Subjective - Date & Time of Evaluation Date of Evaluation: 12/23/17 Time of Evaluation: 03:20 - Subjective Subjective: dictated Objective - Vital Signs/Intake and Output Vital Signs (last 24 hours): Temp Pulse Resp BP Pulse Ox 98.4 F 79 18 108/64 100 12/23/17 12:00 12/23/17 15:00 12/23/17 15:00 12/23/17 15:00 12/23/17 15:00 Intake and Output: 12/23/17 12/24/17 18:59 06:59 Intake Total 2530 Output Total 750 Balance 1780 - Medications Medications: Current Medications Acetaminophen (Tylenol 325mg Tab) 650 mg PO Q4 PRN PRN Reason: Pain, Mild (1-3) Last Admin: 12/22/17 18:47 Dose: 650 mg Famotidine (Pepcid) 20 mg IVP DAILY [facility] Last Admin: 12/23/17 12:07 Dose: 20 mg Heparin Sodium (Porcine) (Heparin) 5,000 units SC Q8 [facility] Last Admin: 12/23/17 06:56 Dose: Not Given Vancomycin/Sodium Chloride (Vancomycin 1 Gm/Ns 200 Ml) 1 gm in 200 mls @ 133.333 mls/hr IVPB Q12H [facility] PRN Reason: Protocol Last Admin: 12/23/17 11:32 Dose: 133.333 mls/hr Piperacillin Sod/Tazobactam Sod (Zosyn 3.375 Gm Iv Premix) 3.375 gm in 50 mls @ 100 mls/hr IVPB Q6H [facility] PRN Reason: Protocol Last Admin: 12/23/17 17:24 Dose: 100 mls/hr Potassium Chloride 40 meq/ (Sodium Chloride) 1,020 mls @ 150 mls/hr IV .Q6H48M [facility] Last Admin: 12/23/17 17:30 Dose: Not Given Insulin Human Regular (Novolin R) 0 unit SC Q6 [facility] PRN Reason: Protocol Last Admin: 12/23/17 17:24 Dose: 1 unit Lidocaine (Lidoderm) 1 ea TD DAILY [facility] Last Admin: 12/23/17 12:06 Dose: 1 ea Morphine Sulfate (Morphine) 2 mg IVP Q4 PRN PRN Reason: prn for pain 7-10 Last Admin: 12/23/17 18:25 Dose: 2 mg Sennosides (Senokot Tab) 8.6 mg PO DAILY [facility] Last Admin: 12/23/17 17:28 Dose: Not Given Sodium Hypochlorite (Dakins Solution 0.25%) 0 ml TOP DAILY [facility] Last Admin: 12/23/17 11:15 Dose: Not Given - Labs Labs: 12/23/17 06:10 12/23/17 06:12 PT 13.2 SECONDS (9.7-12.2) H 12/22/17 23:54 INR 1.2 12/22/17 23:54 APTT 40 SECONDS (21-34) H 12/22/17 23:54
--- NOTE | 2017-12-23 23:51 | PN ---
DATE: 12/23/2017 INFECTIOUS DISEASE FOLLOWUP NOTE SUBJECTIVE: I was surprised to find the patient listed in ICU. She does tell me that yesterday she had episodes of vomiting, and she had a CAT scan done which showed gas in the portal veins, suspicious for bowel ischemia. She was made NPO, and she is still NPO, and a surgical evaluation was obtained and the patient is right now in ICU. She is on Pepcid, heparin. She is on Zosyn now every 6 hours. She is on vancomycin and Zosyn, and she is also on morphine sulphate and insulin coverage, and she did show me what was aspirated via the NG tube, and since they had vascular evaluation with Dr. Hernández who evaluated the pain and association of nausea and vomiting as he was on the case already, and the patient is being monitored at this time in ICU. She denies any pain when I saw her, and she did have multiple loose BMs yesterday she said and was passing flatus, and she did have vomiting yesterday, but today she states she does not feel like eating, and she has no fever, no chills. Denies any abdominal pain. She does have a splint on the left BKA site, and she looks to be on her baseline as I saw her on Sunday. PHYSICAL EXAMINATION: GENERAL: T-max is 98.4, pulse 79, blood pressure 108/64, respirations are 18. HEENT: Head is atraumatic, normocephalic. Pallor present. NECK: Supple. JVP is flat. LUNGS: Clear. HEART: S1, S2 regular. ABDOMEN: Soft. I could hear few bowel sounds. EXTREMITIES: Remains at the splint. Right leg is unremarkable. LABORATORY DATA: Noted. Labs show white count is 15.6 today, hemoglobin 9.3, hematocrit 27.9, platelet count jumped up to 728, so that is high; and her sodium is 140, potassium 3.5, chloride is 99, CO2 is 28, BUN 11, creatinine is 0.6, and still there are no new cultures, and she had abdominal CT twice today, and as they reported, they did compare the CT about 3 hours prior. Interval decrease in the amount of portal venous gas present. There is a small amount of residual portal venous gas seen. This is a sign of mesenteric ischemia, development of gastric wall thickening, highly suspicious for gastritis. Otherwise, no significant change seen. No evidence of bowel obstruction or free air or bowel perforation. See above for remaining. There is fecalization of multiple small bowels that is seen in the right. Abnormal moderate thickening of the proximal stomach, suspicious for gastritis. No evidence of air in the gastric wall, diffuse gastric dilatation, or gastric perforation. As seen on the prior exam, there is a rectal wall thickening and mild infiltration of the perirectal fat, which could be secondary to proctitis. Fecalization of multiple small bowel loops is seen in the right abdomen, most likely secondary to mid ileus. Otherwise, no significant abnormality of bowel is identified. No evidence of diffuse small bowel dilatation, high grade small bowel obstruction, pancolitis or pneumonitis, intestinitis. So there is some portal vein, which is suspicious for mesenteric ischemia. Imp: this pt had significant vscular disease and now with ct scan suspicious for mesenteric ischemia and is being observed in ICU for acute abdomen This patient had a left BKA recently, and she is diabetic. She also has history of severe constipation. She was on Movantik before which is opioid for constipation, and she just had enema as the other medications were not working as she was on pain killers for her left leg ischemic pain. Alissa Wiggins MD MTDD
[2017-12-24] MEDS: Morphine 4 MG/ML VIAL IVP PRN ×4 (00:02→20:50)
[2017-12-24] MEDS: (Novolin R) Insulin Human Regular 100 units/ml vial SC SCH ×5 (00:04→21:56)
[2017-12-24] MEDS: Piperacill/Tazo 3.375gm in Dex 3.375 GM/50 ML BAG IVPB SCH ×4 (05:14→23:00)
[2017-12-24 06:27] LABS: BASO % 0.3 % (0.0-2.0); EOS # 0.4 K/uL (0.0-0.7); EOS % 3.1 % (0.0-4.0); HEMOGLOBIN 8.4 g/dL (11.0-16.0); LYMPH # 5.7 K/uL (1.0-4.3); LYMPH % 47.8 % (20.0-40.0); MEAN CELL VOLUME 82.3 fL (81.0-99.0); MEAN CORPUSCULAR HEMOGLOBIN 26.5 pg (27.0-31.0); MEAN CORPUSCULAR HGB CONC 32.2 g/dL (33.0-37.0); MEAN PLATELET VOLUME 8.2 fL (7.2-11.7); MONO # 0.9 K/uL (0.0-0.8); MONO % 7.5 % (0.0-10.0); NEUT # 4.9 K/uL (1.8-7.0); NEUT % 41.3 % (50.0-75.0); NRBC % 0.1 % (0.0-2.0); RBC 3.16 Mil/uL (3.80-5.20); RED CELL DISTRIBUTION WIDTH 17.7 % (11.5-14.5); WHITE BLOOD COUNT 11.8 K/uL (4.8-10.8)
[2017-12-24 06:41] LABS: ALB/GLOB RATIO 0.9 (1.0-2.1); ALBUMIN 2.9 g/dL (3.5-5.0); ALT/SGPT 16 U/L (9-52); AST/SGOT 19 U/L (14-36); BLOOD UREA NITROGEN 7 mg/dL (7-17); CALCIUM 8.8 mg/dl (8.6-10.4); GFR AFRICAN-AMERICAN > 60; GFR NON-AFRICAN AMERICAN > 60
--- NOTE | 2017-12-24 07:52 | CP.PCM.PN ---
Subjective - Date & Time of Evaluation Date of Evaluation: 12/24/17 Time of Evaluation: 07:50 - Subjective Subjective: Surgery Pt seen and examined. No acute events. Denie fever, nausea, vomiting, diarrhea. Pain controlled. Objective - Vital Signs/Intake and Output Vital Signs (last 24 hours): Temp Pulse Resp BP Pulse Ox 97.8 F 77 18 145/61 98 12/24/17 04:00 12/24/17 07:00 12/24/17 07:00 12/24/17 07:00 12/24/17 07:00 Intake and Output: 12/24/17 12/24/17 06:59 18:59 Intake Total 1905 Output Total 1300 Balance 605 - Medications Medications: Current Medications Acetaminophen (Tylenol 325mg Tab) 650 mg PO Q4 PRN PRN Reason: Pain, Mild (1-3) Last Admin: 12/22/17 18:47 Dose: 650 mg Famotidine (Pepcid) 20 mg IVP DAILY [facility] Last Admin: 12/23/17 12:07 Dose: 20 mg Heparin Sodium (Porcine) (Heparin) 5,000 units SC Q8 [facility] Last Admin: 12/23/17 06:56 Dose: Not Given Vancomycin/Sodium Chloride (Vancomycin 1 Gm/Ns 200 Ml) 1 gm in 200 mls @ 133.333 mls/hr IVPB Q12H [facility] PRN Reason: Protocol Last Admin: 12/23/17 22:22 Dose: 133.333 mls/hr Piperacillin Sod/Tazobactam Sod (Zosyn 3.375 Gm Iv Premix) 3.375 gm in 50 mls @ 100 mls/hr IVPB Q6H [facility] PRN Reason: Protocol Last Admin: 12/24/17 05:14 Dose: 100 mls/hr Potassium Chloride 40 meq/ (Sodium Chloride) 1,020 mls @ 150 mls/hr IV .Q6H48M [facility] Last Admin: 12/24/17 01:29 Dose: 150 mls/hr Insulin Human Regular (Novolin R) 0 unit SC ACHS [facility] PRN Reason: Protocol Lidocaine (Lidoderm) 1 ea TD DAILY [facility] Last Admin: 12/23/17 12:06 Dose: 1 ea Morphine Sulfate (Morphine) 2 mg IVP Q4 PRN PRN Reason: prn for pain 7-10 Last Admin: 12/24/17 00:02 Dose: 2 mg Sennosides (Senokot Tab) 8.6 mg PO DAILY [facility] Last Admin: 12/23/17 17:28 Dose: Not Given Sodium Hypochlorite (Dakins Solution 0.25%) 0 ml TOP DAILY [facility] Last Admin: 12/23/17 11:15 Dose: Not Given - Labs Labs: 12/24/17 06:11 12/24/17 06:12 PT 13.2 SECONDS (9.7-12.2) H 12/22/17 23:54 INR 1.2 12/22/17 23:54 APTT 40 SECONDS (21-34) H 12/22/17 23:54 - Constitutional Appears: No Acute Distress - Head Exam Head Exam: ATRAUMATIC, NORMAL INSPECTION, NORMOCEPHALIC - Eye Exam Eye Exam: EOMI, Normal appearance, PERRL Pupil Exam: NORMAL ACCOMODATION, PERRL - ENT Exam ENT Exam: Mucous Membranes Moist, Normal Exam - Neck Exam Neck Exam: Full ROM, Normal Inspection. absent: Lymphadenopathy - Respiratory Exam Respiratory Exam: Clear to Ausculation Bilateral, NORMAL BREATHING PATTERN - Cardiovascular Exam Cardiovascular Exam: REGULAR RHYTHM, +S1, +S2. absent: Murmur - GI/Abdominal Exam GI & Abdominal Exam: Soft, Normal Bowel Sounds. absent: Tenderness - Extremities Exam Extremities Exam: Normal Capillary Refill. absent: Joint Swelling, Pedal Edema Additional comments: L BKA dressing C/D/I - Back Exam Back Exam: NORMAL INSPECTION - Neurological Exam Neurological Exam: Alert, Awake, CN II-XII Intact, Oriented x3 - Psychiatric Exam Psychiatric exam: Normal Affect, Normal Mood - Skin Skin Exam: Dry, Intact, Normal Color, Warm Assessment and Plan - Assessment and Plan (Free Text) Assessment: 62F s/p L BKA, POD#6 now with abdominal pain: improved. - pt is currently clinically stable - will monitor closely with serial abdominal exams - cont IV ABX - Advance diet as tolerated. - d/w Dr. Hernández
--- NOTE | 2017-12-24 07:55 | CP.CCUPN ---
<Anna Marie Reyez - Last Filed: 12/24/17 10:23> CCU Subjective - Physician Review Subjective (Free Text): Patient was seen and examined at bedside. Patient reports her pain is well controlled. She is tolerating liquid diet, requested to be advanced. Denied any abdominal pain, + flatus and BM. Transfer to TELEMETRY. CCU Objective - Vital Signs / Intake & Output Vital Signs (Last 4 hours): Vital Signs Temp Pulse Resp BP Pulse Ox 12/24/17 07:00 77 18 145/61 98 12/24/17 06:00 71 18 135/65 98 12/24/17 05:00 70 18 124/62 96 12/24/17 04:00 97.8 F 72 18 113/52 L 96 Intake and Output (Last 8hrs): Intake & Output 12/23/17 12/24/17 12/24/17 22:59 06:59 14:59 Intake Total 2043 1142 Output Total 400 1300 Balance 1643 -158 Intake: Intake, IV Amount 1383 1142 right forearm 1383 1142 Oral 660 Output: Urine 400 1300 Urine, Voided 400 1300 - Physical Exam Head: Positive for: Atraumatic, Normocephalic Pupils: Positive for: PERRL Extroacular Muscles: Positive for: EOMI Conjunctiva: Positive for: Normal Mouth: Positive for: Moist Mucous Membranes Neck: Positive for: Normal Range of Motion Respiratory/Chest: Positive for: Clear to Auscultation. Negative for: Respiratory Distress, Accessory Muscle Use Cardiovascular: Positive for: Regular Rate and Rhythm Abdomen: Positive for: Normal Bowel Sounds. Negative for: Tenderness, Distention Upper Extremity: Positive for: Normal Inspection, Normal ROM, NORMAL PULSES, Neurovascularly Intact, Capillary Refill < 2s Lower Extremity: Positive for: Other (Left BKA, dressing C/D/I) Neurological: Positive for: GCS=15, CN II-XII Intact, Speech Normal Skin: Positive for: Warm, Dry, Rashes, Normal Color Psychiatric: Positive for: Alert, Oriented x 3 - Medications Active Medications: Active Medications Generic Name Dose Route Start Last Admin Trade Name Freq PRN Reason Stop Dose Admin Acetaminophen 650 mg 12/13/17 15:12 12/22/17 18:47 Tylenol 325mg Tab PO 650 mg Q4 PRN Administration Pain, Mild (1-3) Famotidine 20 mg 12/23/17 10:00 12/23/17 12:07 Pepcid IVP 20 mg DAILY CARRIE Administration Heparin Sodium (Porcine) 5,000 units 12/17/17 14:00 12/23/17 06:56 Heparin SC Not Given Q8 CARRIE Vancomycin/Sodium Chloride 1 gm in 200 mls @ 133.333 mls/hr 12/14/17 11:00 22:22 Vancomycin 1 Gm/Ns 200 Ml IVPB 133.333 mls/hr Q12H CARRIE Administration Protocol Piperacillin Sod/Tazobactam Sod 3.375 gm in 50 mls @ 100 mls/hr 12/22/17 23: 30 12/24/17 05:14 Zosyn 3.375 Gm Iv Premix IVPB 100 mls/hr Q6H CARRIE Administration Protocol Potassium Chloride 40 meq/ 1,020 mls @ 150 mls/hr 12/22/17 23:51 12/24/17 01: 29 Sodium Chloride IV 150 mls/hr .[id number] CARRIE Administration Insulin Human Regular 0 unit 12/24/17 07:30 Novolin R SC ACHS CARRIE Protocol Lidocaine 1 ea 12/16/17 10:15 12/23/17 12:06 Lidoderm TD 1 ea DAILY CARRIE Administration Morphine Sulfate 2 mg 12/23/17 06:29 12/24/17 00:02 Morphine IVP 2 mg Q4 PRN Administration prn for pain 7-10 Sennosides 8.6 mg 12/14/17 10:00 12/23/17 17:28 Senokot Tab PO Not Given DAILY [facility] Sodium Hypochlorite 0 ml 12/14/17 10:00 12/23/17 11:15 Dakins Solution 0.25% TOP Not Given DAILY CARRIE - Patient Studies Lab Studies: Microbiology Studies 12/23/17 06:10 Blood Culture - Preliminary Blood NO GROWTH AFTER 24 HOURS 12/23/17 06:10 Blood Culture - Preliminary Blood NO GROWTH AFTER 24 HOURS Lab Studies 12/24/17 12/24/17 12/24/17 Range/Units 07:37 06:12 06:11 WBC 11.8 H (4.8-10.8) K/uL RBC 3.16 L (3.80-5.20) Mil/uL Hgb 8.4 L (11.0-16.0) g/dL Hct 26.0 L (34.0-47.0) % MCV 82.3 (81.0-99.0) fL MCH 26.5 L (27.0-31.0) pg MCHC 32.2 L (33.0-37.0) g/dL RDW 17.7 H (11.5-14.5) % Plt Count 627 H D (130-400) K/uL MPV 8.2 (7.2-11.7) fL Neut % (Auto) 41.3 L (50.0-75.0) % Lymph % (Auto) 47.8 H (20.0-40.0) % Green % (Auto) 7.5 (0.0-10.0) % Eos % (Auto) 3.1 (0.0-4.0) % Baso % (Auto) 0.3 (0.0-2.0) % Neut # (Auto) 4.9 (1.8-7.0) K/uL Lymph # (Auto) 5.7 H (1.0-4.3) K/uL Green # (Auto) 0.9 H (0.0-0.8) K/uL Eos # (Auto) 0.4 (0.0-0.7) K/uL Baso # (Auto) 0.0 (0.0-0.2) K/uL ESR (0-20) mm/hr Sodium 143 (132-148) mmol/L Potassium 4.0 (3.6-5.2) mmol/L Chloride 106 (98-107) mmol/L Carbon Dioxide 26 (22-30) mmol/L Anion Gap 15 (10-20) BUN 7 (7-17) mg/dL Creatinine 0.6 L (0.7-1.2) mg/dL Est GFR ( Amer) > 60 Est GFR (Non-Af Amer) > 60 POC Glucose (mg/dL) 161 H (65-110) mg/dL Random Glucose 138 H (65-105) mg/dL Calcium 8.8 (8.6-10.4) mg/dl Phosphorus 4.4 (2.5-4.5) mg/dL Magnesium 1.7 (1.6-2.3) mg/dL Total Bilirubin 0.8 (0.2-1.3) mg/dL AST 19 (14-36) U/L ALT 16 (9-52) U/L Alkaline Phosphatase 77 (38-126) U/L Total Protein 6.4 (6.3-8.3) g/dL Albumin 2.9 L (3.5-5.0) g/dL Globulin 3.5 (2.2-3.9) gm/dL Albumin/Globulin Ratio 0.9 L (1.0-2.1) 12/23/17 12/23/17 12/23/17 Range/Units 23:41 16:43 12:34 WBC (4.8-10.8) K/uL RBC (3.80-5.20) Mil/uL Hgb (11.0-16.0) g/dL Hct (34.0-47.0) % MCV (81.0-99.0) fL MCH (27.0-31.0) pg MCHC (33.0-37.0) g/dL RDW (11.5-14.5) % Plt Count (130-400) K/uL MPV (7.2-11.7) fL Neut % (Auto) (50.0-75.0) % Lymph % (Auto) (20.0-40.0) % Green % (Auto) (0.0-10.0) % Eos % (Auto) (0.0-4.0) % Baso % (Auto) (0.0-2.0) % Neut # (Auto) (1.8-7.0) K/uL Lymph # (Auto) (1.0-4.3) K/uL Green # (Auto) (0.0-0.8) K/uL Eos # (Auto) (0.0-0.7) K/uL Baso # (Auto) (0.0-0.2) K/uL ESR (0-20) mm/hr Sodium (132-148) mmol/L Potassium (3.6-5.2) mmol/L Chloride (98-107) mmol/L Carbon Dioxide (22-30) mmol/L Anion Gap (10-20) BUN (7-17) mg/dL Creatinine (0.7-1.2) mg/dL Est GFR ( Amer) Est GFR (Non-Af Amer) POC Glucose (mg/dL) 162 H 156 H 190 H (65-110) mg/dL Random Glucose (65-105) mg/dL Calcium (8.6-10.4) mg/dl Phosphorus (2.5-4.5) mg/dL Magnesium (1.6-2.3) mg/dL Total Bilirubin (0.2-1.3) mg/dL AST (14-36) U/L ALT (9-52) U/L Alkaline Phosphatase (38-126) U/L Total Protein (6.3-8.3) g/dL Albumin (3.5-5.0) g/dL Globulin (2.2-3.9) gm/dL Albumin/Globulin Ratio (1.0-2.1) /05/02 Range/Units 06:10 WBC (4.8-10.8) K/uL RBC (3.80-5.20) Mil/uL Hgb (11.0-16.0) g/dL Hct (34.0-47.0) % MCV (81.0-99.0) fL MCH (27.0-31.0) pg MCHC (33.0-37.0) g/dL RDW (11.5-14.5) % Plt Count (130-400) K/uL MPV (7.2-11.7) fL Neut % (Auto) (50.0-75.0) % Lymph % (Auto) (20.0-40.0) % Green % (Auto) (0.0-10.0) % Eos % (Auto) (0.0-4.0) % Baso % (Auto) (0.0-2.0) % Neut # (Auto) (1.8-7.0) K/uL Lymph # (Auto) (1.0-4.3) K/uL Green # (Auto) (0.0-0.8) K/uL Eos # (Auto) (0.0-0.7) K/uL Baso # (Auto) (0.0-0.2) K/uL ESR 130 H (0-20) mm/hr Sodium (132-148) mmol/L Potassium (3.6-5.2) mmol/L Chloride (98-107) mmol/L Carbon Dioxide (22-30) mmol/L Anion Gap (10-20) BUN (7-17) mg/dL Creatinine (0.7-1.2) mg/dL Est GFR ( Amer) Est GFR (Non-Af Amer) POC Glucose (mg/dL) (65-110) mg/dL Random Glucose (65-105) mg/dL Calcium (8.6-10.4) mg/dl Phosphorus (2.5-4.5) mg/dL Magnesium (1.6-2.3) mg/dL Total Bilirubin (0.2-1.3) mg/dL AST (14-36) U/L ALT (9-52) U/L Alkaline Phosphatase (38-126) U/L Total Protein (6.3-8.3) g/dL Albumin (3.5-5.0) g/dL Globulin (2.2-3.9) gm/dL Albumin/Globulin Ratio (1.0-2.1) Laboratory Results - last 24 hr 12/23/17 12/23/17 12/23/17 06:10 12:34 16:43 WBC RBC Hgb Hct MCV MCH MCHC RDW Plt Count MPV Neut % (Auto) Lymph % (Auto) Green % (Auto) Eos % (Auto) Baso % (Auto) Neut # (Auto) Lymph # (Auto) Green # (Auto) Eos # (Auto) Baso # (Auto) ESR 130 H Sodium Potassium Chloride Carbon Dioxide Anion Gap BUN Creatinine Est GFR ( Amer) Est GFR (Non-Af Amer) POC Glucose (mg/dL) 190 H 156 H Random Glucose Calcium Phosphorus Magnesium Total Bilirubin AST ALT Alkaline Phosphatase Total Protein Albumin Globulin Albumin/Globulin Ratio 12/23/17 12/24/17 12/24/17 23:41 06:11 06:12 WBC 11.8 H RBC 3.16 L Hgb 8.4 L Hct 26.0 L MCV 82.3 MCH 26.5 L MCHC 32.2 L RDW 17.7 H Plt Count 627 H D MPV 8.2 Neut % (Auto) 41.3 L Lymph % (Auto) 47.8 H Green % (Auto) 7.5 Eos % (Auto) 3.1 Baso % (Auto) 0.3 Neut # (Auto) 4.9 Lymph # (Auto) 5.7 H Green # (Auto) 0.9 H Eos # (Auto) 0.4 Baso # (Auto) 0.0 ESR Sodium 143 Potassium 4.0 Chloride 106 Carbon Dioxide 26 Anion Gap 15 BUN 7 Creatinine 0.6 L Est GFR ( Amer) > 60 Est GFR (Non-Af Amer) > 60 POC Glucose (mg/dL) 162 H Random Glucose 138 H Calcium 8.8 Phosphorus 4.4 Magnesium 1.7 Total Bilirubin 0.8 AST 19 ALT 16 Alkaline Phosphatase 77 Total Protein 6.4 Albumin 2.9 L Globulin 3.5 Albumin/Globulin Ratio 0.9 L 12/24/17 07:37 WBC RBC Hgb Hct MCV MCH MCHC RDW Plt Count MPV Neut % (Auto) Lymph % (Auto) Green % (Auto) Eos % (Auto) Baso % (Auto) Neut # (Auto) Lymph # (Auto) Green # (Auto) Eos # (Auto) Baso # (Auto) ESR Sodium Potassium Chloride Carbon Dioxide Anion Gap BUN Creatinine Est GFR ( Amer) Est GFR (Non-Af Amer) POC Glucose (mg/dL) 161 H Random Glucose Calcium Phosphorus Magnesium Total Bilirubin AST ALT Alkaline Phosphatase Total Protein Albumin Globulin Albumin/Globulin Ratio Fingerstick Blood Sugar Results: 162 Critical Care Progress Note - Nutrition Nutrition: Nutrition Category Date Time Status Liquid Diet [DIET] Diets 12/23/17 Dinner Active Assessment/Plan - Assessment and Plan (Free Text) Assessment: This is a 62F with PMHx Uncontrolled T2DM, HTN, Anemia, PVD with s/p angioplasty and stent in left leg, 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 Currently on vanco 1 Q12 12/14/17, and zosyn 12/22. Concern for mesenteric ischemia? Repeat CT scan on 12/22/17 shows reduced free air, as per surgery patient is cleared. NGT removed 12/23 - currently on CLD. Plan: PVD, Uncontrolled T2DM S/P choparts midfoot amputation (DOS: 10/12/17) Due to poor wound healing S/P Left BKA on 12/17/17 - Dr. Hernández consulted Suspected mesenteric ischemia - Cleared by surgery - ADAT Disposition: Transfer to TELEMETRY. DW Anna Marie Chaidez DO, PGY-1 <Abbe Michelle - Last Filed: 12/24/17 19:08> CCU Objective - Vital Signs / Intake & Output Vital Signs (Last 4 hours): Vital Signs Temp Pulse Resp BP 12/24/17 16:00 98.8 F 74 20 123/57 L Intake and Output (Last 8hrs): Intake & Output 12/24/17 12/24/17 12/24/17 06:59 14:59 22:59 Intake Total 1142 1050 365 Output Total 1300 650 Balance -158 1050 -285 Weight 115 lb Intake: Intake, IV Amount 1142 750 225 right forearm 1142 750 225 Oral 300 140 Output: Urine 1300 650 Urine, Voided 1300 650 - Medications Active Medications: Active Medications Generic Name Dose Route Start Last Admin Trade Name Freq PRN Reason Stop Dose Admin Acetaminophen 650 mg 12/13/17 15:12 12/22/17 18:47 Tylenol 325mg Tab PO 650 mg Q4 PRN Administration Pain, Mild (1-3) Famotidine 20 mg 12/23/17 10:00 12/24/17 09:36 Pepcid IVP 20 mg DAILY CARRIE Administration Heparin Sodium (Porcine) 5,000 units 12/17/17 14:00 12/23/17 06:56 Heparin SC Not Given Q8 CARRIE Vancomycin/Sodium Chloride 1 gm in 200 mls @ 133.333 mls/hr 12/14/17 11:00 11:55 Vancomycin 1 Gm/Ns 200 Ml IVPB 133.333 mls/hr Q12H CARRIE Administration Protocol Potassium Chloride 40 meq/ 1,020 mls @ 75 mls/hr 12/24/17 09:30 12/24/17 09: 33 Sodium Chloride IV Not Given .[id number] CARRIE Piperacillin Sod/Tazobactam Sod 3.375 gm in 50 mls @ 100 mls/hr 12/24/17 18: 00 12/24/17 17:28 Zosyn 3.375 Gm Iv Premix IVPB 100 mls/hr Q6H CARRIE Administration Protocol Insulin Human Regular 0 unit 12/24/17 07:30 12/24/17 17:27 Novolin R SC 1 u ACHS CARRIE Administration Protocol Lidocaine 1 ea 12/16/17 10:15 12/24/17 09:44 Lidoderm TD 1 ea DAILY CARRIE Administration Morphine Sulfate 2 mg 12/23/17 06:29 12/24/17 15:53 Morphine IVP 2 mg Q4 PRN Administration prn for pain 7-10 Sennosides 8.6 mg 12/14/17 10:00 12/24/17 09:45 Senokot Tab PO Not Given DAILY [facility]E Sodium Hypochlorite 0 ml 12/14/17 10:00 12/24/17 09:37 Dakins Solution 0.25% TOP Not Given DAILY CARRIE - Patient Studies Lab Studies: Microbiology Studies 12/23/17 06:10 Urine Culture - Final Urine No Growth (<1,000 CFU/ML) 12/23/17 06:10 MRSA Culture (Admit) - Final Naris MRSA NOT DETECTED 12/23/17 06:10 Blood Culture - Preliminary Blood NO GROWTH AFTER 24 HOURS 12/23/17 06:10 Blood Culture - Preliminary Blood NO GROWTH AFTER 24 HOURS Lab Studies 12/24/17 12/24/17 12/24/17 Range/Units 16:07 11:52 07:37 WBC (4.8-10.8) K/uL RBC (3.80-5.20) Mil/uL Hgb (11.0-16.0) g/dL Hct (34.0-47.0) % MCV (81.0-99.0) fL MCH (27.0-31.0) pg MCHC (33.0-37.0) g/dL RDW (11.5-14.5) % Plt Count (130-400) K/uL MPV (7.2-11.7) fL Neut % (Auto) (50.0-75.0) % Lymph % (Auto) (20.0-40.0) % Green % (Auto) (0.0-10.0) % Eos % (Auto) (0.0-4.0) % Baso % (Auto) (0.0-2.0) % Neut # (Auto) (1.8-7.0) K/uL Lymph # (Auto) (1.0-4.3) K/uL Green # (Auto) (0.0-0.8) K/uL Eos # (Auto) (0.0-0.7) K/uL Baso # (Auto) (0.0-0.2) K/uL Sodium (132-148) mmol/L Potassium (3.6-5.2) mmol/L Chloride (98-107) mmol/L Carbon Dioxide (22-30) mmol/L Anion Gap (10-20) BUN (7-17) mg/dL Creatinine (0.7-1.2) mg/dL Est GFR ( Amer) Est GFR (Non-Af Amer) POC Glucose (mg/dL) 183 H 281 H 161 H (65-110) mg/dL Random Glucose (65-105) mg/dL Calcium (8.6-10.4) mg/dl Phosphorus (2.5-4.5) mg/dL Magnesium (1.6-2.3) mg/dL Total Bilirubin (0.2-1.3) mg/dL AST (14-36) U/L ALT (9-52) U/L Alkaline Phosphatase (38-126) U/L Total Protein (6.3-8.3) g/dL Albumin (3.5-5.0) g/dL Globulin (2.2-3.9) gm/dL Albumin/Globulin Ratio (1.0-2.1) 12/24/17 12/24/17 12/23/17 Range/Units 06:12 06:11 23:41 WBC 11.8 H (4.8-10.8) K/uL RBC 3.16 L (3.80-5.20) Mil/uL Hgb 8.4 L (11.0-16.0) g/dL Hct 26.0 L (34.0-47.0) % MCV 82.3 (81.0-99.0) fL MCH 26.5 L (27.0-31.0) pg MCHC 32.2 L (33.0-37.0) g/dL RDW 17.7 H (11.5-14.5) % Plt Count 627 H D (130-400) K/uL MPV 8.2 (7.2-11.7) fL Neut % (Auto) 41.3 L (50.0-75.0) % Lymph % (Auto) 47.8 H (20.0-40.0) % Green % (Auto) 7.5 (0.0-10.0) % Eos % (Auto) 3.1 (0.0-4.0) % Baso % (Auto) 0.3 (0.0-2.0) % Neut # (Auto) 4.9 (1.8-7.0) K/uL Lymph # (Auto) 5.7 H (1.0-4.3) K/uL Green # (Auto) 0.9 H (0.0-0.8) K/uL Eos # (Auto) 0.4 (0.0-0.7) K/uL Baso # (Auto) 0.0 (0.0-0.2) K/uL Sodium 143 (132-148) mmol/L Potassium 4.0 (3.6-5.2) mmol/L Chloride 106 (98-107) mmol/L Carbon Dioxide 26 (22-30) mmol/L Anion Gap 15 (10-20) BUN 7 (7-17) mg/dL Creatinine 0.6 L (0.7-1.2) mg/dL Est GFR ( Amer) > 60 Est GFR (Non-Af Amer) > 60 POC Glucose (mg/dL) 162 H (65-110) mg/dL Random Glucose 138 H (65-105) mg/dL Calcium 8.8 (8.6-10.4) mg/dl Phosphorus 4.4 (2.5-4.5) mg/dL Magnesium 1.7 (1.6-2.3) mg/dL Total Bilirubin 0.8 (0.2-1.3) mg/dL AST 19 (14-36) U/L ALT 16 (9-52) U/L Alkaline Phosphatase 77 (38-126) U/L Total Protein 6.4 (6.3-8.3) g/dL Albumin 2.9 L (3.5-5.0) g/dL Globulin 3.5 (2.2-3.9) gm/dL Albumin/Globulin Ratio 0.9 L (1.0-2.1) Laboratory Results - last 24 hr 06/10/18 06/11/18 06/11/18 23:41 06:11 06:12 WBC 11.8 H RBC 3.16 L Hgb 8.4 L Hct 26.0 L MCV 82.3 MCH 26.5 L MCHC 32.2 L RDW 17.7 H Plt Count 627 H D MPV 8.2 Neut % (Auto) 41.3 L Lymph % (Auto) 47.8 H Green % (Auto) 7.5 Eos % (Auto) 3.1 Baso % (Auto) 0.3 Neut # (Auto) 4.9 Lymph # (Auto) 5.7 H Green # (Auto) 0.9 H Eos # (Auto) 0.4 Baso # (Auto) 0.0 Sodium 143 Potassium 4.0 Chloride 106 Carbon Dioxide 26 Anion Gap 15 BUN 7 Creatinine 0.6 L Est GFR ( Amer) > 60 Est GFR (Non-Af Amer) > 60 POC Glucose (mg/dL) 162 H Random Glucose 138 H Calcium 8.8 Phosphorus 4.4 Magnesium 1.7 Total Bilirubin 0.8 AST 19 ALT 16 Alkaline Phosphatase 77 Total Protein 6.4 Albumin 2.9 L Globulin 3.5 Albumin/Globulin Ratio 0.9 L 12/24/17 12/24/17 12/24/17 07:37 11:52 16:07 WBC RBC Hgb Hct MCV MCH MCHC RDW Plt Count MPV Neut % (Auto) Lymph % (Auto) Green % (Auto) Eos % (Auto) Baso % (Auto) Neut # (Auto) Lymph # (Auto) Green # (Auto) Eos # (Auto) Baso # (Auto) Sodium Potassium Chloride Carbon Dioxide Anion Gap BUN Creatinine Est GFR ( Amer) Est GFR (Non-Af Amer) POC Glucose (mg/dL) 161 H 281 H 183 H Random Glucose Calcium Phosphorus Magnesium Total Bilirubin AST ALT Alkaline Phosphatase Total Protein Albumin Globulin Albumin/Globulin Ratio Critical Care Progress Note - Nutrition Nutrition: Nutrition Category Date Time Status Dysphagia/Modified Consistency Diet [DIET] Diets 12/24/17 Lunch Active Attending/Attestation - Attestation I have personally seen and examined this patient.: Yes I have fully participated in the care of the patient.: Yes I have reviewed all pertinent clinical information: Yes Notes (Text): 12/24/17 19:08 During the rounds patient's information was discussed. Labs discussed. Radiological investigation was reviewed in Medications reviewed I agree with the resident's note at this time. Continue the current treatment.
[2017-12-24] MEDS: Dakin's Topical 0.25%-Half Strength (480 ml) TOP SCH (09:37)
[2017-12-24] MEDS: Lidocaine 5% Patch TD SCH (09:44)
[2017-12-24] MEDS: Vancomycin 1 gm/NS 200 ml 1 GM/200 ML BAG IVPB SCH ×2 (11:55→22:00)
--- NOTE | 2017-12-24 15:59 | CP.PCM.CON ---
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 At some point the pastient had gastric distension and required NGT decompression. On CT imaging today she was found to have portal venous gas, with the second CT showing much improvement compared to the first earlier in the day. The patient denies abdominal pain, constipation, N/V, diarrhea, or blood per rectum. She is tolerating her diet. The CT showed gastritis as well. Patient reports EGD and Colonoscopy were performed by Dr Carney 3 years ago, without significant findings. The reports are presently unavailable. Review of Systems - Constitutional Constitutional: Weakness. absent: Chills, Fever - EENT Eyes: absent: Change in Vision - Cardiovascular Cardiovascular: absent: Chest Pain - Respiratory Respiratory: absent: Cough, Dyspnea - Gastrointestinal Gastrointestinal: absent: Abdominal Pain, Bloating, Diarrhea, Dyspepsia, Excessive Flatus, Hematochezia, Melena - Genitourinary Genitourinary: absent: Difficulty Urinating - Musculoskeletal Musculoskeletal: Abnormal Gait. absent: Back Pain - Integumentary Integumentary: Skin Ulcer, Sores, Wounds - Neurological Neurological: absent: Abnormal Movements, Loss of Vision - Psychiatric Psychiatric: absent: Anxiety, Behavioral Changes - Hematologic/Lymphatic Hematologic: absent: Easy Bleeding Past Patient History - Tetanus Immunizations Tetanus Immunization: Unknown - Past Medical History & Family History Past Medical History?: Yes - Past Social History Smoking Status: Never Smoked - CARDIAC Hx Hypercholesterolemia: Yes Hx Hypertension: Yes - PULMONARY Hx Respiratory Disorders: No - NEUROLOGICAL Hx Neurological Disorder: No - HEENT Hx HEENT Problems: Yes Hx Cataracts: Yes (bilat iol) - RENAL Hx Chronic Kidney Disease: No - ENDOCRINE/METABOLIC Hx Diabetes Mellitus Type 2: Yes - HEMATOLOGICAL/ONCOLOGICAL Hx Anemia: Yes - INTEGUMENTARY Hx Dermatological Problems: Yes Other/Comment: unhealed areas left foot transmetatarsal amp site - MUSCULOSKELETAL/RHEUMATOLOGICAL Hx Falls: No - GASTROINTESTINAL Hx Gastritis: Yes - GENITOURINARY/GYNECOLOGICAL Hx Genitourinary Disorders: No - PSYCHIATRIC Hx Anxiety: Yes (RELATED TO CONDITION) Hx Substance Use: No - SURGICAL HISTORY Hx Surgeries: Yes Hx Amputation: Yes (LEFT FOOT TRANSMETATARSAL/PER MD NOTE) Hx Angiogram: Yes (PERIPHERAL) Hx Cataract Extraction: Yes (bilateral) Hx Cardiac Catheterization: Yes Other/Comment: lower leg surgery, left TMA. left great ingrown toenail removal. 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 - ANESTHESIA Hx Anesthesia: Yes Hx Anesthesia Reactions: No Hx Malignant Hyperthermia: No Meds Allergies/Adverse Reactions: Allergies Allergy/AdvReac Type Severity Reaction Status Date / Time No Known Allergies Allergy Verified 12/13/17 09:17 - Medications Medications: Current Medications Acetaminophen (Tylenol 325mg Tab) 650 mg PO Q4 PRN PRN Reason: Pain, Mild (1-3) Last Admin: 12/22/17 18:47 Dose: 650 mg Famotidine (Pepcid) 20 mg IVP DAILY [facility] Last Admin: 12/24/17 09:36 Dose: 20 mg Heparin Sodium (Porcine) (Heparin) 5,000 units SC Q8 [facility] Last Admin: 12/23/17 06:56 Dose: Not Given Vancomycin/Sodium Chloride (Vancomycin 1 Gm/Ns 200 Ml) 1 gm in 200 mls @ 133.333 mls/hr IVPB Q12H [facility]RIE PRN Reason: Protocol Last Admin: 12/24/17 11:55 Dose: 133.333 mls/hr Potassium Chloride 40 meq/ (Sodium Chloride) 1,020 mls @ 75 mls/hr IV .[id number] [facility] Last Admin: 12/24/17 09:33 Dose: Not Given Piperacillin Sod/Tazobactam Sod (Zosyn 3.375 Gm Iv Premix) 3.375 gm in 50 mls @ 100 mls/hr IVPB Q6H [facility]RIE PRN Reason: Protocol Insulin Human Regular (Novolin R) 0 unit SC ACHS [facility] PRN Reason: Protocol Last Admin: 12/24/17 11:57 Dose: 4 u Lidocaine (Lidoderm) 1 ea TD DAILY [facility] Last Admin: 12/24/17 09:44 Dose: 1 ea Morphine Sulfate (Morphine) 2 mg IVP Q4 PRN PRN Reason: prn for pain 7-10 Last Admin: 12/24/17 12:01 Dose: 2 mg Sennosides (Senokot Tab) 8.6 mg PO DAILY [facility] Last Admin: 12/24/17 09:45 Dose: Not Given Sodium Hypochlorite (Dakins Solution 0.25%) 0 ml TOP DAILY [facility] Last Admin: 12/24/17 09:37 Dose: Not Given Physical Exam - Constitutional Appears: Well, No Acute Distress - Head Exam Head Exam: NORMOCEPHALIC - Eye Exam Eye Exam: Normal appearance. absent: Scleral icterus - ENT Exam ENT Exam: Normal Exam - Neck Exam Neck exam: Positive for: Normal Inspection - Respiratory Exam Respiratory Exam: NORMAL BREATHING PATTERN - Cardiovascular Exam Cardiovascular Exam: REGULAR RHYTHM - GI/Abdominal Exam GI & Abdominal Exam: Normal Bowel Sounds, Soft. absent: Distended, Mass, Tenderness - Rectal Exam Rectal Exam: Deferred - Extremities Exam Additional comments: Left BKA - Neurological Exam Neurological exam: Alert, Oriented x3 - Psychiatric Exam Psychiatric exam: Normal Affect, Normal Mood - Skin Skin Exam: Normal Color Results - Vital Signs Recent Vital Signs: Last Vital Signs Temp 97.8 F 12/24/17 04:00 Pulse 74 12/24/17 11:00 Resp 20 12/24/17 11:00 BP 122/72 12/24/17 11:00 Pulse Ox 99 12/24/17 11:00 - Labs Result Diagrams: 12/24/17 06:11 12/24/17 06:12 Labs: Laboratory Results - last 24 hr 12/23/17 12/23/17 12/24/17 16:43 23:41 06:11 WBC 11.8 H RBC 3.16 L Hgb 8.4 L Hct 26.0 L MCV 82.3 MCH 26.5 L MCHC 32.2 L RDW 17.7 H Plt Count 627 H D MPV 8.2 Neut % (Auto) 41.3 L Lymph % (Auto) 47.8 H [place] % (Auto) 7.5 Eos % (Auto) 3.1 Baso % (Auto) 0.3 Neut # (Auto) 4.9 Lymph # (Auto) 5.7 H [place] # (Auto) 0.9 H Eos # (Auto) 0.4 Baso # (Auto) 0.0 Sodium Potassium Chloride Carbon Dioxide Anion Gap BUN Creatinine Est GFR ( Amer) Est GFR (Non-Af Amer) POC Glucose (mg/dL) 156 H 162 H Random Glucose Calcium Phosphorus Magnesium Total Bilirubin AST ALT Alkaline Phosphatase Total Protein Albumin Globulin Albumin/Globulin Ratio 12/24/17 12/24/1712/24/18 06:12 07:37 11:52 WBC RBC Hgb Hct MCV MCH MCHC RDW Plt Count MPV Neut % (Auto) Lymph % (Auto) [place] % (Auto) Eos % (Auto) Baso % (Auto) Neut # (Auto) Lymph # (Auto) [place] # (Auto) Eos # (Auto) Baso # (Auto) Sodium 143 Potassium 4.0 Chloride 106 Carbon Dioxide 26 Anion Gap 15 BUN 7 Creatinine 0.6 L Est GFR ( Amer) > 60 Est GFR (Non-Af Amer) > 60 POC Glucose (mg/dL) 161 H 281 H Random Glucose 138 H Calcium 8.8 Phosphorus 4.4 Magnesium 1.7 Total Bilirubin 0.8 AST 19 ALT 16 Alkaline Phosphatase 77 Total Protein 6.4 Albumin 2.9 L Globulin 3.5 Albumin/Globulin Ratio 0.9 L - Imaging and Cardiology CT scan - abdomen Status: Report reviewed by me Assessment & Plan (1) Abnormal CT of the abdomen Assessment and Plan: Portal vein gas on CT, improving. Pt exhibits normal abdomen exam. Unlikely to have acute abdomen/ischemia. Perhaps these radiologic findings are from recent gastroparesis/distension and is now improving. Rec: follow abdominal exam and monitor closely on diet. Discussed with certified surgical technician. GI prophylaxis with PPI or Pepcid. Consider EGD electively. Will review prior EGD and Colonosopy reports. Status: Acute (2) Anemia Assessment and Plan: chronic disease Status: Acute (3) Diabetic infection of left foot Assessment and Plan: managed by vascular. S/P recent amputation Status: Acute (4) Status post transmetatarsal amputation of left foot Status: Acute (5) DM2 (diabetes mellitus, type 2) Assessment and Plan: management per medicine team Status: Chronic
[2017-12-24 18:30] VITALS: RESP 20
--- NOTE | 2017-12-24 19:17 | CP.PCM.PN ---
Subjective - Date & Time of Evaluation Date of Evaluation: 12/24/17 Time of Evaluation: 14:00 - Subjective Subjective: DICTATED Objective - Vital Signs/Intake and Output Vital Signs (last 24 hours): Temp Pulse Resp BP Pulse Ox 98.8 F 74 20 123/57 L 99 12/24/17 16:00 12/24/17 16:00 12/24/17 16:00 12/24/17 16:00 12/24/17 11:00 Intake and Output: 12/24/17 12/25/17 18:59 06:59 Intake Total 1415 Output Total 650 Balance 765 - Medications Medications: Current Medications Acetaminophen (Tylenol 325mg Tab) 650 mg PO Q4 PRN PRN Reason: Pain, Mild (1-3) Last Admin: 12/22/17 18:47 Dose: 650 mg Famotidine (Pepcid) 20 mg IVP DAILY [facility] Last Admin: 12/24/17 09:36 Dose: 20 mg Heparin Sodium (Porcine) (Heparin) 5,000 units SC Q8 [facility] Last Admin: 12/23/17 06:56 Dose: Not Given Vancomycin/Sodium Chloride (Vancomycin 1 Gm/Ns 200 Ml) 1 gm in 200 mls @ 133.333 mls/hr IVPB Q12H [facility] PRN Reason: Protocol Last Admin: 12/24/17 11:55 Dose: 133.333 mls/hr Potassium Chloride 40 meq/ (Sodium Chloride) 1,020 mls @ 75 mls/hr IV .[id number] [facility] Last Admin: 12/24/17 09:33 Dose: Not Given Piperacillin Sod/Tazobactam Sod (Zosyn 3.375 Gm Iv Premix) 3.375 gm in 50 mls @ 100 mls/hr IVPB Q6H [facility] PRN Reason: Protocol Last Admin: 12/24/17 17:28 Dose: 100 mls/hr Insulin Human Regular (Novolin R) 0 unit SC ACHS [facility] PRN Reason: Protocol Last Admin: 12/24/17 17:27 Dose: 1 u Lidocaine (Lidoderm) 1 ea TD DAILY [facility] Last Admin: 12/24/17 09:44 Dose: 1 ea Morphine Sulfate (Morphine) 2 mg IVP Q4 PRN PRN Reason: prn for pain 7-10 Last Admin: 12/24/17 15:53 Dose: 2 mg Sennosides (Senokot Tab) 8.6 mg PO DAILY [facility] Last Admin: 12/24/17 09:45 Dose: Not Given Sodium Hypochlorite (Dakins Solution 0.25%) 0 ml TOP DAILY [facility] Last Admin: 12/24/17 09:37 Dose: Not Given - Labs Labs: 12/24/17 06:11 12/24/17 06:12 PT 13.2 SECONDS (9.7-12.2) H 12/22/17 23:54 INR 1.2 12/22/17 23:54 APTT 40 SECONDS (21-34) H 12/22/17 23:54
--- NOTE | 2017-12-25 00:26 | PN ---
DATE: 12/24/2017 SUBJECTIVE: The patient was better today. She denied any nausea and vomiting. Denied any abdominal pain. She was given solid food today to eat. PHYSICAL EXAMINATION: VITAL SIGNS: T-max is 98.8, pulse 74, blood pressure is 123/57, respirations are 20. GENERAL: She was alert, oriented x3. HEENT: Head is atraumatic, normocephalic. NECK: Supple. LUNGS: Clear. No crackles or rales present. HEART: S1, S2 regular. ABDOMEN: Soft, nontender. No guarding, no rigidity present at this time. Left stump has a dressing, which is there. EXTREMITIES: Right leg is unremarkable. LABORATORY DATA: White count today is 11.8, hemoglobin 8.4, hematocrit 26, platelet count remains elevated at 627, and her chemistry shows sodium is 143, potassium 4, chloride is 106, CO2 is 26, BUN is 7, creatinine is 0.6. At this time, the patient is on vancomycin and Zosyn. We will continue that. She underwent left BKA and now is here with bowel ischemia versus air in the biliary tree and is being monitored by Vascular Surgery. We will continue antibiotics, and we will follow. Alissa Wiggins MD
[2017-12-25] MEDS: Morphine 4 MG/ML VIAL IVP PRN ×4 (03:22→19:45)
[2017-12-25] MEDS: Piperacill/Tazo 3.375gm in Dex 3.375 GM/50 ML BAG IVPB SCH ×3 (05:25→17:46)
[2017-12-25] MEDS: (Novolin R) Insulin Human Regular 100 units/ml vial SC SCH ×4 (08:22→21:21)
[2017-12-25 08:50] LABS: BASO % 0.4 % (0.0-2.0); EOS # 0.2 K/uL (0.0-0.7); EOS % 2.3 % (0.0-4.0); HEMOGLOBIN 8.8 g/dL (11.0-16.0); MEAN CELL VOLUME 81.8 fL (81.0-99.0); MEAN CORPUSCULAR HEMOGLOBIN 27.7 pg (27.0-31.0); MEAN CORPUSCULAR HGB CONC 33.9 g/dL (33.0-37.0); MEAN PLATELET VOLUME 8.4 fL (7.2-11.7); MONO # 0.6 K/uL (0.0-0.8); MONO % 5.9 % (0.0-10.0); NEUT # 4.8 K/uL (1.8-7.0); NEUT % 44.4 % (50.0-75.0); RBC 3.19 Mil/uL (3.80-5.20); RED CELL DISTRIBUTION WIDTH 17.9 % (11.5-14.5); WHITE BLOOD COUNT 10.7 K/uL (4.8-10.8)
[2017-12-25 09:14] LABS: ALB/GLOB RATIO 0.7 (1.0-2.1); ALBUMIN 2.9 g/dL (3.5-5.0); ALT/SGPT 19 U/L (9-52); AST/SGOT 55 U/L (14-36); BLOOD UREA NITROGEN 10 mg/dL (7-17); GFR AFRICAN-AMERICAN > 60; GFR NON-AFRICAN AMERICAN > 60
[2017-12-25] MEDS: Dakin's Topical 0.25%-Half Strength (480 ml) TOP SCH (10:29)
[2017-12-25] MEDS: Lidocaine 5% Patch TD SCH (10:33)
--- NOTE | 2017-12-25 10:57 | CP.PCM.PN ---
Subjective - Date & Time of Evaluation Date of Evaluation: 12/25/17 Time of Evaluation: 10:54 - Subjective Subjective: Vascular SurgeryProgress Note for Dr. Hernández This 62F was seen and evaluated this Am at bedside no acute events overnight. Patient is more comfortable tolerating diet. Not complaining of pain. Dressing removed wound healing appropriately. Denies chest pain or SOB. Objective - Vital Signs/Intake and Output Vital Signs (last 24 hours): Temp Pulse Resp BP Pulse Ox 98.3 F 78 20 148/75 97 12/25/17 07:00 12/25/17 07:31 12/25/17 07:00 12/25/17 07:00 12/25/17 07:00 Intake and Output: 12/25/17 12/25/17 06:59 18:59 Intake Total 1150 Output Total 700 Balance 450 - Medications Medications: Current Medications Acetaminophen (Tylenol 325mg Tab) 650 mg PO Q4 PRN PRN Reason: Pain, Mild (1-3) Last Admin: 12/22/17 18:47 Dose: 650 mg Famotidine (Pepcid) 20 mg IVP DAILY [facility] Last Admin: 12/25/17 10:32 Dose: 20 mg Heparin Sodium (Porcine) (Heparin) 5,000 units SC Q8 [facility] Last Admin: 12/23/17 06:56 Dose: Not Given Vancomycin/Sodium Chloride (Vancomycin 1 Gm/Ns 200 Ml) 1 gm in 200 mls @ 133.333 mls/hr IVPB Q12H [facility] PRN Reason: Protocol Last Admin: 12/24/17 22:00 Dose: 133.333 mls/hr Potassium Chloride 40 meq/ (Sodium Chloride) 1,020 mls @ 75 mls/hr IV .[id number] [facility] Last Admin: 12/25/17 01:00 Dose: 75 mls/hr Piperacillin Sod/Tazobactam Sod (Zosyn 3.375 Gm Iv Premix) 3.375 gm in 50 mls @ 100 mls/hr IVPB Q6H [facility] PRN Reason: Protocol Last Admin: 12/25/17 05:25 Dose: 100 mls/hr Insulin Human Regular (Novolin R) 0 unit SC ACHS [facility] PRN Reason: Protocol Last Admin: 12/25/17 08:22 Dose: 2 unit Lidocaine (Lidoderm) 1 ea TD DAILY [facility] Last Admin: 12/25/17 10:33 Dose: 1 ea Morphine Sulfate (Morphine) 2 mg IVP Q4 PRN PRN Reason: prn for pain 7-10 Last Admin: 12/25/17 08:22 Dose: 2 mg Sennosides (Senokot Tab) 8.6 mg PO DAILY [facility] Last Admin: 12/25/17 10:32 Dose: 8.6 mg Sodium Hypochlorite (Dakins Solution 0.25%) 0 ml TOP DAILY [facility] Last Admin: 12/24/17 09:37 Dose: Not Given - Labs Labs: 12/25/17 08:32 12/25/17 08:32 PT 13.2 SECONDS (9.7-12.2) H 12/22/17 23:54 INR 1.2 12/22/17 23:54 APTT 40 SECONDS (21-34) H 12/22/17 23:54 - Constitutional Appears: Non-toxic, No Acute Distress - Head Exam Head Exam: ATRAUMATIC, NORMOCEPHALIC - Eye Exam Eye Exam: EOMI, Normal appearance - ENT Exam ENT Exam: Mucous Membranes Moist - Respiratory Exam Respiratory Exam: NORMAL BREATHING PATTERN - Cardiovascular Exam Cardiovascular Exam: +S1, +S2 - GI/Abdominal Exam GI & Abdominal Exam: Soft. absent: Distended, Firm, Guarding, Rigid, Tenderness - Neurological Exam Neurological Exam: Alert, Awake - Psychiatric Exam Psychiatric exam: Normal Affect, Normal Mood - Skin Skin Exam: Dry, Intact Assessment and Plan - Assessment and Plan (Free Text) Assessment: 62F POD#8 s/p BKA and doing well Local wound care physical therapy trapeeze regular diet No further surgical managment at this time D/W Dr. Hernández. Marco A Tovar PGY2
[2017-12-25] MEDS: Vancomycin 1 gm/NS 200 ml 1 GM/200 ML BAG IVPB SCH ×2 (11:07→22:35)
--- NOTE | 2017-12-25 12:58 | CP.PCM.PN ---
Subjective - Date & Time of Evaluation Date of Evaluation: 12/25/17 Time of Evaluation: 12:56 - Subjective Subjective: f/u abdom pain Feels better. No abd pain. Eating. family present. Denies RB, melena, fever, chilss, CP, SOB, ARAGON, cough, hematuria, hemoptysis Objective - Vital Signs/Intake and Output Vital Signs (last 24 hours): Temp Pulse Resp BP Pulse Ox 98.3 F 78 20 148/75 97 12/25/17 07:00 12/25/17 07:31 12/25/17 07:00 12/25/17 07:00 12/25/17 07:00 Intake and Output: 12/25/17 12/25/17 06:59 18:59 Intake Total 1150 Output Total 700 Balance 450 - Medications Medications: Current Medications Acetaminophen (Tylenol 325mg Tab) 650 mg PO Q4 PRN PRN Reason: Pain, Mild (1-3) Last Admin: 12/22/17 18:47 Dose: 650 mg Famotidine (Pepcid) 20 mg IVP DAILY [facility] Last Admin: 12/25/17 10:32 Dose: 20 mg Heparin Sodium (Porcine) (Heparin) 5,000 units SC Q8 [facility] Last Admin: 12/23/17 06:56 Dose: Not Given Vancomycin/Sodium Chloride (Vancomycin 1 Gm/Ns 200 Ml) 1 gm in 200 mls @ 133.333 mls/hr IVPB Q12H [facility] PRN Reason: Protocol Last Admin: 12/25/17 11:07 Dose: 133.333 mls/hr Potassium Chloride 40 meq/ (Sodium Chloride) 1,020 mls @ 75 mls/hr IV .[id number] [facility] Last Admin: 12/25/17 01:00 Dose: 75 mls/hr Piperacillin Sod/Tazobactam Sod (Zosyn 3.375 Gm Iv Premix) 3.375 gm in 50 mls @ 100 mls/hr IVPB Q6H [facility] PRN Reason: Protocol Last Admin: 12/25/17 12:48 Dose: 100 mls/hr Insulin Human Regular (Novolin R) 0 unit SC ACHS [facility] PRN Reason: Protocol Last Admin: 12/25/17 12:27 Dose: 3 unit Lidocaine (Lidoderm) 1 ea TD DAILY [facility] Last Admin: 06/12/18 10:33 Dose: 1 ea Morphine Sulfate (Morphine) 2 mg IVP Q4 PRN PRN Reason: prn for pain 7-10 Last Admin: 12/25/17 08:22 Dose: 2 mg Sennosides (Senokot Tab) 8.6 mg PO DAILY [facility] Last Admin: 12/25/17 10:32 Dose: 8.6 mg Sodium Hypochlorite (Dakins Solution 0.25%) 0 ml TOP DAILY [facility] Last Admin: 12/24/17 09:37 Dose: Not Given - Labs Labs: 12/25/17 08:32 12/25/17 08:32 PT 13.2 SECONDS (9.7-12.2) H 12/22/17 23:54 INR 1.2 12/22/17 23:54 APTT 40 SECONDS (21-34) H 12/22/17 23:54 - Constitutional Appears: Non-toxic - Neck Exam Neck Exam: Full ROM. absent: Tenderness - Respiratory Exam Respiratory Exam: Clear to Ausculation Bilateral - Cardiovascular Exam Cardiovascular Exam: RRR - GI/Abdominal Exam GI & Abdominal Exam: Soft, Normal Bowel Sounds. absent: Guarding, Tenderness, Mass, Rebound - Extremities Exam Extremities Exam: absent: Calf Tenderness - Neurological Exam Neurological Exam: Alert, Awake, Oriented x3 Assessment and Plan (1) Abnormal CT of the abdomen Assessment & Plan: Portalvenous gas. Repeat CT- improving. Clinically patient is doing well. No sign of biliary infection or sepsis. hAD ABDOM DISTENTION- NOW BETTER. Rec- follow clinically, follow labs. Status: Acute (2) Anemia Assessment & Plan: chronic Status: Acute (3) Diabetic infection of left foot Assessment & Plan: s/p surgery Status: Acute (4) DM2 (diabetes mellitus, type 2) Status: Chronic (5) HTN (hypertension) Status: Chronic
--- NOTE | 2017-12-25 20:41 | CP.PCM.PN ---
Subjective - Date & Time of Evaluation Date of Evaluation: 12/25/17 Time of Evaluation: 02:15 - Subjective Subjective: dictated Objective - Vital Signs/Intake and Output Vital Signs (last 24 hours): Temp Pulse Resp BP Pulse Ox 98.5 F 80 20 107/63 97 12/25/17 15:49 12/25/17 15:49 12/25/17 15:49 12/25/17 15:49 12/25/17 15:49 Intake and Output: 12/25/17 12/26/17 18:59 06:59 Intake Total 250 Balance 250 - Medications Medications: Current Medications Acetaminophen (Tylenol 325mg Tab) 650 mg PO Q4 PRN PRN Reason: Pain, Mild (1-3) Last Admin: 12/22/17 18:47 Dose: 650 mg Famotidine (Pepcid) 20 mg IVP DAILY [facility] Last Admin: 12/25/17 10:32 Dose: 20 mg Heparin Sodium (Porcine) (Heparin) 5,000 units SC Q8 [facility] Last Admin: 12/23/17 06:56 Dose: Not Given Vancomycin/Sodium Chloride (Vancomycin 1 Gm/Ns 200 Ml) 1 gm in 200 mls @ 133.333 mls/hr IVPB Q12H [facility] PRN Reason: Protocol Last Admin: 12/25/17 11:07 Dose: 133.333 mls/hr Potassium Chloride 40 meq/ (Sodium Chloride) 1,020 mls @ 75 mls/hr IV .[id number] [facility] Last Admin: 12/25/17 13:03 Dose: Not Given Piperacillin Sod/Tazobactam Sod (Zosyn 3.375 Gm Iv Premix) 3.375 gm in 50 mls @ 100 mls/hr IVPB Q6H [facility] PRN Reason: Protocol Last Admin: 12/25/17 17:46 Dose: 100 mls/hr Insulin Human Regular (Novolin R) 0 unit SC ACHS [facility] PRN Reason: Protocol Last Admin: 12/25/17 17:04 Dose: 2 unit Lidocaine (Lidoderm) 1 ea TD DAILY [facility] Last Admin: 12/25/17 10:33 Dose: 1 ea Morphine Sulfate (Morphine) 2 mg IVP Q4 PRN PRN Reason: prn for pain 7-10 Last Admin: 12/25/17 19:45 Dose: 2 mg Sennosides (Senokot Tab) 8.6 mg PO DAILY [facility] Last Admin: 12/25/17 10:32 Dose: 8.6 mg Sodium Hypochlorite (Dakins Solution 0.25%) 0 ml TOP DAILY [facility] Last Admin: 12/25/17 10:29 Dose: Not Given - Labs Labs: 12/25/17 08:32 12/25/17 08:32 PT 13.2 SECONDS (9.7-12.2) H 12/22/17 23:54 INR 1.2 12/22/17 23:54 APTT 40 SECONDS (21-34) H 12/22/17 23:54
--- NOTE | 2017-12-25 21:29 | CP.PCM.PN ---
Subjective - Date & Time of Evaluation Date of Evaluation: 12/25/17 Time of Evaluation: 21:29 - Subjective Subjective: Patient has no fever or chills. She is eating slightly better. Abdominal pain is negative. Family at bedside. Pain is less On examination: Vital signs stable. Chest good air entry bilaterally regular heart sounds, nontender abdominal pedal edema. Patient was seen by curtain inspector. Also surgical team. Patient is currently tolerating the feeding Assessment/condition: 62-year-old female with a history of diabetes hypertension hypercholesterolemia PVD, status post a below-knee amputation on the left side. Stable. Patient developed acute portal vein pneumatosis, unclear. Proctitis. Inflammation. Improving now on antibiotic. We will continue the current treatment. We will follow the patient. Objective - Vital Signs/Intake and Output Vital Signs (last 24 hours): Temp Pulse Resp BP Pulse Ox 98.5 F 80 20 107/63 97 12/25/17 15:49 12/25/17 15:49 12/25/17 15:49 12/25/17 15:49 12/25/17 15:49 Intake and Output: 12/25/17 12/26/17 18:59 06:59 Intake Total 250 Balance 250 - Medications Medications: Current Medications Acetaminophen (Tylenol 325mg Tab) 650 mg PO Q4 PRN PRN Reason: Pain, Mild (1-3) Last Admin: 12/22/17 18:47 Dose: 650 mg Famotidine (Pepcid) 20 mg IVP DAILY [facility] Last Admin: 12/25/17 10:32 Dose: 20 mg Heparin Sodium (Porcine) (Heparin) 5,000 units SC Q8 [facility] Last Admin: 12/23/17 06:56 Dose: Not Given Vancomycin/Sodium Chloride (Vancomycin 1 Gm/Ns 200 Ml) 1 gm in 200 mls @ 133.333 mls/hr IVPB Q12H [facility] PRN Reason: Protocol Last Admin: 12/25/17 11:07 Dose: 133.333 mls/hr Potassium Chloride 40 meq/ (Sodium Chloride) 1,020 mls @ 75 mls/hr IV .[id number] [facility] Last Admin: 12/25/17 13:03 Dose: Not Given Piperacillin Sod/Tazobactam Sod (Zosyn 3.375 Gm Iv Premix) 3.375 gm in 50 mls @ 100 mls/hr IVPB Q6H [facility] PRN Reason: Protocol Last Admin: 12/25/17 17:46 Dose: 100 mls/hr Insulin Human Regular (Novolin R) 0 unit SC ACHS [facility] PRN Reason: Protocol Last Admin: 12/25/17 21:21 Dose: Not Given Lidocaine (Lidoderm) 1 ea TD DAILY [facility] Last Admin: 12/25/17 10:33 Dose: 1 ea Morphine Sulfate (Morphine) 2 mg IVP Q4 PRN PRN Reason: prn for pain 7-10 Last Admin: 12/25/17 19:45 Dose: 2 mg Sennosides (Senokot Tab) 8.6 mg PO DAILY [facility] Last Admin: 12/25/17 10:32 Dose: 8.6 mg Sodium Hypochlorite (Dakins Solution 0.25%) 0 ml TOP DAILY [facility] Last Admin: 12/25/17 10:29 Dose: Not Given - Labs Labs: 12/25/17 08:32 12/25/17 08:32 PT 13.2 SECONDS (9.7-12.2) H 12/22/17 23:54 INR 1.2 12/22/17 23:54 APTT 40 SECONDS (21-34) H 12/22/17 23:54
--- NOTE | 2017-12-25 23:03 | PN ---
DATE: 12/25/2017 SUBJECTIVE: The patient was seen today. She is afebrile, she looked better. She denies any abdominal pain. No nausea and vomiting. She is tolerating food. She was also seen by GI. PHYSICAL EXAMINATION: VITAL SIGNS: T-max is 98.5, pulse 80, blood pressure 107/63, respirations are 20. GENERAL: She is alert, oriented. They opened the dressing stump and is healing. HEENT: Head is atraumatic, normocephalic. NECK: Supple. LUNGS: Clear. No crackles or rales present. HEART: S1, S2 is regular. ABDOMEN: Soft, nontender. No guarding, no rigidity present. EXTREMITIES: Left stump appears to be unremarkable. Right leg is unremarkable and they are applying local wound care, physical therapy and no further surgical management. NEUROLOGIC: She also had a portal vein air, but clinically she is doing better now. LABORATORY DATA: White count is 10.7, hemoglobin 8.8, hematocrit 26.1, platelet count is 647, sodium 138, potassium 3.8, chloride 103, CO2 is 26, BUN is 10, creatinine 0.7. Sugars are coming up. ASSESSMENT AND PLAN: She is afebrile, so at this time she is improving and there are no acute abdomen findings and she is better. She did have abnormal CAT scan of the abdomen, but now improving on antibiotics and she is status post left below knee amputation and is diabetic and she is recuperating at this time. Remains still on antibiotics. I think will observe her another day and by Sunday, she should be able to go home with therapy if agreed by other consultants. Alissa Wiggins MD
[2017-12-26] MEDS: Morphine 4 MG/ML VIAL IVP PRN ×5 (00:26→18:00)
[2017-12-26] MEDS: Piperacill/Tazo 3.375gm in Dex 3.375 GM/50 ML BAG IVPB SCH ×4 (00:26→18:01)
[2017-12-26 07:53] LABS: BASO # 0.1 K/uL (0.0-0.2); BASO % 0.7 % (0.0-2.0); EOS # 0.2 K/uL (0.0-0.7); EOS % 2.2 % (0.0-4.0); HEMOGLOBIN 8.9 g/dL (11.0-16.0); LYMPH # 4.7 K/uL (1.0-4.3); LYMPH % 48.9 % (20.0-40.0); MEAN CELL VOLUME 82.2 fL (81.0-99.0); MEAN CORPUSCULAR HEMOGLOBIN 27.7 pg (27.0-31.0); MEAN CORPUSCULAR HGB CONC 33.7 g/dL (33.0-37.0); MEAN PLATELET VOLUME 8.2 fL (7.2-11.7); MONO # 0.6 K/uL (0.0-0.8); MONO % 5.8 % (0.0-10.0); NEUT # 4.1 K/uL (1.8-7.0); NEUT % 42.4 % (50.0-75.0); NRBC % 0.2 % (0.0-2.0); RBC 3.21 Mil/uL (3.80-5.20); RED CELL DISTRIBUTION WIDTH 18.4 % (11.5-14.5); WHITE BLOOD COUNT 9.6 K/uL (4.8-10.8)
[2017-12-26 08:09] LABS: ALB/GLOB RATIO 0.9 (1.0-2.1); ALBUMIN 3.2 g/dL (3.5-5.0); ALT/SGPT 14 U/L (9-52); AST/SGOT 20 U/L (14-36); BLOOD UREA NITROGEN 11 mg/dL (7-17); GFR AFRICAN-AMERICAN > 60; GFR NON-AFRICAN AMERICAN > 60
[2017-12-26] MEDS: (Novolin R) Insulin Human Regular 100 units/ml vial SC SCH ×4 (08:32→22:19)
--- NOTE | 2017-12-26 08:58 | CP.PCM.PN ---
Subjective - Date & Time of Evaluation Date of Evaluation: 12/26/17 Time of Evaluation: 08:57 - Subjective Subjective: F/U Abd pain Eating castro and eggs. Feels better. Denies abdominal pain, constip, diarrhea Objective - Vital Signs/Intake and Output Vital Signs (last 24 hours): Temp Pulse Resp BP Pulse Ox 98.3 F 70 20 107/66 96 12/26/17 07:00 12/26/17 07:00 12/26/17 07:00 12/26/17 07:00 12/26/17 07:00 Intake and Output: 12/26/17 12/26/17 06:59 18:59 Intake Total 1950 Output Total 1800 Balance 150 - Medications Medications: Current Medications Acetaminophen (Tylenol 325mg Tab) 650 mg PO Q4 PRN PRN Reason: Pain, Mild (1-3) Last Admin: 12/22/17 18:47 Dose: 650 mg Famotidine (Pepcid) 20 mg IVP DAILY [facility] Last Admin: 12/25/17 10:32 Dose: 20 mg Heparin Sodium (Porcine) (Heparin) 5,000 units SC Q8 [facility] Last Admin: 12/23/17 06:56 Dose: Not Given Vancomycin/Sodium Chloride (Vancomycin 1 Gm/Ns 200 Ml) 1 gm in 200 mls @ 133.333 mls/hr IVPB Q12H [facility] PRN Reason: Protocol Last Admin: 12/25/17 22:35 Dose: 133.333 mls/hr Potassium Chloride 40 meq/ (Sodium Chloride) 1,020 mls @ 75 mls/hr IV .[id number] [facility] Last Admin: 12/26/17 04:07 Dose: Not Given Piperacillin Sod/Tazobactam Sod (Zosyn 3.375 Gm Iv Premix) 3.375 gm in 50 mls @ 100 mls/hr IVPB Q6H [facility] PRN Reason: Protocol Last Admin: 12/26/17 05:48 Dose: 100 mls/hr Insulin Human Regular (Novolin R) 0 unit SC ACHS [facility] PRN Reason: Protocol Last Admin: 12/25/17 21:21 Dose: Not Given Lidocaine (Lidoderm) 1 ea TD DAILY [facility] Last Admin: 12/25/17 10:33 Dose: 1 ea Morphine Sulfate (Morphine) 2 mg IVP Q4 PRN PRN Reason: prn for pain 7-10 Last Admin: 12/26/17 05:49 Dose: 2 mg Sennosides (Senokot Tab) 8.6 mg PO DAILY [facility] Last Admin: 12/25/17 10:32 Dose: 8.6 mg Sodium Hypochlorite (Dakins Solution 0.25%) 0 ml TOP DAILY [facility] Last Admin: 12/25/17 10:29 Dose: Not Given - Labs Labs: 12/26/17 07:36 12/26/17 07:36 PT 13.2 SECONDS (9.7-12.2) H 12/22/17 23:54 INR 1.2 12/22/17 23:54 APTT 40 SECONDS (21-34) H 12/22/17 23:54 - Constitutional Appears: No Acute Distress, Chronically Ill - Respiratory Exam Respiratory Exam: NORMAL BREATHING PATTERN - Cardiovascular Exam Cardiovascular Exam: REGULAR RHYTHM - GI/Abdominal Exam GI & Abdominal Exam: Soft. absent: Distended, Guarding, Tenderness Assessment and Plan (1) Abnormal CT of the abdomen Assessment & Plan: No clinical evidence of acute abdomen/ischemia Continue to monitor Status: Acute (2) Anemia Status: Acute (3) Diabetic infection of left foot Status: Acute (4) Status post transmetatarsal amputation of left foot Status: Acute (5) DM2 (diabetes mellitus, type 2) Status: Chronic
[2017-12-26] MEDS: Lidocaine 5% Patch TD SCH (09:42)
[2017-12-26] MEDS: Vancomycin 1 gm/NS 200 ml 1 GM/200 ML BAG IVPB SCH ×2 (10:25→22:15)
--- NOTE | 2017-12-26 14:14 | CP.PCM.PN ---
Subjective - Date & Time of Evaluation Date of Evaluation: 12/26/17 Time of Evaluation: 01:45 - Subjective Subjective: dictated Objective - Vital Signs/Intake and Output Vital Signs (last 24 hours): Temp Pulse Resp BP Pulse Ox 98.3 F 70 20 107/66 96 12/26/17 07:00 12/26/17 08:15 12/26/17 07:00 12/26/17 07:00 12/26/17 07:00 Intake and Output: 12/26/17 12/26/17 06:59 18:59 Intake Total 1950 Output Total 1800 900 Balance 150 -900 - Medications Medications: Current Medications Acetaminophen (Tylenol 325mg Tab) 650 mg PO Q4 PRN PRN Reason: Pain, Mild (1-3) Last Admin: 12/22/17 18:47 Dose: 650 mg Famotidine (Pepcid) 20 mg IVP DAILY [facility] Last Admin: 12/26/17 09:42 Dose: 20 mg Heparin Sodium (Porcine) (Heparin) 5,000 units SC Q8 [facility] Last Admin: 12/23/17 06:56 Dose: Not Given Vancomycin/Sodium Chloride (Vancomycin 1 Gm/Ns 200 Ml) 1 gm in 200 mls @ 133.333 mls/hr IVPB Q12H [facility] PRN Reason: Protocol Last Admin: 12/26/17 10:25 Dose: 133.333 mls/hr Potassium Chloride 40 meq/ (Sodium Chloride) 1,020 mls @ 75 mls/hr IV .[id number] [facility] Last Admin: 12/26/17 04:07 Dose: Not Given Piperacillin Sod/Tazobactam Sod (Zosyn 3.375 Gm Iv Premix) 3.375 gm in 50 mls @ 100 mls/hr IVPB Q6H [facility] PRN Reason: Protocol Last Admin: 12/26/17 12:31 Dose: 100 mls/hr Insulin Human Regular (Novolin R) 0 unit SC ACHS [facility] PRN Reason: Protocol Last Admin: 12/26/17 12:31 Dose: 4 unit Lidocaine (Lidoderm) 1 ea TD DAILY [facility] Last Admin: 12/26/17 09:42 Dose: 1 ea Morphine Sulfate (Morphine) 2 mg IVP Q4 PRN PRN Reason: prn for pain 7-10 Last Admin: 12/26/17 13:50 Dose: 2 mg Sennosides (Senokot Tab) 8.6 mg PO DAILY [facility] Last Admin: 12/26/17 09:42 Dose: 8.6 mg Sodium Hypochlorite (Dakins Solution 0.25%) 0 ml TOP DAILY [facility] Last Admin: 12/25/17 10:29 Dose: Not Given - Labs Labs: 12/26/17 07:36 12/26/17 07:36 PT 13.2 SECONDS (9.7-12.2) H 12/22/17 23:54 INR 1.2 12/22/17 23:54 APTT 40 SECONDS (21-34) H 12/22/17 23:54
[2017-12-26] MEDS: (Lantus) Insulin Glargine, Recombinant SC SCH (22:14)
[2017-12-27] MEDS: Piperacill/Tazo 3.375gm in Dex 3.375 GM/50 ML BAG IVPB SCH ×4 (00:32→17:17)
[2017-12-27 07:29] LABS: BASO # 0.1 K/uL (0.0-0.2); BASO % 0.6 % (0.0-2.0); EOS # 0.2 K/uL (0.0-0.7); EOS % 2.3 % (0.0-4.0); HEMOGLOBIN 8.5 g/dL (11.0-16.0); LYMPH # 4.7 K/uL (1.0-4.3); LYMPH % 48.3 % (20.0-40.0); MEAN CELL VOLUME 82.4 fL (81.0-99.0); MEAN CORPUSCULAR HEMOGLOBIN 28.3 pg (27.0-31.0); MEAN CORPUSCULAR HGB CONC 34.3 g/dL (33.0-37.0); MEAN PLATELET VOLUME 8.3 fL (7.2-11.7); MONO # 0.7 K/uL (0.0-0.8); MONO % 6.8 % (0.0-10.0); NEUT # 4.1 K/uL (1.8-7.0); RBC 3.02 Mil/uL (3.80-5.20); RED CELL DISTRIBUTION WIDTH 18.3 % (11.5-14.5); WHITE BLOOD COUNT 9.8 K/uL (4.8-10.8)
[2017-12-27 07:55] LABS: ALB/GLOB RATIO 0.9 (1.0-2.1); ALBUMIN 3.1 g/dL (3.5-5.0); ALT/SGPT 16 U/L (9-52); AST/SGOT 18 U/L (14-36); BLOOD UREA NITROGEN 15 mg/dL (7-17); CALCIUM 8.8 mg/dl (8.6-10.4); GFR AFRICAN-AMERICAN > 60; GFR NON-AFRICAN AMERICAN > 60
--- NOTE | 2017-12-27 08:00 | PN ---
DATE: 12/26/2017 SUBJECTIVE: The patient was feeling better. She denied any nausea, vomiting. She is, however, constipated. She said, for 3 days, she has not had a bowel movement, and she is getting some tablets. PHYSICAL EXAMINATION: VITAL SIGNS: T-max was 98.6, pulse 80, blood pressure 104/63, respirations are 20. HEENT: Head is atraumatic, normocephalic. NECK: Supple. NEUROLOGIC: She is alert and oriented x3. LUNGS: Clear. HEART: S1 and S2 regular. ABDOMEN: Soft, nontender. No guarding, no rigidity present. EXTREMITIES: Left leg stump has a dressing and right leg was unremarkable. LABORATORY DATA: Labs are noted. Labs show white count is 9.6, hemoglobin 8.9, hematocrit 26.4, platelet count is elevated at 643, and chemistry shows BUN is 11, creatinine 0.7, and micro curtis, there are no new cultures. The patient did have an episode of abdominal pain with air in the portal vein and status post left BKA for ischemic nonhealing ulcer with peripheral vascular disease, diabetic, and is improving. She still remains on antibiotics and is being followed by multiple consultants. We will follow with the other consultants, and at this time, she remains on Zosyn and vancomycin which probably by the end of the week or Sunday, she should be able to go. Alissa Wiggins MD
[2017-12-27] MEDS: (Novolin R) Insulin Human Regular 100 units/ml vial SC SCH ×4 (08:32→21:53)
[2017-12-27] MEDS: Ferric Sodium Gluconat Complex 62.5 mg/5 ml Vial IVPB SCH (09:06)
[2017-12-27] MEDS: Lidocaine 5% Patch TD SCH (09:06)
[2017-12-27] MEDS: Dakin's Topical 0.25%-Half Strength (480 ml) TOP SCH (11:00)
[2017-12-27] MEDS: Vancomycin 1 gm/NS 200 ml 1 GM/200 ML BAG IVPB SCH ×2 (11:07→22:56)
--- NOTE | 2017-12-27 12:31 | CP.PCM.PN ---
Subjective - Date & Time of Evaluation Date of Evaluation: 12/27/17 Time of Evaluation: 12:29 - Subjective Subjective: F/u abdom distention. Daughter present Denies CP, SOB, abd pain, constip, diarrhea, fever, chills, hematuria Feels better Objective - Vital Signs/Intake and Output Vital Signs (last 24 hours): Temp Pulse Resp BP Pulse Ox 97.8 F 97 H 20 125/74 97 12/27/17 08:00 12/27/17 08:00 12/27/17 08:00 12/27/17 08:00 12/27/17 08:00 Intake and Output: 12/27/17 12/27/17 06:59 18:59 Intake Total 1340 Output Total 3100 Balance -1760 - Medications Medications: Current Medications Acetaminophen (Tylenol 325mg Tab) 650 mg PO Q4 PRN PRN Reason: Pain, Mild (1-3) Last Admin: 12/22/17 18:47 Dose: 650 mg Famotidine (Pepcid) 20 mg IVP DAILY [facility] Last Admin: 12/27/17 09:06 Dose: 20 mg Ferric Sodium Gluconate Complex (Ferrlecit) 125 mg IVPB DAILY [facility] Stop: 01/04/18 10:01 Last Admin: 12/27/17 09:06 Dose: 125 mg Heparin Sodium (Porcine) (Heparin) 5,000 units SC Q8 [facility] Last Admin: 12/23/17 06:56 Dose: Not Given Vancomycin/Sodium Chloride (Vancomycin 1 Gm/Ns 200 Ml) 1 gm in 200 mls @ 133.333 mls/hr IVPB Q12H [facility] PRN Reason: Protocol Last Admin: 12/27/17 11:07 Dose: 133.333 mls/hr Potassium Chloride 40 meq/ (Sodium Chloride) 1,020 mls @ 75 mls/hr IV .[id number] [facility] Last Admin: 12/27/17 05:30 Dose: Not Given Piperacillin Sod/Tazobactam Sod (Zosyn 3.375 Gm Iv Premix) 3.375 gm in 50 mls @ 100 mls/hr IVPB Q6H [facility] PRN Reason: Protocol Last Admin: 12/27/17 05:00 Dose: 100 mls/hr Insulin Glargine (Lantus) 10 unit SC HS [facility] Last Admin: 12/26/17 22:14 Dose: 10 unit Insulin Human Regular (Novolin R) 0 unit SC ACHS [facility] PRN Reason: Protocol Last Admin: 12/27/17 08:32 Dose: 3 unit Lidocaine (Lidoderm) 1 ea TD DAILY [facility] Last Admin: 12/27/17 09:06 Dose: 1 ea Morphine Sulfate (Morphine) 2 mg IVP Q4 PRN PRN Reason: Pain, severe (8-10) Last Admin: 12/27/17 09:02 Dose: 2 mg Sennosides (Senokot Tab) 8.6 mg PO DAILY [facility] Last Admin: 12/27/17 09:06 Dose: 8.6 mg Sodium Hypochlorite (Dakins Solution 0.25%) 0 ml TOP DAILY [facility] Last Admin: 12/25/17 10:29 Dose: Not Given - Labs Labs: 12/27/17 07:12 12/27/17 07:12 PT 13.2 SECONDS (9.7-12.2) H 12/22/17 23:54 INR 1.2 12/22/17 23:54 APTT 40 SECONDS (21-34) H 12/22/17 23:54 - Constitutional Appears: Non-toxic - Respiratory Exam Respiratory Exam: Clear to Ausculation Bilateral - Cardiovascular Exam Cardiovascular Exam: RRR - GI/Abdominal Exam GI & Abdominal Exam: Soft, Normal Bowel Sounds. absent: Guarding, Tenderness, Hernia, Mass, Rebound - Extremities Exam Extremities Exam: absent: Calf Tenderness - Neurological Exam Neurological Exam: Alert, Oriented x3 Assessment and Plan (1) Abnormal CT of the abdomen Assessment & Plan: air portal vein. No acute GI process. Clinically improving Status: Acute (2) Anemia Status: Acute (3) Diabetic infection of left foot Status: Acute (4) DM2 (diabetes mellitus, type 2) Status: Chronic (5) HTN (hypertension) Status: Chronic
--- NOTE | 2017-12-27 18:10 | CP.PCM.PN ---
Subjective - Date & Time of Evaluation Date of Evaluation: 12/26/17 Time of Evaluation: 18:04 - Subjective Subjective: Patient is currently feeling well. But complains of not having bowel movements. She is eating slightly better. No nausea vomiting. Vital signs stable. 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 Patient also had suspected colitis, improved. Currently on IV antibiotic. We will continue the current treatment. Physical therapy. We will follow the patient Objective - Vital Signs/Intake and Output Vital Signs (last 24 hours): Temp Pulse Resp BP Pulse Ox 99 F 90 20 123/64 98 12/27/17 16:30 12/27/17 16:30 12/27/17 16:30 12/27/17 16:30 12/27/17 16:30 Intake and Output: 12/27/17 12/27/17 06:59 18:59 Intake Total 1340 1100 Output Total 3100 1000 Balance -1760 100 - Medications Medications: Current Medications Acetaminophen (Tylenol 325mg Tab) 650 mg PO Q4 PRN PRN Reason: Pain, Mild (1-3) Last Admin: 12/22/17 18:47 Dose: 650 mg Famotidine (Pepcid) 20 mg IVP DAILY [facility] Last Admin: 12/27/17 09:06 Dose: 20 mg Ferric Sodium Gluconate Complex (Ferrlecit) 125 mg IVPB DAILY [facility] Stop: 01/04/18 10:01 Last Admin: 12/27/17 09:06 Dose: 125 mg Heparin Sodium (Porcine) (Heparin) 5,000 units SC Q8 [facility] Last Admin: 12/23/17 06:56 Dose: Not Given Vancomycin/Sodium Chloride (Vancomycin 1 Gm/Ns 200 Ml) 1 gm in 200 mls @ 133.333 mls/hr IVPB Q12H [facility] PRN Reason: Protocol Last Admin: 12/27/17 11:07 Dose: 133.333 mls/hr Piperacillin Sod/Tazobactam Sod (Zosyn 3.375 Gm Iv Premix) 3.375 gm in 50 mls @ 100 mls/hr IVPB Q6H [facility] PRN Reason: Protocol Last Admin: 12/27/17 17:17 Dose: 100 mls/hr Insulin Glargine (Lantus) 10 unit SC HS [facility] Last Admin: 12/26/17 22:14 Dose: 10 unit Insulin Human Regular (Novolin R) 0 unit SC ACHS [facility] PRN Reason: Protocol Last Admin: 12/27/17 17:19 Dose: 5 unit Lidocaine (Lidoderm) 1 ea TD DAILY [facility] Last Admin: 12/27/17 09:06 Dose: 1 ea Morphine Sulfate (Morphine) 2 mg IVP Q4 PRN PRN Reason: Pain, severe (8-10) Last Admin: 12/27/17 17:26 Dose: 2 mg - Labs Labs: 12/27/17 07:12 12/27/17 07:12 PT 13.2 SECONDS (9.7-12.2) H 12/22/17 23:54 INR 1.2 12/22/17 23:54 APTT 40 SECONDS (21-34) H 12/22/17 23:54
--- NOTE | 2017-12-27 18:11 | CP.PCM.PN ---
Subjective - Date & Time of Evaluation Date of Evaluation: 12/27/17 Time of Evaluation: 18:10 - Subjective Subjective: Patient is currently feeling well. But complains of not having bowel movements. She is eating slightly better. No nausea vomiting. Vital signs stable. 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 Patient also had suspected colitis, improved. Currently on IV antibiotic. We will continue the current treatment. Physical therapy. We will follow the patient Objective - Vital Signs/Intake and Output Vital Signs (last 24 hours): Temp Pulse Resp BP Pulse Ox 99 F 90 20 123/64 98 12/27/17 16:30 12/27/17 16:30 12/27/17 16:30 12/27/17 16:30 12/27/17 16:30 Intake and Output: 12/27/17 12/27/17 06:59 18:59 Intake Total 1340 1100 Output Total 3100 1000 Balance -1760 100 - Medications Medications: Current Medications Acetaminophen (Tylenol 325mg Tab) 650 mg PO Q4 PRN PRN Reason: Pain, Mild (1-3) Last Admin: 12/22/17 18:47 Dose: 650 mg Famotidine (Pepcid) 20 mg IVP DAILY [facility] Last Admin: 12/27/17 09:06 Dose: 20 mg Ferric Sodium Gluconate Complex (Ferrlecit) 125 mg IVPB DAILY [facility] Stop: 01/04/18 10:01 Last Admin: 12/27/17 09:06 Dose: 125 mg Heparin Sodium (Porcine) (Heparin) 5,000 units SC Q8 [facility] Last Admin: 12/23/17 06:56 Dose: Not Given Vancomycin/Sodium Chloride (Vancomycin 1 Gm/Ns 200 Ml) 1 gm in 200 mls @ 133.333 mls/hr IVPB Q12H [facility] PRN Reason: Protocol Last Admin: 12/27/17 11:07 Dose: 133.333 mls/hr Piperacillin Sod/Tazobactam Sod (Zosyn 3.375 Gm Iv Premix) 3.375 gm in 50 mls @ 100 mls/hr IVPB Q6H [facility] PRN Reason: Protocol Last Admin: 12/27/17 17:17 Dose: 100 mls/hr Insulin Glargine (Lantus) 10 unit SC HS [facility] Last Admin: 12/26/17 22:14 Dose: 10 unit Insulin Human Regular (Novolin R) 0 unit SC ACHS [facility] PRN Reason: Protocol Last Admin: 12/27/17 17:19 Dose: 5 unit Lidocaine (Lidoderm) 1 ea TD DAILY [facility] Last Admin: 12/27/17 09:06 Dose: 1 ea Morphine Sulfate (Morphine) 2 mg IVP Q4 PRN PRN Reason: Pain, severe (8-10) Last Admin: 12/27/17 17:26 Dose: 2 mg - Labs Labs: 12/27/17 07:12 12/27/17 07:12 PT 13.2 SECONDS (9.7-12.2) H 12/22/17 23:54 INR 1.2 12/22/17 23:54 APTT 40 SECONDS (21-34) H 12/22/17 23:54
[2017-12-27] MEDS: (Lantus) Insulin Glargine, Recombinant SC SCH (21:53)
[2017-12-28] MEDS: Piperacill/Tazo 3.375gm in Dex 3.375 GM/50 ML BAG IVPB SCH ×4 (00:15→18:01)
[2017-12-28 06:52] LABS: ALB/GLOB RATIO 0.9 (1.0-2.1); ALBUMIN 3.2 g/dL (3.5-5.0); ALT/SGPT 17 U/L (9-52); AST/SGOT 15 U/L (14-36); BLOOD UREA NITROGEN 13 mg/dL (7-17); CALCIUM 9.3 mg/dl (8.6-10.4); GFR AFRICAN-AMERICAN > 60; GFR NON-AFRICAN AMERICAN > 60
[2017-12-28] MEDS: (Novolin R) Insulin Human Regular 100 units/ml vial SC SCH ×4 (08:05→22:00)
[2017-12-28] MEDS: Lidocaine 5% Patch TD SCH (10:20)
[2017-12-28] MEDS: Ferric Sodium Gluconat Complex 62.5 mg/5 ml Vial IVPB SCH (10:20)
[2017-12-28] MEDS: Vancomycin 1 gm/NS 200 ml 1 GM/200 ML BAG IVPB SCH ×2 (11:59→22:04)
[2017-12-28] MEDS: (Lantus) Insulin Glargine, Recombinant SC SCH (22:02)
--- NOTE | 2017-12-28 23:03 | CP.PCM.PN ---
Subjective - Date & Time of Evaluation Date of Evaluation: 12/28/17 Time of Evaluation: 18:00 - Subjective Subjective: dictated Objective - Vital Signs/Intake and Output Vital Signs (last 24 hours): Temp Pulse Resp BP Pulse Ox 98.9 F 65 20 101/60 98 12/28/17 15:00 12/28/17 15:00 12/28/17 15:00 12/28/17 15:00 12/28/17 15:00 Intake and Output: 12/28/17 12/29/17 18:59 06:59 Intake Total 750 500 Balance 750 500 - Medications Medications: Current Medications Acetaminophen (Tylenol 325mg Tab) 650 mg PO Q4 PRN PRN Reason: Pain, Mild (1-3) Last Admin: 12/22/17 18:47 Dose: 650 mg Famotidine (Pepcid) 20 mg IVP DAILY [facility] Last Admin: 12/28/17 10:21 Dose: 20 mg Ferric Sodium Gluconate Complex (Ferrlecit) 125 mg IVPB DAILY [facility] Stop: 01/04/18 10:01 Last Admin: 12/28/17 10:20 Dose: 125 mg Heparin Sodium (Porcine) (Heparin) 5,000 units SC Q8 [facility] Last Admin: 12/23/17 06:56 Dose: Not Given Vancomycin/Sodium Chloride (Vancomycin 1 Gm/Ns 200 Ml) 1 gm in 200 mls @ 133.333 mls/hr IVPB Q12H [facility] PRN Reason: Protocol Last Admin: 12/28/17 22:04 Dose: 133.333 mls/hr Piperacillin Sod/Tazobactam Sod (Zosyn 3.375 Gm Iv Premix) 3.375 gm in 50 mls @ 100 mls/hr IVPB Q6H [facility] PRN Reason: Protocol Last Admin: 12/28/17 18:01 Dose: 100 mls/hr Insulin Glargine (Lantus) 10 unit SC HS [facility] Last Admin: 12/28/17 22:02 Dose: 10 unit Insulin Human Regular (Novolin R) 0 unit SC ACHS [facility] PRN Reason: Protocol Last Admin: 12/28/17 22:00 Dose: Not Given Lidocaine (Lidoderm) 1 ea TD DAILY [facility] Last Admin: 12/28/17 10:20 Dose: 1 ea Morphine Sulfate (Morphine) 2 mg IVP Q4 PRN PRN Reason: Pain, severe (8-10) Last Admin: 12/28/17 18:34 Dose: 2 mg - Labs Labs: 12/27/17 07:12 12/28/17 06:32 PT 13.2 SECONDS (9.7-12.2) H 12/22/17 23:54 INR 1.2 12/22/17 23:54 APTT 40 SECONDS (21-34) H 12/22/17 23:54
[2017-12-29] MEDS: Piperacill/Tazo 3.375gm in Dex 3.375 GM/50 ML BAG IVPB SCH ×5 (00:10→23:49)
--- NOTE | 2017-12-29 04:33 | PN ---
DATE: 12/28/2017 SUBJECTIVE: The patient was seen today. She says she is feeling better. She denied any constipation. She says she had bowel movements, and she was feeling better. Denied any nausea or vomiting. No abdominal pain. She thinks she would be going home early next week. She says the left knee amputation is good, but still having pain. She showed me the lidocaine patch that she is getting to her left thigh, left leg. She says she is slightly better, however. PHYSICAL EXAMINATION: VITAL SIGNS: T-max is 98.9, pulse 65, blood pressure 101/60, respirations are 20. GENERAL: She is pale. HEENT: Head is atraumatic and normocephalic. NECK: Supple. LUNGS: Clear. HEART: S1 and S2 are regular. ABDOMEN: Soft, nontender. No guarding, no rigidity present. EXTREMITIES: Left stump is unremarkable, has a splint and the right leg is unremarkable at this time now. LABORATORY DATA: Labs are noted. White count is 9.8 now, hemoglobin is 8.5, hematocrit 24.9, platelet count is 599, and the platelets are also coming down at this time. IMPRESSION AND PLAN: She will get a vancomycin random level, and I plan to. Impression is she had some air in the biliary duct recently and became again very sick, requiring intensive care unit evaluation and was there and is now being followed by Gastroenterology. If she is stable tomorrow, we will discontinue antibiotics and observe her another day just to be sure that there are no other problems. Impression is she has no acute abdomen at one point, and then she is status post left below-knee amputation. Alissa Wiggins MD
[2017-12-29] MEDS: (Novolin R) Insulin Human Regular 100 units/ml vial SC SCH ×4 (07:52→21:38)
--- NOTE | 2017-12-29 08:09 | CP.PCM.PN ---
Subjective - Date & Time of Evaluation Date of Evaluation: 12/29/17 Time of Evaluation: 08:09 - Subjective Subjective: Patient is currently feeling vital signs stable. Clinical examination no changes noted. Labs reviewed Currently receiving intravenous iron infusion Minimal pain. No nausea vomiting. Eating better. Having bowel movements We will continue the current treatment. We will follow the patient Objective - Vital Signs/Intake and Output Vital Signs (last 24 hours): Temp Pulse Resp BP Pulse Ox 98.3 F 73 20 118/60 96 12/29/17 07:46 12/29/17 07:46 12/29/17 07:46 12/29/17 07:46 12/29/17 07:46 Intake and Output: 12/29/17 12/29/17 06:59 18:59 Intake Total 500 Balance 500 - Medications Medications: Current Medications Acetaminophen (Tylenol 325mg Tab) 650 mg PO Q4 PRN PRN Reason: Pain, Mild (1-3) Last Admin: 12/22/17 18:47 Dose: 650 mg Famotidine (Pepcid) 20 mg IVP DAILY [facility] Last Admin: 12/28/17 10:21 Dose: 20 mg Ferric Sodium Gluconate Complex (Ferrlecit) 125 mg IVPB DAILY [facility] Stop: 01/04/18 10:01 Last Admin: 12/28/17 10:20 Dose: 125 mg Heparin Sodium (Porcine) (Heparin) 5,000 units SC Q8 [facility] Last Admin: 12/23/17 06:56 Dose: Not Given Vancomycin/Sodium Chloride (Vancomycin 1 Gm/Ns 200 Ml) 1 gm in 200 mls @ 133.333 mls/hr IVPB Q12H [facility] PRN Reason: Protocol Last Admin: 12/28/17 22:04 Dose: 133.333 mls/hr Piperacillin Sod/Tazobactam Sod (Zosyn 3.375 Gm Iv Premix) 3.375 gm in 50 mls @ 100 mls/hr IVPB Q6H [facility] PRN Reason: Protocol Last Admin: 12/29/17 05:15 Dose: 100 mls/hr Insulin Glargine (Lantus) 10 unit SC HS [facility] Last Admin: 12/28/17 22:02 Dose: 10 unit Insulin Human Regular (Novolin R) 0 unit SC ACHS [facility] PRN Reason: Protocol Last Admin: 12/29/17 07:52 Dose: 2 unit Lidocaine (Lidoderm) 1 ea TD DAILY [facility] Last Admin: 12/28/17 10:20 Dose: 1 ea Morphine Sulfate (Morphine) 2 mg IVP Q4 PRN PRN Reason: Pain, severe (8-10) Last Admin: 12/29/17 07:53 Dose: 2 mg - Labs Labs: 12/27/17 07:12 12/28/17 06:32 PT 13.2 SECONDS (9.7-12.2) H 12/22/17 23:54 INR 1.2 12/22/17 23:54 APTT 40 SECONDS (21-34) H 12/22/17 23:54
--- NOTE | 2017-12-29 08:09 | CP.PCM.PN ---
Subjective - Date & Time of Evaluation Date of Evaluation: 12/28/17 Time of Evaluation: 08:09 - Subjective Subjective: Patient is currently feeling better. The pain still noted. Denies any chest pain. On examination: Vital signs stable. Chest good air entry regular heart sounds nontender abdominal pedal edema Assessment and recommendation: 62-year-old female admitted to the hospital with left foot gangrene. Status post BKA. Physical therapy. Placement Objective - Vital Signs/Intake and Output Vital Signs (last 24 hours): Temp Pulse Resp BP Pulse Ox 98.3 F 73 20 118/60 96 12/29/17 07:46 12/29/17 07:46 12/29/17 07:46 12/29/17 07:46 12/29/17 07:46 Intake and Output: 12/29/17 12/29/17 06:59 18:59 Intake Total 500 Balance 500 - Medications Medications: Current Medications Acetaminophen (Tylenol 325mg Tab) 650 mg PO Q4 PRN PRN Reason: Pain, Mild (1-3) Last Admin: 12/22/17 18:47 Dose: 650 mg Famotidine (Pepcid) 20 mg IVP DAILY [facility] Last Admin: 12/28/17 10:21 Dose: 20 mg Ferric Sodium Gluconate Complex (Ferrlecit) 125 mg IVPB DAILY [facility] Stop: 01/04/18 10:01 Last Admin: 12/28/17 10:20 Dose: 125 mg Heparin Sodium (Porcine) (Heparin) 5,000 units SC Q8 [facility] Last Admin: 12/23/17 06:56 Dose: Not Given Vancomycin/Sodium Chloride (Vancomycin 1 Gm/Ns 200 Ml) 1 gm in 200 mls @ 133.333 mls/hr IVPB Q12H [facility] PRN Reason: Protocol Last Admin: 12/28/17 22:04 Dose: 133.333 mls/hr Piperacillin Sod/Tazobactam Sod (Zosyn 3.375 Gm Iv Premix) 3.375 gm in 50 mls @ 100 mls/hr IVPB Q6H [facility] PRN Reason: Protocol Last Admin: 12/29/17 05:15 Dose: 100 mls/hr Insulin Glargine (Lantus) 10 unit SC HS [facility] Last Admin: 12/28/17 22:02 Dose: 10 unit Insulin Human Regular (Novolin R) 0 unit SC ACHS [facility] PRN Reason: Protocol Last Admin: 12/29/17 07:52 Dose: 2 unit Lidocaine (Lidoderm) 1 ea TD DAILY [facility] Last Admin: 12/28/17 10:20 Dose: 1 ea Morphine Sulfate (Morphine) 2 mg IVP Q4 PRN PRN Reason: Pain, severe (8-10) Last Admin: 12/29/17 07:53 Dose: 2 mg - Labs Labs: 12/27/17 07:12 12/28/17 06:32 PT 13.2 SECONDS (9.7-12.2) H 12/22/17 23:54 INR 1.2 12/22/17 23:54 APTT 40 SECONDS (21-34) H 12/22/17 23:54
[2017-12-29] MEDS: Saccharomyces Boulardi 250 mg Cap PO SCH ×3 (09:29→17:28)
[2017-12-29] MEDS: Ferric Sodium Gluconat Complex 62.5 mg/5 ml Vial IVPB SCH (09:30)
[2017-12-29] MEDS: Lidocaine 5% Patch TD SCH (09:31)
[2017-12-29 11:40] LABS: ALBUMIN 3.5 g/dL (3.5-5.0); ALT/SGPT 22 U/L (9-52); AST/SGOT 19 U/L (14-36); BLOOD UREA NITROGEN 14 mg/dL (7-17); CALCIUM 9.3 mg/dl (8.6-10.4); GFR AFRICAN-AMERICAN > 60; GFR NON-AFRICAN AMERICAN > 60
[2017-12-29] MEDS: Vancomycin 1 gm/NS 200 ml 1 GM/200 ML BAG IVPB SCH ×2 (12:20→22:49)
[2017-12-29] MEDS: (Lantus) Insulin Glargine, Recombinant SC SCH (21:40)
[2017-12-30] MEDS: Piperacill/Tazo 3.375gm in Dex 3.375 GM/50 ML BAG IVPB SCH ×4 (04:59→23:28)
[2017-12-30 07:48] LABS: BASO # 0.1 K/uL (0.0-0.2); BASO % 0.6 % (0.0-2.0); EOS # 0.2 K/uL (0.0-0.7); EOS % 2.5 % (0.0-4.0); HEMOGLOBIN 9.4 g/dL (11.0-16.0); LYMPH % 55.6 % (20.0-40.0); MEAN CELL VOLUME 84.1 fL (81.0-99.0); MEAN CORPUSCULAR HEMOGLOBIN 28.1 pg (27.0-31.0); MEAN CORPUSCULAR HGB CONC 33.4 g/dL (33.0-37.0); MEAN PLATELET VOLUME 8.8 fL (7.2-11.7); MONO # 0.7 K/uL (0.0-0.8); MONO % 8.2 % (0.0-10.0); NEUT % 33.1 % (50.0-75.0); RBC 3.35 Mil/uL (3.80-5.20); RED CELL DISTRIBUTION WIDTH 19.5 % (11.5-14.5)
--- NOTE | 2017-12-30 07:49 | CP.PCM.PN ---
Subjective - Date & Time of Evaluation Date of Evaluation: 12/30/17 Time of Evaluation: 07:48 - Subjective Subjective: Patient is still feeling minimal pain in the left leg. Receiving morphine on and off. Educated about the pain medications. On examination: Clinically stable. Vital signs stable. No pedal edema Assessment and recommendation: 62-year-old female. Diabetes hypertension high cholesterol PVD left foot gangrene. Status post BKA. For physical therapy. Possible discharge plan Objective - Vital Signs/Intake and Output Vital Signs (last 24 hours): Temp Pulse Resp BP Pulse Ox 98.2 F 66 20 109/66 97 12/30/17 00:21 12/30/17 00:21 12/30/17 00:21 12/30/17 00:21 12/30/17 00:21 Intake and Output: 12/30/17 12/30/17 06:59 18:59 Intake Total 820 Balance 820 - Medications Medications: Current Medications Acetaminophen (Tylenol 325mg Tab) 650 mg PO Q4 PRN PRN Reason: Pain, Mild (1-3) Last Admin: 12/22/17 18:47 Dose: 650 mg Famotidine (Pepcid) 20 mg IVP DAILY [facility] Last Admin: 12/29/17 09:29 Dose: 20 mg Ferric Sodium Gluconate Complex (Ferrlecit) 125 mg IVPB DAILY [facility] Stop: 01/04/18 10:01 Last Admin: 12/29/17 09:30 Dose: 125 mg Heparin Sodium (Porcine) (Heparin) 5,000 units SC Q8 [facility] Last Admin: 12/23/17 06:56 Dose: Not Given Vancomycin/Sodium Chloride (Vancomycin 1 Gm/Ns 200 Ml) 1 gm in 200 mls @ 133.333 mls/hr IVPB Q12H [facility] PRN Reason: Protocol Last Admin: 12/29/17 22:49 Dose: 133.333 mls/hr Piperacillin Sod/Tazobactam Sod (Zosyn 3.375 Gm Iv Premix) 3.375 gm in 50 mls @ 100 mls/hr IVPB Q6H [facility] PRN Reason: Protocol Last Admin: 12/30/17 04:59 Dose: 100 mls/hr Insulin Glargine (Lantus) 10 unit SC HS [facility] Last Admin: 12/29/17 21:40 Dose: 10 unit Insulin Human Regular (Novolin R) 0 unit SC ACHS [facility] PRN Reason: Protocol Last Admin: 12/29/17 21:38 Dose: Not Given Lidocaine (Lidoderm) 1 ea TD DAILY [facility] Last Admin: 12/29/17 09:31 Dose: 1 ea Morphine Sulfate (Morphine) 2 mg IVP Q4 PRN PRN Reason: Pain, severe (8-10) Last Admin: 12/30/17 04:58 Dose: 2 mg Saccharomyces Boulardii (Florastor) 250 mg PO TID [facility] Last Admin: 12/29/17 17:28 Dose: 250 mg - Labs Labs: 12/27/17 07:12 12/29/17 11:17 PT 13.2 SECONDS (9.7-12.2) H 12/22/17 23:54 INR 1.2 12/22/17 23:54 APTT 40 SECONDS (21-34) H 12/22/17 23:54
[2017-12-30] MEDS: (Novolin R) Insulin Human Regular 100 units/ml vial SC SCH ×4 (08:07→21:33)
[2017-12-30 08:15] LABS: ALBUMIN 3.6 g/dL (3.5-5.0); ALT/SGPT 19 U/L (9-52); AST/SGOT 22 U/L (14-36); BLOOD UREA NITROGEN 11 mg/dL (7-17); CALCIUM 9.4 mg/dl (8.6-10.4); GFR AFRICAN-AMERICAN > 60; GFR NON-AFRICAN AMERICAN > 60
[2017-12-30] MEDS: Ferric Sodium Gluconat Complex 62.5 mg/5 ml Vial IVPB SCH (10:45)
[2017-12-30] MEDS: Saccharomyces Boulardi 250 mg Cap PO SCH ×3 (10:51→17:08)
[2017-12-30] MEDS: Lidocaine 5% Patch TD SCH (10:52)
[2017-12-30] MEDS: Vancomycin 1 gm/NS 200 ml 1 GM/200 ML BAG IVPB SCH ×2 (11:16→23:19)
[2017-12-30] MEDS: (Lantus) Insulin Glargine, Recombinant SC SCH (21:30)
[2017-12-31] MEDS: Piperacill/Tazo 3.375gm in Dex 3.375 GM/50 ML BAG IVPB SCH ×2 (05:12→12:02)
[2017-12-31] MEDS: Morphine 4 MG/ML VIAL IVP PRN ×5 (07:05→23:49)
[2017-12-31] MEDS: (Novolin R) Insulin Human Regular 100 units/ml vial SC SCH ×4 (08:07→21:32)
[2017-12-31] MEDS: Ferric Sodium Gluconat Complex 62.5 mg/5 ml Vial IVPB SCH (09:49)
[2017-12-31] MEDS: Saccharomyces Boulardi 250 mg Cap PO SCH ×3 (09:51→18:07)
[2017-12-31] MEDS: Lidocaine 5% Patch TD SCH (09:51)
[2017-12-31] MEDS: Vancomycin 1 gm/NS 200 ml 1 GM/200 ML BAG IVPB SCH (11:32)
--- NOTE | 2017-12-31 16:26 | CP.PCM.PN ---
Subjective - Date & Time of Evaluation Date of Evaluation: 12/31/17 Time of Evaluation: 03:45 - Subjective Subjective: dictated Objective - Vital Signs/Intake and Output Vital Signs (last 24 hours): Temp Pulse Resp BP Pulse Ox 98.1 F 64 20 122/72 96 12/31/17 08:00 12/31/17 08:00 12/31/17 08:00 12/31/17 08:00 12/31/17 08:00 Intake and Output: 12/31/17 12/31/17 06:59 18:59 Intake Total 100 600 Balance 100 600 - Medications Medications: Current Medications Acetaminophen (Tylenol 325mg Tab) 650 mg PO Q4 PRN PRN Reason: Pain, Mild (1-3) Last Admin: 12/22/17 18:47 Dose: 650 mg Famotidine (Pepcid) 20 mg IVP DAILY [facility] Last Admin: 12/31/17 09:49 Dose: 20 mg Ferric Sodium Gluconate Complex (Ferrlecit) 125 mg IVPB DAILY [facility] Stop: 01/04/18 10:01 Last Admin: 12/31/17 09:49 Dose: 125 mg Heparin Sodium (Porcine) (Heparin) 5,000 units SC Q8 [facility] Last Admin: 12/23/17 06:56 Dose: Not Given Insulin Glargine (Lantus) 10 unit SC HS [facility] Last Admin: 12/30/17 21:30 Dose: 10 unit Insulin Human Regular (Novolin R) 0 unit SC ACHS [facility] PRN Reason: Protocol Last Admin: 12/31/17 11:56 Dose: 2 unit Morphine Sulfate (Morphine) 2 mg IVP Q4 PRN PRN Reason: Pain, severe (8-10) Last Admin: 12/31/17 15:03 Dose: 2 mg Saccharomyces Boulardii (Florastor) 250 mg PO TID [facility] Last Admin: 12/31/17 13:32 Dose: 250 mg - Labs Labs: 12/30/17 07:39 12/30/17 07:39 PT 13.2 SECONDS (9.7-12.2) H 12/22/17 23:54 INR 1.2 12/22/17 23:54 APTT 40 SECONDS (21-34) H 12/22/17 23:54
--- NOTE | 2017-12-31 19:07 | CP.PCM.PN ---
Subjective - Date & Time of Evaluation Date of Evaluation: 12/31/17 Time of Evaluation: 19:06 - Subjective Subjective: Patient now is feeling better. She was able to transfer herself from bed to chair. But spreading physical therapy. The antibiotic is soft. Vital signs stable. Physical examination unremarkable. Chest good air entry bilaterally regular heart sound nontender abdomen no pedal edema Left BKA Assessment and recommendation: 62-year-old female Diabetes Hypertension Hypercalcemia Peripheral vascular disease Ischemic leg on the left side, status post a BKA. Physical therapy. Possible discharge plan tomorrow Objective - Vital Signs/Intake and Output Vital Signs (last 24 hours): Temp Pulse Resp BP Pulse Ox 99.1 F 75 20 109/70 97 12/31/17 15:15 12/31/17 15:15 12/31/17 15:15 12/31/17 15:15 12/31/17 15:15 Intake and Output: 12/31/17 01/01/18 18:59 06:59 Intake Total 600 Balance 600 - Medications Medications: Current Medications Acetaminophen (Tylenol 325mg Tab) 650 mg PO Q4 PRN PRN Reason: Pain, Mild (1-3) Last Admin: 12/22/17 18:47 Dose: 650 mg Famotidine (Pepcid) 20 mg PO DAILY [facility] Ferric Sodium Gluconate Complex (Ferrlecit) 125 mg IVPB DAILY [facility] Stop: 01/04/18 10:01 Last Admin: 12/31/17 09:49 Dose: 125 mg Heparin Sodium (Porcine) (Heparin) 5,000 units SC Q8 [facility] Last Admin: 12/23/17 06:56 Dose: Not Given Insulin Glargine (Lantus) 10 unit SC HS [facility] Last Admin: 12/30/17 21:30 Dose: 10 unit Insulin Human Regular (Novolin R) 0 unit SC ACHS [facility] PRN Reason: Protocol Last Admin: 12/31/17 17:10 Dose: 4 unit Morphine Sulfate (Morphine) 2 mg IVP Q4 PRN PRN Reason: Pain, severe (8-10) Last Admin: 12/31/17 19:04 Dose: 2 mg Saccharomyces Boulardii (Florastor) 250 mg PO TID [facility] Last Admin: 12/31/17 18:07 Dose: 250 mg - Labs Labs: 12/30/17 07:39 12/30/17 07:39 PT 13.2 SECONDS (9.7-12.2) H 12/22/17 23:54 INR 1.2 12/22/17 23:54 APTT 40 SECONDS (21-34) H 12/22/17 23:54
[2017-12-31] MEDS: (Lantus) Insulin Glargine, Recombinant SC SCH (21:31)
--- NOTE | 2018-01-01 01:11 | PN ---
DATE: 12/31/2017 INFECTIOUS DISEASE FOLLOWUP SUBJECTIVE: The patient was seen today. She says she was feeling better and denied any nausea or vomiting. She still is pale but she has been tolerating food and has no abdominal pain. She is also getting some physical therapy. She says the left arm sometimes hurts a lot but she is getting this local pain patch on the left thigh which she says is helping her. PHYSICAL EXAMINATION: VITAL SIGNS: T-max is 99.1, pulse 75, blood pressure 109/70, respirations are 20. HEENT: Head is atraumatic and normocephalic. Pallor present. NECK: Supple. LUNGS: Clear. No crackles or rales present. HEART: S1 and S2 are regular. ABDOMEN: Soft, nontender. No guarding, no rigidity present. ASSESSMENT AND PLAN: She has been on antibiotics. The left stump has a splint present, and she will need obviously physical therapy for it. At this time, I stopped the antibiotic today, and I would like to see her off antibiotics and if she does well Gastroenterology is also following. She is also getting iron for her anemia, and she had a left leg amputation for nonhealing ulcer and for peripheral vascular disease, and hopefully, she will improve and will be able to get prosthesis. We will follow. Alissa Wiggins MD
[2018-01-01] MEDS: Morphine 4 MG/ML VIAL IVP PRN ×5 (04:02→20:16)
[2018-01-01] MEDS: (Novolin R) Insulin Human Regular 100 units/ml vial SC SCH ×3 (08:12→17:54)
[2018-01-01] MEDS: Ferric Sodium Gluconat Complex 62.5 mg/5 ml Vial IVPB SCH (09:44)
[2018-01-01] MEDS: Saccharomyces Boulardi 250 mg Cap PO SCH ×3 (09:44→17:53)
[2018-01-01 11:06] LABS: BASO % 0.5 % (0.0-2.0); EOS # 0.2 K/uL (0.0-0.7); EOS % 2.6 % (0.0-4.0); HEMOGLOBIN 10.1 g/dL (11.0-16.0); LYMPH # 4.5 K/uL (1.0-4.3); LYMPH % 56.2 % (20.0-40.0); MEAN CELL VOLUME 85.2 fL (81.0-99.0); MEAN CORPUSCULAR HEMOGLOBIN 27.6 pg (27.0-31.0); MEAN CORPUSCULAR HGB CONC 32.4 g/dL (33.0-37.0); MEAN PLATELET VOLUME 9.2 fL (7.2-11.7); MONO # 0.7 K/uL (0.0-0.8); MONO % 8.2 % (0.0-10.0); NEUT # 2.6 K/uL (1.8-7.0); NEUT % 32.5 % (50.0-75.0); NRBC % 0.2 % (0.0-2.0); RBC 3.66 Mil/uL (3.80-5.20); RED CELL DISTRIBUTION WIDTH 20.4 % (11.5-14.5)
[2018-01-01 11:23] LABS: BLOOD UREA NITROGEN 21 mg/dL (7-17); CALCIUM 9.5 mg/dl (8.6-10.4); GFR AFRICAN-AMERICAN > 60; GFR NON-AFRICAN AMERICAN > 60
--- NOTE | 2018-01-01 20:57 | CP.PCM.PN ---
Subjective - Date & Time of Evaluation Date of Evaluation: 01/01/18 Time of Evaluation: 03:10 - Subjective Subjective: dictated Objective - Vital Signs/Intake and Output Vital Signs (last 24 hours): Temp Pulse Resp BP Pulse Ox 98.1 F 72 20 112/64 98 01/01/18 15:00 01/01/18 15:00 01/01/18 15:00 01/01/18 15:00 01/01/18 15:00 Intake and Output: 01/01/18 01/02/18 18:59 06:59 Intake Total 600 Balance 600 - Medications Medications: Current Medications Acetaminophen (Tylenol 325mg Tab) 650 mg PO Q4 PRN PRN Reason: Pain, Mild (1-3) Last Admin: 12/22/17 18:47 Dose: 650 mg Famotidine (Pepcid) 20 mg PO DAILY [facility] Last Admin: 01/01/18 09:45 Dose: 20 mg Ferric Sodium Gluconate Complex (Ferrlecit) 125 mg IVPB DAILY [facility] Stop: 01/04/18 10:01 Last Admin: 01/01/18 09:44 Dose: 125 mg Heparin Sodium (Porcine) (Heparin) 5,000 units SC Q8 [facility] Last Admin: 01/01/18 13:41 Dose: 5,000 units Insulin Glargine (Lantus) 10 unit SC HS [facility] Last Admin: 12/31/17 21:31 Dose: 10 unit Insulin Human Regular (Novolin R) 0 unit SC ACHS [facility] PRN Reason: Protocol Last Admin: 01/01/18 17:54 Dose: 4 unit Morphine Sulfate (Morphine) 2 mg IVP Q4 PRN PRN Reason: Pain, severe (8-10) Last Admin: 01/01/18 20:16 Dose: 2 mg Saccharomyces Boulardii (Florastor) 250 mg PO TID [facility] Last Admin: 01/01/18 17:53 Dose: 250 mg - Labs Labs: 01/01/18 10:59 01/01/18 10:59 PT 13.2 SECONDS (9.7-12.2) H 12/22/17 23:54 INR 1.2 12/22/17 23:54 APTT 40 SECONDS (21-34) H 12/22/17 23:54
[2018-01-01] MEDS: (Lantus) Insulin Glargine, Recombinant SC SCH (21:37)
--- NOTE | 2018-01-02 02:49 | PN ---
DATE: 01/01/2018 SUBJECTIVE: The patient was seen today. She is now off antibiotics, and she denied any new complaints. She is still getting iron and is anemic. She denies any nausea and vomiting. No abdominal pain. I saw her today, off antibiotics. OBJECTIVE: VITAL SIGNS: Stable. LUNGS: Clear. HEART: S1, S2 is regular. ABDOMEN: Soft, nontender. EXTREMITIES: Left stump is healing, right leg is unremarkable. The patient is to get to rehab, so that she can get prosthesis, and she seems to be optimistic, and the abdominal pains have gone. Labs today, white count was 8, hemoglobin 10.1, hematocrit 31.2, platelet count still remains high at 545 but neutrophils are 32.5, lymphocytes of 56.2 actually worse but I think it will get better. BUN is 21, creatinine 0.7, glucose is still high, and Primary is monitoring it. Alissa Wiggnis MD
[2018-01-02] MEDS ORDERED: GlipiZIDE 2.5 mg Tab PO SCH (07:30)
[2018-01-02] MEDS: (Novolin R) Insulin Human Regular 100 units/ml vial SC SCH ×2 (08:16→11:54)
[2018-01-02] MEDS: Tramadol 25 mg PO PRN ×2 (08:20→14:03)
[2018-01-02] MEDS: Saccharomyces Boulardi 250 mg Cap PO SCH ×2 (09:33→14:00)
[2018-01-02] MEDS: Ferric Sodium Gluconat Complex 62.5 mg/5 ml Vial IVPB SCH (09:33)
[2018-01-02 13:26] VITALS: BP 101/57; PULSE 71; TEMP 97.9; O2SAT 99
--- NOTE | 2018-01-02 13:47 | CP.PCM.PN ---
Subjective - Date & Time of Evaluation Date of Evaluation: 01/02/18 Time of Evaluation: 13:46 - Subjective Subjective: -FOLLOW UP WITH DR. BEJARANO OR YOUR PRIMARY DOCTOR IN THE OFFICE WITHIN 1 WEEK ---CALL THE OFFICE TO MAKE YOUR APPOINTMENT. -FOLLOW UP DR. SANTANA (SURGEON) IN THE OFFICE IN 2 WEEKS (BY 01/16/18)---CALL THE OFFICE TOMORROW TO MAKE YOUR APPOINTMENT. -KEEP THE KNEE IMMOBILIZER ON AT ALL TIMES AND DO NOT REMOVE THE DRESSING TO YOUR SURGICAL SITE. ONCE YOU SEE DR. SANTANA IN THE OFFICE HE WILL DISCUSS FURTHER MANAGEMENT WITH YOU. -CONTINUE YOUR HOME MEDICATIONS USUAL. YOU HAVE BEEN REFILLED METOPROLOL, GLIPIZIDE ER, LIPITOR, PLAVIX, AND COZAAR. -NEW MEDICATIONS INCLUDE: 1) TYLENOL WITH CODEINE---TAKE 1 TABLET EVERY 8 HOURS ONLY IF YOU HAVE SEVERE PAIN. IF NO SEVERE PAIN THEN DO NOT TAKE. 2) LYRICA 25 MG---TAKE 1 CAPSULE TWICE A DAY (10:00 AM AND 6:00 PM). 3) TRAMADOL---TAKE 1 HALF TABLET UP TO 3 TIMES PER DAY ONLY IF YOU HAVE MODERATE PAIN. IF NO PAIN THEN DO NOT TAKE. -IF YOU HAVE ANY FURTHER QUESTIONS OR CONCERNS, CONTACT DR. BEJARANO OR DR. SANTANA. Objective - Vital Signs/Intake and Output Vital Signs (last 24 hours): Temp Pulse Resp BP Pulse Ox 97.9 F 71 20 101/57 L 99 01/02/18 08:00 01/02/18 08:00 01/02/18 08:00 01/02/18 08:00 01/02/18 08:00 Intake and Output: 01/02/18 01/02/18 06:59 18:59 Intake Total 740 Balance 740 - Medications Medications: Current Medications Acetaminophen (Tylenol 325mg Tab) 650 mg PO Q4 PRN PRN Reason: Pain, Mild (1-3) Last Admin: 12/22/17 18:47 Dose: 650 mg Clopidogrel Bisulfate (Plavix) 75 mg PO DAILY [facility] Last Admin: 01/02/18 09:33 Dose: 75 mg Famotidine (Pepcid) 20 mg PO DAILY [facility] Last Admin: 01/02/18 09:33 Dose: 20 mg Ferric Sodium Gluconate Complex (Ferrlecit) 125 mg IVPB DAILY [facility] Stop: 01/04/18 10:01 Last Admin: 01/02/18 09:33 Dose: 125 mg Glipizide (Glucotrol) 2.5 mg PO ACB [facility] Last Admin: 01/02/18 08:16 Dose: 2.5 mg Heparin Sodium (Porcine) (Heparin) 5,000 units SC Q8 [facility] Last Admin: 01/02/18 05:24 Dose: 5,000 units Insulin Glargine (Lantus) 10 unit SC HS [facility] Last Admin: 01/01/18 21:37 Dose: 10 unit Insulin Human Regular (Novolin R) 0 unit SC ACHS [facility] PRN Reason: Protocol Last Admin: 01/02/18 11:54 Dose: 4 unit Pregabalin (Lyrica) 25 mg PO BID [facility] Last Admin: 01/02/18 09:33 Dose: 25 mg Rosuvastatin Calcium (Crestor) 10 mg PO HS [facility] Last Admin: 01/01/18 23:08 Dose: 10 mg Saccharomyces Boulardii (Florastor) 250 mg PO TID [facility] Last Admin: 01/02/18 09:33 Dose: 250 mg Sitagliptin Phosphate (Januvia) 25 mg PO DAILY [facility] Last Admin: 01/02/18 09:33 Dose: 25 mg Tramadol HCl (Ultram) 25 mg PO TID PRN PRN Reason: Pain, severe (8-10) Last Admin: 01/02/18 08:20 Dose: 25 mg - Labs Labs: 01/01/18 10:59 01/01/18 10:59 PT 13.2 SECONDS (9.7-12.2) H 12/22/17 23:54 INR 1.2 12/22/17 23:54 APTT 40 SECONDS (21-34) H 12/22/17 23:54
--- NOTE | 2018-01-02 22:30 | CP.PCM.PN ---
Subjective - Date & Time of Evaluation Date of Evaluation: 01/01/18 Time of Evaluation: 22:30 - Subjective Subjective: Patient is feeling better. Comfortable. Go to the bathroom normally. No chest pain. No shortness of breath Pain on and off noted On examination: Vital signs stable. Chest good air entry bilaterally regular heart sound nontender abdomen no pedal edema I discussed with the patient able to discharge plan tomorrow. Will discontinue morphine. Medications reviewed with the patient. Patient will be possibly needing lyrica , tramadol, Tylenol 3 as needed. Physical therapy. Will continue the current treatment. Discharge plan tomorrow Objective - Vital Signs/Intake and Output Vital Signs (last 24 hours): Temp Pulse Resp BP Pulse Ox 97.9 F 71 20 101/57 L 99 01/02/18 08:00 01/02/18 08:00 01/02/18 08:00 01/02/18 08:00 01/02/18 08:00 Intake and Output: 01/02/18 01/03/18 18:59 06:59 Intake Total 600 Balance 600 - Labs Labs: 01/01/18 10:59 01/01/18 10:59 PT 13.2 SECONDS (9.7-12.2) H 12/22/17 23:54 INR 1.2 12/22/17 23:54 APTT 40 SECONDS (21-34) H 12/22/17 23:54
--- NOTE | 2018-01-02 22:35 | CP.PCM.DIS ---
Provider - Provider Date of Admission: 12/15/17 14:52 Attending physician: Abbe Bejarano MD Time Spent in preparation of Discharge (in minutes): 45 Hospital Course - Lab Results Lab Results: Micro Results 12/23/17 06:10 Blood Blood Culture - Final NO GROWTH AFTER 5 DAYS 12/23/17 06:10 Blood Gram Stain - Final TEST NOT PERFORMED 12/23/17 06:10 Blood Blood Culture - Final NO GROWTH AFTER 5 DAYS 12/23/17 06:10 Blood Gram Stain - Final TEST NOT PERFORMED 12/25/17 09:05 Naris MRSA Culture - Final MRSA NOT DETECTED 12/23/17 06:10 Urine Urine Culture - Final No Growth (<1,000 CFU/ML) 12/23/17 06:10 Naris MRSA Culture (Admit) - Final MRSA NOT DETECTED 12/13/17 09:45 Blood-Venous Blood Culture - Final NO GROWTH AFTER 5 DAYS 12/13/17 09:45 Blood-Venous Gram Stain - Final TEST NOT PERFORMED 12/13/17 10:15 Blood-Venous Blood Culture - Final NO GROWTH AFTER 5 DAYS 12/13/17 10:15 Blood-Venous Gram Stain - Final TEST NOT PERFORMED 12/13/17 10:41 Foot - Left Gram Stain - Final 12/13/17 10:41 Foot - Left Wound Culture - Final Klebsiella Pneumoniae Ssp Pneu Corynebacterium Species Most Recent Lab Values WBC 8.0 K/uL (4.8-10.8) 01/01/18 10:59 RBC 3.66 Mil/uL (3.80-5.20) L 01/01/18 10:59 Hgb 10.1 g/dL (11.0-16.0) L 01/01/18 10:59 Hct 31.2 % (34.0-47.0) L 01/01/18 10:59 MCV 85.2 fL (81.0-99.0) 01/01/18 10:59 MCH 27.6 pg (27.0-31.0) 01/01/18 10:59 MCHC 32.4 g/dL (33.0-37.0) L 01/01/18 10:59 RDW 20.4 % (11.5-14.5) H 01/01/18 10:59 Plt Count 545 K/uL (130-400) H 01/01/18 10:59 MPV 9.2 fL (7.2-11.7) 01/01/18 10:59 Neut % (Auto) 32.5 % (50.0-75.0) L 01/01/18 10:59 Lymph % (Auto) 56.2 % (20.0-40.0) H 01/01/18 10:59 Tyrrell % (Auto) 8.2 % (0.0-10.0) 01/01/18 10:59 Eos % (Auto) 2.6 % (0.0-4.0) 01/01/18 10:59 Baso % (Auto) 0.5 % (0.0-2.0) 01/01/18 10:59 Neut # (Auto) 2.6 K/uL (1.8-7.0) 01/01/18 10:59 Lymph # (Auto) 4.5 K/uL (1.0-4.3) H 01/01/18 10:59 Tyrrell # (Auto) 0.7 K/uL (0.0-0.8) 01/01/18 10:59 Eos # (Auto) 0.2 K/uL (0.0-0.7) 01/01/18 10:59 Baso # (Auto) 0.0 K/uL (0.0-0.2) 01/01/18 10:59 Differential Comment 12/13/17 09:58 ESR 130 mm/hr (0-20) H 12/23/17 06:10 PT 13.2 SECONDS (9.7-12.2) H 12/22/17 23:54 INR 1.2 12/22/17 23:54 APTT 40 SECONDS (21-34) H 12/22/17 23:54 Puncture Site L rad 12/22/17 23:28 pCO2 37 mm/Hg (35-45) 12/22/17 23:28 pO2 126 mm/Hg (80-100) H 12/22/17 23:28 HCO3 29.3 mmol/L (21-28) H 12/22/17 23:28 ABG pH 7.50 (7.35-7.45) H 12/22/17 23:28 ABG Total CO2 30.0 mmol/L (22-28) H 12/22/17 23:28 ABG O2 Saturation 100.2 % (95-98) H 12/22/17 23:28 ABG Base Excess 5.5 mmol/L (-2.0-3.0) H 12/22/17 23:28 Gallo Test Pos 12/22/17 23:28 ABG Potassium 3.0 mmol/L (3.6-5.2) L 12/22/17 23:28 Sodium 137.0 mmol/l (132-148) 12/22/17 23:28 Chloride 103.0 mmol/L (98-107) 12/22/17 23:28 Glucose 231 mg/dl (65-105) H 12/22/17 23:28 Lactate 1.0 mmol/L (0.7-2.1) 12/22/17 23:28 Liter Flow 2.0 12/22/17 23:28 Sodium 139 mmol/L (132-148) 01/01/18 10:59 Potassium 4.1 mmol/L (3.6-5.2) 01/01/18 10:59 Chloride 99 mmol/L (98-107) 01/01/18 10:59 Carbon Dioxide 26 mmol/L (22-30) 01/01/18 10:59 Anion Gap 18 (10-20) 01/01/18 10:59 BUN 21 mg/dL (7-17) H 01/01/18 10:59 Creatinine 0.7 mg/dL (0.7-1.2) 01/01/18 10:59 Est GFR ( Amer) > 60 01/01/18 10:59 Est GFR (Non-Af Amer) > 60 01/01/18 10:59 POC Glucose (mg/dL) 325 mg/dL (65-110) H 01/02/18 10:48 Random Glucose 292 mg/dL (65-105) H 01/01/18 10:59 Lactic Acid 1.5 mmol/L (0.7-2.1) 12/22/17 23:54 Calcium 9.5 mg/dl (8.6-10.4) 01/01/18 10:59 Phosphorus 4.4 mg/dL (2.5-4.5) 12/30/17 07:39 Magnesium 1.9 mg/dL (1.6-2.3) 12/30/17 07:39 Iron 54 ug/dL (37-170) 12/23/17 06:12 TIBC 272 ug/dL (250-450) 12/23/17 06:12 % Saturation 20 (20-55) 12/23/17 06:12 Ferritin 370.0 ng/mL 12/23/17 06:12 Total Bilirubin 0.7 mg/dL (0.2-1.3) 12/30/17 07:39 AST 22 U/L (14-36) 12/30/17 07:39 ALT 19 U/L (9-52) 12/30/17 07:39 Alkaline Phosphatase 68 U/L (38-126) 12/30/17 07:39 C-Reactive Protein > 90.00 mg/L (0.0-9.9) H 12/15/17 06:39 NT-Pro-B Natriuret Pep 637 pg/mL (0-900) 12/22/17 23:54 Total Protein 7.1 g/dL (6.3-8.3) 12/30/17 07:39 Albumin 3.6 g/dL (3.5-5.0) 12/30/17 07:39 Globulin 3.5 gm/dL (2.2-3.9) 12/30/17 07:39 Albumin/Globulin Ratio 1.0 (1.0-2.1) 12/30/17 07:39 Amylase 59 U/L (30-110) 12/22/17 23:54 Lipase 114 U/L (23-300) 12/22/17 23:54 Arterial Blood Potassium 3.0 mmol/L (3.6-5.2) L 12/22/17 23:28 Random Vancomycin 19.4 ug/mL 12/29/17 11:17 B-Hydroxybutyrate 0.09 mM (0.02-0.27) 12/22/17 23:54 Blood Type B POSITIVE 12/17/17 07:02 Blood Type Confirm B POSITIVE 12/13/17 09:58 Antibody Screen Negative 12/17/17 07:02 - Hospital Course Hospital Course: Chief complaint: Abnormal blood test,severe anemia increasing pain History of present illness: 62-year-old female with history of diabetes, hypertension, peripheral vascular disease, status post angioplasty, stent placement in the left leg recently. Patient is currently on insulin treatment. Also had left the Midtarsal joint amputation, being treated with the accounting manager. Patient is currently complaining of severe back pain, radiating to the right leg. Patient is taking gabapentin Significant neuropathy noted. Patient is currently a multiple medications reviewed. Patient came to the office for days ago, at that time had blood test done, showing evidence of severe anemia, and I advised the patient to go to the hospital immediately. Patient now having pain severely increasing in the left lower extremity, and also pain medicine is not helping Patient is not eating well. Increasingly losing weight According to the family she had an episode of syncopal attack 2 days ago. But the patient did not go hospital at that time. Now having no chest pain. Denies any nausea but poor intake noted. Past medical history: Diabetes, hypertension, Peripheral vascular disease, left foot amputation, gangrene of the left foot Chronic pain syndrome, taking pain medicine. History of anemia. Surgical history: History of tonsillectomy.Midtarsal amputation, stent Family history: Father Very young. Mother with a secondary to diabetic complication. Patient has 4 kids and grandkids. 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 Current medications reviewed. Review of systems: Complaining of pain in the lower back, lower legs. Also complaining of pain in the left leg. No abdominal pain. No chest pain. Denies any headache or nausea vomiting. No GI symptoms. On examination: HEENT PERRLA, neck supple No thyromegaly was noted and no cervical adenopathy noted Chest bilateral good air entry, no wheezing or rales noted CVS regular heart sound, no murmur Abdomen soft and no organomegaly PAD CUTTER alert awake oriented Patient has bilateral peripheral vascular disease. Status post a stent in the left leg. Peripheral pulses are not palpable. Medications reviewed Labs reviewed WBC elevated Patient has a low hemoglobin EKG no evidence of ischemic changes. Assessment/admission: 61-year-old female with history diabetes, hypertension, Peripheral vascular disease,status post angioplasty stent placement. Tarsometatarsal amputation left leg. Peripheral vascular disease. Patient most likely has systemic sepsis, with elevated WBC, elevated platelets. Foul-smelling left amputation, The wound is not healthy. Infected stump. Severe anemia, Most likely related to chronic infection and inflammation.Diabetes poorly controlled diabetic neuropathy Peripheral vascular diseas Will get infectious diseas. Podiatric consultation Surgical consultation Possible amputation below-knee. Course in the Hospital: Patient admitted to the hospital with severe wound infection, cellulitis of the left foot stump. Patient also noted to have a severe anemia. Started on intravenous antibiotic as per the ID. Patient also started on blood transfusion. Surgical evaluation was called. Patient agreed for surgical intervention for possible left below-knee amputation. Patient underwent surgery on 4017. Postoperatively patient was doing well. But suddenly on 12/22/2017 patient developed a worsening WBC, intra-abdominal pain, and also portal vein pneumatosis noted. There was concern about ischemic bowel. Surgical evaluation again called. Patient was continuously receiving antibiotic IV fluid. Clinically improved without any surgical intervention. Patient is currently stable. Pain medication was slowly discontinued. Patient is currently feeling better. Vital signs stable. Medications especially antibiotic is off Clinical stable. Patient will be discharged home today. She will follow up as an outpatient. Patient will need in-home physical therapy. Discussed with the patient. She will continue medications which was discussed also. Final diagnoses ischemic leg. Ischemia peripheral vascular disease, status post intervention in the past. Left BKA Diabetes hypertension. Acute portal vein pneumatosis, suspected colitis. Will follow the patient. Discharge Exam - Head Exam Head Exam: ATRAUMATIC, NORMOCEPHALIC Discharge Plan - Discharge Medications Prescriptions: Glipizide [Glipizide ER] 10 mg PO DAILY #30 tab.er.24 Pregabalin [Lyrica] 25 mg PO BID #14 cap Metoprolol Succinate 50 mg PO DAILY #30 tab.er.24h Clopidogrel [Plavix] 75 mg PO DAILY #30 tab Acetaminophen with Codeine [Tylenol with Codeine #3 Tablet] 1 each PO Q8 PRN # 21 tablet PRN Reason: Pain, Severe (8-10) traMADol [Ultram] 25 mg PO TID PRN #21 tab PRN Reason: Pain, Moderate (4-7) - Follow Up Plan Condition: GOOD Disposition: HOME/ ROUTINE Instructions: Diabetes Exchange Diet, Wound Infection, Normocytic Normochromic Anemia (DC) Additional Instructions: -FOLLOW UP WITH DR. BEJARANO OR YOUR PRIMARY DOCTOR IN THE OFFICE WITHIN 1 WEEK ---CALL THE OFFICE TO MAKE YOUR APPOINTMENT. -FOLLOW UP DR. SANTANA (SURGEON) IN THE OFFICE IN 2 WEEKS (BY 01/16/18)---CALL THE OFFICE TOMORROW TO MAKE YOUR APPOINTMENT. -KEEP THE KNEE IMMOBILIZER ON AT ALL TIMES AND DO NOT REMOVE THE DRESSING TO YOUR SURGICAL SITE. ONCE YOU SEE DR. SANTANA IN THE OFFICE HE WILL DISCUSS FURTHER MANAGEMENT WITH YOU. -CONTINUE YOUR HOME MEDICATIONS USUAL. YOU HAVE BEEN REFILLED METOPROLOL, GLIPIZIDE ER, LIPITOR, PLAVIX, AND COZAAR. -NEW MEDICATIONS INCLUDE: 1) TYLENOL WITH CODEINE---TAKE 1 TABLET EVERY 8 HOURS ONLY IF YOU HAVE SEVERE PAIN. IF NO SEVERE PAIN THEN DO NOT TAKE. 2) LYRICA 25 MG---TAKE 1 CAPSULE TWICE A DAY (10:00 AM AND 6:00 PM). 3) TRAMADOL---TAKE 1 HALF TABLET UP TO 3 TIMES PER DAY ONLY IF YOU HAVE MODERATE PAIN. IF NO PAIN THEN DO NOT TAKE. -IF YOU HAVE ANY FURTHER QUESTIONS OR CONCERNS, CONTACT DR. BEJARANO OR DR. SANTANA. Referrals: Orlando Santana Jr., MD [Staff Provider] - Abbe Bejarano MD [Staff Provider] - Alissa Wiggins MD [Staff Provider] - Sarah Vegas DPM [Staff Provider] - Can Barr MD [Staff Provider] -
== END 2018-01-02 15:05 | disposition home or self-care (01) | DRG 240 ==
LOC: C.ER 09:12 → C.9E 11:09 → C.3T 12:17 → OBSVTOIN 12-15 14:52 → C.9I 12-23 00:36 → C.5S 12-25 05:47 → C.3T 12-27 16:18
PROVIDERS: ADMIT Internal Medicine; ATTEND Internal Medicine
PROC: 0Y6J0Z1 Detachment at Left Lower Leg, High, Open Approach (ICD-10-PCS; principal; 2017-12-17 13:00)
DX: E11.52 Type 2 diabetes mellitus with diabetic peripheral angiopathy with gangrene (principal); L03.116 Cellulitis of left lower limb; T87.44 Infection of amputation stump, left lower extremity; I70.262 Atherosclerosis of native arteries of extremities with gangrene, left leg; M86.172 Other acute osteomyelitis, left ankle and foot; E11.621 Type 2 diabetes mellitus with foot ulcer; E11.65 Type 2 diabetes mellitus with hyperglycemia; E11.43 Type 2 diabetes mellitus with diabetic autonomic (poly)neuropathy; D63.8 Anemia in other chronic diseases classified elsewhere; E78.00 Pure hypercholesterolemia, unspecified; E78.1 Pure hyperglyceridemia; E83.52 Hypercalcemia; G89.4 Chronic pain syndrome; I10 Essential (primary) hypertension; E11.628 Type 2 diabetes mellitus with other skin complications; E11.69 Type 2 diabetes mellitus with other specified complication; G89.18 Other acute postprocedural pain; L97.529 Non-pressure chronic ulcer of other part of left foot with unspecified severity; I25.10 Atherosclerotic heart disease of native coronary artery without angina pectoris; K31.84 Gastroparesis; K59.03 Drug induced constipation; Y83.5 Amputation of limb(s) as the cause of abnormal reaction of the patient, or of later complication, without mention of misadventure at the time of the procedure; Z79.4 Long term (current) use of insulin

== ENCOUNTER 2018-10-26 10:07 | Outpatient (CLI) | payer BC | END 2018-10-26 10:08 | disposition home or self-care (01) | LOC: C.LAB 10:07 | DX: E11.9 Type 2 diabetes mellitus without complications (principal) ==

== ENCOUNTER 2018-10-29 09:44 | Outpatient (CLI) | payer BC | END 2018-10-29 09:45 | disposition home or self-care (01) | LOC: C.VASC 09:45 ==

== ENCOUNTER 2018-11-01 08:55 | Outpatient (CLI) | payer BC | END 2018-11-01 08:56 | disposition home or self-care (01) | LOC: C.CTH 08:55 ==

== ENCOUNTER 2018-11-05 11:00 | Outpatient (CLI) | payer BC | END 2018-11-05 11:01 | disposition home or self-care (01) | LOC: C.PAT 11:00 ==

== ENCOUNTER 2018-11-13 06:13 | Day surgery (SDC) | payer BC ==
[2018-11-05 11:21] VITALS: BMI 26.5
[2018-11-13] MEDS ORDERED: Midazolam 2 MG/2 ML VIAL ONE (08:16)
[2018-11-13] MEDS ORDERED: Propofol 10 mg/ml Inj (20 ML) ONE (08:17)
[2018-11-13] MEDS ORDERED: Iodixanol 320 MG/ML 100 ML BOTTLE IV ONE (08:29)
[2018-11-13] MEDS ORDERED: Nitroglycerin 50mg in D5W 0 MG/0 ML BOTTLE IV ONE (08:29)
[2018-11-13] MEDS ORDERED: Iodixanol 320 MG/ML 200 ML BOTTLE IV ONE (08:31)
[2018-11-13] MEDS ORDERED: Lidocaine 1% 20 MG/2 ML PF AMP ONE ×2 (08:33→08:34)
[2018-11-13] MEDS ORDERED: Lidocaine Hydrochloride 10 ML INJ ONE (08:41)
--- NOTE | 2018-11-13 09:17 | PCM.SURG1 ---
Surgeon's Initial Post Op Note - Surgeon's Notes Surgeon: kristine Nursing Assistants Teacher: 0 Type of Anesthesia: IV Sedation Anesthesia Administered By: narcisa Pre-Operative Diagnosis: rest pain r foot Operative Findings: severe tibial disease. over 50% right renal artery stenosis Post-Operative Diagnosis: same Operation Performed: aortofemoral angiogram via left groin. selective catherization of right femoral artery. mynx closure left groin. no intervention Specimen/Specimens Removed: 0 Estimated Blood Loss: EBL {In ML}: 10 Blood Products Given: N/A Drains Used: No Drains Post-Op Condition: Good Date of Surgery/Procedure: 11/13/18 Time of Surgery/Procedure: 09:17
--- NOTE | 2018-11-13 20:55 | OP ---
PROCEDURE DATE: 11/13/2018 PREOPERATIVE DIAGNOSIS: Rest pain, right foot. POSTOPERATIVE DIAGNOSIS: Rest pain, right foot. PROCEDURE CARRIED OUT: Aortofemoral angiogram via left groin with selective catheterization of right femoral artery. No intervention. SURGEON: Orlando Hernández Jr., MD EVISCERATOR: None. ANESTHESIOLOGIST: Julio César Krueger CRNA INDICATIONS: The patient is a 63-year-old woman with previous left below knee amputation, presents with increasing pain in the right foot. OPERATIVE FINDINGS: The aorta was free of significant occlusive disease. The right renal artery had approximately 50% stenosis soon after its origin. The left side has had no significant stenosis. Both common iliac, internal iliac, external iliac arteries were free of significant occlusive disease. Both common femoral arteries, superficial femoral arteries, and profunda femoris arteries were widely patent. On the left side, there is previous below knee amputation. We did not take detailed films below the level of the knee. On the right side, the trifurcation was intact. Below this, there is severe tibial disease, there is only a wisp of a dorsalis pedis distally. The anterior tibial occluded soon after its origin reconstituting segment. These were widely segregated and there did not appear direct continuity into the remnant of the dorsalis pedis. Because of this, no intervention was undertaken. The posterior tibial and peroneal arteries were atretic. Based on the findings, no other intervention was undertaken. Initially, we had taken the pictures from the level of the aortic bifurcation; however, at certain point we went over the aortic bifurcation, selectively placed a catheter into the origin of the superficial femoral artery and then took selective pictures from this point onwards. A Mynx closure device was then deployed in the left groin. Blood loss for the entire procedure was less than 10 mL. Operation carried out is aortofemoral angiogram with selective catheterization of right femoral artery. No intervention was undertaken. Orlando Hernández Jr., MD
== END 2018-11-13 13:15 | disposition home or self-care (01) ==
LOC: C.SPRAD 06:13
PROVIDERS: ATTEND Surgery Vascular Surgery
DX: I73.9 Peripheral vascular disease, unspecified (principal); M79.671 Pain in right foot; Z89.512 Acquired absence of left leg below knee
CPT/HCPCS: 36247; 75625; 75716; 75774; 76937; 82948; C1760; C1766; C1769; J1644; J2001; J2250; J2704; J3010; Q9966; Q9967

== ENCOUNTER 2018-12-03 12:18 | Outpatient (CLI) | payer BC | END 2018-12-03 12:19 | disposition home or self-care (01) | LOC: C.RADH 12:18 | DX: E11.621 Type 2 diabetes mellitus with foot ulcer (principal); L97.519 Non-pressure chronic ulcer of other part of right foot with unspecified severity ==

== ENCOUNTER 2018-12-11 14:13 | Outpatient (CLI) | payer BC | END 2018-12-11 14:14 | disposition home or self-care (01) | LOC: C.MRIC 14:13 ==